=== PATIENT | male | born 1985 | race Two or more races ===

== ENCOUNTER 2020-07-13 08:59 | Inpatient (IN) | payer MEDICAID, OTHER ==
[~2020-07-13] VITALS: Ht 167.6 cm; Wt 113.8 kg
[2020-07-13] VITALS (11 sets, daily range): BP systolic 75–201; BP diastolic 51–121
[2020-07-13 09:17] LABS: BASE EXCESS COOX 0 mmol/L (-3-3); HCO3 COOX 24 mmol/L (21-28); METHEMOGLOBIN 0.3 % (0.0-1.9); PCO2 COOX 39 mmHg (35-46); PO2 COOX 64 mmHg (85-108); SAT O2 COOX 93 % (92-99)
--- NOTE | 2020-07-13 09:24 | PHYS DOC ---
Past Medical History Past Medical History: No Pertinent History Smoking Status: Current Every Day Smoker Alcohol Use: None Drug Use: None General Adult EDM: Chief Complaint: DYSPNEA/RESPIRATOY DISTRESS HPI: HPI: Patient is a 35 year old presents with chief complaint of respiratory distress. Patient tested positive for Covid about 6 days ago. Patient had a fever, chills, cough, myalgias and headache. Patient had abdominal discomfort with diarrhea. Over the last day the patient became more short of breath. Patient had trouble sleeping and was satting 65% on room air in triage. Symptoms worse with activity and at night and somewhat better with taking Tylenol. Pain is described as a cramping discomfort and diffuse. Review of Systems: Review of Systems: Constitutional: Denies fever or chills. [] Eyes: Denies change in visual acuity. [] HENT: Complains of congestion and sore throat Respiratory: Complains of cough and shortness of breath Cardiovascular: Complains of chest tightness GI: Complains of abdominal pain with diarrhea : Denies dysuria. [] Musculoskeletal: Complains of diffuse myalgias Integument: Denies rash. [] Neurologic: Complains of headache but no, focal weakness or sensory changes. [] Endocrine: Denies polyuria or polydipsia. [] Lymphatic: Denies swollen glands. [] Psychiatric: Denies depression or anxiety. [] Heart Score: Risk Factors: Risk Factors: DM, Current or recent (<one month) smoker, HTN, HLP, family history of CAD, obesity. Risk Scores: Score 0 - 3: 2.5% MACE over next 6 weeks - Discharge Home Score 4 - 6: 20.3% MACE over next 6 weeks - Admit for Clinical Observation Score 7 - 10: 72.7% MACE over next 6 weeks - Early Invasive Strategies Current Medications: Current Medications Medications (Trade) Dose Ordered Sig/Sola Start Time Stop Time Status Last Admin Dose Admin Acetaminophen (Tylenol) 1,000 mg 1X ONCE 07/13/20 09:30 07/13/20 09:31 UNV Azithromycin 250 ml @ 250 mls/hr 1X ONCE 07/13/20 09:30 07/13/20 10:29 UNV Ceftriaxone Sodium (Rocephin) 1 gm 1X ONCE 07/13/20 09:30 07/13/20 09:31 UNV Dexamethasone Sodium Phosphate (Decadron) 6 mg 1X ONCE 07/13/20 09:30 07/13/20 09:31 UNV Sodium Chloride 1,000 ml @ 1,000 mls/hr 1X ONCE 07/13/20 09:30 07/13/20 10:29 UNV Physical Exam: PE: Constitutional: Well developed, well nourished, moderate respiratory distress HENT: Normocephalic, atraumatic, bilateral external ears normal, no trismus nose normal. [] Eyes: PERRLA, EOMI, conjunctiva normal, no discharge. [] Neck: Normal range of motion, no tenderness, no meningeal signs Cardiovascular:Heart rate regular rhythm, peripheral pulse intact cap refills less than 2 seconds Lungs & Thorax: Moderate respiratory distress, decreased breath sounds bilaterally Abdomen: Soft with mild left sided abdominal tenderness without guarding or rebound, no masses, no pulsatile masses. [] Skin: Warm, dry, no erythema, no rash. [] Back: No tenderness, no CVA tenderness. [] Extremities: No tenderness, no cyanosis, no clubbing, ROM intact, mild bilateral extremity edema Neurologic: Alert and oriented X 3, normal motor function, normal sensory function, no focal deficits noted. [] Psychologic: Affect normal, judgement normal, mood normal. [] Current Patient Data: Labs: Laboratory Tests Test 07/13/20 09:16 O2 Saturation 93 % (92-99) Arterial Blood pH 7.42 (7.35-7.45) Arterial Blood pCO2 at Patient Temp 39 mmHg (35-46) Arterial Blood pO2 at Patient Temp 64 mmHg (85-108) L Arterial Blood HCO3 24 mmol/L (21-28) Arterial Blood Base Excess 0 mmol/L (-3-3) Oxyhemoglobin 92.0 % Methemoglobin 0.3 % (0.0-1.9) Carbon Monoxide, Quantitative 0.5 % (0.0-1.9) FiO2 100 Vital Signs: Vital Signs Date Time Temp Pulse Resp B/P (MAP) Pulse Ox O2 Delivery O2 Flow Rate FiO2 07/13/20 11:11 108/59 (75) VAPOTHERM 07/13/20 10:35 98 104/51 (68) 92 VAPOTHERM 07/13/20 10:09 98 24 112/59 (76) 96 VAPOTHERM 07/13/20 09:45 100 VAPOTHERM 40.0 07/13/20 09:35 104 45 119/56 (77) 92 07/13/20 08:59 99.4 111 40 136/73 (94) 57 Room Air 99.4 EKG: EKG: [] EKG interpreted by me sinus tachycardia with a rate of 104 normal axis normal intervals nonspecific ST changes Radiology/Procedures: Radiology/Procedures: [][place] [id number] IMAGING REPORT Signed PATIENT: CORKY NEELY ACCOUNT: [id number] : 1985 LOCATION: ER AGE: 35 SEX: M EXAM STATUS: REG ER ORD. PHYSICIAN: DAISY HANNA MD REASON: SOA, COVID PROCEDURE: PORTABLE CHEST 1V EXAM: XR CHEST 1V INDICATION: Reason: SOA, COVID / Spl. Instructions: / History: . TECHNIQUE: Single view COMPARISON: None FINDINGS: The heart size is normal. The great vessels appear unremarkable. There is no hilar or mediastinal mass. Lungs show extensive patchy peripheral predominant ill-defined opacities bilaterally. There is no pleural effusion or pneumothorax. There are no significant osseous abnormalities. IMPRESSION: Radiographic findings compatible with extensive atypical pneumonia bilaterally. Electronically signed by: Jackie Britt MD (07/13/2020 9:31 AM) [id number] DICTATED and SIGNED BY: JACKIE BRITT MD DATE: 07/13/20 [id number] [address] [address] IMAGING REPORT Signed PATIENT: CORKY NEELY ACCOUNT: [id number] : 1985 LOCATION: ED HOLD AGE: 35 SEX: M EXAM STATUS: ADM IN ORD. PHYSICIAN: DAISY HANNA MD REASON: soa, +covid, +d dimer PROCEDURE: CT ANGIOGRAPHY CHEST Study: CT CHEST WITH CONTRAST - PULMONARY ANGIOGRAM History: Covid positive, shortness of breath, elevated d-dimer Comparison: Chest radiograph same day Technique: Helical CT of the chest performed after the administration of 100 mL Omnipaque 350 intravenous contrast and timed for angiographic evaluation of the pulmonary arteries per PE protocol. Coronal and sagittal 3D MIP reformations were obtained. One or more of the following individualized dose reduction techniques were utilized for this examination: 1. Automated exposure control 2. Adjustment of the mA and/or kV according to patient size 3. Use of iterative reconstruction technique. Findings: Pulmonary Arteries: Contrast bolus is adequate to evaluate through the proximal to mid segmental pulmonary artery. Mild motion artifact. No evidence of acute pu lmonary embolism. Heart/Systemic Vasculature: The heart is normal in size. There is no pericardial effusion. Thoracic aorta is normal in caliber. Mediastinum: Enlarged mediastinal and hilar lymph nodes are likely reactive. Lungs: Extensive, fairly confluent groundglass opacities throughout both lungs, greatest peripherally and in the lung bases. The airways are clear. No pleural effusion. Neck/Axilla/Body Wall: Unremarkable. No axillary lymphadenopathy. Upper Abdomen: Unremarkable. Bones: No acute abnormality. IMPRESSION: 1. No evidence of acute pulmonary embolism. Evaluation of distal pulmonary arteries is limited by motion artifact. 2. Extensive, fairly confluent groundglass opacities throughout both lungs, slightly peripheral and basilar predominance. This could be seen with severe multifocal pneumonia and/or ARDS. Electronically signed by: Lucinda Cespedes MD (07/13/2020 11:33 AM) [id number] DICTATED and SIGNED BY: LUCINDA CESPEDES MD DATE: 07/13/20 [id number] 0 Course & Med Decision Making: Course & Med Decision Making Pertinent Labs and Imaging studies reviewed. (See chart for details) [] Patient immediately brought back to room 22 and put in isolation. Patient placed on nonrebreather and sats came up to the 90s. Respiratory evaluated patient order put the patient on Vapotherm. Steroids and antibiotics have been ordered. Dr. Lenz was in the ER upon patient's initial arrival I discussed the case with him he will admit him to the ICU. 35-year-old male presents with hypoxic respiratory failure from COVID-19. Patient significantly improved after being placed on Vapotherm. Chest x-ray shows multifocal pneumonia. Blood gas shows significant hypoxia. Patient will need ICU care. Patient given steroids in the ER as well as fluids and antibiotics. Consult is been placed with pulmonary as well as infectious disease. Patient has elevated D-dimer and will undergo a CT angiogram to rule out pulmonary embolism. Critical care Critical care time was [40] minutes exclusive of procedures. Critical care time was [40] minutes which includes time at bedside, spent in discussion of patient's care with specialist and/or family members, with interpretation of laboratory and/or radiological studies and is exclusive of procedures. Critical condition: Hypoxic respiratory failure due to COVID-19 Critical interventions, Vapotherm, oxygen therapy, steroids, admission to ICU with multiple consults. Dragon Disclaimer: Dragon Disclaimer: This electronic medical record was generated, in whole or in part, using a voice recognition dictation system. Departure Departure Impression: Primary Impression: Acute hypoxemic respiratory failure due to severe acute respiratory syndrome coronavirus 2 (SARS-CoV-2) disease Additional Impression: Dyspnea Disposition: 09 ADMITTED INPT THIS HOSP Admitting Physician: EDISON MO) Condition: CRITICAL Referrals: NO PCP (PCP) DAISY HANNA MD Jul 13, 2020 09:24
[2020-07-13] MEDS ORDERED: cefTRIAXone IV Push 1 GM VIAL. IVP ONE ×2 (09:28→09:30)
[2020-07-13] MEDS ORDERED: AZITHRMYCN 500MG IVPB FOR OMNI 250 ML IV ONE ×2 (09:28→09:30)
[2020-07-13] MEDS ORDERED: DEXAMETHASONE SOD PHOS 4 MG/ML VIAL ONE (09:28)
[2020-07-13] MEDS ORDERED: IV NORMAL SALINE 1000ML BAG 1,000 ML IV ONE ×2 (09:30→11:00)
[2020-07-13] MEDS ORDERED: ACETAMINOPHEN 500 MG TABLET PO ONE (09:30)
[2020-07-13] MEDS ORDERED: DEXAMETHASONE SOD PHOS 20 MG/5 ML VIAL. IV ONE (09:30)
--- NOTE | 2020-07-13 09:33 | RAD ---
EXAM: XR CHEST 1V INDICATION: Reason: SOA, COVID / Spl. Instructions: / History: . TECHNIQUE: Single view COMPARISON: None FINDINGS: The heart size is normal. The great vessels appear unremarkable. There is no hilar or mediastinal mass. Lungs show extensive patchy peripheral predominant ill-defined opacities bilaterally. There is no pleural effusion or pneumothorax. There are no significant osseous abnormalities. IMPRESSION: Radiographic findings compatible with extensive atypical pneumonia bilaterally. Electronically signed by: Naldo Britt MD (07/13/2020 9:31 AM) [id number]
--- NOTE | 2020-07-13 09:41 | EKG ---
[facility] [address] [place] [address] Test Date: 2020-07-13 Test Time: 09:12:29 Pat Name: CORKY NEELY Department: Room: Gender: M [employer]: : 1985 Requested By: DAISY HANNA Order Number: [id number] Reading MD: Measurements Intervals [place] Rate: 104 P: 26 MI: 136 QRS: 38 QRSD: 94 T: 17 QT: 330 QTc: 440 Interpretive Statements SINUS TACHYCARDIA LEFT ATRIAL ABNORMALITY QRS(T) CONTOUR ABNORMALITY CONSIDER ANTEROSEPTAL MYOCARDIAL DAMAGE ABNORMAL ECG RI6.01 No previous ECG available for comparison
[2020-07-13] MEDS ORDERED: DEXAMETHASONE SOD PHOS 4 MG/ML VIAL IVP ONE (09:45)
[2020-07-13] MEDS ORDERED: ONDANSETRON PF 4 MG/2 ML VIAL. IV PRN (09:45)
[2020-07-13] MEDS ORDERED: IOHEXOL 350 MG/ML 100 ML VIAL. IV ONE (10:15)
[2020-07-13] MEDS ORDERED: CONTRAST GIVEN. MC PRN (10:30)
[2020-07-13 10:37] LABS: ALBUMIN 1.5 g/dL (3.4-5.0); ALBUMIN/GLOBULIN RATIO 0.5 (1.0-1.7); CREATININE 0.5 mg/dL (0.7-1.3); GFR 188.1; TOTAL BILIRUBIN 0.2 mg/dL (0.2-1.0); TOTAL PROTEIN 4.6 g/dL (6.4-8.2)
[2020-07-13 10:40] LABS: CALCIUM 5.7 mg/dL (8.5-10.1); POTASSIUM 2.6 mmol/L (3.5-5.1)
[2020-07-13] MEDS ORDERED: POTASSIUM CHLORIDE 20MEQ 100 ML IV SCH (10:45)
[2020-07-13 10:54] LABS: MAGNESIUM 1.2 mg/dL (1.8-2.4); PHOSPHORUS 1.7 mg/dL (2.6-4.7)
[2020-07-13 11:08] LABS: BASO % 0 % (0-3); EOS % 0 % (0-3); HEMATOCRIT 35.3 % (39.0-53.0); HEMOGLOBIN 11.7 g/dL (13.0-17.5); LYMPH # 0.7 x10^3/uL (1.0-4.8); LYMPH % 8 % (24-48); MEAN CORPUSCULAR HEMOGLOBIN 27 pg (25-35); MEAN CORPUSCULAR HGB CONC 33 g/dL (31-37); MEAN CORPUSCULAR VOLUME 82 fL (79-100); MONO # 0.2 x10^3/uL (0.0-1.1); MONO % 2 % (0-9); NEUT # 7.9 x10^3/uL (1.8-7.7); NEUT % 90 % (31-73); PLATELET COUNT 164 x10^3/uL (140-400); RED BLOOD COUNT 4.33 x10^6/uL (4.30-5.70); RED CELL DISTRIBUTION WIDTH 15.1 % (11.5-14.5); WHITE BLOOD COUNT 8.8 x10^3/uL (4.0-11.0)
[2020-07-13 11:09] LABS: D-DIMER 0.73 ug/mlFEU (0.00-0.50); PROTHROMBIN TIME PATIENT 16.3 SEC (11.7-14.0)
[2020-07-13] MEDS ORDERED: POTASSIUM CHLORIDE 20 MEQ TABLET.ER. PO ONE (11:15)
[2020-07-13] MEDS: POTASSIUM CHLORIDE 10MEQ 100 ML IV SCH ×4 (11:21→17:17)
[2020-07-13 11:28] LABS: BILIRUBIN,URINE SMALL (NEG); CLARITY,URINE CLOUDY; COLOR,URINE ORANGE; NITRITE,URINE NEGATIVE (NEG); PH,URINE 5.5 (<5.0-8.0); PROTEIN,URINE >=300 mg/dL (NEG-TRACE)
[2020-07-13] MEDS ORDERED: MAGNESIUM SULFATE 2GM 50 ML IV ONE ×2 (11:30→12:30)
--- NOTE | 2020-07-13 11:35 | RAD ---
Study: CT CHEST WITH CONTRAST - PULMONARY ANGIOGRAM History: Covid positive, shortness of breath, elevated d-dimer Comparison: Chest radiograph same day Technique: Helical CT of the chest performed after the administration of 100 mL Omnipaque 350 intrav enous contrast and timed for angiographic evaluation of the pulmonary arteries per PE protocol. Coron al and sagittal 3D MIP reformations were obtained. One or more of the following individualized dose reduction techniques were utilized for this examinat ion: 1. Automated exposure control 2. Adjustment of the mA and/or kV according to patient size 3. Use of iterative reconstruction technique. Findings: Pulmonary Arteries: Contrast bolus is adequate to evaluate through the proximal to mid segmental pulm onary artery. Mild motion artifact. No evidence of acute pulmonary embolism. Heart/Systemic Vasculature: The heart is normal in size. There is no pericardial effusion. Thoracic a lidia is normal in caliber. Mediastinum: Enlarged mediastinal and hilar lymph nodes are likely reactive. Lungs: Extensive, fairly confluent groundglass opacities throughout both lungs, greatest peripherally and in the lung bases. The airways are clear. No pleural effusion. Neck/Axilla/Body Wall: Unremarkable. No axillary lymphadenopathy. Upper Abdomen: Unremarkable. Bones: No acute abnormality. IMPRESSION: 1. No evidence of acute pulmonary embolism. Evaluation of distal pulmonary arteries is limited by mo tion artifact. 2. Extensive, fairly confluent groundglass opacities throughout both lungs, slightly peripheral and basilar predominance. This could be seen with severe multifocal pneumonia and/or ARDS. Electronically signed by: Lucinda Cespedes MD (07/13/2020 11:33 AM) [id number]
[2020-07-13 11:45] LABS: BACTERIA,URINE FEW /HPF (0-FEW); RBC,URINE OCC /HPF (0-2)
[2020-07-13] MEDS ORDERED: CALCIUM GLUCONATE 1,000 MG in IV NORMAL SALINE 100ML 100 ML IV ONE (11:45)
[2020-07-13 11:46] LABS: HYALINE CASTS, URINE MODERATE /HPF
[2020-07-13 11:55] LABS: % ATYL 1 % (0-0); % BANDS 29 % (0-9); % LYMPHS 11 % (24-48); % MONOS 1 % (0-10); % SEGS 58 % (35-66)
[2020-07-13 11:57] LABS: PLT ESTIMATE ADEQUATE (ADEQUATE)
--- NOTE | 2020-07-13 12:24 | PDOC1 ---
History and Physical Date of Service: DOS: DATE: 07/13/20 TIME: 12:20 Chief Complaint: Chief Complain: Shortness of breath History of Present Illness: HPI: 35 year old presents with chief complaint of respiratory distress. Patient tested positive for Covid about 6 days ago. Patient had a fever, chills, cough, myalgias and headache. Patient had abdominal discomfort with diarrhea. Over the last day the patient became more short of breath. Patient had trouble sleeping and was satting 65% on room air in triage. Symptoms worse with activity and at night and somewhat better with taking Tylenol. Pain is described as a cramping discomfort and diffuse Past Medical/Surgical History: PMH/PSH: No past medical or surgical history Allergies: Allergies: Coded Allergies: No Known Drug Allergies (Unverified , 07/13/20) Family History: Family History: Reviewed and with no relevant findings Social History: Social History: Current every day smoker Current Medications: Current Medications Current Medications Dexamethasone Sodium Phosphate (Decadron) 6 mg 1X ONCE IV ; Start 07/13/20 at 09:30; Stop 07/13/20 at 09:39; Status DC Ceftriaxone Sodium (Rocephin) 1 gm 1X ONCE IVP Last administered on 07/13/20at 09:36; Start 07/13/20 at 09:30; Stop 07/13/20 at 09:31; Status DC Azithromycin 250 ml @ 250 mls/hr 1X ONCE IV Last administered on 07/13/20at 09:37; Start 07/13/20 at 09:30; Stop 07/13/20 at 10:29; Status DC Sodium Chloride 1,000 ml @ 1,000 mls/hr 1X ONCE IV Last administered on 07/13/20at 09:36; Start 07/13/20 at 09:30; Stop 07/13/20 at 10:29; Status DC Acetaminophen (Tylenol) 1,000 mg 1X ONCE PO Last administered on 07/13/20at 09:36; Start 07/13/20 at 09:30; Stop 07/13/20 at 09:31; Status DC Dexamethasone Sodium Phosphate (Decadron) 4 mg STK-MED ONCE .ROUTE ; Start 07/13/20 at 09:28; Stop 07/13/20 at 09:28; Status DC Azithromycin 250 ml @ As Directed STK-MED ONCE IV ; Start 07/13/20 at 09:28; Stop 07/13/20 at 09:28; Status DC Ceftriaxone Sodium (Rocephin) 1 gm STK-MED ONCE IVP ; Start 07/13/20 at 09:28; Stop 07/13/20 at 09:28; Status DC Dexamethasone Sodium Phosphate (Decadron) 6 mg 1X ONCE IVP Last administered on 07/13/20at 09:42; Start 07/13/20 at 09:45; Stop 07/13/20 at 09:46; Status DC Ondansetron HCl (Zofran) 4 mg PRN Q8HRS PRN IV NAUSEA/VOMITING; Start 07/13/20 at 09:45; Stop 07/14/20 at 09:44 Enoxaparin Sodium (Lovenox 120mg Syringe) 110 mg 1X ONCE SQ Last administered on 07/13/20at 10:14; Start 07/13/20 at 10:15; Stop 07/13/20 at 10:16; Status DC Iohexol (Omnipaque 350 Mg/ml) 100 ml 1X ONCE IV Last administered on 07/13/20at 10:15; Start 07/13/20 at 10:15; Stop 07/13/20 at 10:16; Status DC Info (CONTRAST GIVEN -- Rx MONITORING) 1 each PRN DAILY PRN MC SEE COMMENTS; Start 07/13/20 at 10:30; Stop 07/15/20 at 10:29 Potassium Chloride (Klor-Con) 40 meq 1X ONCE PO Last administered on 06/25 at 11:20; Start 07/13/20 at 11:15; Stop 07/13/20 at 11:16; Status DC Potassium Chloride/Water 100 ml @ 100 mls/hr Q1H IV ; Start 07/13/20 at 10:45; Stop 07/13/20 at 10:46; Status DC Potassium Chloride/Water 100 ml @ 100 mls/hr Q1H IV Last administered on 07/13/20at 11:21; Start 07/13/20 at 11:30; Stop 07/13/20 at 15:29 Sodium Chloride 1,000 ml @ 125 mls/hr 1X ONCE IV Last administered on 07/13/20at 11:26; Start 07/13/20 at 11:00; Stop 07/13/20 at 18:59 Calcium Gluconate 1000 mg/Sodium Chloride 110 ml @ 220 mls/hr 1X ONCE IV Last administered on 07/13/20at 11:51; Start 07/13/20 at 11:45; Stop 07/13/20 at 12:14; Status DC Magnesium Sulfate 50 ml @ 25 mls/hr 1X ONCE IV ; Start 07/13/20 at 11:30; Stop 07/13/20 at 13:29 ROS: Review of Systems Review of System REVIEW OF SYSTEMS: GENERAL: Denies weakness SKIN: No bruising, hair changes or rashes. EYES: No blurred, double or loss of vision. NOSE AND THROAT: No history of nosebleeds, hoarseness or sore throat. HEART: No history of palpitations, chest pain or shortness of breath on exertion. LUNGS: Denies cough, hemoptysis, wheezing or shortness of breath. GASTROINTESTINAL: Denies changes in appetite, nausea, vomiting, diarrhea or constipation. GENITOURINARY: No history of frequency, urgency, hesitancy or nocturia. NEUROLOGIC: Denies history of numbness, tingling, or tremor. PSYCHIATRIC: No history of panic, anxiety or depression. ENDOCRINE: No history of heat or cold intolerance, polyuria or polydipsia. EXTREMITIES: Denies joint pain, pain on walking or stiffness. Physical Exam: Vital Signs: Vital Signs Date Time Temp Pulse Resp B/P (MAP) Pulse Ox O2 Delivery O2 Flow Rate FiO2 07/13/20 11:41 98 104/60 (75) VAPOTHERM 07/13/20 10:35 92 07/13/20 10:09 24 07/13/20 09:45 40.0 07/13/20 08:59 99.4 99.4 Physcial Exam: GEN: No apparent distress. Alert and oriented HEENT: Normal cephalic, atraumatic, external auditory canals are patent EYES: Extraocular muscles are intact, pupil are equally round and reactive to light and accommodation MUSCULOSKELETAL: Well developed , well nourished, good range of motion ENDOCRINE: No thyromegaly was palpated LYMPHATICS: No cervical chain or axillary nodes were noted HEMATOPOIETIC: No bruising NECK: Supple, no JVD, no thyromegaly was noted LUNGS: Clear to auscultation in all lung chang without rhonchi or wheezing HEART: RRR, S!, S2 present. Peripheral pulses intact, no obvious murmurs noted ABDOMEN: Soft, nontender. Positive bowel sounds, no organomegaly, normal bowel sounds EXTREMITIES: Without clubbing, cyanosis, or edema. Pedal pulses intact. Negative Homans sign NEUROLOGIC: Normal speech and tone. A&O x 3, moves all extremities, no obvious focal deficits PSYCHIATRIC: Normal affect, normal mood. Stable SKIN: No ulcerations or rashes, good skin turgor, no jaundice VASCULAR: Good capillary refill, neurovascular bundle appears to be intact Labs: Labs: Laboratory Tests Test 07/13/20 09:16 07/13/20 09:50 07/13/20 11:00 O2 Saturation 93 % (92-99) Arterial Blood pH 7.42 (7.35-7.45) Arterial Blood pCO2 at Patient Temp 39 mmHg (35-46) Arterial Blood pO2 at Patient Temp 64 mmHg (85-108) Arterial Blood HCO3 24 mmol/L (21-28) Arterial Blood Base Excess 0 mmol/L (-3-3) Oxyhemoglobin 92.0 % Methemoglobin 0.3 % (0.0-1.9) Carbon Monoxide, Quantitative 0.5 % (0.0-1.9) FiO2 100 White Blood Count 8.8 x10^3/uL (4.0-11.0) Red Blood Count 4.33 x10^6/uL (4.30-5.70) Hemoglobin 11.7 g/dL (13.0-17.5) Hematocrit 35.3 % (39.0-53.0) Mean Corpuscular Volume 82 fL (79-100) Mean Corpuscular Hemoglobin 27 pg (25-35) Mean Corpuscular Hemoglobin Concent 33 g/dL (31-37) Red Cell Distribution Width 15.1 % (11.5-14.5) Platelet Count 164 x10^3/uL (140-400) Neutrophils (%) (Auto) 90 % (31-73) Lymphocytes (%) (Auto) 8 % (24-48) Monocytes (%) (Auto) 2 % (0-9) Eosinophils (%) (Auto) 0 % (0-3) Basophils (%) (Auto) 0 % (0-3) Neutrophils # (Auto) 7.9 x10^3/uL (1.8-7.7) Lymphocytes # (Auto) 0.7 x10^3/uL (1.0-4.8) Monocytes # (Auto) 0.2 x10^3/uL (0.0-1.1) Eosinophils # (Auto) 0.0 x10^3/uL (0.0-0.7) Basophils # (Auto) 0.0 x10^3/uL (0.0-0.2) Segmented Neutrophils % 58 % (35-66) Band Neutrophils % 29 % (0-9) Lymphocytes % 11 % (24-48) Atypical Lymphocytes % (Manual) 1 % (0-0) Monocytes % 1 % (0-10) Platelet Estimate Adequate (ADEQUATE) Prothrombin Time 16.3 SEC (11.7-14.0) Prothromb Time International Ratio 1.4 (0.8-1.1) Activated Partial Thromboplast Time 41 SEC (24-38) D-Dimer (Hannah) 0.73 ug/mlFEU (0.00-0.50) Sodium Level 140 mmol/L (136-145) Potassium Level 2.6 mmol/L (3.5-5.1) Chloride Level 105 mmol/L (98-107) Carbon Dioxide Level 20 mmol/L (21-32) Anion Gap 15 (6-14) Blood Urea Nitrogen 7 mg/dL (8-26) Creatinine 0.5 mg/dL (0.7-1.3) Estimated GFR (Cockcroft-Gault) 188.1 BUN/Creatinine Ratio 14 (6-20) Glucose Level 174 mg/dL (70-99) Lactic Acid Level 1.4 mmol/L (0.4-2.0) Calcium Level 5.7 mg/dL (8.5-10.1) Phosphorus Level 1.7 mg/dL (2.6-4.7) Magnesium Level 1.2 mg/dL (1.8-2.4) Ferritin 153 ng/mL (26-388) Total Bilirubin 0.2 mg/dL (0.2-1.0) Aspartate Amino Transf (AST/SGOT) 50 U/L (15-37) Alanine Aminotransferase (ALT/SGPT) 27 U/L (16-63) Alkaline Phosphatase 58 U/L (46-116) Lactate Dehydrogenase 435 U/L (85-227) Troponin I Quantitative < 0.017 ng/mL (0.000-0.055) C-Reactive Protein, Quantitative 178.0 mg/L (0-3.3) HH-Kju-J-Type Natriuretic Peptide 50 pg/mL (0-124) Total Protein 4.6 g/dL (6.4-8.2) Albumin 1.5 g/dL (3.4-5.0) Albumin/Globulin Ratio 0.5 (1.0-1.7) Procalcitonin 0.68 ng/mL (0.00-0.10) Urine Collection Type Void Urine Color Gary Urine Clarity Cloudy Urine pH 5.5 (<5.0-8.0) Urine Specific [place] >=1.030 (1.000-1.030) Urine Protein >=300 mg/dL (NEG-TRACE) Urine Glucose (UA) 100 mg/dL (NEG) Urine Ketones (Stick) Trace mg/dL (NEG) Urine Blood Negative (NEG) Urine Nitrite Negative (NEG) Urine Bilirubin Small (NEG) Urine Urobilinogen Dipstick 1.0 mg/dL (0.2 mg/dL) Urine Leukocyte Esterase Trace (NEG) Urine RBC Occ /HPF (0-2) Urine WBC 5-10 /HPF (0-4) Urine Squamous Epithelial Cells Few /LPF Urine Bacteria Few /HPF (0-FEW) Urine Hyaline Casts Moderate /HPF Urine Mucus Mod /LPF Laboratory Tests Test 07/13/20 09:16 07/13/20 09:50 07/13/20 11:00 O2 Saturation 93 % (92-99) Arterial Blood pH 7.42 (7.35-7.45) Arterial Blood pCO2 at Patient Temp 39 mmHg (35-46) Arterial Blood pO2 at Patient Temp 64 mmHg (85-108) Arterial Blood HCO3 24 mmol/L (21-28) Arterial Blood Base Excess 0 mmol/L (-3-3) Oxyhemoglobin 92.0 % Methemoglobin 0.3 % (0.0-1.9) Carbon Monoxide, Quantitative 0.5 % (0.0-1.9) FiO2 100 White Blood Count 8.8 x10^3/uL (4.0-11.0) Red Blood Count 4.33 x10^6/uL (4.30-5.70) Hemoglobin 11.7 g/dL (13.0-17.5) Hematocrit 35.3 % (39.0-53.0) Mean Corpuscular Volume 82 fL (79-100) Mean Corpuscular Hemoglobin 27 pg (25-35) Mean Corpuscular Hemoglobin Concent 33 g/dL (31-37) Red Cell Distribution Width 15.1 % (11.5-14.5) Platelet Count 164 x10^3/uL (140-400) Neutrophils (%) (Auto) 90 % (31-73) Lymphocytes (%) (Auto) 8 % (24-48) Monocytes (%) (Auto) 2 % (0-9) Eosinophils (%) (Auto) 0 % (0-3) Basophils (%) (Auto) 0 % (0-3) Neutrophils # (Auto) 7.9 x10^3/uL (1.8-7.7) Lymphocytes # (Auto) 0.7 x10^3/uL (1.0-4.8) Monocytes # (Auto) 0.2 x10^3/uL (0.0-1.1) Eosinophils # (Auto) 0.0 x10^3/uL (0.0-0.7) Basophils # (Auto) 0.0 x10^3/uL (0.0-0.2) Segmented Neutrophils % 58 % (35-66) Band Neutrophils % 29 % (0-9) Lymphocytes % 11 % (24-48) Atypical Lymphocytes % (Manual) 1 % (0-0) Monocytes % 1 % (0-10) Platelet Estimate Adequate (ADEQUATE) Prothrombin Time 16.3 SEC (11.7-14.0) Prothromb Time International Ratio 1.4 (0.8-1.1) Activated Partial Thromboplast Time 41 SEC (24-38) D-Dimer (Hannah) 0.73 ug/mlFEU (0.00-0.50) Sodium Level 140 mmol/L (136-145) Potassium Level 2.6 mmol/L (3.5-5.1) Chloride Level 105 mmol/L (98-107) Carbon Dioxide Level 20 mmol/L (21-32) Anion Gap 15 (6-14) Blood Urea Nitrogen 7 mg/dL (8-26) Creatinine 0.5 mg/dL (0.7-1.3) Estimated GFR (Cockcroft-Gault) 188.1 BUN/Creatinine Ratio 14 (6-20) Glucose Level 174 mg/dL (70-99) Lactic Acid Level 1.4 mmol/L (0.4-2.0) Calcium Level 5.7 mg/dL (8.5-10.1) Phosphorus Level 1.7 mg/dL (2.6-4.7) Magnesium Level 1.2 mg/dL (1.8-2.4) Ferritin 153 ng/mL (26-388) Total Bilirubin 0.2 mg/dL (0.2-1.0) Aspartate Amino Transf (AST/SGOT) 50 U/L (15-37) Alanine Aminotransferase (ALT/SGPT) 27 U/L (16-63) Alkaline Phosphatase 58 U/L (46-116) Lactate Dehydrogenase 435 U/L (85-227) Troponin I Quantitative < 0.017 ng/mL (0.000-0.055) C-Reactive Protein, Quantitative 178.0 mg/L (0-3.3) NT-Opm-I-Type Natriuretic Peptide 50 pg/mL (0-124) Total Protein 4.6 g/dL (6.4-8.2) Albumin 1.5 g/dL (3.4-5.0) Albumin/Globulin Ratio 0.5 (1.0-1.7) Procalcitonin 0.68 ng/mL (0.00-0.10) Urine Collection Type Void Urine Color Gary Urine Clarity Cloudy Urine pH 5.5 (<5.0-8.0) Urine Specific Wil[place] >=1.030 (1.000-1.030) Urine Protein >=300 mg/dL (NEG-TRACE) Urine Glucose (UA) 100 mg/dL (NEG) Urine Ketones (Stick) Trace mg/dL (NEG) Urine Blood Negative (NEG) Urine Nitrite Negative (NEG) Urine Bilirubin Small (NEG) Urine Urobilinogen Dipstick 1.0 mg/dL (0.2 mg/dL) Urine Leukocyte Esterase Trace (NEG) Urine RBC Occ /HPF (0-2) Urine WBC 5-10 /HPF (0-4) Urine Squamous Epithelial Cells Few /LPF Urine Bacteria Few /HPF (0-FEW) Urine Hyaline Casts Moderate /HPF Urine Mucus Mod /LPF Images: Images CXR IMPRESSION: Radiographic findings compatible with extensive atypical pneumonia bilaterally. CHEST CTA IMPRESSION: 1. No evidence of acute pulmonary embolism. Evaluation of distal pulmonary arteries is limited by motion artifact. 2. Extensive, fairly confluent groundglass opacities throughout both lungs, sl ightly peripheral and basilar predominance. This could be seen with severe multifocal pneumonia and/or ARDS. Assessment/Plan Assessment/Plan Acute hypoxic respiratory failure due to Covid infection Morbid obesity Acute electrolyte derangement hypokalemia, Hypocalcemia, Hypomagnesemia, Hypophosphatemia Severe protein malnutrition Admit to ICU for further management Pulmonology consult for Vapotherm management Continue IV thiamine and vitamin C IV 4 mg dexamethasone every 12 hours Pending ferritin, LDH, CRP, D-dimer labs Titrate O2 supplementation to maintain O2 saturation greater than 92% Pending chest CTA Lovenox for DVT prophylaxis Protonix while on steroids GI prophylaxis ADA diet Full code Discussed with RN and SW Disposition ICU management Surrogate decision maker is the A total of 55 minutes of critical care time was spent in reviewing chart, labs, and images. Discussed with RN and SW. Justifications for Admission Other Justification ADDISON FOWLER MD Jul 13, 2020 12:24
[2020-07-13] MEDS ORDERED: ENOXAPARIN 40 MG/0.4 ML SYRINGE. SQ SCH (13:00)
[2020-07-13] MEDS: DOXYCYCLINE HYCLATE 100 MG in IV DEXTROSE 5% 100ML 100 ML IV SCH ×2 (13:21→20:50)
--- NOTE | 2020-07-13 13:22 | CONS ---
DATE OF CONSULTATION: 07/13/2020 ATTENDING PHYSICIAN: Dr. Lui Lenz. REASON FOR CONSULTATION: The patient is seen in pulmonary consultation at the request of Dr. Lenz for acute respiratory failure secondary to COVID-19. HISTORY OF PRESENT ILLNESS: The patient is a 35-year-old that had respiratory distress. He had symptoms of COVID when tested positive approximately 6 days ago. He felt fine the first 4 days. In the last 24-48 hours, he has had increasing fever, chills, myalgia, increasing abdominal discomfort, some diarrhea and increasing shortness of breath. He was seen in the Emergency Department and had a saturation of 65%. He was admitted, placed on oxygen supplementation. I was asked to see him in consultation. PAST MEDICAL HISTORY: Unremarkable. SOCIAL HISTORY: He does smoke. REVIEW OF SYSTEMS: As indicated above, otherwise, a 10-point system was reviewed and negative. CURRENT MEDICATION: List was reviewed. PHYSICAL EXAMINATION: GENERAL: The patient was seen during the COVID-19 pandemic. He was seen in the Emergency Department. On visual inspection, he was able to complete full sentences. No significant respiratory distress. No paroxysmal breathing pattern. EXTREMITIES: Revealed no edema. SKIN: No skin rashes. LABORATORY DATA: Reviewed. White count was normal with lymphopenia. Arterial blood gas initially on 100% pO2 was 64, pH 7.42. D-dimer was elevated. Potassium was low. Calcium was low. Phosphorus was low. Albumin was low. Procalcitonin elevated. UA was noted. Chest x-ray revealed bilateral pulmonary infiltrates compatible with COVID-19. CT chest revealed no evidence of pulmonary emboli. There is a confluent ground glass opacities in both lungs. IMPRESSION: 1. Acute hypoxemic respiratory failure secondary to COVID-19 viral pneumonia. 2. COVID-19 viral pneumonia. 3. Abnormal x-ray. 4. Tobacco dependence. PLAN: 1. The patient will be admitted. Continue high-flow oxygen, Vapotherm. 2. Empiric antibiotics. 3. Case discussed with pharmacy, will initiate remdesivir. 4. Dexamethasone. 5. Vitamin C, zinc and vitamin D supplement. I do appreciate the privilege in sharing in the patient's care. NEEL GANT MD DR: JULES/nolvia JOB#: [id number] / [id number]
[2020-07-13] MEDS: ASCORBIC ACID 1,000 MG TABLET PO SCH (13:29)
[2020-07-13] MEDS: CHOLECALCIFEROL (VITAMIN D3) 1,000 UNIT TABLET PO SCH (13:31)
[2020-07-13] MEDS ORDERED: REMDESIVIR LOAD in IV NORMAL SALINE 250ML TV IV ONE (14:00)
--- NOTE | 2020-07-13 14:55 | NUR ---
Pt arrived on unit from ED via bed at approx 1250. Pt assisted bed, tele monitor applied. Pt denies pain, requesting food. Cardiac tray ordered, fresh water given. POC reviewed, orders acknowledged. Will assume care of this pt.
[2020-07-13] MEDS ORDERED: PROCHLORPERAZINE 10 MG/2 ML VIAL. IV PRN (16:15)
[2020-07-13] MEDS ORDERED: PHENOL ORAL SPRAY 177ML BOTTLE. PO PRN (16:15)
[2020-07-13] MEDS: ACETAMINOPHEN 325 MG TABLET. PO PRN ×2 (16:42→20:51)
[2020-07-13] MEDS ORDERED: DEXMEDETOMIDINE 400 MCG in IV NORMAL SALINE 100ML 96 ML IV PRN (17:00)
[2020-07-13] MEDS ORDERED: ATROPINE 0.5 MG/5 ML DISP.SYRINGE. IV PRN (17:00)
[2020-07-13] MEDS ORDERED: IV NORMAL SALINE 500ML BAG 500 ML IV PRN (17:00)
[2020-07-13 17:15] LABS: BASE EXCESS ABG -3 mmol/L (-3-3); HCO3 ABG 22 mmol/L (21-28); PCO2 ABG 38 mmHg (35-46); SAT O2 ABG 86 % (92-99)
[2020-07-13] MEDS ORDERED: STERILE WATER for RESP 1,000 ML BAG. INH PRN (17:15)
[2020-07-13 17:16] LABS: PO2 ABG 50 mmHg (85-108)
[2020-07-13 17:17] LABS: FIO2 ABG 100
[2020-07-13] MEDS ORDERED: PROPOFOL 100 ML IV ONE (17:20)
[2020-07-13] MEDS: BENZONATATE 100 MG CAPSULE. PO SCH (17:35)
--- NOTE | 2020-07-13 17:38 | NUR ---
Pt's O2 requirements increasing, O2 sat 86% on Vapotherm 40L, FiO2 100%, RR 56 upon assessment. luana Boles RN notified Dr. Lenz and Dr. Sandhu of these findings. Orders received to trial pt on BiPAP. Pt currently on BiPAP 11/03, rate 26, FiO2 100%. Pt's O2 sats 86-89%, RR still in the 50's. luana Boles RN received orders from Dr. Sandhu at approx 1740 to intubate pt.
[2020-07-13] MEDS ORDERED: SUCCINYLCHOLINE 200 MG/10 ML VIAL. ONE ×2 (17:40→18:00)
[2020-07-13] MEDS ORDERED: ETOMIDATE 20 MG/10 ML VIAL. IV ONE ×2 (18:00→18:24)
[2020-07-13] MEDS ORDERED: VECURONIUM BOLUS 10 MG VIAL. IV ONE (18:12)
[2020-07-13] MEDS: MIDAZOLAM 100mg/100ml NS BAG 100 ML IV PRN ×2 (18:41→20:33)
[2020-07-13] MEDS: PROPOFOL 100 ML IV PRN ×3 (18:48→22:21)
--- NOTE | 2020-07-13 19:02 | PDOC ---
Date of Service: DATE: 07/13/20 TIME: 18:20 Progress Note: Rapid Sequence Intubation: Patient was admitted in the ICU due to COVID-19 INFECTION, RESPIRATORY FAILURE. Patient was in respiratory distress. SALES [employer] MARKETING ASSOCIATE failed to intubate patient. Requested this physician to intubate patient urgently. Indication: Respiratory failure Consent: Unable to give consent due to emergent nature. Medications Used: see nursing note Procedure: The patient was placed in the appropriate position. Intubation was performed by this physician, used Glidescope, CORD VISUALIZATION METHOD, 7.5 endotracheal tube was used, once. ET SECURED 22 AT TEETH. Initial confirmation of placement included bilateral breath sounds, tube fogging, adequate chest rise, adequate pulse oximetry reading. A chest x-ray to verify correct placement of the tube showed appropriate tube position. The patient tolerated the procedure well. Complications: none. Justifications for Admission Other Justification MARITZA SHELTON DO Jul 13, 2020 19:02
[2020-07-13] MEDS ORDERED: VECURONIUM BOLUS 10 MG VIAL. IV PRN (19:30)
--- NOTE | 2020-07-13 19:51 | NUR ---
Upon shift change, the patients SPO2 was reading 78-80% on the monitor. Pt had just been intubated prior to shift change. Current ventilator settings AC 24/TV 500/PEEP 10/100% FiO2. Pts sedation medications increased per protocol up to maximum doses. Pt was suctioned down the ETT with little secretions. Pt also pulled up in the bed and pts HOB elevated. Call placed to Dr. Sandhu to notify of pt status. Received order for PRN Vecuronium Q4hrs and increase PEEP to 12. Orders entered into system and implemented. Pts current SPO2 reading 90% on the monitor.
--- NOTE | 2020-07-13 20:25 | RAD ---
ADDENDUM #1 ADDENDUM: Second image was obtained which demonstrates an enteric tube coiled in left upper quadrant likely in the stomach. No need to further advanced. Electronically signed by: Sussy Silver MD (07/13/2020 8:37 PM) [facility] ORIGINAL REPORT Exam: Chest one view INDICATION: Endotracheal tube and OG tube placement TECHNIQUE: Frontal view of the chest Comparisons: 07/13/2020 FINDINGS: Enteric tube with tip in the upper midabdomen, likely at the level of the GE junction. Endotracheal t ube with tip approximately 3 cm above the marleny. Heart size is normal. Pulmonary vessels are obscured. Diffuse hazy opacity in lungs bilaterally increased when compared to prior exam. IMPRESSION: Enteric tube with tip likely at the level of the gastroesophageal junction. Recommend advancing 12 to 15 cm. Electronically signed by: Sussy Silver MD (07/13/2020 8:23 PM) [facility]
[2020-07-13] MEDS: CHLORHEXIDINE 0.12% 15 ML MOUTHWASH. MM SCH (20:51)
[2020-07-13] MEDS: fentaNYL HIGH DOSE PCA 55 ML IV PRN (21:07)
[2020-07-13 21:09] LABS: BASE EXCESS ABG -6 mmol/L (-3-3); CORRECTED PCO2 ABG 63 mmHg; CORRECTED PH ABG 7.18; CORRECTED PO2 ABG 51 mmHg; HCO3 ABG 23 mmol/L (21-28); PCO2 ABG 57 mmHg (35-46); SAT O2 ABG 71 % (92-99)
[2020-07-13 21:10] LABS: FIO2 ABG 100; PO2 ABG 43 mmHg (85-108)
[2020-07-13] MEDS: VECURONIUM BROMIDE 50 MG in TOTAL VOLUME 50 ML IV PRN (22:55)
[2020-07-13] MEDS ORDERED: VANCOMYCIN PER PHARMACY MC PRN (23:16)
[2020-07-13] MEDS ORDERED: PIP/TAZO PER PHARMACY MC PRN (23:16)
[2020-07-13 23:33] LABS: CALCIUM 8.2 mg/dL (8.5-10.1); GFR 84.5; MAGNESIUM 2.2 mg/dL (1.8-2.4); POTASSIUM 5.8 mmol/L (3.5-5.1)
[2020-07-13] MEDS ORDERED: VANCOMYCIN 2 GM in IV NORMAL SALINE 500ML BAG 500 ML IV ONE (23:45)
[2020-07-14] VITALS (27 sets, daily range): BP systolic 80–159; BP diastolic 43–79
[2020-07-14] MEDS: IV RINGERS,LACTATED 1000ML 1,000 ML IV SCH ×3 (00:23→20:12)
[2020-07-14] MEDS: NOREPINEPHRINE VIAL 8 MG in IV DEXTROSE 5% 250 ML IV PRN (00:23)
[2020-07-14] MEDS: PIPERACILLIN/TAZOBACTAM 3.375 GM in IV NORMAL SALINE 50ML 50 ML IV SCH ×4 (00:24→18:21)
--- NOTE | 2020-07-14 01:21 | NUR ---
After ventilator changes and PRN vecuronium dose given, pts SPO2 in the 80s-90s on the monitor for approx 15 minutes. Pts SPO2 then again began to drop into the 70s. ABG also drawn, with critical PO2 of 51 adjusted due to pt having a temp of 103F. Results called to Dr. Sandhu. Received order to increase respiratory rate to 30 and tidal volume to 550. Ventilator settings adjusted per order. Pts SPO2 continued to read in the 70s on the monitor. Another call placed to Dr. Sandhu; received orders for vecuronium gtt. Pts temperature continued to be 103.3F when reassessed after administering tylenol, and placing ice and a fan on the patient. Cooling blanket obtained and rectal temperature probe inserted. This read the patients temperature at 104.9F. After applying the cooling blanket, the pts BP noted to be in the 70s/30s. Call placed to Dr. Lenz to notify of pt status and low blood pressure. Received orders for LR at 100/hr, Q6 accuchecks, follow ICU electrolyte protocol, start thiamine 300 mg IV daily, STAT Vanco and Zosyn per pharmacy, DC Rocephin and doxycycline, start levophed to keep MAP > 65, and perform urine drug screen. Orders all entered into system. Pts temperature currently reads 104.4F, BP 102/58, SPO2 87%. Pt within sight of care team. Will pass on and continue to monitor.
--- NOTE | 2020-07-14 02:11 | NUR ---
Pharmacy Vancomycin Dosing Note S:Consulted to monitor and dose vancomycin started 07/14/20. O:CORKY NEELY is a 35 year old M with Sepsis . Height: 5 feet, 6 inches Weight: 118.4 kg [place] Body Weight: 63.80 Adjusted Body Weight: 85.64 Dosing Weight: Actual Other Antibiotics: ZOSYN 3.375 Q6H LABS: Last BUN: 10 Last Creatinine: 1 Creatinine Clearance: >100 mL/min Last WBC: 8.8 Last Procalcitonin: Tmax (past 24 hours): Microbiology: I/O: Drug Levels: Last level: on at Last dose given 07/14/20 at 0000 Vancomycin Dosing: Loading Dose: 2000 mg x1 Dosing Weight: Actual Target Trough: 15-20 A: Based on: WT AND CRCL P: 1. Begin Vancomycin 1500 mg IV q8h 2. Follow up Trough level on 07/14/20 at 2330 3. Pharmacy will continue to monitor, follow and adjust therapy as needed. JIMI LOGAN RPH, 07/14/20210 Signed: 07/14/20 at 210 by JIMI LOGAN RPH PHA
[2020-07-14] MEDS: PROPOFOL 100 ML IV PRN ×4 (02:40→20:13)
[2020-07-14] MEDS: VECURONIUM BROMIDE 50 MG in TOTAL VOLUME 50 ML IV PRN ×2 (02:40→08:06)
[2020-07-14 04:12] LABS: AMPHETAMINE/METHAMPHETAMINE NEG (NEG); BARBITURATES NEG (NEG); BENZODIAZEPINES POS (NEG); CANNABINOIDS NEG (NEG); COCAINE NEG (NEG); METHADONE NEG (NEG); OPIATES NEG (NEG); PHENCYCLIDINE NEG (NEG)
[2020-07-14 04:26] LABS: INFLUENZA A PATIENT NEGATIVE (NEGATIVE); INFLUENZA B PATIENT NEGATIVE (NEGATIVE)
[2020-07-14] MEDS: BENZONATATE 100 MG CAPSULE. PO SCH ×5 (05:32→22:37)
[2020-07-14] MEDS: MIDAZOLAM 100mg/100ml NS BAG 100 ML IV PRN ×2 (07:17→18:21)
[2020-07-14] MEDS: fentaNYL HIGH DOSE PCA 55 ML IV PRN ×2 (07:50→20:57)
[2020-07-14] MEDS ORDERED: DEXAMETHASONE 4 MG TABLET PO SCH (08:00)
[2020-07-14] MEDS ORDERED: VANCOMYCIN 1.5 GM in IV NORMAL SALINE 500ML BAG 500 ML IV SCH (08:00)
--- NOTE | 2020-07-14 08:26 | PDOC ---
PULMONARY PROGRESS NOTES DATE: 07/14/20 TIME: 08:26 Subjective PT. was intubated overnight 2/2 respiratory distress on levo and VEC gtt no other concerns from nursing Vitals Vital Signs Date Time Temp Pulse Resp B/P (MAP) Pulse Ox O2 Delivery O2 Flow Rate FiO2 07/14/20 06:15 122 121/71 (88) 07/14/20 06:00 98.2 30 88 Ventilator 98.2 07/13/20 17:00 40.0 Comments Patient seen during , visual exam preformed intubated Tachy no accessory muscle use no distress no obvious edema Labs Laboratory Tests Test 07/13/20 09:16 07/13/20 09:50 07/13/20 11:00 07/13/20 17:15 O2 Saturation 93 % (92-99) 86 % (92-99) Arterial Blood pH 7.42 (7.35-7.45) 7.38 (7.35-7.45) Arterial Blood pCO2 at Patient Temp 39 mmHg (35-46) 38 mmHg (35-46) Arterial Blood pO2 at Patient Temp 64 mmHg (85-108) 50 mmHg (85-108) Arterial Blood HCO3 24 mmol/L (21-28) 22 mmol/L (21-28) Arterial Blood Base Excess 0 mmol/L (-3-3) -3 mmol/L (-3-3) Oxyhemoglobin 92.0 % Methemoglobin 0.3 % (0.0-1.9) Carbon Monoxide, Quantitative 0.5 % (0.0-1.9) FiO2 100 100 White Blood Count 8.8 x10^3/uL (4.0-11.0) Red Blood Count 4.33 x10^6/uL (4.30-5.70) Hemoglobin 11.7 g/dL (13.0-17.5) Hematocrit 35.3 % (39.0-53.0) Mean Corpuscular Volume 82 fL (79-100) Mean Corpuscular Hemoglobin 27 pg (25-35) Mean Corpuscular Hemoglobin Concent 33 g/dL (31-37) Red Cell Distribution Width 15.1 % (11.5-14.5) Platelet Count 164 x10^3/uL (140-400) Neutrophils (%) (Auto) 90 % (31-73) Lymphocytes (%) (Auto) 8 % (24-48) Monocytes (%) (Auto) 2 % (0-9) Eosinophils (%) (Auto) 0 % (0-3) Basophils (%) (Auto) 0 % (0-3) Neutrophils # (Auto) 7.9 x10^3/uL (1.8-7.7) Lymphocytes # (Auto) 0.7 x10^3/uL (1.0-4.8) Monocytes # (Auto) 0.2 x10^3/uL (0.0-1.1) Eosinophils # (Auto) 0.0 x10^3/uL (0.0-0.7) Basophils # (Auto) 0.0 x10^3/uL (0.0-0.2) Segmented Neutrophils % 58 % (35-66) Band Neutrophils % 29 % (0-9) Lymphocytes % 11 % (24-48) Atypical Lymphocytes % (Manual) 1 % (0-0) Monocytes % 1 % (0-10) Platelet Estimate Adequate (ADEQUATE) Prothrombin Time 16.3 SEC (11.7-14.0) Prothromb Time International Ratio 1.4 (0.8-1.1) Activated Partial Thromboplast Time 41 SEC (24-38) D-Dimer (Hannah) 0.73 ug/mlFEU (0.00-0.50) Sodium Level 140 mmol/L (136-145) Potassium Level 2.6 mmol/L (3.5-5.1) Chloride Level 105 mmol/L (98-107) Carbon Dioxide Level 20 mmol/L (21-32) Anion Gap 15 (6-14) Blood Urea Nitrogen 7 mg/dL (8-26) Creatinine 0.5 mg/dL (0.7-1.3) Estimated GFR (Cockcroft-Gault) 188.1 BUN/Creatinine Ratio 14 (6-20) Glucose Level 174 mg/dL (70-99) Lactic Acid Level 1.4 mmol/L (0.4-2.0) Calcium Level 5.7 mg/dL (8.5-10.1) Phosphorus Level 1.7 mg/dL (2.6-4.7) Magnesium Level 1.2 mg/dL (1.8-2.4) Ferritin 153 ng/mL (26-388) Total Bilirubin 0.2 mg/dL (0.2-1.0) Aspartate Amino Transf (AST/SGOT) 50 U/L (15-37) Alanine Aminotransferase (ALT/SGPT) 27 U/L (16-63) Alkaline Phosphatase 58 U/L (46-116) Lactate Dehydrogenase 435 U/L (85-227) Troponin I Quantitative < 0.017 ng/mL (0.000-0.055) C-Reactive Protein, Quantitative 178.0 mg/L (0-3.3) HR-Ipu-R-Type Natriuretic Peptide 50 pg/mL (0-124) Total Protein 4.6 g/dL (6.4-8.2) Albumin 1.5 g/dL (3.4-5.0) Albumin/Globulin Ratio 0.5 (1.0-1.7) Procalcitonin 0.68 ng/mL (0.00-0.10) Urine Collection Type Void Urine Color [place] Urine Clarity Cloudy Urine pH 5.5 (<5.0-8.0) Urine Specific [place] >=1.030 (1.000-1.030) Urine Protein >=300 mg/dL (NEG-TRACE) Urine Glucose (UA) 100 mg/dL (NEG) Urine Ketones (Stick) Trace mg/dL (NEG) Urine Blood Negative (NEG) Urine Nitrite Negative (NEG) Urine Bilirubin Small (NEG) Urine Urobilinogen Dipstick 1.0 mg/dL (0.2 mg/dL) Urine Leukocyte Esterase Trace (NEG) Urine RBC Occ /HPF (0-2) Urine WBC 5-10 /HPF (0-4) Urine Squamous Epithelial Cells Few /LPF Urine Bacteria Few /HPF (0-FEW) Urine Hyaline Casts Moderate /HPF Urine Mucus Mod /LPF Test 07/13/20 18:57 07/13/20 23:08 07/14/20 02:30 07/14/20 06:14 O2 Saturation 71 % (92-99) Arterial Blood pH 7.21 (7.35-7.45) Arterial Blood pH (Temp corrected) 7.18 Arterial Blood pCO2 at Patient Temp 57 mmHg (35-46) Arterial Blood pCO2 (Temp correct) 63 mmHg Arterial Blood pO2 at Patient Temp 43 mmHg (85-108) Arterial Blood pO2 (Temp corrected) 51 mmHg Arterial Blood HCO3 23 mmol/L (21-28) Arterial Blood Base Excess -6 mmol/L (-3-3) FiO2 100 Sodium Level 129 mmol/L (136-145) Potassium Level 5.8 mmol/L (3.5-5.1) Chloride Level 97 mmol/L (98-107) Carbon Dioxide Level 25 mmol/L (21-32) Anion Gap 7 (6-14) Blood Urea Nitrogen 10 mg/dL (8-26) Creatinine 1.0 mg/dL (0.7-1.3) Estimated GFR (Cockcroft-Gault) 84.5 Glucose Level 267 mg/dL (70-99) Calcium Level 8.2 mg/dL (8.5-10.1) Magnesium Level 2.2 mg/dL (1.8-2.4) Urine Opiates Screen Neg (NEG) Urine Methadone Screen Neg (NEG) Urine Barbiturates Neg (NEG) Urine Phencyclidine Screen Neg (NEG) Urine Amphetamine/Methamphetamine Neg (NEG) Urine Benzodiazepines Screen Pos (NEG) Urine Cocaine Screen Neg (NEG) Urine Cannabinoids Screen Neg (NEG) Urine Ethyl Alcohol Neg (NEG) Influenza Type A Antigen Negative (NEGATIVE) Influenza Type B Antigen Negative (NEGATIVE) Glucose (Fingerstick) 222 mg/dL (70-99) Laboratory Tests Test 07/13/20 09:16 07/13/20 09:50 07/13/20 11:00 07/13/20 17:15 O2 Saturation 93 % (92-99) 86 % (92-99) Arterial Blood pH 7.42 (7.35-7.45) 7.38 (7.35-7.45) Arterial Blood pCO2 at Patient Temp 39 mmHg (35-46) 38 mmHg (35-46) Arterial Blood pO2 at Patient Temp 64 mmHg (85-108) 50 mmHg (85-108) Arterial Blood HCO3 24 mmol/L (21-28) 22 mmol/L (21-28) Arterial Blood Base Excess 0 mmol/L (-3-3) -3 mmol/L (-3-3) Oxyhemoglobin 92.0 % Methemoglobin 0.3 % (0.0-1.9) Carbon Monoxide, Quantitative 0.5 % (0.0-1.9) FiO2 100 100 White Blood Count 8.8 x10^3/uL (4.0-11.0) Red Blood Count 4.33 x10^6/uL (4.30-5.70) Hemoglobin 11.7 g/dL (13.0-17.5) Hematocrit 35.3 % (39.0-53.0) Mean Corpuscular Volume 82 fL (79-100) Mean Corpuscular Hemoglobin 27 pg (25-35) Mean Corpuscular Hemoglobin Concent 33 g/dL (31-37) Red Cell Distribution Width 15.1 % (11.5-14.5) Platelet Count 164 x10^3/uL (140-400) Neutrophils (%) (Auto) 90 % (31-73) Lymphocytes (%) (Auto) 8 % (24-48) Monocytes (%) (Auto) 2 % (0-9) Eosinophils (%) (Auto) 0 % (0-3) Basophils (%) (Auto) 0 % (0-3) Neutrophils # (Auto) 7.9 x10^3/uL (1.8-7.7) Lymphocytes # (Auto) 0.7 x10^3/uL (1.0-4.8) Monocytes # (Auto) 0.2 x10^3/uL (0.0-1.1) Eosinophils # (Auto) 0.0 x10^3/uL (0.0-0.7) Basophils # (Auto) 0.0 x10^3/uL (0.0-0.2) Segmented Neutrophils % 58 % (35-66) Band Neutrophils % 29 % (0-9) Lymphocytes % 11 % (24-48) Atypical Lymphocytes % (Manual) 1 % (0-0) Monocytes % 1 % (0-10) Platelet Estimate Adequate (ADEQUATE) Prothrombin Time 16.3 SEC (11.7-14.0) Prothromb Time International Ratio 1.4 (0.8-1.1) Activated Partial Thromboplast Time 41 SEC (24-38) D-Dimer (Hannah) 0.73 ug/mlFEU (0.00-0.50) Sodium Level 140 mmol/L (136-145) Potassium Level 2.6 mmol/L (3.5-5.1) Chloride Level 105 mmol/L (98-107) Carbon Dioxide Level 20 mmol/L (21-32) Anion Gap 15 (6-14) Blood Urea Nitrogen 7 mg/dL (8-26) Creatinine 0.5 mg/dL (0.7-1.3) Estimated GFR (Cockcroft-Gault) 188.1 BUN/Creatinine Ratio 14 (6-20) Glucose Level 174 mg/dL (70-99) Lactic Acid Level 1.4 mmol/L (0.4-2.0) Calcium Level 5.7 mg/dL (8.5-10.1) Phosphorus Level 1.7 mg/dL (2.6-4.7) Magnesium Level 1.2 mg/dL (1.8-2.4) Ferritin 153 ng/mL (26-388) Total Bilirubin 0.2 mg/dL (0.2-1.0) Aspartate Amino Transf (AST/SGOT) 50 U/L (15-37) Alanine Aminotransferase (ALT/SGPT) 27 U/L (16-63) Alkaline Phosphatase 58 U/L (46-116) Lactate Dehydrogenase 435 U/L (85-227) Troponin I Quantitative < 0.017 ng/mL (0.000-0.055) C-Reactive Protein, Quantitative 178.0 mg/L (0-3.3) CJ-Epu-S-Type Natriuretic Peptide 50 pg/mL (0-124) Total Protein 4.6 g/dL (6.4-8.2) Albumin 1.5 g/dL (3.4-5.0) Albumin/Globulin Ratio 0.5 (1.0-1.7) Procalcitonin 0.68 ng/mL (0.00-0.10) Urine Collection Type Void Urine Color [place] Urine Clarity Cloudy Urine pH 5.5 (<5.0-8.0) Urine Specific [place] >=1.030 (1.000-1.030) Urine Protein >=300 mg/dL (NEG-TRACE) Urine Glucose (UA) 100 mg/dL (NEG) Urine Ketones (Stick) Trace mg/dL (NEG) Urine Blood Negative (NEG) Urine Nitrite Negative (NEG) Urine Bilirubin Small (NEG) Urine Urobilinogen Dipstick 1.0 mg/dL (0.2 mg/dL) Urine Leukocyte Esterase Trace (NEG) Urine RBC Occ /HPF (0-2) Urine WBC 5-10 /HPF (0-4) Urine Squamous Epithelial Cells Few /LPF Urine Bacteria Few /HPF (0-FEW) Urine Hyaline Casts Moderate /HPF Urine Mucus Mod /LPF Test 07/13/20 18:57 07/13/20 23:08 07/14/20 02:30 07/14/20 06:14 O2 Saturation 71 % (92-99) Arterial Blood pH 7.21 (7.35-7.45) Arterial Blood pH (Temp corrected) 7.18 Arterial Blood pCO2 at Patient Temp 57 mmHg (35-46) Arterial Blood pCO2 (Temp correct) 63 mmHg Arterial Blood pO2 at Patient Temp 43 mmHg (85-108) Arterial Blood pO2 (Temp corrected) 51 mmHg Arterial Blood HCO3 23 mmol/L (21-28) Arterial Blood Base Excess -6 mmol/L (-3-3) FiO2 100 Sodium Level 129 mmol/L (136-145) Potassium Level 5.8 mmol/L (3.5-5.1) Chloride Level 97 mmol/L (98-107) Carbon Dioxide Level 25 mmol/L (21-32) Anion Gap 7 (6-14) Blood Urea Nitrogen 10 mg/dL (8-26) Creatinine 1.0 mg/dL (0.7-1.3) Estimated GFR (Cockcroft-Gault) 84.5 Glucose Level 267 mg/dL (70-99) Calcium Level 8.2 mg/dL (8.5-10.1) Magnesium Level 2.2 mg/dL (1.8-2.4) Urine Opiates Screen Neg (NEG) Urine Methadone Screen Neg (NEG) Urine Barbiturates Neg (NEG) Urine Phencyclidine Screen Neg (NEG) Urine Amphetamine/Methamphetamine Neg (NEG) Urine Benzodiazepines Screen Pos (NEG) Urine Cocaine Screen Neg (NEG) Urine Cannabinoids Screen Neg (NEG) Urine Ethyl Alcohol Neg (NEG) Influenza Type A Antigen Negative (NEGATIVE) Influenza Type B Antigen Negative (NEGATIVE) Glucose (Fingerstick) 222 mg/dL (70-99) Medications Active Scripts Medications Dose Route/Sig Max Daily Dose Days Date Category No Known Medications Prior To Admisstion (Info) Each 1 Each 1X 07/13/20 Reported Comments CTA chest IMPRESSION: 1. No evidence of acute pulmonary embolism. Evaluation of distal pulmonary arteries is limited by motion artifact. 2. Extensive, fairly confluent groundglass opacities throughout both lungs, slightly peripheral and basilar predominance. This could be seen with severe mul tifocal pneumonia and/or ARDS. Electronically signed by: Lucinda Cespedes MD (07/13/2020 11:33 AM) [id number] Impression . IMPRESSION: 1. Acute hypoxemic respiratory failure secondary to COVID-19 viral pneumonia. 2. COVID-19 viral pneumonia. 3. Abnormal x-ray. 4. Tobacco dependence. Plan . PLAN: Continue Vent support, currently 100% and PEEP 12, Follow CXR and ABG-- increase PEEP to 14 Continue adequate sedation Monitor electrolytes-- replace per PCP Continue vasopressor support to keep MAP above 65 Continue full course of remdesivir. Continue Dexamethasone Continue ABX currently on zyvox and zosyn, follow cultures Battery Stacker consult for nutritional recs DVT/GI PPX D/W RN and RT Critical Care Time [id number] AM NEEL GANT MD Jul 14, 2020 08:26
[2020-07-14] MEDS ORDERED: cefTRIAXone IV Push 1 GM VIAL. IVP SCH (09:00)
[2020-07-14] MEDS: CHLORHEXIDINE 0.12% 15 ML MOUTHWASH. MM SCH ×2 (09:00→19:37)
[2020-07-14 09:02] LABS: BASE EXCESS ABG -9 mmol/L (-3-3); HCO3 ABG 19 mmol/L (21-28); PCO2 ABG 47 mmHg (35-46); SAT O2 ABG 77 % (92-99)
[2020-07-14] MEDS: CHOLECALCIFEROL (VITAMIN D3) 1,000 UNIT TABLET PO SCH (09:14)
[2020-07-14] MEDS: ASCORBIC ACID 1,000 MG TABLET PO SCH (09:14)
[2020-07-14 09:16] LABS: PO2 ABG 47 mmHg (85-108)
[2020-07-14 09:17] LABS: FIO2 ABG 100%+12
--- NOTE | 2020-07-14 09:23 | PDOC ---
[facility] PROGRESS NOTE Date of Service DOS: DATE: 07/14/20 TIME: 09:14 Chief Complaint Chief Complaint A/P: Acute hypoxemic respiratory failure secondary to COVID-19 viral pneumonia. COVID-19 viral pneumonia. Abnormal x-ray. Tobacco dependence. Hyponatremia Hyperkalemia Hypomagnesemia FEN - NPO PPX - lovenox FULL CODE Dispo - ICU cc time 37 minutes History of Present Illness History of Present Illness Mr Luque is a 35 yo M morbidly obese who presented with chief complaint of respiratory distress. Patient tested positive for Covid about 6 days prior to admit Patient had a fever, chills, cough, myalgias and headache. Patient had abdominal discomfort with diarrhea. Over the last day the patient became more short of breath. Patient had trouble sleeping and was satting 65% on room air in triage. Symptoms worse with activity and at night and somewhat better with taking Tylenol. 07/13: Eventful day with worsening respiratory distress, required intubation emergently with ED physician Febrile to 101.8F this morning. PEEP 14, FiO2 100%. UOP stable. Required paralysis overnight for vent dysynchrony. Vitals/I&O Vitals/I&O: Vital Signs Date Time Temp Pulse Resp B/P (MAP) Pulse Ox O2 Delivery O2 Flow Rate FiO2 07/14/20 06:15 122 121/71 (88) 07/14/20 06:00 98.2 30 88 Ventilator 98.2 07/13/20 17:00 40.0 I & O 07/13/20 07/13/20 07/14/20 15:00 23:00 07:00 Intake Total 1360 ml 553 ml 1454.7 ml Output Total 350 ml 770 ml 755 ml Balance 1010 ml -217 ml 699.7 ml Physical Exam General: mild distress Heart: Regular rate, Normal S1, Normal S2 Lungs: Crackles Abdomen: Normal bowel sounds, Soft Extremities: No clubbing, No cyanosis Skin: No rashes, No breakdown Labs Labs: Laboratory Tests Test 07/13/20 09:16 07/13/20 09:50 07/13/20 11:00 07/13/20 17:15 O2 Saturation 93 % (92-99) 86 % (92-99) Arterial Blood pH 7.42 (7.35-7.45) 7.38 (7.35-7.45) Arterial Blood pCO2 at Patient Temp 39 mmHg (35-46) 38 mmHg (35-46) Arterial Blood pO2 at Patient Temp 64 mmHg (85-108) 50 mmHg (85-108) Arterial Blood HCO3 24 mmol/L (21-28) 22 mmol/L (21-28) Arterial Blood Base Excess 0 mmol/L (-3-3) -3 mmol/L (-3-3) Oxyhemoglobin 92.0 % Methemoglobin 0.3 % (0.0-1.9) Carbon Monoxide, Quantitative 0.5 % (0.0-1.9) FiO2 100 100 White Blood Count 8.8 x10^3/uL (4.0-11.0) Red Blood Count 4.33 x10^6/uL (4.30-5.70) Hemoglobin 11.7 g/dL (13.0-17.5) Hematocrit 35.3 % (39.0-53.0) Mean Corpuscular Volume 82 fL (79-100) Mean Corpuscular Hemoglobin 27 pg (25-35) Mean Corpuscular Hemoglobin Concent 33 g/dL (31-37) Red Cell Distribution Width 15.1 % (11.5-14.5) Platelet Count 164 x10^3/uL (140-400) Neutrophils (%) (Auto) 90 % (31-73) Lymphocytes (%) (Auto) 8 % (24-48) Monocytes (%) (Auto) 2 % (0-9) Eosinophils (%) (Auto) 0 % (0-3) Basophils (%) (Auto) 0 % (0-3) Neutrophils # (Auto) 7.9 x10^3/uL (1.8-7.7) Lymphocytes # (Auto) 0.7 x10^3/uL (1.0-4.8) Monocytes # (Auto) 0.2 x10^3/uL (0.0-1.1) Eosinophils # (Auto) 0.0 x10^3/uL (0.0-0.7) Basophils # (Auto) 0.0 x10^3/uL (0.0-0.2) Segmented Neutrophils % 58 % (35-66) Band Neutrophils % 29 % (0-9) Lymphocytes % 11 % (24-48) Atypical Lymphocytes % (Manual) 1 % (0-0) Monocytes % 1 % (0-10) Platelet Estimate Adequate (ADEQUATE) Prothrombin Time 16.3 SEC (11.7-14.0) Prothromb Time International Ratio 1.4 (0.8-1.1) Activated Partial Thromboplast Time 41 SEC (24-38) D-Dimer (Hannah) 0.73 ug/mlFEU (0.00-0.50) Sodium Level 140 mmol/L (136-145) Potassium Level 2.6 mmol/L (3.5-5.1) Chloride Level 105 mmol/L (98-107) Carbon Dioxide Level 20 mmol/L (21-32) Anion Gap 15 (6-14) Blood Urea Nitrogen 7 mg/dL (8-26) Creatinine 0.5 mg/dL (0.7-1.3) Estimated GFR (Cockcroft-Gault) 188.1 BUN/Creatinine Ratio 14 (6-20) Glucose Level 174 mg/dL (70-99) Lactic Acid Level 1.4 mmol/L (0.4-2.0) Calcium Level 5.7 mg/dL (8.5-10.1) Phosphorus Level 1.7 mg/dL (2.6-4.7) Magnesium Level 1.2 mg/dL (1.8-2.4) Ferritin 153 ng/mL (26-388) Total Bilirubin 0.2 mg/dL (0.2-1.0) Aspartate Amino Transf (AST/SGOT) 50 U/L (15-37) Alanine Aminotransferase (ALT/SGPT) 27 U/L (16-63) Alkaline Phosphatase 58 U/L (46-116) Lactate Dehydrogenase 435 U/L (85-227) Troponin I Quantitative < 0.017 ng/mL (0.000-0.055) C-Reactive Protein, Quantitative 178.0 mg/L (0-3.3) SQ-Bpr-V-Type Natriuretic Peptide 50 pg/mL (0-124) Total Protein 4.6 g/dL (6.4-8.2) Albumin 1.5 g/dL (3.4-5.0) Albumin/Globulin Ratio 0.5 (1.0-1.7) Procalcitonin 0.68 ng/mL (0.00-0.10) Urine Collection Type Void Urine Color [place] Urine Clarity Cloudy Urine pH 5.5 (<5.0-8.0) Urine Specific [place] >=1.030 (1.000-1.030) Urine Protein >=300 mg/dL (NEG-TRACE) Urine Glucose (UA) 100 mg/dL (NEG) Urine Ketones (Stick) Trace mg/dL (NEG) Urine Blood Negative (NEG) Urine Nitrite Negative (NEG) Urine Bilirubin Small (NEG) Urine Urobilinogen Dipstick 1.0 mg/dL (0.2 mg/dL) Urine Leukocyte Esterase Trace (NEG) Urine RBC Occ /HPF (0-2) Urine WBC 5-10 /HPF (0-4) Urine Squamous Epithelial Cells Few /LPF Urine Bacteria Few /HPF (0-FEW) Urine Hyaline Casts Moderate /HPF Urine Mucus Mod /LPF Test 07/13/20 18:57 07/13/20 23:08 07/14/20 02:30 07/14/20 06:14 O2 Saturation 71 % (92-99) Arterial Blood pH 7.21 (7.35-7.45) Arterial Blood pH (Temp corrected) 7.18 Arterial Blood pCO2 at Patient Temp 57 mmHg (35-46) Arterial Blood pCO2 (Temp correct) 63 mmHg Arterial Blood pO2 at Patient Temp 43 mmHg (85-108) Arterial Blood pO2 (Temp corrected) 51 mmHg Arterial Blood HCO3 23 mmol/L (21-28) Arterial Blood Base Excess -6 mmol/L (-3-3) FiO2 100 Sodium Level 129 mmol/L (136-145) Potassium Level 5.8 mmol/L (3.5-5.1) Chloride Level 97 mmol/L (98-107) Carbon Dioxide Level 25 mmol/L (21-32) Anion Gap 7 (6-14) Blood Urea Nitrogen 10 mg/dL (8-26) Creatinine 1.0 mg/dL (0.7-1.3) Estimated GFR (Cockcroft-Gault) 84.5 Glucose Level 267 mg/dL (70-99) Calcium Level 8.2 mg/dL (8.5-10.1) Magnesium Level 2.2 mg/dL (1.8-2.4) Urine Opiates Screen Neg (NEG) Urine Methadone Screen Neg (NEG) Urine Barbiturates Neg (NEG) Urine Phencyclidine Screen Neg (NEG) Urine Amphetamine/Methamphetamine Neg (NEG) Urine Benzodiazepines Screen Pos (NEG) Urine Cocaine Screen Neg (NEG) Urine Cannabinoids Screen Neg (NEG) Urine Ethyl Alcohol Neg (NEG) Influenza Type A Antigen Negative (NEGATIVE) Influenza Type B Antigen Negative (NEGATIVE) Glucose (Fingerstick) 222 mg/dL (70-99) Assessment and Plan Assessmemt and Plan Problems Medical Problems: (1) Acute hypoxemic respiratory failure due to severe acute respiratory syndrome coronavirus 2 (SARS-CoV-2) disease Status: Acute (2) Dyspnea Status: Acute Comment Review of Relevant I have reviewed the following items mile (where applicable) has been applied. Medications: Current Medications Medications (Trade) Dose Ordered Sig/Sola Route PRN Reason Start Time Stop Time Status Last Admin Dose Admin Ceftriaxone Sodium (Rocephin) 1 gm 1X ONCE IVP 07/13/20 09:30 07/13/20 09:31 DC 07/13/20 09:36 Azithromycin 250 ml @ 250 mls/hr 1X ONCE IV 07/13/20 09:30 07/13/20 10:29 DC 07/13/20 09:37 Sodium Chloride 1,000 ml @ 1,000 mls/hr 1X ONCE IV 07/13/20 09:30 07/13/20 10:29 DC 07/13/20 09:36 Acetaminophen (Tylenol) 1,000 mg 1X ONCE PO 07/13/20 09:30 07/13/20 09:31 DC 07/13/20 09:36 Dexamethasone Sodium Phosphate (Decadron) 6 mg 1X ONCE IVP 07/13/20 09:45 07/13/20 09:46 DC 07/13/20 09:42 Enoxaparin Sodium (Lovenox 120mg Syringe) 110 mg 1X ONCE SQ 07/13/20 10:15 07/13/20 10:16 DC 07/13/20 10:14 Iohexol (Omnipaque 350 Mg/ml) 100 ml 1X ONCE IV 07/13/20 10:15 07/13/20 10:16 DC 07/13/20 10:15 Potassium Chloride (Klor-Con) 40 meq 1X ONCE PO 07/13/20 11:15 07/13/20 11:16 DC 07/13/20 11:20 Potassium Chloride/Water 100 ml @ 100 mls/hr Q1H IV 07/13/20 11:30 07/13/20 15:29 DC 07/13/20 17:17 Sodium Chloride 1,000 ml @ 125 mls/hr 1X ONCE IV 07/13/20 11:00 07/13/20 18:59 DC 07/13/20 11:26 Calcium Gluconate 1000 mg/Sodium Chloride 110 ml @ 220 mls/hr 1X ONCE IV 07/13/20 11:45 07/13/20 12:14 DC 07/13/20 11:51 Magnesium Sulfate 50 ml @ 25 mls/hr 1X ONCE IV 07/13/20 11:30 07/13/20 13:29 DC 07/13/20 13:26 Remdesivir 200 mg/ Sodium Chloride 210 ml @ 210 mls/hr 1X ONCE IV 07/13/20 14:00 07/13/20 14:59 DC 07/13/20 15:21 Vitamin D (Vitamin D3) 1,000 unit DAILY PO 07/13/20 13:00 07/13/20 13:31 Ascorbic Acid (Vitamin C) 1,000 mg DAILY PO 07/13/20 13:00 07/13/20 13:29 Doxycycline Hyclate 100 mg/ Dextrose 100 ml @ 50 mls/hr Q12HR IV 07/13/20 13:00 07/13/20 23:25 DC 07/13/20 13:21 Enoxaparin Sodium (Lovenox 40mg Syringe) 40 mg Q24H SQ 07/13/20 13:00 07/13/20 13:31 Phenol (Chloraseptic) 1 spray PRN Q2HR PRN PO SORE THROAT 07/13/20 16:15 07/13/20 16:27 Acetaminophen (Tylenol) 650 mg PRN Q6HRS PRN PO MILD PAIN / TEMP > 100.3'F 07/13/20 16:15 07/13/20 20:51 Lorazepam (Ativan Inj) 0.25 mg PRN Q6HRS PRN IVP ANXIETY / AGITATION 07/13/20 16:45 07/13/20 16:42 Fentanyl Citrate 30 ml @ 0 mls/hr CONT PRN IV SEE PROTOCOL 07/13/20 17:45 07/13/20 20:11 DC 07/13/20 18:40 Propofol 100 ml @ 0 mls/hr CONT PRN IV PER PROTOCOL 07/13/20 17:45 07/14/20 08:10 Chlorhexidine Gluconate (Peridex) 15 ml BID MM 07/13/20 21:00 07/13/20 20:51 Midazolam HCl 100 ml @ 0 mls/hr CONT PRN IV SEE PROTOCOL 07/13/20 17:45 07/14/20 07:17 Vecuronium [place] (Norcuron Bolus) 6 mg PRN Q4HRS PRN IV Out of sync with ventilator 07/13/20 19:30 07/13/20 19:39 Fentanyl Citrate 55 ml @ 0 mls/hr CONT PRN PRN IV PAIN 07/13/20 19:45 07/14/20 07:50 Vecuronium [place] 50 mg/ Miscellaneous 50 ml @ 5.683 mls/ hr CONT PRN IV SEE I/O RECORD 07/13/20 22:00 07/14/20 08:06 Norepinephrine Bitartrate 8 mg/ Dextrose 258 ml @ 22.91 mls/ hr CONT PRN IV PER PROTOCOL 07/13/20 23:30 07/14/20 00:23 Ringer's Solution 1,000 ml @ 100 mls/hr Q10H IV 07/13/20 23:30 07/14/20 00:23 Vancomycin HCl (Vanco Per Pharmacy) 1 each PRN DAILY PRN MC SEE COMMENTS 07/13/20 23:16 07/14/20 02:10 Vancomycin HCl 2 gm/Sodium Chloride 500 ml @ 250 mls/hr 1X ONCE IV 07/13/20 23:45 07/14/20 01:44 DC 07/14/20 00:24 Piperacillin Sod/ Tazobactam Sod 3.375 gm/Sodium Chloride 50 ml @ 100 mls/hr Q6HRS IV 07/14/20 00:00 07/14/20 05:41 Vancomycin HCl 1.5 gm/Sodium Chloride 500 ml @ 250 mls/hr Q8H IV 07/14/20 08:00 07/14/20 08:46 Justifications for Admission Other Justification DIANA RAMIREZ MD Jul 14, 2020 09:23
[2020-07-14] MEDS ORDERED: DEXTROSE 50% 25 GM / 50ML DISP.SYRIN. IV PRN (09:30)
--- NOTE | 2020-07-14 10:32 | CONS ---
DATE OF CONSULTATION: 07/14/2020 INFECTIOUS DISEASE CONSULTATION REFERRING PHYSICIAN: Dr. Lenz. REASON FOR CONSULTATION: COVID-19 infection. HISTORY OF PRESENT ILLNESS: A 35-year-old male admitted to ICU with acute respiratory failure from COVID-19. History obtained from chart and medical staff. A 35-year-old male, who presented to the ER on 07/13/2020 with complaints of respiratory distress. He was diagnosed with COVID positive 6 days ago. He had fevers, chills, generalized weakness, cough, headache. He also had abdominal discomfort with diarrhea. He was hypoxic in the triage. His chest x-ray showed extensive atypical infiltrates. CT chest showed no evidence of PE, extensive fairly confluent ground-glass opacities throughout both lungs with multifocal pneumonia and/or ARDS. D-dimer was elevated. He received doxycycline, currently on IV vancomycin and Zosyn. Also received a dose of azithromycin. ID consultation has been requested for antibiotic management. PAST SURGICAL HISTORY: None. ALLERGIES: None. REVIEW OF SYSTEMS: Unable to obtain. SOCIAL HISTORY: Positive for smoking. CURRENT MEDICATION: IV vancomycin, Zosyn, had been on ceftriaxone, azithromycin and doxycycline. Also on dexamethasone. Other medications reviewed in medication list. PHYSICAL EXAMINATION: VITAL SIGNS: Temperature 98.2, T-max was 104.9, pulse 107, respiratory rate 30, blood pressure 121/71, oxygen saturation 88% on FiO2 100%. GENERAL: Intubated, sedated. HEENT: Normocephalic, atraumatic. ETT and OG tube in place. NECK: Supple. LUNGS: Coarse breath sounds bilaterally. HEART: S1, S2. ABDOMEN: Obese. Bowel sounds present, mildly distended. EXTREMITIES: No edema, no cyanosis. DERMATOLOGIC: Warm, dry. No generalized rash. NEUROLOGIC: Intubated. PSYCHIATRIC: Unable to assess. LABORATORY DATA: WBC 8.8, hemoglobin 11.7, hematocrit 35.3, platelets 164. Sodium 129, potassium 5.8, chloride 97, bicarbonate 25, BUN 10, creatinine 1.0, glucose 267, lactate 1.4. Troponin normal. CRP 178.0. LDH 435, AST 50, calcium 5.7, glucose 1.68. DIAGNOSTICS: Chest x-ray as above. CT as above. IMPRESSION: 1. COVID-19 infection. 2. Fever, likely from above. 3. Acute hypoxic respiratory failure. 4. Morbid obesity. 5. Severe protein-calorie malnutrition. 6. Hyponatremia, hypokalemia. RECOMMENDATIONS: 1. Continue Zosyn. 2. Discontinue vancomycin, requiring 1.5 grams IV q.8. 3. Start Zyvox. 4. Follow up labs and cultures. 5. Continue steroids per Pulmonary. 6. Continue supportive care. 7. Follow up labs and cultures. 8. Critically ill. 9. Discussed with nursing staff. Thank you for allowing me to participate in this patient's care. If you have any questions, do not hesitate to contact me. ALICIA HAAS MD DR: EVA/nolvia JOB#: [id number] / [id number]
[2020-07-14] MEDS: THIAMINE INJ 300 MG in IV DEXTROSE 5% 50 ML IV SCH (10:41)
[2020-07-14] MEDS: INSULIN LISPRO 300 UNITS/3 ML VIAL. SQ SCH ×2 (12:20→17:36)
--- NOTE | 2020-07-14 12:57 | RAD ---
XR CHEST 1V Clinical indications: PICC line placement Comparison: July 13, 2020. FINDINGS/ IMPRESSION: A right upper extremity PICC line has been placed and the tip is seen within the mid supe rior vena cava above the level of the right atrium. Diffuse bilateral consolidative lung infiltrates or pulmonary edema are again evident. There has been mild improvement on the left side. The right kanika e is unchanged. No pneumothorax is seen. Heart size and mediastinum are stable. Electronically signed by: Ramesh Samuel MD (07/14/2020 12:54 PM) [id number]
[2020-07-14] MEDS: REMDESIVIR 100mg in NORMAL SALINE 250ML X 4 DAYS IV SCH (13:54)
--- NOTE | 2020-07-14 14:50 | NUR ---
SS following for discharge planning. SS reviewed pt chart and discussed with pt RN. Pt is from home and is currently on the vent at 100%. COVID19 positive. Pt on IV Remdesivir, IV Zosyn, and IV Zyvox. Not stable. SS will continue to follow for discharge planning.
--- NOTE | 2020-07-14 14:51 | NUR ---
Family given cell phone to take home
[2020-07-14] MEDS: FAMOTIDINE 20 MG/2 ML VIAL IVP SCH (20:38)
[2020-07-14] MEDS: ENOXAPARIN 40 MG/0.4 ML SYRINGE. SQ SCH (20:38)
[2020-07-14] MEDS ORDERED: INSULIN GLARGINE SYRINGE. SQ SCH (21:00)
[2020-07-15] VITALS (32 sets, daily range): BP systolic 102–156; BP diastolic 49–80
[2020-07-15] MEDS: PIPERACILLIN/TAZOBACTAM 3.375 GM in IV NORMAL SALINE 50ML 50 ML IV SCH ×5 (00:08→23:48)
[2020-07-15] MEDS: NOREPINEPHRINE VIAL 8 MG in IV DEXTROSE 5% 250 ML IV PRN (00:09)
[2020-07-15] MEDS: INSULIN LISPRO 300 UNITS/3 ML VIAL. SQ SCH ×7 (00:40→23:46)
[2020-07-15] MEDS: MIDAZOLAM 100mg/100ml NS BAG 100 ML IV PRN ×2 (05:00→23:46)
--- NOTE | 2020-07-15 05:04 | RAD ---
Single view chest dated 07/15/2020. Comparison made to 07/14/2020. CLINICAL INDICATION: Respiratory failure. FINDINGS: Single upright portable exam performed. Heart and mediastinal contours are stable. Endotracheal tube, nasogastric tube and right-sided PICC in place, unchanged. Widespread airspace disease throughout both lungs, similar given differences in technique. No pneumot horax. IMPRESSION: 1. Widespread airspace disease, not significantly changed. 2. Stable position of tubes and lines Electronically signed by: Carloz Finch MD (07/15/2020 5:01 AM) MERA
[2020-07-15] MEDS: IV RINGERS,LACTATED 1000ML 1,000 ML IV SCH (05:08)
[2020-07-15] MEDS: BENZONATATE 100 MG CAPSULE. PO SCH ×5 (05:09→23:26)
--- NOTE | 2020-07-15 07:57 | PDOC ---
[employer] PROGRESS NOTE Date of Service DOS: DATE: 07/15/20 TIME: 07:57 Chief Complaint Chief Complaint A/P: Acute hypoxemic respiratory failure secondary to COVID-19 viral pneumonia. COVID-19 viral pneumonia. Abnormal x-ray. Tobacco dependence. Hyponatremia Hyperkalemia Hypomagnesemia FEN - NPO - start TPN PPX - lovenox FULL CODE Dispo - ICU cc time 37 minutes History of Present Illness History of Present Illness Mr Luque is a 35 yo M morbidly obese who presented with chief complaint of respiratory distress. Patient tested positive for Covid about 6 days prior to admit Patient had a fever, chills, cough, myalgias and headache. Patient had abdominal discomfort with diarrhea. Over the last day the patient became more short of breath. Patient had trouble sleeping and was satting 65% on room air in triage. Symptoms worse with activity and at night and somewhat better with taking Tylenol. 07/13: Eventful day with worsening respiratory distress, required intubation emergently with ED physician 07/14: Febrile to 101.8F this morning. PEEP 14, FiO2 100%. UOP stable. Required paralysis overnight for vent dysynchrony. Temp 100 F this morning. Still requiring paralysis for vent dyssynchrony on PEEP of 14 with FiO2 100%. Right upper extremity PICC placed for pressors. Vitals/I&O Vitals/I&O: Vital Signs Date Time Temp Pulse Resp B/P (MAP) Pulse Ox O2 Delivery O2 Flow Rate FiO2 07/15/20 06:00 93 30 123/59 (80) 95 Ventilator 07/15/20 04:00 100.0 100.0 I & O 07/14/20 07/14/20 07/15/20 15:00 23:00 07:00 Intake Total 1957.24 ml 1561.4 ml Output Total 100 ml 1950 ml 760 ml Balance -100 ml 7.24 ml 801.4 ml Physical Exam General: mild distress Heart: Regular rate, Normal S1, Normal S2 Lungs: Crackles Abdomen: Normal bowel sounds, Soft Extremities: No clubbing, No cyanosis Skin: No rashes, No breakdown Labs Labs: Laboratory Tests Test 07/14/20 09:00 07/14/20 11:53 07/14/20 16:41 07/15/20 00:14 O2 Saturation 77 % (92-99) Arterial Blood pH 7.22 (7.35-7.45) Arterial Blood pCO2 at Patient Temp 47 mmHg (35-46) Arterial Blood pO2 at Patient Temp 47 mmHg (85-108) Arterial Blood HCO3 19 mmol/L (21-28) Arterial Blood Base Excess -9 mmol/L (-3-3) FiO2 100%+12 Glucose (Fingerstick) 306 mg/dL (70-99) 256 mg/dL (70-99) 300 mg/dL (70-99) Test 07/15/20 05:58 Glucose (Fingerstick) 308 mg/dL (70-99) Assessment and Plan Assessmemt and Plan Problems Medical Problems: (1) Acute hypoxemic respiratory failure due to severe acute respiratory syndrome coronavirus 2 (SARS-CoV-2) disease Status: Acute (2) Dyspnea Status: Acute Comment Review of Relevant I have reviewed the following items mile (where applicable) has been applied. Medications: Current Medications Medications (Trade) Dose Ordered Sig/Sola Route PRN Reason Start Time Stop Time Status Last Admin Dose Admin Remdesivir 100 mg/ Sodium Chloride 230 ml @ 460 mls/hr Q24H IV 07/14/20 14:00 07/17/20 14:29 07/14/20 13:54 Dexamethasone (Decadron) 6 mg [id number] PO 07/14/20 08:00 07/14/20 09:14 Thiamine HCl 300 mg/Dextrose 53 ml @ 102 mls/hr DAILY IV 07/14/20 09:00 07/14/20 10:41 Vancomycin HCl 1.5 gm/Sodium Chloride 500 ml @ 250 mls/hr Q8H IV 07/14/20 08:00 07/14/20 09:14 DC 07/14/20 08:46 Linezolid/Dextrose 300 ml @ 300 mls/hr Q12HR IV 07/14/20 21:00 07/14/20 20:38 Insulin Glargine (Lantus Syringe) 8 unit QHS SQ 07/14/20 21:00 07/14/20 20:42 Insulin Human Lispro (HumaLOG) 0-9 UNITS Q6HRS SQ 07/14/20 12:00 07/15/20 06:10 Enoxaparin Sodium (Lovenox 40mg Syringe) 40 mg BID SQ 07/14/20 21:00 07/14/20 20:38 Famotidine (Pepcid Vial) 20 mg BID IVP 07/14/20 21:00 07/14/20 20:38 Justifications for Admission Other Justification DIANA RAMIREZ MD Jul 15, 2020 07:57
--- NOTE | 2020-07-15 08:19 | PDOC ---
Infectious Disease Note Subjective: Subjective pt intubated/sedated fever pattern improving Vital Signs: Vital Signs Vital Signs Date Time Temp Pulse Resp B/P (MAP) Pulse Ox O2 Delivery O2 Flow Rate FiO2 07/15/20 06:00 93 30 123/59 (80) 95 Ventilator 07/15/20 04:00 100.0 100.0 Physical Exam: PHYSICAL EXAM GENERAL: Intubated, sedated. HEENT: Normocephalic, atraumatic. ETT and OG tube in place. NECK: Supple. LUNGS: Coarse breath sounds bilaterally. HEART: S1, S2. ABDOMEN: Obese. Bowel sounds present, mildly distended. EXTREMITIES: No edema, no cyanosis. DERMATOLOGIC: Warm, dry. No generalized rash. NEUROLOGIC: Intubated. PSYCHIATRIC: Unable to assess. Medications: Inpatient Meds: Current Medications Medications (Trade) Dose Ordered Sig/Sola Start Time Stop Time Status Last Admin Dose Admin Acetaminophen (Tylenol) 650 mg PRN Q6HRS PRN 07/13/20 16:15 07/13/20 20:51 650 MG Ascorbic Acid (Vitamin C) 1,000 mg DAILY 07/13/20 13:00 07/14/20 09:14 1,000 MG Atropine Sulfate (ATROPINE 0.5mg SYRINGE) 0.5 mg PRN Q5MIN PRN 07/13/20 17:00 Azithromycin 250 ml @ As Directed STK-MED ONCE 07/13/20 09:28 07/13/20 09:28 DC Benzonatate (Tessalon Perle) 100 mg Q6HRS 07/13/20 18:00 Calcium Gluconate 1000 mg/Sodium Chloride 110 ml @ 220 mls/hr 1X ONCE 07/13/20 11:45 07/13/20 12:14 DC 07/13/20 11:51 220 MLS/HR Ceftriaxone Sodium (Rocephin) 1 gm Q24H 07/14/20 09:00 07/13/20 23:25 DC Chlorhexidine Gluconate (Peridex) 15 ml BID 07/13/20 21:00 07/13/20 20:51 15 ML Dexamethasone (Decadron) 6 mg [id number] 07/14/20 08:00 07/14/20 09:14 6 MG Dexamethasone Sodium Phosphate (Decadron) 6 mg 1X ONCE 07/13/20 09:45 07/13/20 09:46 DC 07/13/20 09:42 6 MG Dexmedetomidine HCl 400 mcg/ Sodium Chloride 100 ml @ 0 mls/hr CONT PRN 07/13/20 17:00 Dextrose (Dextrose 50%-Water Syringe) 12.5 gm PRN Q15MIN PRN 07/14/20 09:30 Doxycycline Hyclate 100 mg/ Dextrose 100 ml @ 50 mls/hr Q12HR 07/13/20 13:00 07/13/20 23:25 DC 07/13/20 13:21 50 MLS/HR Enoxaparin Sodium (Lovenox 120mg Syringe) 110 mg 1X ONCE 07/13/20 10:15 07/13/20 10:16 DC 07/13/20 10:14 110 MG Enoxaparin Sodium (Lovenox 40mg Syringe) 40 mg BID 07/14/20 21:00 07/14/20 20:38 40 MG Etomidate (Amidate) 20 mg STK-MED ONCE 07/13/20 18:00 07/14/20 08:36 DC Famotidine (Pepcid Vial) 20 mg BID 07/14/20 21:00 07/14/20 20:38 20 MG Fentanyl Citrate 55 ml @ 0 mls/hr CONT PRN PRN 07/13/20 19:45 07/14/20 20:57 3.99 MLS/HR Influenza Virus Vaccine Quadrival (Fluzone Quad Syringe) 0.5 ml ONCE ONCE 07/15/20 09:00 07/15/20 09:01 Info (CONTRAST GIVEN -- Rx MONITORING) 1 each PRN DAILY PRN 07/13/20 10:30 07/15/20 10:29 Insulin Glargine (Lantus Syringe) 15 unit QHS 07/15/20 21:00 Insulin Human Lispro (HumaLOG) 5 units Q6HRS 07/15/20 12:00 Iohexol (Omnipaque 350 Mg/ml) 100 ml 1X ONCE 07/13/20 10:15 07/13/20 10:16 DC 07/13/20 10:15 100 ML Linezolid/Dextrose 300 ml @ 300 mls/hr Q12HR 07/14/20 21:00 07/14/20 20:38 300 MLS/HR Lorazepam (Ativan Inj) 0.25 mg PRN Q6HRS PRN 07/13/20 16:45 07/13/20 16:42 0.25 MG Magnesium Sulfate 50 ml @ 25 mls/hr 1X ONCE 07/13/20 12:30 07/13/20 14:29 UNV Midazolam HCl 100 ml @ 0 mls/hr CONT PRN 07/13/20 17:45 07/15/20 05:00 10 MLS/HR Norepinephrine Bitartrate 8 mg/ Dextrose 258 ml @ 22.91 mls/ hr CONT PRN 07/13/20 23:30 07/15/20 00:09 9.164 MLS/HR Ondansetron HCl (Zofran) 4 mg PRN Q8HRS PRN 07/13/20 09:45 07/14/20 08:19 DC Phenol (Chloraseptic) 1 spray PRN Q2HR PRN 07/13/20 16:15 07/13/20 16:27 1 SPRAY Piperacillin Sod/ Tazobactam Sod (Zosyn Per Pharmacy) 1 each PRN DAILY PRN 07/13/20 23:16 Piperacillin Sod/ Tazobactam Sod 3.375 gm/Sodium Chloride 50 ml @ 100 mls/hr Q6HRS 07/14/20 00:00 07/15/20 05:52 100 MLS/HR Potassium Chloride/Water 100 ml @ 100 mls/hr Q1H 07/13/20 11:30 07/13/20 15:29 DC 07/13/20 17:17 100 MLS/HR Potassium Chloride (Klor-Con) 40 meq 1X ONCE 07/13/20 11:15 07/13/20 11:16 DC 07/13/20 11:20 40 MEQ Prochlorperazine Edisylate (Compazine) 10 mg PRN Q6HRS PRN 07/13/20 16:15 Propofol 100 ml @ 0 mls/hr CONT PRN 07/13/20 17:45 07/14/20 20:13 17.7 MLS/HR Remdesivir 100 mg/ Sodium Chloride 230 ml @ 460 mls/hr Q24H 07/14/20 14:00 07/17/20 14:29 07/14/20 13:54 460 MLS/HR Remdesivir 200 mg/ Sodium Chloride 210 ml @ 210 mls/hr 1X ONCE 07/13/20 14:00 07/13/20 14:59 DC 07/13/20 15:21 210 MLS/HR Ringer's Solution 1,000 ml @ 100 mls/hr Q10H 07/13/20 23:30 07/14/20 20:12 100 MLS/HR Sodium Chloride 500 ml @ 500 mls/hr 1X PRN PRN 07/13/20 17:00 Sterile Water (WATER for RESP) 1,000 ml CONT PRN 07/13/20 17:15 Succinylcholine Chloride (Anectine) 200 mg STK-MED ONCE 07/13/20 18:00 07/14/20 08:36 DC Thiamine HCl 300 mg/Dextrose 53 ml @ 102 mls/hr DAILY 07/14/20 09:00 07/14/20 10:41 102 MLS/HR Vancomycin HCl (Vanco Per Pharmacy) 1 each PRN DAILY PRN 07/13/20 23:16 07/14/20 09:14 DC 07/14/20 02:10 1 EACH Vancomycin HCl (Vancomycin Trough Level) 1 each 1X ONCE 07/14/20 23:30 07/14/20 23:31 Cancel Vancomycin HCl 1.5 gm/Sodium Chloride 500 ml @ 250 mls/hr Q8H 07/14/20 08:00 07/14/20 09:14 DC 07/14/20 08:46 250 MLS/HR Vancomycin HCl 2 gm/Sodium Chloride 500 ml @ 250 mls/hr 1X ONCE 07/13/20 23:45 07/14/20 01:44 DC 07/14/20 00:24 250 MLS/HR Vecuronium [place] 50 mg/ Miscellaneous 50 ml @ 5.683 mls/ hr CONT PRN 07/13/20 22:00 07/14/20 08:06 9.235 MLS/HR Vecuronium [place] (Norcuron Bolus) 6 mg PRN Q4HRS PRN 07/13/20 19:30 07/13/20 19:39 6 MG Vitamin D (Vitamin D3) 1,000 unit DAILY 07/13/20 13:00 07/14/20 09:14 1,000 UNIT Labs: Lab Laboratory Tests Test 07/14/20 09:00 07/14/20 11:53 07/14/20 16:41 07/15/20 00:14 O2 Saturation 77 % (92-99) Arterial Blood pH 7.22 (7.35-7.45) Arterial Blood pCO2 at Patient Temp 47 mmHg (35-46) Arterial Blood pO2 at Patient Temp 47 mmHg (85-108) Arterial Blood HCO3 19 mmol/L (21-28) Arterial Blood Base Excess -9 mmol/L (-3-3) FiO2 100%+12 Glucose (Fingerstick) 306 mg/dL (70-99) 256 mg/dL (70-99) 300 mg/dL (70-99) Test 07/15/20 05:58 Glucose (Fingerstick) 308 mg/dL (70-99) Objective: Assessment: 1. COVID-19 infection. 2. Fever 3. Acute hypoxic respiratory failure. 4. Morbid obesity. 5. Severe protein-calorie malnutrition. 6. Hyponatremia, hypokalemia. Plan: Plan of Care Continue supportive care Remdesivir Steroids Zosyn and Zyvox. Follow up labs and cultures. Critically ill. Discussed with nursing staff. ALICIA HAAS MD Jul 15, 2020 08:19
[2020-07-15] MEDS: ENOXAPARIN 40 MG/0.4 ML SYRINGE. SQ SCH ×2 (08:32→21:00)
[2020-07-15] MEDS: FAMOTIDINE 20 MG/2 ML VIAL IVP SCH ×2 (08:32→21:00)
[2020-07-15] MEDS: CHLORHEXIDINE 0.12% 15 ML MOUTHWASH. MM SCH ×2 (08:33→20:41)
[2020-07-15 08:46] LABS: BASE EXCESS ABG -1 mmol/L (-3-3); HCO3 ABG 25 mmol/L (21-28); PCO2 ABG 48 mmHg (35-46); PO2 ABG 53 mmHg (85-108); SAT O2 ABG 86 % (92-99)
[2020-07-15] MEDS: ASCORBIC ACID 1,000 MG TABLET PO SCH (09:00)
[2020-07-15] MEDS ORDERED: FLU VACC QS 2020-21(6MOS+)/PF 0.5 ML SYRINGE. VAX IM ONE (09:00)
[2020-07-15] MEDS: CHOLECALCIFEROL (VITAMIN D3) 1,000 UNIT TABLET PO SCH (09:00)
[2020-07-15 09:04] LABS: BASO % 0 % (0-3); EOS % 0 % (0-3); HEMOGLOBIN 13.7 g/dL (13.0-17.5); LYMPH # 0.8 x10^3/uL (1.0-4.8); LYMPH % 7 % (24-48); MEAN CORPUSCULAR HEMOGLOBIN 27 pg (25-35); MEAN CORPUSCULAR HGB CONC 33 g/dL (31-37); MEAN CORPUSCULAR VOLUME 83 fL (79-100); MONO # 0.6 x10^3/uL (0.0-1.1); MONO % 5 % (0-9); NEUT # 9.1 x10^3/uL (1.8-7.7); NEUT % 87 % (31-73); PLATELET COUNT 139 x10^3/uL (140-400); RED BLOOD COUNT 5.09 x10^6/uL (4.30-5.70); RED CELL DISTRIBUTION WIDTH 15.8 % (11.5-14.5); WHITE BLOOD COUNT 10.5 x10^3/uL (4.0-11.0)
[2020-07-15 09:26] LABS: FIO2 ABG 100
[2020-07-15 09:39] LABS: ALBUMIN 1.6 g/dL (3.4-5.0); ALBUMIN/GLOBULIN RATIO 0.4 (1.0-1.7); CALCIUM 7.8 mg/dL (8.5-10.1); GFR 84.5; TOTAL BILIRUBIN 1.1 mg/dL (0.2-1.0)
[2020-07-15] MEDS: THIAMINE INJ 300 MG in IV DEXTROSE 5% 50 ML IV SCH (09:59)
[2020-07-15] MEDS: DEXAMETHASONE SOD PHOS 4 MG/ML VIAL IVP SCH (10:15)
[2020-07-15] MEDS: fentaNYL HIGH DOSE PCA 55 ML IV PRN ×2 (10:44→23:46)
--- NOTE | 2020-07-15 11:22 | PDOC ---
PULMONARY PROGRESS NOTES DATE: 07/15/20 TIME: 11:18 Subjective PT. is intubated and sedated on VEC gtt levo on hold no other concerns from nursing Vitals Vital Signs Date Time Temp Pulse Resp B/P (MAP) Pulse Ox O2 Delivery O2 Flow Rate FiO2 07/15/20 10:44 40.0 07/15/20 08:00 Mechanical Ventilator 07/15/20 07:50 95 07/15/20 06:00 93 30 123/59 (80) 07/15/20 04:00 100.0 100.0 Comments Patient seen during , visual exam preformed intubated/sedated no accessory muscle use no distress no obvious edema Labs Laboratory Tests Test 07/13/20 17:15 07/13/20 18:57 07/13/20 23:08 07/14/20 02:30 O2 Saturation 86 % (92-99) 71 % (92-99) Arterial Blood pH 7.38 (7.35-7.45) 7.21 (7.35-7.45) Arterial Blood pCO2 at Patient Temp 38 mmHg (35-46) 57 mmHg (35-46) Arterial Blood pO2 at Patient Temp 50 mmHg (85-108) 43 mmHg (85-108) Arterial Blood HCO3 22 mmol/L (21-28) 23 mmol/L (21-28) Arterial Blood Base Excess -3 mmol/L (-3-3) -6 mmol/L (-3-3) FiO2 100 100 Arterial Blood pH (Temp corrected) 7.18 Arterial Blood pCO2 (Temp correct) 63 mmHg Arterial Blood pO2 (Temp corrected) 51 mmHg Sodium Level 129 mmol/L (136-145) Potassium Level 5.8 mmol/L (3.5-5.1) Chloride Level 97 mmol/L (98-107) Carbon Dioxide Level 25 mmol/L (21-32) Anion Gap 7 (6-14) Blood Urea Nitrogen 10 mg/dL (8-26) Creatinine 1.0 mg/dL (0.7-1.3) Estimated GFR (Cockcroft-Gault) 84.5 Glucose Level 267 mg/dL (70-99) Calcium Level 8.2 mg/dL (8.5-10.1) Magnesium Level 2.2 mg/dL (1.8-2.4) Urine Opiates Screen Neg (NEG) Urine Methadone Screen Neg (NEG) Urine Barbiturates Neg (NEG) Urine Phencyclidine Screen Neg (NEG) Urine Amphetamine/Methamphetamine Neg (NEG) Urine Benzodiazepines Screen Pos (NEG) Urine Cocaine Screen Neg (NEG) Urine Cannabinoids Screen Neg (NEG) Urine Ethyl Alcohol Neg (NEG) Influenza Type A Antigen Negative (NEGATIVE) Influenza Type B Antigen Negative (NEGATIVE) Test 07/14/20 06:14 07/14/20 09:00 07/14/20 11:53 07/14/20 16:41 Glucose (Fingerstick) 222 mg/dL (70-99) 306 mg/dL (70-99) 256 mg/dL (70-99) O2 Saturation 77 % (92-99) Arterial Blood pH 7.22 (7.35-7.45) Arterial Blood pCO2 at Patient Temp 47 mmHg (35-46) Arterial Blood pO2 at Patient Temp 47 mmHg (85-108) Arterial Blood HCO3 19 mmol/L (21-28) Arterial Blood Base Excess -9 mmol/L (-3-3) FiO2 100%+12 Test 07/15/20 00:14 07/15/20 05:58 07/15/20 07:10 07/15/20 07:50 Glucose (Fingerstick) 300 mg/dL (70-99) 308 mg/dL (70-99) White Blood Count 10.5 x10^3/uL (4.0-11.0) Red Blood Count 5.09 x10^6/uL (4.30-5.70) Hemoglobin 13.7 g/dL (13.0-17.5) Hematocrit 42.0 % (39.0-53.0) Mean Corpuscular Volume 83 fL (79-100) Mean Corpuscular Hemoglobin 27 pg (25-35) Mean Corpuscular Hemoglobin Concent 33 g/dL (31-37) Red Cell Distribution Width 15.8 % (11.5-14.5) Platelet Count 139 x10^3/uL (140-400) Neutrophils (%) (Auto) 87 % (31-73) Lymphocytes (%) (Auto) 7 % (24-48) Monocytes (%) (Auto) 5 % (0-9) Eosinophils (%) (Auto) 0 % (0-3) Basophils (%) (Auto) 0 % (0-3) Neutrophils # (Auto) 9.1 x10^3/uL (1.8-7.7) Lymphocytes # (Auto) 0.8 x10^3/uL (1.0-4.8) Monocytes # (Auto) 0.6 x10^3/uL (0.0-1.1) Eosinophils # (Auto) 0.0 x10^3/uL (0.0-0.7) Basophils # (Auto) 0.0 x10^3/uL (0.0-0.2) D-Dimer (Hannah) > 20.00 ug/mlFEU Sodium Level 135 mmol/L (136-145) Potassium Level 5.0 mmol/L (3.5-5.1) Chloride Level 98 mmol/L (98-107) Carbon Dioxide Level 26 mmol/L (21-32) Anion Gap 11 (6-14) Blood Urea Nitrogen 15 mg/dL (8-26) Creatinine 1.0 mg/dL (0.7-1.3) Estimated GFR (Cockcroft-Gault) 84.5 BUN/Creatinine Ratio 15 (6-20) Glucose Level 285 mg/dL (70-99) Calcium Level 7.8 mg/dL (8.5-10.1) Total Bilirubin 1.1 mg/dL (0.2-1.0) Aspartate Amino Transf (AST/SGOT) 93 U/L (15-37) Alanine Aminotransferase (ALT/SGPT) 38 U/L (16-63) Alkaline Phosphatase 74 U/L (46-116) Total Protein 6.0 g/dL (6.4-8.2) Albumin 1.6 g/dL (3.4-5.0) Albumin/Globulin Ratio 0.4 (1.0-1.7) O2 Saturation 86 % (92-99) Arterial Blood pH 7.34 (7.35-7.45) Arterial Blood pCO2 at Patient Temp 48 mmHg (35-46) Arterial Blood pO2 at Patient Temp 53 mmHg (85-108) Arterial Blood HCO3 25 mmol/L (21-28) Arterial Blood Base Excess -1 mmol/L (-3-3) FiO2 100 Laboratory Tests Test 07/14/20 11:53 07/14/20 16:41 07/15/20 00:14 07/15/20 05:58 Glucose (Fingerstick) 306 mg/dL (70-99) 256 mg/dL (70-99) 300 mg/dL (70-99) 308 mg/dL (70-99) Test 07/15/20 07:10 07/15/20 07:50 White Blood Count 10.5 x10^3/uL (4.0-11.0) Red Blood Count 5.09 x10^6/uL (4.30-5.70) Hemoglobin 13.7 g/dL (13.0-17.5) Hematocrit 42.0 % (39.0-53.0) Mean Corpuscular Volume 83 fL (79-100) Mean Corpuscular Hemoglobin 27 pg (25-35) Mean Corpuscular Hemoglobin Concent 33 g/dL (31-37) Red Cell Distribution Width 15.8 % (11.5-14.5) Platelet Count 139 x10^3/uL (140-400) Neutrophils (%) (Auto) 87 % (31-73) Lymphocytes (%) (Auto) 7 % (24-48) Monocytes (%) (Auto) 5 % (0-9) Eosinophils (%) (Auto) 0 % (0-3) Basophils (%) (Auto) 0 % (0-3) Neutrophils # (Auto) 9.1 x10^3/uL (1.8-7.7) Lymphocytes # (Auto) 0.8 x10^3/uL (1.0-4.8) Monocytes # (Auto) 0.6 x10^3/uL (0.0-1.1) Eosinophils # (Auto) 0.0 x10^3/uL (0.0-0.7) Basophils # (Auto) 0.0 x10^3/uL (0.0-0.2) D-Dimer (Hannah) > 20.00 ug/mlFEU Sodium Level 135 mmol/L (136-145) Potassium Level 5.0 mmol/L (3.5-5.1) Chloride Level 98 mmol/L (98-107) Carbon Dioxide Level 26 mmol/L (21-32) Anion Gap 11 (6-14) Blood Urea Nitrogen 15 mg/dL (8-26) Creatinine 1.0 mg/dL (0.7-1.3) Estimated GFR (Cockcroft-Gault) 84.5 BUN/Creatinine Ratio 15 (6-20) Glucose Level 285 mg/dL (70-99) Calcium Level 7.8 mg/dL (8.5-10.1) Total Bilirubin 1.1 mg/dL (0.2-1.0) Aspartate Amino Transf (AST/SGOT) 93 U/L (15-37) Alanine Aminotransferase (ALT/SGPT) 38 U/L (16-63) Alkaline Phosphatase 74 U/L (46-116) Total Protein 6.0 g/dL (6.4-8.2) Albumin 1.6 g/dL (3.4-5.0) Albumin/Globulin Ratio 0.4 (1.0-1.7) O2 Saturation 86 % (92-99) Arterial Blood pH 7.34 (7.35-7.45) Arterial Blood pCO2 at Patient Temp 48 mmHg (35-46) Arterial Blood pO2 at Patient Temp 53 mmHg (85-108) Arterial Blood HCO3 25 mmol/L (21-28) Arterial Blood Base Excess -1 mmol/L (-3-3) FiO2 100 Medications Active Scripts Medications Dose Route/Sig Max Daily Dose Days Date Category No Known Medications Prior To Admisstion (Info) Each 1 Each 1X 07/13/20 Reported Comments CXR1/ IMPRESSION: 1. Widespread airspace disease, not significantly changed. 2. Stable position of tubes and lines CTA chest IMPRESSION: 1. No evidence of acute pulmonary embolism. Evaluation of distal pulmonary arteries is limited by motion artifact. 2. Extensive, fairly confluent groundglass opacities throughout both lungs, slightly peripheral and basilar predominance. This could be seen with severe multifocal pneumonia and/or ARDS. Electronically signed by: Lucinda Cespedes MD (07/13/2020 11:33 AM) [id number] Impression . IMPRESSION: 1. Acute hypoxemic respiratory failure secondary to COVID-19 viral pneumonia, now intubated 2. COVID-19 viral pneumonia. 3. Abnormal x-ray. 4. Tobacco dependence. 5. obesity Plan . PLAN: Continue Vent support, currently 100% and PEEP 14, Follow CXR and ABG-- no changes Continue adequate sedation Monitor electrolytes-- replace per PCP Continue vasopressor support to keep MAP above 65, levo on hold Continue full course of remdesivir. Continue Dexamethasone will slow taper Continue ABX currently on zyvox and zosyn, follow cultures Continue TF for nutritional support DVT/GI PPX D/W RN and RT Critical Care Time 30 minutes HAYES GUNTER MD Jul 15, 2020 11:22
[2020-07-15] MEDS: TPN PER PHARMACY MC PRN ×2 (11:29→11:37)
--- NOTE | 2020-07-15 11:38 | NUR ---
Pharmacy TPN Dosing Note S: LYUDMILA HOBBS is a 35 year old M Currently receiving Central Continuous TPN started 07/15/20 B:Pertinent PMH: TF INTOLERANCE Height: 5 feet, 6 inches Weight: 117.3 kg Current diet: NPO LABS: Sodium: 135 Potassium: 5 Chloride: 98 Calcium: 7.8 Corrected Calcium: 9.72 Magnesium: 2.2 CO2: 26 SCr: 1 Glucose: 256-308 Albumin: 1.6 AST: 93 ALT: 38 TPN FORMULA: TPN TYPE: Central Continuous AMINO ACIDS: 60 gm DEXTROSE: 195 gm LIPIDS: gm SODIUM CHLORIDE: 90 mEq SODIUM ACETATE: mEq SODIUM PHOSPHATE: mmol POTASSIUM CHLORIDE: 25 mEq POTASSIUM ACETATE: mEq POTASSIUM PHOSPHATE: 13.6 mmol MAGNESIUM: 10 mEq CALCIUM: 10 mEq INSULIN: units MULTIPLE VITAMIN: 5 ml TRACE ELEMENTS: 1 ML ml(s) TPN PLAN: Pt with TF intolerance. Initiate standard formula TPN with some changes. No lipid due to pt receiving propofol for sedation; he is receiving 370 kcal/24h at current rate of propofol infusion. Decrease amount of KCl from 50 meq to 25 meq for serum K 5.0 this AM. This appears to be an overcorrection of a low potassium, pt is high risk for refeeding, elected to put potassium in formula for now. All BG out of range (256-308), pt has been started on Q6H insulin and long-acting in addition to SSI. Give bolus of NaPhos today for low phos level. Pt is on thiamine IV but this appears to be for metabolic rescuscitation for COVID, not alcohol use disorder. Left as is. BMP/phos/mag/trig in AM. R: Begin TPN ABOVE. Will monitor electrolytes, glucose, and tolerance to TPN. MAGALYS WYNNE [facility], 07/15/20 [id number]
[2020-07-15] MEDS ORDERED: SODIUM PHOSPHATE 15 MMOL in IV NS 100 ML IV ONE (13:00)
[2020-07-15] MEDS: VECURONIUM BROMIDE 50 MG in TOTAL VOLUME 50 ML IV PRN (13:49)
--- NOTE | 2020-07-15 14:20 | NUR ---
SS following up with discharge planning. SS reviewed pt chart and discussed with pt RN. Pt is currently on the vent at 100%. COVID19 positive. Self pay. Pt on drips, TPN, IV Remdesivir, IV Zosyn, and IV Zyvox. Not stable. SS will continue to follow for discharge planning.
[2020-07-15] MEDS: REMDESIVIR 100mg in NORMAL SALINE 250ML X 4 DAYS IV SCH (14:21)
[2020-07-15] MEDS ORDERED: INSULIN GLARGINE SYRINGE. SQ SCH ×2 (21:00)
[2020-07-15] MEDS ORDERED: AMINO ACID IV SCH (22:00)
[2020-07-15] MEDS ORDERED: DEXTROSE 70% IV SCH (22:00)
[2020-07-15] MEDS ORDERED: TOTAL PARENTERAL NUTRITION IV SCH (22:00)
[2020-07-15] MEDS ORDERED: [UNRECOGNIZED DRUG - OTHER] IV SCH (22:00)
[2020-07-16] VITALS (24 sets, daily range): BP systolic 121–153; BP diastolic 62–87
[2020-07-16] MEDS ORDERED: INSULIN LISPRO 300 UNITS/3 ML VIAL. SQ ONE ×3 (01:00→23:55)
[2020-07-16] MEDS: PIPERACILLIN/TAZOBACTAM 3.375 GM in IV NORMAL SALINE 50ML 50 ML IV SCH ×4 (05:40→23:56)
[2020-07-16] MEDS: INSULIN LISPRO 300 UNITS/3 ML VIAL. SQ SCH ×9 (06:00→23:43)
--- NOTE | 2020-07-16 07:58 | PDOC ---
Infectious Disease Note Subjective: Subjective pt intubated/sedated afebrile last 24 hrs Vital Signs: Vital Signs Vital Signs Date Time Temp Pulse Resp B/P (MAP) Pulse Ox O2 Delivery O2 Flow Rate FiO2 07/16/20 06:00 99.3 80 30 121/67 (85) 100 Ventilator 99.3 07/15/20 11:14 40.0 Physical Exam: PHYSICAL EXAM GENERAL: Intubated, sedated. HEENT: Normocephalic, atraumatic. ETT and OG tube in place. NECK: Supple. LUNGS: Coarse breath sounds bilaterally. HEART: S1, S2. ABDOMEN: Obese. Bowel sounds present, mildly distended. EXTREMITIES: No edema, no cyanosis. DERMATOLOGIC: Warm, dry. No generalized rash. NEUROLOGIC: Intubated. PSYCHIATRIC: Unable to assess. Medications: Inpatient Meds: Current Medications Medications (Trade) Dose Ordered Sig/Sola Start Time Stop Time Status Last Admin Dose Admin Acetaminophen (Tylenol) 650 mg PRN Q6HRS PRN 07/13/20 16:15 07/13/20 20:51 650 MG Ascorbic Acid (Vitamin C) 1,000 mg DAILY 07/13/20 13:00 07/14/20 09:14 1,000 MG Atropine Sulfate (ATROPINE 0.5mg SYRINGE) 0.5 mg PRN Q5MIN PRN 07/13/20 17:00 Azithromycin 250 ml @ As Directed STK-MED ONCE 07/13/20 09:28 07/13/20 09:28 DC Benzonatate (Tessalon Perle) 100 mg Q6HRS 07/13/20 18:00 Calcium Gluconate 1000 mg/Sodium Chloride 110 ml @ 220 mls/hr 1X ONCE 07/13/20 11:45 07/13/20 12:14 DC 07/13/20 11:51 220 MLS/HR Ceftriaxone Sodium (Rocephin) 1 gm Q24H 07/14/20 09:00 07/13/20 23:25 DC Chlorhexidine Gluconate (Peridex) 15 ml BID 07/13/20 21:00 07/15/20 08:33 15 ML Dexamethasone (Decadron) 6 mg [id number] 07/14/20 08:00 07/15/20 09:13 DC 07/14/20 09:14 6 MG Dexamethasone Sodium Phosphate (Decadron) 6 mg DAILY 07/15/20 10:00 07/15/20 10:15 6 MG Dexmedetomidine HCl 400 mcg/ Sodium Chloride 100 ml @ 0 mls/hr CONT PRN 07/13/20 17:00 Dextrose (Dextrose 50%-Water Syringe) 12.5 gm PRN Q15MIN PRN 07/14/20 09:30 Doxycycline Hyclate 100 mg/ Dextrose 100 ml @ 50 mls/hr Q12HR 07/13/20 13:00 07/13/20 23:25 DC 07/13/20 13:21 50 MLS/HR Enoxaparin Sodium (Lovenox 120mg Syringe) 110 mg 1X ONCE 07/13/20 10:15 07/13/20 10:16 DC 07/13/20 10:14 110 MG Enoxaparin Sodium (Lovenox 40mg Syringe) 40 mg BID 07/14/20 21:00 07/15/20 21:00 40 MG Etomidate (Amidate) 20 mg STK-MED ONCE 07/13/20 18:00 07/14/20 08:36 DC Famotidine (Pepcid Vial) 20 mg BID 07/14/20 21:00 07/15/20 21:00 20 MG Fentanyl Citrate 55 ml @ 0 mls/hr CONT PRN PRN 07/13/20 19:45 07/15/20 23:46 3.98 MLS/HR Influenza Virus Vaccine Quadrival (Fluzone Quad Syringe) 0.5 ml ONCE ONCE 07/15/20 09:00 07/15/20 09:01 DC Info (CONTRAST GIVEN -- Rx MONITORING) 1 each PRN DAILY PRN 07/13/20 10:30 07/15/20 10:29 DC Info (Tpn Per Pharmacy) 1 each PRN DAILY PRN 07/15/20 09:15 07/15/20 11:37 1 EACH Insulin Glargine (Lantus Syringe) 20 unit QHS 07/15/20 21:00 07/15/20 21:04 20 UNIT Insulin Human Lispro (HumaLOG) 26 units 1X ONCE 07/16/20 06:30 07/16/20 06:31 DC 07/16/20 06:06 26 UNITS Iohexol (Omnipaque 350 Mg/ml) 100 ml 1X ONCE 07/13/20 10:15 07/13/20 10:16 DC 07/13/20 10:15 100 ML Linezolid/Dextrose 300 ml @ 300 mls/hr Q12HR 07/14/20 21:00 07/15/20 21:00 300 MLS/HR Lorazepam (Ativan Inj) 0.25 mg PRN Q6HRS PRN 07/13/20 16:45 07/13/20 16:42 0.25 MG Magnesium Sulfate 50 ml @ 25 mls/hr 1X ONCE 07/13/20 12:30 07/13/20 14:29 UNV Midazolam HCl 100 ml @ 0 mls/hr CONT PRN 07/13/20 17:45 07/15/20 23:46 10 MLS/HR Norepinephrine Bitartrate 8 mg/ Dextrose 258 ml @ 22.91 mls/ hr CONT PRN 07/13/20 23:30 07/15/20 00:09 9.164 MLS/HR Ondansetron HCl (Zofran) 4 mg PRN Q8HRS PRN 07/13/20 09:45 07/14/20 08:19 DC Phenol (Chloraseptic) 1 spray PRN Q2HR PRN 07/13/20 16:15 07/13/20 16:27 1 SPRAY Piperacillin Sod/ Tazobactam Sod (Zosyn Per Pharmacy) 1 each PRN DAILY PRN 07/13/20 23:16 Piperacillin Sod/ Tazobactam Sod 3.375 gm/Sodium Chloride 50 ml @ 100 mls/hr Q6HRS 07/14/20 00:00 07/16/20 05:40 100 MLS/HR Potassium Chloride/Water 100 ml @ 100 mls/hr Q1H 07/13/20 11:30 07/13/20 15:29 DC 07/13/20 17:17 100 MLS/HR Potassium Chloride (Klor-Con) 40 meq 1X ONCE 07/13/20 11:15 07/13/20 11:16 DC 07/13/20 11:20 40 MEQ Prochlorperazine Edisylate (Compazine) 10 mg PRN Q6HRS PRN 07/13/20 16:15 Propofol 100 ml @ 0 mls/hr CONT PRN 07/13/20 17:45 07/14/20 20:13 17.7 MLS/HR Remdesivir 100 mg/ Sodium Chloride 230 ml @ 460 mls/hr Q24H 07/14/20 14:00 07/17/20 14:29 07/15/20 14:21 460 MLS/HR Remdesivir 200 mg/ Sodium Chloride 210 ml @ 210 mls/hr 1X ONCE 07/13/20 14:00 07/13/20 14:59 DC 07/13/20 15:21 210 MLS/HR Ringer's Solution 1,000 ml @ 100 mls/hr Q10H 07/13/20 23:30 07/15/20 09:08 DC 07/14/20 20:12 100 MLS/HR Sodium Chloride 90 meq/Potassium Chloride 25 meq/ Potassium Phosphate 13.6 mmol/Magnesium Sulfate 10 meq/ Calcium Gluconate 10 meq/ Multivitamins 5 ml/Zinc/Copper/ Manganese/ Selenium 1 ml/ Total Parenteral Nutrition/Amino Acids/Dextrose 1,512 ml @ 63 mls/hr TPN CONT 07/15/20 22:00 07/16/20 21:59 07/15/20 22:01 63 MLS/HR Sodium Phosphate 15 mmol/Sodium Chloride 105 ml @ 105 mls/hr 1X ONCE 07/15/20 13:00 07/15/20 13:59 DC 07/15/20 13:12 105 MLS/HR Sterile Water (WATER for RESP) 1,000 ml CONT PRN 07/13/20 17:15 Succinylcholine Chloride (Anectine) 200 mg STK-MED ONCE 07/13/20 18:00 07/14/20 08:36 DC Thiamine HCl 300 mg/Dextrose 53 ml @ 102 mls/hr DAILY 07/14/20 09:00 07/15/20 09:59 102 MLS/HR Vancomycin HCl (Vanco Per Pharmacy) 1 each PRN DAILY PRN 07/13/20 23:16 07/14/20 09:14 DC 07/14/20 02:10 1 EACH Vancomycin HCl (Vancomycin Trough Level) 1 each 1X ONCE 07/14/20 23:30 07/14/20 23:31 Cancel Vancomycin HCl 1.5 gm/Sodium Chloride 500 ml @ 250 mls/hr Q8H 07/14/20 08:00 07/14/20 09:14 DC 07/14/20 08:46 250 MLS/HR Vancomycin HCl 2 gm/Sodium Chloride 500 ml @ 250 mls/hr 1X ONCE 07/13/20 23:45 07/14/20 01:44 DC 07/14/20 00:24 250 MLS/HR Vecuronium [place] 50 mg/ Miscellaneous 50 ml @ 5.683 mls/ hr CONT PRN 07/13/20 22:00 07/15/20 13:49 4.973 MLS/HR Vecuronium [place] (Norcuron Bolus) 6 mg PRN Q4HRS PRN 07/13/20 19:30 07/13/20 19:39 6 MG Vitamin D (Vitamin D3) 1,000 unit DAILY 07/13/20 13:00 07/14/20 09:14 1,000 UNIT Labs: Lab Laboratory Tests Test 07/15/20 11:30 07/15/20 17:56 07/16/20 00:03 07/16/20 05:47 Glucose (Fingerstick) 351 mg/dL (70-99) 378 mg/dL (70-99) 416 mg/dL (70-99) 389 mg/dL (70-99) Objective: Assessment: 1. COVID-19 infection. 2. Fever 3. Acute hypoxic respiratory failure. 4. Morbid obesity. 5. Severe protein-calorie malnutrition. 6. Hyponatremia, hypokalemia. Plan: Plan of Care Continue supportive care Remdesivir 07/14 Steroids Zosyn and Zyvox.07/14 Follow up labs and cultures.Cults nonrevealing Critically ill. Discussed with nursing staff. ALICIA HAAS MD Jul 16, 2020 07:57
[2020-07-16 08:00] LABS: BASE EXCESS ABG 3 mmol/L (-3-3); HCO3 ABG 29 mmol/L (21-28); PCO2 ABG 50 mmHg (35-46); PO2 ABG 59 mmHg (85-108); SAT O2 ABG 90 % (92-99)
[2020-07-16 08:03] LABS: FIO2 ABG 100
[2020-07-16 08:15] LABS: MAGNESIUM 3.2 mg/dL (1.8-2.4); PHOSPHORUS 1.5 mg/dL (2.6-4.7)
[2020-07-16] MEDS: CHLORHEXIDINE 0.12% 15 ML MOUTHWASH. MM SCH (09:00)
[2020-07-16] MEDS: THIAMINE INJ 300 MG in IV DEXTROSE 5% 50 ML IV SCH (09:00)
--- NOTE | 2020-07-16 09:58 | PDOC ---
[employer] PROGRESS NOTE Date of Service DOS: DATE: 07/16/20 TIME: 09:56 Chief Complaint Chief Complaint A/P: Acute hypoxemic respiratory failure secondary to COVID-19 viral pneumonia. COVID-19 viral pneumonia. Abnormal x-ray. Tobacco dependence. Hyponatremia Hyperkalemia Hypomagnesemia FEN - NPO - start TPN PPX - lovenox FULL CODE Dispo - ICU cc time 37 minutes History of Present Illness History of Present Illness Mr Luque is a 35 yo M morbidly obese who presented with chief complaint of respiratory distress. Patient tested positive for Covid about 6 days prior to admit Patient had a fever, chills, cough, myalgias and headache. Patient had abdominal discomfort with diarrhea. Over the last day the patient became more short of breath. Patient had trouble sleeping and was satting 65% on room air in triage. Symptoms worse with activity and at night and somewhat better with taking Tylenol. 07/13: Eventful day with worsening respiratory distress, required intubation emergently with ED physician 07/14: Febrile to 101.8F this morning. PEEP 14, FiO2 100%. UOP stable. Required paralysis overnight for vent dysynchrony. Remdesivir day 1 07/15: Temp 100 F this morning. Still requiring paralysis for vent dyssynchrony on PEEP of 14 with FiO2 100%. Right upper extremity PICC placed for pressors. Afebrile overnight still requiring PEEP of 14 and FiO2 100% but PaO2 on ABG up to 59 today. Glucose in the 300s despite insulin regimen. Triglycerides low 200s on TPN. Phosphorus low at 1.5. Vitals/I&O Vitals/I&O: Vital Signs Date Time Temp Pulse Resp B/P (MAP) Pulse Ox O2 Delivery O2 Flow Rate FiO2 07/16/20 06:00 99.3 80 30 121/67 (85) 100 Ventilator 99.3 07/15/20 11:14 40.0 I & O 07/15/20 07/15/20 07/16/20 15:00 23:00 07:00 Intake Total 0 ml 350 ml 199.6 ml Output Total 520 ml 1650 ml 1175 ml Balance -520 ml -1300 ml -975.4 ml Physical Exam Physical Exam: GENERAL: Intubated, sedated. HEENT: Normocephalic, atraumatic. ETT and OG tube in place. NECK: Supple. LUNGS: Coarse breath sounds bilaterally. HEART: S1, S2. ABDOMEN: Obese. Bowel sounds present, mildly distended. EXTREMITIES: No edema, no cyanosis. DERMATOLOGIC: Warm, dry. No generalized rash. NEUROLOGIC: Intubated. PSYCHIATRIC: Unable to assess. General: mild distress Heart: Regular rate, Normal S1, Normal S2 Abdomen: Normal bowel sounds, Soft Extremities: No clubbing, No cyanosis Skin: No rashes, No breakdown Labs Labs: Laboratory Tests Test 07/15/20 11:30 07/15/20 17:56 07/16/20 00:03 07/16/20 05:47 Glucose (Fingerstick) 351 mg/dL (70-99) 378 mg/dL (70-99) 416 mg/dL (70-99) 389 mg/dL (70-99) Test 07/16/20 07:03 07/16/20 07:50 Sodium Level 138 mmol/L (136-145) Potassium Level 4.4 mmol/L (3.5-5.1) Chloride Level 102 mmol/L (98-107) Carbon Dioxide Level 27 mmol/L (21-32) Anion Gap 9 (6-14) Blood Urea Nitrogen 22 mg/dL (8-26) Creatinine 1.0 mg/dL (0.7-1.3) Estimated GFR (Cockcroft-Gault) 84.5 Glucose Level 404 mg/dL (70-99) Calcium Level 8.3 mg/dL (8.5-10.1) Phosphorus Level 1.5 mg/dL (2.6-4.7) Magnesium Level 3.2 mg/dL (1.8-2.4) Triglycerides Level 297 mg/dL (0-150) O2 Saturation 90 % (92-99) Arterial Blood pH 7.38 (7.35-7.45) Arterial Blood pCO2 at Patient Temp 50 mmHg (35-46) Arterial Blood pO2 at Patient Temp 59 mmHg (85-108) Arterial Blood HCO3 29 mmol/L (21-28) Arterial Blood Base Excess 3 mmol/L (-3-3) FiO2 100 Assessment and Plan Assessmemt and Plan Problems Medical Problems: (1) Acute hypoxemic respiratory failure due to severe acute respiratory syndrome coronavirus 2 (SARS-CoV-2) disease Status: Acute (2) Dyspnea Status: Acute Comment Review of Relevant I have reviewed the following items mile (where applicable) has been applied. Medications: Current Medications Medications (Trade) Dose Ordered Sig/Sola Route PRN Reason Start Time Stop Time Status Last Admin Dose Admin Insulin Human Lispro (HumaLOG) 5 units Q6HRS SQ 07/15/20 12:00 07/15/20 23:46 Dexamethasone Sodium Phosphate (Decadron) 6 mg DAILY IVP 07/15/20 10:00 07/15/20 10:15 Sodium Chloride 90 meq/Potassium Chloride 25 meq/ Potassium Phosphate 13.6 mmol/Magnesium Sulfate 10 meq/ Calcium Gluconate 10 meq/ Multivitamins 5 ml/Zinc/Copper/ Manganese/ Selenium 1 ml/ Total Parenteral Nutrition/Amino Acids/Dextrose 1,512 ml @ 63 mls/hr TPN CONT IV 07/15/20 22:00 07/16/20 21:59 07/15/20 22:01 Sodium Phosphate 15 mmol/Sodium Chloride 105 ml @ 105 mls/hr 1X ONCE IV 07/15/20 13:00 07/15/20 13:59 DC 07/15/20 13:12 Insulin Glargine (Lantus Syringe) 20 unit QHS SQ 07/15/20 21:00 07/15/20 21:04 Insulin Human Lispro (HumaLOG) 18 units 1X ONCE SQ 07/16/20 01:00 07/16/20 01:01 DC 07/16/20 00:41 Insulin Human Lispro (HumaLOG) 26 units 1X ONCE SQ 07/16/20 06:30 07/16/20 06:31 DC 07/16/20 06:06 Justifications for Admission Other Justification DIANA RAMIREZ MD Jul 16, 2020 09:58
[2020-07-16] MEDS: FAMOTIDINE 20 MG/2 ML VIAL IVP SCH ×2 (10:08→21:24)
[2020-07-16] MEDS: CHOLECALCIFEROL (VITAMIN D3) 1,000 UNIT TABLET PO SCH (10:09)
[2020-07-16] MEDS: ENOXAPARIN 40 MG/0.4 ML SYRINGE. SQ SCH ×2 (10:09→21:24)
[2020-07-16] MEDS: DEXAMETHASONE SOD PHOS 4 MG/ML VIAL IVP SCH (10:12)
[2020-07-16] MEDS: ASCORBIC ACID 1,000 MG TABLET PO SCH (10:12)
[2020-07-16 10:20] LABS: ALBUMIN 1.5 g/dL (3.4-5.0); ALBUMIN/GLOBULIN RATIO 0.3 (1.0-1.7); POTASSIUM 4.4 mmol/L (3.5-5.1); TOTAL BILIRUBIN 0.8 mg/dL (0.2-1.0); TOTAL PROTEIN 6.1 g/dL (6.4-8.2)
[2020-07-16 10:22] LABS: CALCIUM 8.3 mg/dL (8.5-10.1); GFR 84.5
--- NOTE | 2020-07-16 10:41 | PDOC ---
PULMONARY PROGRESS NOTES DATE: 07/16/20 TIME: 10:39 Subjective PT. is intubated and sedated on VEC gtt fever overnight no other concerns from nursing Vitals Vital Signs Date Time Temp Pulse Resp B/P (MAP) Pulse Ox O2 Delivery O2 Flow Rate FiO2 07/16/20 07:45 99 Ventilator 07/16/20 06:00 99.3 80 30 121/67 (85) 99.3 07/15/20 11:14 40.0 Comments Patient seen during , visual exam preformed intubated/sedated no accessory muscle use no distress no obvious edema Labs Laboratory Tests Test 07/14/20 11:53 07/14/20 16:41 07/15/20 00:14 07/15/20 05:58 Glucose (Fingerstick) 306 mg/dL (70-99) 256 mg/dL (70-99) 300 mg/dL (70-99) 308 mg/dL (70-99) Test 07/15/20 07:10 07/15/20 07:50 07/15/20 11:30 07/15/20 17:56 White Blood Count 10.5 x10^3/uL (4.0-11.0) Red Blood Count 5.09 x10^6/uL (4.30-5.70) Hemoglobin 13.7 g/dL (13.0-17.5) Hematocrit 42.0 % (39.0-53.0) Mean Corpuscular Volume 83 fL (79-100) Mean Corpuscular Hemoglobin 27 pg (25-35) Mean Corpuscular Hemoglobin Concent 33 g/dL (31-37) Red Cell Distribution Width 15.8 % (11.5-14.5) Platelet Count 139 x10^3/uL (140-400) Neutrophils (%) (Auto) 87 % (31-73) Lymphocytes (%) (Auto) 7 % (24-48) Monocytes (%) (Auto) 5 % (0-9) Eosinophils (%) (Auto) 0 % (0-3) Basophils (%) (Auto) 0 % (0-3) Neutrophils # (Auto) 9.1 x10^3/uL (1.8-7.7) Lymphocytes # (Auto) 0.8 x10^3/uL (1.0-4.8) Monocytes # (Auto) 0.6 x10^3/uL (0.0-1.1) Eosinophils # (Auto) 0.0 x10^3/uL (0.0-0.7) Basophils # (Auto) 0.0 x10^3/uL (0.0-0.2) D-Dimer (Hannah) > 20.00 ug/mlFEU Sodium Level 135 mmol/L (136-145) Potassium Level 5.0 mmol/L (3.5-5.1) Chloride Level 98 mmol/L (98-107) Carbon Dioxide Level 26 mmol/L (21-32) Anion Gap 11 (6-14) Blood Urea Nitrogen 15 mg/dL (8-26) Creatinine 1.0 mg/dL (0.7-1.3) Estimated GFR (Cockcroft-Gault) 84.5 BUN/Creatinine Ratio 15 (6-20) Glucose Level 285 mg/dL (70-99) Calcium Level 7.8 mg/dL (8.5-10.1) Total Bilirubin 1.1 mg/dL (0.2-1.0) Aspartate Amino Transf (AST/SGOT) 93 U/L (15-37) Alanine Aminotransferase (ALT/SGPT) 38 U/L (16-63) Alkaline Phosphatase 74 U/L (46-116) Total Protein 6.0 g/dL (6.4-8.2) Albumin 1.6 g/dL (3.4-5.0) Albumin/Globulin Ratio 0.4 (1.0-1.7) Triglycerides Level 218 mg/dL (0-150) O2 Saturation 86 % (92-99) Arterial Blood pH 7.34 (7.35-7.45) Arterial Blood pCO2 at Patient Temp 48 mmHg (35-46) Arterial Blood pO2 at Patient Temp 53 mmHg (85-108) Arterial Blood HCO3 25 mmol/L (21-28) Arterial Blood Base Excess -1 mmol/L (-3-3) FiO2 100 Glucose (Fingerstick) 351 mg/dL (70-99) 378 mg/dL (70-99) Test 07/16/20 00:03 07/16/20 05:47 07/16/20 07:03 07/16/20 07:50 Glucose (Fingerstick) 416 mg/dL (70-99) 389 mg/dL (70-99) Sodium Level 138 mmol/L (136-145) Potassium Level 4.4 mmol/L (3.5-5.1) Chloride Level 102 mmol/L (98-107) Carbon Dioxide Level 27 mmol/L (21-32) Anion Gap 9 (6-14) Blood Urea Nitrogen 22 mg/dL (8-26) Creatinine 1.0 mg/dL (0.7-1.3) Estimated GFR (Cockcroft-Gault) 84.5 BUN/Creatinine Ratio 22 (6-20) Glucose Level 404 mg/dL (70-99) Calcium Level 8.3 mg/dL (8.5-10.1) Phosphorus Level 1.5 mg/dL (2.6-4.7) Magnesium Level 3.2 mg/dL (1.8-2.4) Total Bilirubin 0.8 mg/dL (0.2-1.0) Aspartate Amino Transf (AST/SGOT) 60 U/L (15-37) Alanine Aminotransferase (ALT/SGPT) 28 U/L (16-63) Alkaline Phosphatase 79 U/L (46-116) Total Protein 6.1 g/dL (6.4-8.2) Albumin 1.5 g/dL (3.4-5.0) Albumin/Globulin Ratio 0.3 (1.0-1.7) Triglycerides Level 297 mg/dL (0-150) O2 Saturation 90 % (92-99) Arterial Blood pH 7.38 (7.35-7.45) Arterial Blood pCO2 at Patient Temp 50 mmHg (35-46) Arterial Blood pO2 at Patient Temp 59 mmHg (85-108) Arterial Blood HCO3 29 mmol/L (21-28) Arterial Blood Base Excess 3 mmol/L (-3-3) FiO2 100 Laboratory Tests Test 07/15/20 11:30 07/15/20 17:56 07/16/20 00:03 07/16/20 05:47 Glucose (Fingerstick) 351 mg/dL (70-99) 378 mg/dL (70-99) 416 mg/dL (70-99) 389 mg/dL (70-99) Test 07/16/20 07:03 07/16/20 07:50 Sodium Level 138 mmol/L (136-145) Potassium Level 4.4 mmol/L (3.5-5.1) Chloride Level 102 mmol/L (98-107) Carbon Dioxide Level 27 mmol/L (21-32) Anion Gap 9 (6-14) Blood Urea Nitrogen 22 mg/dL (8-26) Creatinine 1.0 mg/dL (0.7-1.3) Estimated GFR (Cockcroft-Gault) 84.5 BUN/Creatinine Ratio 22 (6-20) Glucose Level 404 mg/dL (70-99) Calcium Level 8.3 mg/dL (8.5-10.1) Phosphorus Level 1.5 mg/dL (2.6-4.7) Magnesium Level 3.2 mg/dL (1.8-2.4) Total Bilirubin 0.8 mg/dL (0.2-1.0) Aspartate Amino Transf (AST/SGOT) 60 U/L (15-37) Alanine Aminotransferase (ALT/SGPT) 28 U/L (16-63) Alkaline Phosphatase 79 U/L (46-116) Total Protein 6.1 g/dL (6.4-8.2) Albumin 1.5 g/dL (3.4-5.0) Albumin/Globulin Ratio 0.3 (1.0-1.7) Triglycerides Level 297 mg/dL (0-150) O2 Saturation 90 % (92-99) Arterial Blood pH 7.38 (7.35-7.45) Arterial Blood pCO2 at Patient Temp 50 mmHg (35-46) Arterial Blood pO2 at Patient Temp 59 mmHg (85-108) Arterial Blood HCO3 29 mmol/L (21-28) Arterial Blood Base Excess 3 mmol/L (-3-3) FiO2 100 Medications Active Scripts Medications Dose Route/Sig Max Daily Dose Days Date Category No Known Medications Prior To Admisstion (Info) Each 1 Each 1X 07/13/20 Reported Comments CXR12/ IMPRESSION: 1. Widespread airspace disease, not significantly changed. 2. Stable position of tubes and lines CTA chest IMPRESSION: 1. No evidence of acute pulmonary embolism. Evaluation of distal pulmonary arteries is limited by motion artifact. 2. Extensive, fairly confluent groundglass opacities throughout both lungs, slightly peripheral and basilar predominance. This could be seen with severe multifocal pneumonia and/or ARDS. Electronically signed by: Lucinda Cespedes MD (07/13/2020 11:33 AM) [id number] Impression . IMPRESSION: 1. Acute hypoxemic respiratory failure secondary to COVID-19 viral pneumonia, now intubated 2. COVID-19 viral pneumonia. 3. Abnormal x-ray. 4. Tobacco dependence. 5. obesity 6. Fever Plan . PLAN: Continue Vent support, currently 100% and PEEP 14, Follow CXR and ABG-- no changes Continue adequate sedation Monitor electrolytes-- replace per PCP symptomatic tx. of fever Continue full course of remdesivir. Continue Dexamethasone will slow taper Continue ABX currently on zyvox and zosyn, follow cultures Continue TPN for nutritional support DVT/GI PPX D/W RN and RT Pt. is FULL code Critical Care Time 30 minutes d/w daughter in detail. prognosis explained. HAYES GUNTER MD Jul 16, 2020 10:41
[2020-07-16] MEDS: BENZONATATE 100 MG CAPSULE. PO SCH ×4 (12:00→23:37)
[2020-07-16] MEDS: TPN PER PHARMACY MC PRN (12:57)
--- NOTE | 2020-07-16 12:57 | NUR ---
Pharmacy TPN Dosing Note S: LYUDMILA HOBBS is a 35 year old M Currently receiving Central Continuous TPN started 07/15/20 B:Pertinent PMH: TF INTOLERANCE Height: 5 feet, 6 inches Weight: 117.3 kg Current diet: NPO LABS: Sodium: 138 Potassium: 4.4 Chloride: 102 Calcium: 8.3 Corrected Calcium: 10.30 Magnesium: 3.2 CO2: 27 SCr: 1 Glucose: 389, 404, 413 Albumin: 1.5 AST: 60 ALT: 28 TPN FORMULA: TPN TYPE: Central Continuous AMINO ACIDS: 60 gm DEXTROSE: 195 gm LIPIDS: 20 gm SODIUM CHLORIDE: 90 mEq POTASSIUM PHOSPHATE: 20 mmol MULTIPLE VITAMIN: 5 ml TRACE ELEMENTS: 1 ml TPN PLAN: -Adjust macros per medical doctor nuclear medicine; propofol infusion remains off, will add lipids. -Serum phos low; give NaPhos bolus. Increase KPhos to 20 mmol/day. -Remove KCL to account for added KPhos. -Serum magnesium high, remove magnesium from TPN. -BMP, mag, phos tomorrow. R: Continue TPN @ current rate and above formula. Will monitor electrolytes, glucose, and tolerance to TPN. MOHSEN BUTCHER, [facility], 07/16/20 [id number]
[2020-07-16] MEDS ORDERED: SODIUM PHOSPHATE 30 MMOL in IV NORMAL SALINE 250ML 250 ML IV ONE (13:00)
[2020-07-16] MEDS: REMDESIVIR 100mg in NORMAL SALINE 250ML X 4 DAYS IV SCH (13:29)
[2020-07-16] MEDS: MINERAL OIL/PETROLATUM,WHITE OPHTH OINT 3.5GM TUBE. OU SCH ×2 (13:30→17:24)
[2020-07-16] MEDS: VECURONIUM BROMIDE 50 MG in TOTAL VOLUME 50 ML IV PRN (17:15)
[2020-07-16] MEDS: ACETAMINOPHEN 325 MG TABLET. PO PRN (17:42)
--- NOTE | 2020-07-16 18:46 | NUR ---
Tolerated turning w/o sat decrease ( 94%)
[2020-07-16] MEDS ORDERED: INSULIN GLARGINE SYRINGE. SQ SCH (21:00)
[2020-07-16] MEDS ORDERED: DEXTROSE 70% IV SCH (22:00)
[2020-07-16] MEDS ORDERED: AMINO ACID IV SCH (22:00)
[2020-07-16] MEDS ORDERED: TOTAL PARENTERAL NUTRITION IV SCH (22:00)
[2020-07-16] MEDS ORDERED: [UNRECOGNIZED DRUG - OTHER] IV SCH (22:00)
[2020-07-16] MEDS: MIDAZOLAM 100mg/100ml NS BAG 100 ML IV PRN (23:15)
[2020-07-17] VITALS (24 sets, daily range): BP systolic 136–174; BP diastolic 73–105
[2020-07-17] MEDS: fentaNYL HIGH DOSE PCA 55 ML IV PRN ×2 (01:23→14:45)
[2020-07-17] MEDS: PIPERACILLIN/TAZOBACTAM 3.375 GM in IV NORMAL SALINE 50ML 50 ML IV SCH ×3 (05:43→18:07)
[2020-07-17] MEDS: INSULIN LISPRO 300 UNITS/3 ML VIAL. SQ SCH ×6 (06:00→18:16)
[2020-07-17] MEDS: MINERAL OIL/PETROLATUM,WHITE OPHTH OINT 3.5GM TUBE. OU SCH ×4 (06:49→18:07)
[2020-07-17] MEDS ORDERED: INSULIN LISPRO 300 UNITS/3 ML VIAL. SQ ONE (07:00)
--- NOTE | 2020-07-17 07:35 | PDOC ---
Infectious Disease Note Subjective: Subjective pt intubated/sedated Continues to have low-grade fevers Vital Signs: Vital Signs Vital Signs Date Time Temp Pulse Resp B/P (MAP) Pulse Ox O2 Delivery O2 Flow Rate FiO2 07/17/20 07:00 100.2 92 30 168/89 (115) 100 Ventilator 100.2 Physical Exam: PHYSICAL EXAM GENERAL: Intubated, sedated. HEENT: Normocephalic, atraumatic. ETT and OG tube in place. NECK: Supple. LUNGS: Coarse breath sounds bilaterally. HEART: S1, S2. ABDOMEN: Obese. Bowel sounds present, mildly distended. EXTREMITIES: No edema, no cyanosis. DERMATOLOGIC: Warm, dry. No generalized rash. NEUROLOGIC: Intubated. PSYCHIATRIC: Unable to assess. Right upper extremity PICC line clean Medications: Inpatient Meds: Current Medications Medications (Trade) Dose Ordered Sig/Sola Start Time Stop Time Status Last Admin Dose Admin Acetaminophen (Tylenol) 650 mg PRN Q6HRS PRN 07/13/20 16:15 07/16/20 17:42 650 MG Ascorbic Acid (Vitamin C) 1,000 mg DAILY 07/13/20 13:00 07/16/20 10:12 1,000 MG Atropine Sulfate (ATROPINE 0.5mg SYRINGE) 0.5 mg PRN Q5MIN PRN 07/13/20 17:00 Azithromycin 250 ml @ As Directed STK-MED ONCE 07/13/20 09:28 07/13/20 09:28 DC Benzonatate (Tessalon Perle) 100 mg Q6HRS 07/13/20 18:00 Calcium Gluconate 1000 mg/Sodium Chloride 110 ml @ 220 mls/hr 1X ONCE 07/13/20 11:45 07/13/20 12:14 DC 07/13/20 11:51 220 MLS/HR Ceftriaxone Sodium (Rocephin) 1 gm Q24H 07/14/20 09:00 07/13/20 23:25 DC Chlorhexidine Gluconate (Peridex) 15 ml BID 07/13/20 21:00 07/16/20 18:59 DC 07/15/20 08:33 15 ML Dexamethasone (Decadron) 6 mg [id number] 07/14/20 08:00 07/15/20 09:13 DC 07/14/20 09:14 6 MG Dexamethasone Sodium Phosphate (Decadron) 6 mg DAILY 07/15/20 10:00 07/16/20 10:12 4 MG Dexmedetomidine HCl 400 mcg/ Sodium Chloride 100 ml @ 0 mls/hr CONT PRN 07/13/20 17:00 Dextrose (Dextrose 50%-Water Syringe) 12.5 gm PRN Q15MIN PRN 07/14/20 09:30 Doxycycline Hyclate 100 mg/ Dextrose 100 ml @ 50 mls/hr Q12HR 07/13/20 13:00 07/13/20 23:25 DC 07/13/20 13:21 50 MLS/HR Enoxaparin Sodium (Lovenox 120mg Syringe) 110 mg 1X ONCE 07/13/20 10:15 07/13/20 10:16 DC 07/13/20 10:14 110 MG Enoxaparin Sodium (Lovenox 40mg Syringe) 40 mg BID 07/14/20 21:00 07/16/20 21:24 40 MG Etomidate (Amidate) 20 mg STK-MED ONCE 07/13/20 18:00 07/14/20 08:36 DC Famotidine (Pepcid Vial) 20 mg BID 07/14/20 21:00 07/16/20 21:24 20 MG Fentanyl Citrate 55 ml @ 0 mls/hr CONT PRN PRN 07/13/20 19:45 07/17/20 01:23 3.98 MLS/HR Influenza Virus Vaccine Quadrival (Fluzone Quad [id number] Syringe) 0.5 ml ONCE ONCE 07/15/20 09:00 07/15/20 09:01 DC Info (CONTRAST GIVEN -- Rx MONITORING) 1 each PRN DAILY PRN 07/13/20 10:30 07/15/20 10:29 DC Info (Tpn Per Pharmacy) 1 each PRN DAILY PRN 07/15/20 09:15 07/16/20 12:57 1 EACH Insulin Glargine (Lantus Syringe) 45 unit BID 07/17/20 09:00 Insulin Human Lispro (HumaLOG) 25 units 1X ONCE 07/17/20 07:00 07/17/20 07:01 DC 07/17/20 06:50 25 UNITS Iohexol (Omnipaque 350 Mg/ml) 100 ml 1X ONCE 07/13/20 10:15 07/13/20 10:16 DC 07/13/20 10:15 100 ML Linezolid/Dextrose 300 ml @ 300 mls/hr Q12HR 07/14/20 21:00 07/16/20 21:23 300 MLS/HR Lorazepam (Ativan Inj) 0.25 mg PRN Q6HRS PRN 07/13/20 16:45 07/13/20 16:42 0.25 MG Magnesium Sulfate 50 ml @ 25 mls/hr 1X ONCE 07/13/20 12:30 07/13/20 14:29 UNV Midazolam HCl 100 ml @ 0 mls/hr CONT PRN 07/13/20 17:45 07/16/20 23:15 10 MLS/HR Multi-Ingred Cream/Lotion/Oil/ Oint (Artificial Tears Eye Ointment) 1 klaudia Q6HRS 07/16/20 13:00 07/17/20 06:49 1 KLAUDIA Norepinephrine Bitartrate 8 mg/ Dextrose 258 ml @ 22.91 mls/ hr CONT PRN 07/13/20 23:30 07/15/20 00:09 9.164 MLS/HR Ondansetron HCl (Zofran) 4 mg PRN Q8HRS PRN 07/13/20 09:45 07/14/20 08:19 DC Phenol (Chloraseptic) 1 spray PRN Q2HR PRN 07/13/20 16:15 07/13/20 16:27 1 SPRAY Piperacillin Sod/ Tazobactam Sod (Zosyn Per Pharmacy) 1 each PRN DAILY PRN 07/13/20 23:16 Piperacillin Sod/ Tazobactam Sod 3.375 gm/Sodium Chloride 50 ml @ 100 mls/hr Q6HRS 07/14/20 00:00 07/17/20 05:43 100 MLS/HR Potassium Chloride/Water 100 ml @ 100 mls/hr Q1H 07/13/20 11:30 07/13/20 15:29 DC 07/13/20 17:17 100 MLS/HR Potassium Chloride (Klor-Con) 40 meq 1X ONCE 07/13/20 11:15 07/13/20 11:16 DC 07/13/20 11:20 40 MEQ Prochlorperazine Edisylate (Compazine) 10 mg PRN Q6HRS PRN 07/13/20 16:15 Propofol 100 ml @ 0 mls/hr CONT PRN 07/13/20 17:45 07/14/20 20:13 17.7 MLS/HR Remdesivir 100 mg/ Sodium Chloride 230 ml @ 460 mls/hr Q24H 07/14/20 14:00 07/17/20 14:29 07/16/20 13:29 460 MLS/HR Remdesivir 200 mg/ Sodium Chloride 210 ml @ 210 mls/hr 1X ONCE 07/13/20 14:00 07/13/20 14:59 DC 07/13/20 15:21 210 MLS/HR Ringer's Solution 1,000 ml @ 100 mls/hr Q10H 07/13/20 23:30 07/15/20 09:08 DC 07/14/20 20:12 100 MLS/HR Sodium Chloride 90 meq/Potassium Chloride 25 meq/ Potassium Phosphate 13.6 mmol/Magnesium Sulfate 10 meq/ Calcium Gluconate 10 meq/ Multivitamins 5 ml/Zinc/Copper/ Manganese/ Selenium 1 ml/ Total Parenteral Nutrition/Amino Acids/Dextrose 1,512 ml @ 63 mls/hr TPN CONT 07/15/20 22:00 07/16/20 21:59 DC 07/15/20 22:01 63 MLS/HR Sodium Chloride 90 meq/Potassium Phosphate 20 mmol/ Calcium Gluconate 10 meq/ Multivitamins 5 ml/Zinc/Copper/ Manganese/ Selenium 1 ml/ Total Parenteral Nutrition/Amino Acids/Dextrose/ Fat Emulsion Intravenous 1,512 ml @ 63 mls/hr TPN CONT 07/16/20 22:00 07/17/20 21:59 07/16/20 22:54 63 MLS/HR Sodium Phosphate 15 mmol/Sodium Chloride 105 ml @ 105 mls/hr 1X ONCE 07/15/20 13:00 07/15/20 13:59 DC 07/15/20 13:12 105 MLS/HR Sodium Phosphate 30 mmol/Sodium Chloride 260 ml @ 65 mls/hr 1X ONCE 07/16/20 13:00 07/16/20 16:59 DC 07/16/20 13:29 65 MLS/HR Sterile Water (WATER for RESP) 1,000 ml CONT PRN 07/13/20 17:15 Succinylcholine Chloride (Anectine) 200 mg STK-MED ONCE 07/13/20 18:00 07/14/20 08:36 DC Thiamine HCl 300 mg/Dextrose 53 ml @ 102 mls/hr DAILY 07/14/20 09:00 07/16/20 09:00 102 MLS/HR Vancomycin HCl (Vanco Per Pharmacy) 1 each PRN DAILY PRN 07/13/20 23:16 07/14/20 09:14 DC 07/14/20 02:10 1 EACH Vancomycin HCl (Vancomycin Trough Level) 1 each 1X ONCE 07/14/20 23:30 07/14/20 23:31 Cancel Vancomycin HCl 1.5 gm/Sodium Chloride 500 ml @ 250 mls/hr Q8H 07/14/20 08:00 07/14/20 09:14 DC 07/14/20 08:46 250 MLS/HR Vancomycin HCl 2 gm/Sodium Chloride 500 ml @ 250 mls/hr 1X ONCE 07/13/20 23:45 07/14/20 01:44 DC 07/14/20 00:24 250 MLS/HR Vecuronium [place] 50 mg/ Miscellaneous 50 ml @ 5.683 mls/ hr CONT PRN 07/13/20 22:00 07/16/20 17:15 1.4 MLS/HR Vecuronium [place] (Norcuron Bolus) 6 mg PRN Q4HRS PRN 07/13/20 19:30 07/13/20 19:39 6 MG Vitamin D (Vitamin D3) 1,000 unit DAILY 07/13/20 13:00 07/16/20 10:09 1,000 UNIT Labs: Lab Laboratory Tests Test 07/16/20 07:50 07/16/20 12:25 07/16/20 17:29 07/16/20 23:28 O2 Saturation 90 % (92-99) Arterial Blood pH 7.38 (7.35-7.45) Arterial Blood pCO2 at Patient Temp 50 mmHg (35-46) Arterial Blood pO2 at Patient Temp 59 mmHg (85-108) Arterial Blood HCO3 29 mmol/L (21-28) Arterial Blood Base Excess 3 mmol/L (-3-3) FiO2 100 Glucose (Fingerstick) 413 mg/dL (70-99) 392 mg/dL (70-99) 382 mg/dL (70-99) Test 07/17/20 06:10 Glucose (Fingerstick) 372 mg/dL (70-99) Objective: Assessment: 1. COVID-19 infection. 2. Fever 3. Acute hypoxic respiratory failure. 4. Morbid obesity. 5. Severe protein-calorie malnutrition. 6. Hyponatremia, hypokalemia. Plan: Plan of Care Continue supportive care Remdesivir 07/14 Steroids Continue Zosyn and Zyvox Follow up labs and cultures.Cults nonrevealing Critically ill. Discussed with nursing staff. ALICIA HAAS MD Jul 17, 2020 07:35
--- NOTE | 2020-07-17 07:58 | PDOC ---
[facility] PROGRESS NOTE Date of Service DOS: DATE: 07/17/20 TIME: 07:57 Chief Complaint Chief Complaint A/P: Acute hypoxemic respiratory failure secondary to COVID-19 viral pneumonia. COVID-19 viral pneumonia. Abnormal x-ray. Tobacco dependence. Hyponatremia Hyperkalemia Hypomagnesemia FEN - NPO - start TPN PPX - lovenox FULL CODE Dispo - ICU cc time 37 minutes History of Present Illness History of Present Illness Mr Luque is a 35 yo M morbidly obese who presented with chief complaint of respiratory distress. Patient tested positive for Covid about 6 days prior to admit Patient had a fever, chills, cough, myalgias and headache. Patient had abdominal discomfort with diarrhea. Over the last day the patient became more short of breath. Patient had trouble sleeping and was satting 65% on room air in triage. Symptoms worse with activity and at night and somewhat better with taking Tylenol. 07/13: Eventful day with worsening respiratory distress, required intubation emergently with ED physician 07/14: Febrile to 101.8F this morning. PEEP 14, FiO2 100%. UOP stable. Required paralysis overnight for vent dysynchrony. Remdesivir day 1 07/15: Temp 100 F this morning. Still requiring paralysis for vent dyssynchrony on PEEP of 14 with FiO2 100%. Right upper extremity PICC placed for pressors. 07/16: Afebrile overnight still requiring PEEP of 14 and FiO2 100% but PaO2 on ABG up to 59 today. Glucose in the 300s despite insulin regimen. Triglycerides low 200s on TPN. Phosphorus low at 1.5. T-max 100.4 F overnight. Glucose still in the 300s despite very large increase in insulin. O2 saturations 96% on PEEP of 14 and FiO2 100%. Labs pending. Vitals/I&O Vitals/I&O: Vital Signs Date Time Temp Pulse Resp B/P (MAP) Pulse Ox O2 Delivery O2 Flow Rate FiO2 07/17/20 07:00 100.2 92 30 168/89 (115) 100 Ventilator 100.2 I & O 07/16/20 07/16/20 07/17/20 15:00 23:00 07:00 Intake Total 2281 ml 639.9 ml Output Total 1050 ml 1400 ml 1175 ml Balance -1050 ml 881 ml -535.1 ml Physical Exam Physical Exam: GENERAL: Intubated, sedated. HEENT: Normocephalic, atraumatic. ETT and OG tube in place. NECK: Supple. LUNGS: Coarse breath sounds bilaterally. HEART: S1, S2. ABDOMEN: Obese. Bowel sounds present, mildly distended. EXTREMITIES: No edema, no cyanosis. DERMATOLOGIC: Warm, dry. No generalized rash. NEUROLOGIC: Intubated. PSYCHIATRIC: Unable to assess. Right upper extremity PICC line clean General: mild distress Heart: Regular rate, Normal S1, Normal S2 Abdomen: Normal bowel sounds, Soft Extremities: No clubbing, No cyanosis Skin: No rashes, No breakdown Labs Labs: Laboratory Tests Test 07/16/20 12:25 07/16/20 17:29 07/16/20 23:28 07/17/20 06:10 Glucose (Fingerstick) 413 mg/dL (70-99) 392 mg/dL (70-99) 382 mg/dL (70-99) 372 mg/dL (70-99) Assessment and Plan Assessmemt and Plan Problems Medical Problems: (1) Acute hypoxemic respiratory failure due to severe acute respiratory syndrome coronavirus 2 (SARS-CoV-2) disease Status: Acute (2) Dyspnea Status: Acute Comment Review of Relevant I have reviewed the following items mile (where applicable) has been applied. Medications: Current Medications Medications (Trade) Dose Ordered Sig/Sola Route PRN Reason Start Time Stop Time Status Last Admin Dose Admin Insulin Glargine (Lantus Syringe) 45 unit QHS SQ 07/16/20 21:00 07/17/20 06:44 DC 07/16/20 21:24 Insulin Human Lispro (HumaLOG) 10 units Q6HRS SQ 07/16/20 12:00 07/16/20 17:31 Sodium Phosphate 30 mmol/Sodium Chloride 260 ml @ 65 mls/hr 1X ONCE IV 07/16/20 13:00 07/16/20 16:59 DC 07/16/20 13:29 Multi-Ingred Cream/Lotion/Oil/ Oint (Artificial Tears Eye Ointment) 1 klaudia Q6HRS OU 07/16/20 13:00 07/17/20 06:49 Sodium Chloride 90 meq/Potassium Phosphate 20 mmol/ Calcium Gluconate 10 meq/ Multivitamins 5 ml/Zinc/Copper/ Manganese/ Selenium 1 ml/ Total Parenteral Nutrition/Amino Acids/Dextrose/ Fat Emulsion Intravenous 1,512 ml @ 63 mls/hr TPN CONT IV 07/16/20 22:00 07/17/20 21:59 07/16/20 22:54 Insulin Human Lispro (HumaLOG) 20 units 1X ONCE SQ 07/16/20 23:55 07/16/20 23:56 DC 07/16/20 23:55 Insulin Human Lispro (HumaLOG) 25 units 1X ONCE SQ 07/17/20 07:00 07/17/20 07:01 DC 07/17/20 06:50 Justifications for Admission Other Justification DIANA RAMIREZ MD Jul 17, 2020 07:58
[2020-07-17 08:57] LABS: BASE EXCESS ABG 2 mmol/L (-3-3); HCO3 ABG 28 mmol/L (21-28); PCO2 ABG 51 mmHg (35-46); PO2 ABG 59 mmHg (85-108); SAT O2 ABG 89 % (92-99)
[2020-07-17 09:06] LABS: FIO2 ABG 100% +14Peep
[2020-07-17] MEDS: MIDAZOLAM 100mg/100ml NS BAG 100 ML IV PRN ×2 (09:18→18:55)
[2020-07-17 09:32] LABS: CALCIUM 8.5 mg/dL (8.5-10.1); GFR 84.5; MAGNESIUM 2.9 mg/dL (1.8-2.4); PHOSPHORUS 2.3 mg/dL (2.6-4.7); POTASSIUM 4.5 mmol/L (3.5-5.1)
[2020-07-17] MEDS: DEXAMETHASONE SOD PHOS 4 MG/ML VIAL IVP SCH (09:53)
[2020-07-17] MEDS: FAMOTIDINE 20 MG/2 ML VIAL IVP SCH ×2 (09:53→20:48)
[2020-07-17] MEDS: ENOXAPARIN 40 MG/0.4 ML SYRINGE. SQ SCH ×2 (09:53→20:47)
[2020-07-17] MEDS: THIAMINE INJ 300 MG in IV DEXTROSE 5% 50 ML IV SCH (09:53)
[2020-07-17] MEDS: CHOLECALCIFEROL (VITAMIN D3) 1,000 UNIT TABLET PO SCH (09:54)
[2020-07-17] MEDS: ASCORBIC ACID 1,000 MG TABLET PO SCH (09:54)
[2020-07-17] MEDS: ACETAMINOPHEN 325 MG TABLET. PO PRN (09:54)
[2020-07-17] MEDS: INSULIN GLARGINE SYRINGE. SQ SCH ×2 (09:56→20:47)
[2020-07-17] MEDS: TPN PER PHARMACY MC PRN (10:47)
--- NOTE | 2020-07-17 10:48 | NUR ---
Pharmacy TPN Dosing Note S: LYUDMILA HOBBS is a 35 year old M Currently receiving Central Continuous TPN started 07/15/20 B:Pertinent PMH: TF INTOLERANCE Height: 5 feet, 6 inches Weight: 113.5 kg Current diet: NPO LABS: Sodium: 143 Potassium: 4.5 Chloride: 107 Calcium: 8.5 Corrected Calcium: 10.50 Magnesium: 2.9 CO2: 29 SCr: 1 Glucose: 372, 363 Albumin: 1.5 AST: 60 ALT: 28 TPN FORMULA: TPN TYPE: Central Continuous AMINO ACIDS: 60 gm DEXTROSE: 195 gm LIPIDS: 20 gm SODIUM CHLORIDE: 90 mEq POTASSIUM PHOSPHATE: 20 mmol CALCIUM: 10 mEq MULTIPLE VITAMIN: 5 ml TRACE ELEMENTS: 1 ml TPN PLAN: -Serum phos low, give KPhos 13.6 mmol bolus. Increase KPhos to 23 mmol/day. -BMP, mag, phos tomorrow. R: Continue TPN @ current rate and with above formula. Will monitor electrolytes, glucose, and tolerance to TPN. MOHSEN BUTCHER [facility], 07/17/20 0815
[2020-07-17] MEDS ORDERED: POTASSIUM PHOSPHATE DIBASIC 13.6 MMOL in IV NS 250 ML IV SCH (11:30)
[2020-07-17 11:31] LABS: ALBUMIN 1.7 g/dL (3.4-5.0); ALBUMIN/GLOBULIN RATIO 0.4 (1.0-1.7); CREATININE 1.1 mg/dL (0.7-1.3); GFR 75.7; POTASSIUM 4.6 mmol/L (3.5-5.1); TOTAL BILIRUBIN 0.9 mg/dL (0.2-1.0); TOTAL PROTEIN 6.5 g/dL (6.4-8.2)
--- NOTE | 2020-07-17 11:33 | PDOC ---
PULMONARY PROGRESS NOTES DATE: 07/17/20 TIME: 11:31 Subjective PT. is intubated and sedated on VEC gtt fever overnight no other concerns from nursing Vitals Vital Signs Date Time Temp Pulse Resp B/P (MAP) Pulse Ox O2 Delivery O2 Flow Rate FiO2 07/17/20 11:22 100 Ventilator 07/17/20 11:00 100.2 88 30 144/78 (100) 100.2 Comments Patient seen during , visual exam preformed intubated/sedated no accessory muscle use no distress no obvious edema Labs Laboratory Tests Test 07/15/20 17:56 07/16/20 00:03 07/16/20 05:47 07/16/20 07:03 Glucose (Fingerstick) 378 mg/dL (70-99) 416 mg/dL (70-99) 389 mg/dL (70-99) Sodium Level 138 mmol/L (136-145) Potassium Level 4.4 mmol/L (3.5-5.1) Chloride Level 102 mmol/L (98-107) Carbon Dioxide Level 27 mmol/L (21-32) Anion Gap 9 (6-14) Blood Urea Nitrogen 22 mg/dL (8-26) Creatinine 1.0 mg/dL (0.7-1.3) Estimated GFR (Cockcroft-Gault) 84.5 BUN/Creatinine Ratio 22 (6-20) Glucose Level 404 mg/dL (70-99) Calcium Level 8.3 mg/dL (8.5-10.1) Phosphorus Level 1.5 mg/dL (2.6-4.7) Magnesium Level 3.2 mg/dL (1.8-2.4) Total Bilirubin 0.8 mg/dL (0.2-1.0) Aspartate Amino Transf (AST/SGOT) 60 U/L (15-37) Alanine Aminotransferase (ALT/SGPT) 28 U/L (16-63) Alkaline Phosphatase 79 U/L (46-116) Total Protein 6.1 g/dL (6.4-8.2) Albumin 1.5 g/dL (3.4-5.0) Albumin/Globulin Ratio 0.3 (1.0-1.7) Triglycerides Level 297 mg/dL (0-150) Test 07/16/20 07:50 07/16/20 12:25 07/16/20 17:29 07/16/20 23:28 O2 Saturation 90 % (92-99) Arterial Blood pH 7.38 (7.35-7.45) Arterial Blood pCO2 at Patient Temp 50 mmHg (35-46) Arterial Blood pO2 at Patient Temp 59 mmHg (85-108) Arterial Blood HCO3 29 mmol/L (21-28) Arterial Blood Base Excess 3 mmol/L (-3-3) FiO2 100 Glucose (Fingerstick) 413 mg/dL (70-99) 392 mg/dL (70-99) 382 mg/dL (70-99) Test 07/17/20 06:10 07/17/20 08:20 07/17/20 08:30 Glucose (Fingerstick) 372 mg/dL (70-99) Sodium Level 143 mmol/L (136-145) Potassium Level 4.5 mmol/L (3.5-5.1) Chloride Level 107 mmol/L (98-107) Carbon Dioxide Level 29 mmol/L (21-32) Anion Gap 7 (6-14) Blood Urea Nitrogen 28 mg/dL (8-26) Creatinine 1.0 mg/dL (0.7-1.3) Estimated GFR (Cockcroft-Gault) 84.5 Glucose Level 363 mg/dL (70-99) Calcium Level 8.5 mg/dL (8.5-10.1) Phosphorus Level 2.3 mg/dL (2.6-4.7) Magnesium Level 2.9 mg/dL (1.8-2.4) O2 Saturation 89 % (92-99) Arterial Blood pH 7.36 (7.35-7.45) Arterial Blood pCO2 at Patient Temp 51 mmHg (35-46) Arterial Blood pO2 at Patient Temp 59 mmHg (85-108) Arterial Blood HCO3 28 mmol/L (21-28) Arterial Blood Base Excess 2 mmol/L (-3-3) FiO2 100% +14peep Laboratory Tests Test 07/16/20 12:25 07/16/20 17:29 07/16/20 23:28 07/17/20 06:10 Glucose (Fingerstick) 413 mg/dL (70-99) 392 mg/dL (70-99) 382 mg/dL (70-99) 372 mg/dL (70-99) Test 07/17/20 08:20 07/17/20 08:30 Sodium Level 143 mmol/L (136-145) Potassium Level 4.5 mmol/L (3.5-5.1) Chloride Level 107 mmol/L (98-107) Carbon Dioxide Level 29 mmol/L (21-32) Anion Gap 7 (6-14) Blood Urea Nitrogen 28 mg/dL (8-26) Creatinine 1.0 mg/dL (0.7-1.3) Estimated GFR (Cockcroft-Gault) 84.5 Glucose Level 363 mg/dL (70-99) Calcium Level 8.5 mg/dL (8.5-10.1) Phosphorus Level 2.3 mg/dL (2.6-4.7) Magnesium Level 2.9 mg/dL (1.8-2.4) O2 Saturation 89 % (92-99) Arterial Blood pH 7.36 (7.35-7.45) Arterial Blood pCO2 at Patient Temp 51 mmHg (35-46) Arterial Blood pO2 at Patient Temp 59 mmHg (85-108) Arterial Blood HCO3 28 mmol/L (21-28) Arterial Blood Base Excess 2 mmol/L (-3-3) FiO2 100% +14peep Medications Active Scripts Medications Dose Route/Sig Max Daily Dose Days Date Category No Known Medications Prior To Admisstion (Info) Each 1 Each 1X 07/13/20 Reported Comments [id number]/[id number] IMPRESSION: 1. Widespread airspace disease, not significantly changed. 2. Stable position of tubes and lines CTA chest IMPRESSION: 1. No evidence of acute pulmonary embolism. Evaluation of distal pulmonary arteries is limited by motion artifact. 2. Extensive, fairly confluent groundglass opacities throughout both lungs, slightly peripheral and basilar predominance. This could be seen with severe m ultifocal pneumonia and/or ARDS. Electronically signed by: Lucinda Cespedes MD (07/13/2020 11:33 AM) [id number] Impression . IMPRESSION: 1. Acute hypoxemic respiratory failure secondary to COVID-19 viral pneumonia, now intubated 2. COVID-19 viral pneumonia. 3. Abnormal x-ray. 4. Tobacco dependence. 5. obesity 6. Fever /persistent, on BS abx Plan . PLAN: Continue Vent support, currently 100% and PEEP 14, Follow CXR and ABG-- no changes Continue adequate sedation Monitor electrolytes-- replace per PCP symptomatic tx. of fever Continue full course of remdesivir. Continue Dexamethasone will slow taper Continue ABX currently on zyvox and zosyn, follow cultures Continue TPN for nutritional support DVT/GI PPX D/W RN and RT Pt. is FULL code Critical Care Time 30 minutes d/w daughter in detail.07/16, prognosis explained. HAYES GUNTER MD Jul 17, 2020 11:33
[2020-07-17] MEDS: BENZONATATE 100 MG CAPSULE. PO SCH ×2 (12:00→18:00)
--- NOTE | 2020-07-17 12:47 | NUR ---
SS following up with discharge planning. SS reviewed pt chart and discussed with pt RN. Pt is currently on the vent at 100%. COVID19 positive. Pt on IV Zosyn, IV Zyvox, Remdesivir, and TPN. Not stable. Full Code. Self pay. Dr. Brice discussing with pt's family. SS will continue to follow for discharge planning.
[2020-07-17] MEDS: REMDESIVIR 100mg in NORMAL SALINE 250ML X 4 DAYS IV SCH (15:36)
[2020-07-17] MEDS: VECURONIUM BROMIDE 50 MG in TOTAL VOLUME 50 ML IV PRN (18:55)
[2020-07-17] MEDS ORDERED: AMINO ACID IV SCH (22:00)
[2020-07-17] MEDS ORDERED: [UNRECOGNIZED DRUG - OTHER] IV SCH (22:00)
[2020-07-17] MEDS ORDERED: DEXTROSE 70% IV SCH (22:00)
[2020-07-17] MEDS ORDERED: TOTAL PARENTERAL NUTRITION IV SCH (22:00)
[2020-07-18] VITALS (24 sets, daily range): BP systolic 128–162; BP diastolic 70–102
[2020-07-18] MEDS: PIPERACILLIN/TAZOBACTAM 3.375 GM in IV NORMAL SALINE 50ML 50 ML IV SCH ×4 (00:14→17:27)
[2020-07-18] MEDS: BENZONATATE 100 MG CAPSULE. PO SCH ×4 (00:14→16:03)
[2020-07-18] MEDS: INSULIN LISPRO 300 UNITS/3 ML VIAL. SQ SCH ×8 (00:24→17:23)
[2020-07-18] MEDS: fentaNYL HIGH DOSE PCA 55 ML IV PRN ×2 (02:26→16:00)
[2020-07-18] MEDS: MIDAZOLAM 100mg/100ml NS BAG 100 ML IV PRN ×2 (04:17→16:01)
--- NOTE | 2020-07-18 04:40 | RAD ---
Single view chest dated 07/18/2020. Comparison made to 07/15/2020. CLINICAL INDICATION: Follow-up airspace disease. FINDINGS: Single upright portable exam performed. Endotracheal tube, nasogastric tube and right-sided port in p lace, unchanged. Heart and mediastinal contours are stable. There is widespread airspace disease thro ughout both lungs, mildly improved. No pneumothorax. There is a small markedly pleural effusion on th e left. IMPRESSION: 1. Mild interval improvement in widespread airspace disease. 2. Stable position of tubes and lines. 3. Possible small loculated pleural effusion on the left. Electronically signed by: Carloz Finch MD (07/18/2020 4:38 AM) [facility]
[2020-07-18] MEDS: MINERAL OIL/PETROLATUM,WHITE OPHTH OINT 3.5GM TUBE. OU SCH ×4 (05:36→17:19)
[2020-07-18 06:30] LABS: CALCIUM 8.7 mg/dL (8.5-10.1); GFR 84.5; MAGNESIUM 2.5 mg/dL (1.8-2.4); PHOSPHORUS 3.1 mg/dL (2.6-4.7); POTASSIUM 4.8 mmol/L (3.5-5.1)
[2020-07-18 07:49] LABS: BASE EXCESS ABG 5 mmol/L (-3-3); HCO3 ABG 32 mmol/L (21-28); PCO2 ABG 59 mmHg (35-46); PO2 ABG 91 mmHg (85-108); SAT O2 ABG 96 % (92-99)
[2020-07-18 07:52] LABS: FIO2 ABG 100
--- NOTE | 2020-07-18 08:25 | PDOC ---
Infectious Disease Note Subjective: Subjective pt intubated/sedated Vital Signs: Vital Signs Vital Signs Date Time Temp Pulse Resp B/P (MAP) Pulse Ox O2 Delivery O2 Flow Rate FiO2 07/18/20 06:00 99.0 66 30 161/102 (121) 99 Ventilator 99.0 07/17/20 15:15 40.0 Physical Exam: PHYSICAL EXAM GENERAL: Intubated, sedated. HEENT: Normocephalic, atraumatic. ETT and OG tube in place. NECK: Supple. LUNGS: Coarse breath sounds bilaterally. HEART: S1, S2. ABDOMEN: Obese. Bowel sounds present, mildly distended. EXTREMITIES: No edema, no cyanosis. DERMATOLOGIC: Warm, dry. No generalized rash. NEUROLOGIC: Intubated. PSYCHIATRIC: Unable to assess. Right upper extremity PICC line clean Medications: Inpatient Meds: Current Medications Medications (Trade) Dose Ordered Sig/Sola Start Time Stop Time Status Last Admin Dose Admin Acetaminophen (Tylenol) 650 mg PRN Q6HRS PRN 07/13/20 16:15 07/17/20 09:54 650 MG Ascorbic Acid (Vitamin C) 1,000 mg DAILY 07/13/20 13:00 07/17/20 09:54 1,000 MG Atropine Sulfate (ATROPINE 0.5mg SYRINGE) 0.5 mg PRN Q5MIN PRN 07/13/20 17:00 Azithromycin 250 ml @ As Directed STK-MED ONCE 07/13/20 09:28 07/13/20 09:28 DC Benzonatate (Tessalon Perle) 100 mg Q6HRS 07/13/20 18:00 07/18/20 05:36 100 MG Calcium Gluconate 1000 mg/Sodium Chloride 110 ml @ 220 mls/hr 1X ONCE 07/13/20 11:45 07/13/20 12:14 DC 07/13/20 11:51 220 MLS/HR Ceftriaxone Sodium (Rocephin) 1 gm Q24H 07/14/20 09:00 07/13/20 23:25 DC Chlorhexidine Gluconate (Peridex) 15 ml BID 07/13/20 21:00 07/16/20 18:59 DC 07/15/20 08:33 15 ML Dexamethasone (Decadron) 6 mg [id number] 07/14/20 08:00 07/15/20 09:13 DC 07/14/20 09:14 6 MG Dexamethasone Sodium Phosphate (Decadron) 6 mg DAILY 07/15/20 10:00 07/17/20 09:53 6 MG Dexmedetomidine HCl 400 mcg/ Sodium Chloride 100 ml @ 0 mls/hr CONT PRN 07/13/20 17:00 Dextrose (Dextrose 50%-Water Syringe) 12.5 gm PRN Q15MIN PRN 07/14/20 09:30 Doxycycline Hyclate 100 mg/ Dextrose 100 ml @ 50 mls/hr Q12HR 07/13/20 13:00 07/13/20 23:25 DC 07/13/20 13:21 50 MLS/HR Enoxaparin Sodium (Lovenox 120mg Syringe) 110 mg 1X ONCE 07/13/20 10:15 07/13/20 10:16 DC 07/13/20 10:14 110 MG Enoxaparin Sodium (Lovenox 40mg Syringe) 40 mg BID 07/14/20 21:00 07/17/20 20:47 40 MG Etomidate (Amidate) 20 mg STK-MED ONCE 07/13/20 18:00 07/14/20 08:36 DC Famotidine (Pepcid Vial) 20 mg BID 07/14/20 21:00 07/17/20 20:48 20 MG Fentanyl Citrate 55 ml @ 0 mls/hr CONT PRN PRN 07/13/20 19:45 07/18/20 02:26 3.98 MLS/HR Influenza Virus Vaccine Quadrival (Fluzone Quad Syringe) 0.5 ml ONCE ONCE 07/15/20 09:00 07/15/20 09:01 DC Info (CONTRAST GIVEN -- Rx MONITORING) 1 each PRN DAILY PRN 07/13/20 10:30 07/15/20 10:29 DC Info (Tpn Per Pharmacy) 1 each PRN DAILY PRN 07/15/20 09:15 07/17/20 10:47 1 EACH Insulin Glargine (Lantus Syringe) 45 unit BID 07/17/20 09:00 07/17/20 20:47 45 UNIT Insulin Human Lispro (HumaLOG) 25 units 1X ONCE 07/17/20 07:00 07/17/20 07:01 DC 07/17/20 06:50 25 UNITS Iohexol (Omnipaque 350 Mg/ml) 100 ml 1X ONCE 07/13/20 10:15 07/13/20 10:16 DC 07/13/20 10:15 100 ML Linezolid/Dextrose 300 ml @ 300 mls/hr Q12HR 07/14/20 21:00 07/17/20 20:47 300 MLS/HR Lorazepam (Ativan Inj) 0.25 mg PRN Q6HRS PRN 07/13/20 16:45 07/13/20 16:42 0.25 MG Magnesium Sulfate 50 ml @ 25 mls/hr 1X ONCE 07/13/20 12:30 07/13/20 14:29 UNV Midazolam HCl 100 ml @ 0 mls/hr CONT PRN 07/13/20 17:45 07/18/20 04:17 10 MLS/HR Multi-Ingred Cream/Lotion/Oil/ Oint (Artificial Tears Eye Ointment) 1 klaudia Q6HRS 07/16/20 13:00 07/18/20 05:36 1 KLAUDIA Norepinephrine Bitartrate 8 mg/ Dextrose 258 ml @ 22.91 mls/ hr CONT PRN 07/13/20 23:30 07/15/20 00:09 9.164 MLS/HR Ondansetron HCl (Zofran) 4 mg PRN Q8HRS PRN 07/13/20 09:45 07/14/20 08:19 DC Phenol (Chloraseptic) 1 spray PRN Q2HR PRN 07/13/20 16:15 07/13/20 16:27 1 SPRAY Piperacillin Sod/ Tazobactam Sod (Zosyn Per Pharmacy) 1 each PRN DAILY PRN 07/13/20 23:16 Piperacillin Sod/ Tazobactam Sod 3.375 gm/Sodium Chloride 50 ml @ 100 mls/hr Q6HRS 07/14/20 00:00 07/18/20 05:36 100 MLS/HR Potassium Chloride/Water 100 ml @ 100 mls/hr Q1H 07/13/20 11:30 07/13/20 15:29 DC 07/13/20 17:17 100 MLS/HR Potassium Phosphate 13.6 mmol/Sodium Chloride 254.5333 ml @ 127.... Q2H 07/17/20 11:30 12/24/20 13:29 DC 07/17/20 13:22 127.267 MLS/HR Potassium Chloride (Klor-Con) 40 meq 1X ONCE 07/13/20 11:15 07/13/20 11:16 DC 07/13/20 11:20 40 MEQ Prochlorperazine Edisylate (Compazine) 10 mg PRN Q6HRS PRN 07/13/20 16:15 Propofol 100 ml @ 0 mls/hr CONT PRN 07/13/20 17:45 07/14/20 20:13 17.7 MLS/HR Remdesivir 100 mg/ Sodium Chloride 230 ml @ 460 mls/hr Q24H 07/14/20 14:00 07/17/20 14:29 DC 07/17/20 15:36 460 MLS/HR Remdesivir 200 mg/ Sodium Chloride 210 ml @ 210 mls/hr 1X ONCE 07/13/20 14:00 07/13/20 14:59 DC 07/13/20 15:21 210 MLS/HR Ringer's Solution 1,000 ml @ 100 mls/hr Q10H 07/13/20 23:30 07/15/20 09:08 DC 07/14/20 20:12 100 MLS/HR Sodium Chloride 90 meq/Potassium Chloride 25 meq/ Potassium Phosphate 13.6 mmol/Magnesium Sulfate 10 meq/ Calcium Gluconate 10 meq/ Multivitamins 5 ml/Zinc/Copper/ Manganese/ Selenium 1 ml/ Total Parenteral Nutrition/Amino Acids/Dextrose 1,512 ml @ 63 mls/hr TPN CONT 07/15/20 22:00 07/16/20 21:59 DC 07/15/20 22:01 63 MLS/HR Sodium Chloride 90 meq/Potassium Phosphate 20 mmol/ Calcium Gluconate 10 meq/ Multivitamins 5 ml/Zinc/Copper/ Manganese/ Selenium 1 ml/ Total Parenteral Nutrition/Amino Acids/Dextrose/ Fat Emulsion Intravenous 1,512 ml @ 63 mls/hr TPN CONT 07/16/20 22:00 07/17/20 21:59 DC 07/16/20 22:54 63 MLS/HR Sodium Chloride 90 meq/Potassium Phosphate 23 mmol/ Calcium Gluconate 10 meq/ Multivitamins 5 ml/Zinc/Copper/ Manganese/ Selenium 1 ml/ Total Parenteral Nutrition/Amino Acids/Dextrose/ Fat Emulsion Intravenous 1,512 ml @ 63 mls/hr TPN CONT 07/17/20 22:00 07/18/20 21:59 07/17/20 21:32 63 MLS/HR Sodium Phosphate 15 mmol/Sodium Chloride 105 ml @ 105 mls/hr 1X ONCE 07/15/20 13:00 07/15/20 13:59 DC 07/15/20 13:12 105 MLS/HR Sodium Phosphate 30 mmol/Sodium Chloride 260 ml @ 65 mls/hr 1X ONCE 07/16/20 13:00 07/16/20 16:59 DC 07/16/20 13:29 65 MLS/HR Sterile Water (WATER for RESP) 1,000 ml CONT PRN 07/13/20 17:15 Succinylcholine Chloride (Anectine) 200 mg STK-MED ONCE 07/13/20 18:00 07/14/20 08:36 DC Thiamine HCl 300 mg/Dextrose 53 ml @ 102 mls/hr DAILY 07/14/20 09:00 07/17/20 09:53 102 MLS/HR Vancomycin HCl (Vanco Per Pharmacy) 1 each PRN DAILY PRN 07/13/20 23:16 07/14/20 09:14 DC 07/14/20 02:10 1 EACH Vancomycin HCl (Vancomycin Trough Level) 1 each 1X ONCE 07/14/20 23:30 07/14/20 23:31 Cancel Vancomycin HCl 1.5 gm/Sodium Chloride 500 ml @ 250 mls/hr Q8H 07/14/20 08:00 07/14/20 09:14 DC 07/14/20 08:46 250 MLS/HR Vancomycin HCl 2 gm/Sodium Chloride 500 ml @ 250 mls/hr 1X ONCE 07/13/20 23:45 07/14/20 01:44 DC 07/14/20 00:24 250 MLS/HR Vecuronium [place] 50 mg/ Miscellaneous 50 ml @ 5.683 mls/ hr CONT PRN 07/13/20 22:00 07/17/20 18:55 1.421 MLS/HR Vecuronium [place] (Norcuron Bolus) 6 mg PRN Q4HRS PRN 07/13/20 19:30 07/13/20 19:39 6 MG Vitamin D (Vitamin D3) 1,000 unit DAILY 07/13/20 13:00 07/17/20 09:54 1,000 UNIT Labs: Lab Laboratory Tests Test 07/17/20 08:30 07/17/20 12:32 07/17/20 18:10 07/18/20 00:21 O2 Saturation 89 % (92-99) Arterial Blood pH 7.36 (7.35-7.45) Arterial Blood pCO2 at Patient Temp 51 mmHg (35-46) Arterial Blood pO2 at Patient Temp 59 mmHg (85-108) Arterial Blood HCO3 28 mmol/L (21-28) Arterial Blood Base Excess 2 mmol/L (-3-3) FiO2 100% +14peep Glucose (Fingerstick) 366 mg/dL (70-99) 352 mg/dL (70-99) 346 mg/dL (70-99) Test 07/18/20 05:28 07/18/20 06:00 07/18/20 07:40 Glucose (Fingerstick) 368 mg/dL (70-99) Sodium Level 145 mmol/L (136-145) Potassium Level 4.8 mmol/L (3.5-5.1) Chloride Level 109 mmol/L (98-107) Carbon Dioxide Level 30 mmol/L (21-32) Anion Gap 6 (6-14) Blood Urea Nitrogen 29 mg/dL (8-26) Creatinine 1.0 mg/dL (0.7-1.3) Estimated GFR (Cockcroft-Gault) 84.5 Glucose Level 372 mg/dL (70-99) Calcium Level 8.7 mg/dL (8.5-10.1) Phosphorus Level 3.1 mg/dL (2.6-4.7) Magnesium Level 2.5 mg/dL (1.8-2.4) O2 Saturation 96 % (92-99) Arterial Blood pH 7.35 (7.35-7.45) Arterial Blood pCO2 at Patient Temp 59 mmHg (35-46) Arterial Blood pO2 at Patient Temp 91 mmHg (85-108) Arterial Blood HCO3 32 mmol/L (21-28) Arterial Blood Base Excess 5 mmol/L (-3-3) FiO2 100 Objective: Assessment: 1. COVID-19 infection. 2. Fever 3. Acute hypoxic respiratory failure. 4. Morbid obesity. 5. Severe protein-calorie malnutrition. 6. Hyponatremia, hypokalemia. Plan: Plan of Care Continue supportive care Remdesivir 07/14 Steroids Continue Zosyn and Zyvox Monitor labs ALICIA HAAS MD Jul 18, 2020 08:25
[2020-07-18] MEDS: THIAMINE INJ 300 MG in IV DEXTROSE 5% 50 ML IV SCH (08:41)
[2020-07-18] MEDS: CHOLECALCIFEROL (VITAMIN D3) 1,000 UNIT TABLET PO SCH (08:42)
[2020-07-18] MEDS: DEXAMETHASONE SOD PHOS 4 MG/ML VIAL IVP SCH (08:42)
[2020-07-18] MEDS: FAMOTIDINE 20 MG/2 ML VIAL IVP SCH ×2 (08:42→20:51)
[2020-07-18] MEDS: ASCORBIC ACID 1,000 MG TABLET PO SCH (08:43)
[2020-07-18] MEDS: ENOXAPARIN 40 MG/0.4 ML SYRINGE. SQ SCH ×2 (08:43→20:52)
[2020-07-18] MEDS: INSULIN GLARGINE SYRINGE. SQ SCH ×2 (08:46→21:15)
[2020-07-18 08:59] LABS: ALBUMIN 1.7 g/dL (3.4-5.0); DIRECT BILIRUBIN 0.5 mg/dL (0.0-0.2); TOTAL BILIRUBIN 0.6 mg/dL (0.2-1.0); TOTAL PROTEIN 5.7 g/dL (6.4-8.2)
--- NOTE | 2020-07-18 09:59 | PDOC ---
PULMONARY PROGRESS NOTES DATE: 07/18/20 TIME: 09:58 Subjective PT. is intubated and sedated on VEC gtt and TPN improving oxygenation no other concerns from nursing Vitals Vital Signs Date Time Temp Pulse Resp B/P (MAP) Pulse Ox O2 Delivery O2 Flow Rate FiO2 07/18/20 06:00 99.0 66 30 161/102 (121) 99 Ventilator 99.0 07/17/20 15:15 40.0 Comments Patient seen during , visual exam preformed intubated/sedated no accessory muscle use no distress no obvious edema Labs Laboratory Tests Test 07/16/20 12:25 07/16/20 17:29 07/16/20 23:28 07/17/20 06:10 Glucose (Fingerstick) 413 mg/dL (70-99) 392 mg/dL (70-99) 382 mg/dL (70-99) 372 mg/dL (70-99) Test 07/17/20 08:20 07/17/20 08:30 07/17/20 12:32 07/17/20 18:10 Sodium Level 143 mmol/L (136-145) Potassium Level 4.5 mmol/L (3.5-5.1) Chloride Level 107 mmol/L (98-107) Carbon Dioxide Level 29 mmol/L (21-32) Anion Gap 7 (6-14) Blood Urea Nitrogen 28 mg/dL (8-26) Creatinine 1.0 mg/dL (0.7-1.3) Estimated GFR (Cockcroft-Gault) 84.5 BUN/Creatinine Ratio 25 (6-20) Glucose Level 363 mg/dL (70-99) Calcium Level 8.5 mg/dL (8.5-10.1) Phosphorus Level 2.3 mg/dL (2.6-4.7) Magnesium Level 2.9 mg/dL (1.8-2.4) Total Bilirubin 0.9 mg/dL (0.2-1.0) Aspartate Amino Transf (AST/SGOT) 37 U/L (15-37) Alanine Aminotransferase (ALT/SGPT) 24 U/L (16-63) Alkaline Phosphatase 101 U/L (46-116) Total Protein 6.5 g/dL (6.4-8.2) Albumin 1.7 g/dL (3.4-5.0) Albumin/Globulin Ratio 0.4 (1.0-1.7) O2 Saturation 89 % (92-99) Arterial Blood pH 7.36 (7.35-7.45) Arterial Blood pCO2 at Patient Temp 51 mmHg (35-46) Arterial Blood pO2 at Patient Temp 59 mmHg (85-108) Arterial Blood HCO3 28 mmol/L (21-28) Arterial Blood Base Excess 2 mmol/L (-3-3) FiO2 100% +14peep Glucose (Fingerstick) 366 mg/dL (70-99) 352 mg/dL (70-99) Test 07/18/20 00:21 07/18/20 05:28 07/18/20 06:00 07/18/20 07:40 Glucose (Fingerstick) 346 mg/dL (70-99) 368 mg/dL (70-99) Sodium Level 145 mmol/L (136-145) Potassium Level 4.8 mmol/L (3.5-5.1) Chloride Level 109 mmol/L (98-107) Carbon Dioxide Level 30 mmol/L (21-32) Anion Gap 6 (6-14) Blood Urea Nitrogen 29 mg/dL (8-26) Creatinine 1.0 mg/dL (0.7-1.3) Estimated GFR (Cockcroft-Gault) 84.5 Glucose Level 372 mg/dL (70-99) Calcium Level 8.7 mg/dL (8.5-10.1) Phosphorus Level 3.1 mg/dL (2.6-4.7) Magnesium Level 2.5 mg/dL (1.8-2.4) Total Bilirubin 0.6 mg/dL (0.2-1.0) Direct Bilirubin 0.5 mg/dL (0.0-0.2) Aspartate Amino Transf (AST/SGOT) 42 U/L (15-37) Alanine Aminotransferase (ALT/SGPT) 26 U/L (16-63) Alkaline Phosphatase 103 U/L (46-116) Total Protein 5.7 g/dL (6.4-8.2) Albumin 1.7 g/dL (3.4-5.0) O2 Saturation 96 % (92-99) Arterial Blood pH 7.35 (7.35-7.45) Arterial Blood pCO2 at Patient Temp 59 mmHg (35-46) Arterial Blood pO2 at Patient Temp 91 mmHg (85-108) Arterial Blood HCO3 32 mmol/L (21-28) Arterial Blood Base Excess 5 mmol/L (-3-3) FiO2 100 Laboratory Tests Test 07/17/20 12:32 07/17/20 18:10 07/18/20 00:21 07/18/20 05:28 Glucose (Fingerstick) 366 mg/dL (70-99) 352 mg/dL (70-99) 346 mg/dL (70-99) 368 mg/dL (70-99) Test 07/18/20 06:00 07/18/20 07:40 Sodium Level 145 mmol/L (136-145) Potassium Level 4.8 mmol/L (3.5-5.1) Chloride Level 109 mmol/L (98-107) Carbon Dioxide Level 30 mmol/L (21-32) Anion Gap 6 (6-14) Blood Urea Nitrogen 29 mg/dL (8-26) Creatinine 1.0 mg/dL (0.7-1.3) Estimated GFR (Cockcroft-Gault) 84.5 Glucose Level 372 mg/dL (70-99) Calcium Level 8.7 mg/dL (8.5-10.1) Phosphorus Level 3.1 mg/dL (2.6-4.7) Magnesium Level 2.5 mg/dL (1.8-2.4) Total Bilirubin 0.6 mg/dL (0.2-1.0) Direct Bilirubin 0.5 mg/dL (0.0-0.2) Aspartate Amino Transf (AST/SGOT) 42 U/L (15-37) Alanine Aminotransferase (ALT/SGPT) 26 U/L (16-63) Alkaline Phosphatase 103 U/L (46-116) Total Protein 5.7 g/dL (6.4-8.2) Albumin 1.7 g/dL (3.4-5.0) O2 Saturation 96 % (92-99) Arterial Blood pH 7.35 (7.35-7.45) Arterial Blood pCO2 at Patient Temp 59 mmHg (35-46) Arterial Blood pO2 at Patient Temp 91 mmHg (85-108) Arterial Blood HCO3 32 mmol/L (21-28) Arterial Blood Base Excess 5 mmol/L (-3-3) FiO2 100 Medications Active Scripts Medications Dose Route/Sig Max Daily Dose Days Date Category No Known Medications Prior To Admisstion (Info) Each 1 Each 1X 07/13/20 Reported Comments CXR109/18 IMPRESSION: 1. Mild interval improvement in widespread airspace disease. 2. Stable position of tubes and lines. 3. Possible small loculated pleural effusion on the left. CTA chest IMPRESSION: 1. No evidence of acute pulmonary embolism. Evaluation of distal pulmonary arteries is limited by motion artifact. 2. Extensive, fairly confluent groundglass opacities throughout both lungs, slightly peripheral and basilar predominance. This could be seen with severe multifocal pneumonia and/or ARDS. Electronically signed by: Lucinda Cespedes MD (07/13/2020 11:33 AM) [id number] Impression . IMPRESSION: 1. Acute hypoxemic respiratory failure secondary to COVID-19 viral pneumonia, now intubated 2. COVID-19 viral pneumonia. 3. Abnormal x-ray. 4. Tobacco dependence. 5. obesity 6. Fever /persistent, on BS abx Plan . PLAN: Continue Vent support, currently 100% and PEEP 14, Follow CXR and ABG-- will reduce oxygen to 95% Continue adequate sedation symptomatic tx. of fever Continue full course of remdesivir. Continue Dexamethasone will slow taper Continue ABX currently on zyvox and zosyn, follow cultures Continue TPN for nutritional support, didn't tolerate tube feeding DVT/GI PPX D/W RN and RT Pt. is FULL code Critical Care Time 30 minutes HAYES GUNTER MD Jul 18, 2020 09:59
--- NOTE | 2020-07-18 10:08 | PDOC ---
[facility] PROGRESS NOTE Date of Service DOS: DATE: 07/18/20 TIME: 10:07 Chief Complaint Chief Complaint A/P: Acute hypoxemic respiratory failure secondary to COVID-19 viral pneumonia. COVID-19 viral pneumonia. Abnormal x-ray. Tobacco dependence. Hyponatremia Hyperkalemia Hypomagnesemia FEN - NPO - start TPN PPX - lovenox FULL CODE Dispo - ICU cc time 37 minutes History of Present Illness History of Present Illness Mr Luque is a 35 yo M morbidly obese who presented with chief complaint of respiratory distress. Patient tested positive for Covid about 6 days prior to admit Patient had a fever, chills, cough, myalgias and headache. Patient had abdominal discomfort with diarrhea. Over the last day the patient became more short of breath. Patient had trouble sleeping and was satting 65% on room air in triage. Symptoms worse with activity and at night and somewhat better with taking Tylenol. 07/13: Eventful day with worsening respiratory distress, required intubation emergently with ED physician 07/14: Febrile to 101.8F this morning. PEEP 14, FiO2 100%. UOP stable. Required paralysis overnight for vent dysynchrony. Remdesivir day 1 07/15: Temp 100 F this morning. Still requiring paralysis for vent dyssynchrony on PEEP of 14 with FiO2 100%. Right upper extremity PICC placed for pressors. 07/16: Afebrile overnight still requiring PEEP of 14 and FiO2 100% but PaO2 on ABG up to 59 today. Glucose in the 300s despite insulin regimen. Triglycerides low 200s on TPN. Phosphorus low at 1.5. 07/17: T-max 100.4 F overnight. Glucose still in the 300s despite very large increase in insulin. O2 saturations 96% on PEEP of 14 and FiO2 100%. Labs pending. Afebrile overnight. Still in 300s. O2 saturation 97% on PEEP of 14 FiO2 40%. ABG 7.35/59/91. No desaturations with repositioning today. Chest radiograph overall slightly improved Vitals/I&O Vitals/I&O: Vital Signs Date Time Temp Pulse Resp B/P (MAP) Pulse Ox O2 Delivery O2 Flow Rate FiO2 07/18/20 06:00 99.0 66 30 161/102 (121) 99 Ventilator 99.0 07/17/20 15:15 40.0 I & O 07/17/20 07/17/20 07/18/20 15:00 23:00 07:00 Intake Total 3113 ml 1618 ml Output Total 900 ml 1050 ml 750 ml Balance -900 ml 2063 ml 868 ml Physical Exam Physical Exam: GENERAL: Intubated, sedated. HEENT: Normocephalic, atraumatic. ETT and OG tube in place. NECK: Supple. LUNGS: Coarse breath sounds bilaterally. HEART: S1, S2. ABDOMEN: Obese. Bowel sounds present, mildly distended. EXTREMITIES: No edema, no cyanosis. DERMATOLOGIC: Warm, dry. No generalized rash. NEUROLOGIC: Intubated. PSYCHIATRIC: Unable to assess. Right upper extremity PICC line clean General: mild distress Heart: Regular rate, Normal S1, Normal S2 Abdomen: Normal bowel sounds, Soft Extremities: No clubbing, No cyanosis Skin: No rashes, No breakdown Labs Labs: Laboratory Tests Test 07/17/20 12:32 07/17/20 18:10 07/18/20 00:21 07/18/20 05:28 Glucose (Fingerstick) 366 mg/dL (70-99) 352 mg/dL (70-99) 346 mg/dL (70-99) 368 mg/dL (70-99) Test 07/18/20 06:00 07/18/20 07:40 Sodium Level 145 mmol/L (136-145) Potassium Level 4.8 mmol/L (3.5-5.1) Chloride Level 109 mmol/L (98-107) Carbon Dioxide Level 30 mmol/L (21-32) Anion Gap 6 (6-14) Blood Urea Nitrogen 29 mg/dL (8-26) Creatinine 1.0 mg/dL (0.7-1.3) Estimated GFR (Cockcroft-Gault) 84.5 Glucose Level 372 mg/dL (70-99) Calcium Level 8.7 mg/dL (8.5-10.1) Phosphorus Level 3.1 mg/dL (2.6-4.7) Magnesium Level 2.5 mg/dL (1.8-2.4) Total Bilirubin 0.6 mg/dL (0.2-1.0) Direct Bilirubin 0.5 mg/dL (0.0-0.2) Aspartate Amino Transf (AST/SGOT) 42 U/L (15-37) Alanine Aminotransferase (ALT/SGPT) 26 U/L (16-63) Alkaline Phosphatase 103 U/L (46-116) Total Protein 5.7 g/dL (6.4-8.2) Albumin 1.7 g/dL (3.4-5.0) O2 Saturation 96 % (92-99) Arterial Blood pH 7.35 (7.35-7.45) Arterial Blood pCO2 at Patient Temp 59 mmHg (35-46) Arterial Blood pO2 at Patient Temp 91 mmHg (85-108) Arterial Blood HCO3 32 mmol/L (21-28) Arterial Blood Base Excess 5 mmol/L (-3-3) FiO2 100 Assessment and Plan Assessmemt and Plan Problems Medical Problems: (1) Acute hypoxemic respiratory failure due to severe acute respiratory syndrome coronavirus 2 (SARS-CoV-2) disease Status: Acute (2) Dyspnea Status: Acute Comment Review of Relevant I have reviewed the following items mile (where applicable) has been applied. Medications: Current Medications Medications (Trade) Dose Ordered Sig/Sola Route PRN Reason Start Time Stop Time Status Last Admin Dose Admin Potassium Phosphate 13.6 mmol/Sodium Chloride 254.5333 ml @ 127.... Q2H IV 07/17/20 11:30 07/17/20 13:29 DC 07/17/20 13:22 Sodium Chloride 90 meq/Potassium Phosphate 23 mmol/ Calcium Gluconate 10 meq/ Multivitamins 5 ml/Zinc/Copper/ Manganese/ Selenium 1 ml/ Total Parenteral Nutrition/Amino Acids/Dextrose/ Fat Emulsion Intravenous 1,512 ml @ 63 mls/hr TPN CONT IV 07/17/20 22:00 07/18/20 21:59 07/17/20 21:32 Justifications for Admission Other Justification DIANA RAMIREZ MD Jul 18, 2020 10:08
[2020-07-18] MEDS: TPN PER PHARMACY MC PRN (10:36)
--- NOTE | 2020-07-18 10:37 | NUR ---
Pharmacy TPN Dosing Note S: LYUDMILA HOBBS is a 35 year old M Currently receiving Central Continuous TPN started 07/15/20 B:Pertinent PMH: TF INTOLERANCE Height: 5 feet, 6 inches Weight: 113.9 kg Current diet: NPO LABS: Sodium: 145 Potassium: 4.8 Chloride: 109 Calcium: 8.7 Corrected Calcium: 10.54 Magnesium: 2.5 CO2: 30 SCr: 1 Glucose: 346-372 Albumin: 1.7 AST: 42 ALT: 26 TPN FORMULA: TPN TYPE: Central Continuous AMINO ACIDS: 120 gm DEXTROSE: 225 gm LIPIDS: 20 gm SODIUM CHLORIDE: 90 mEq POTASSIUM PHOSPHATE: 23 mmol CALCIUM: 5 mEq MULTIPLE VITAMIN: 5 ml TRACE ELEMENTS: 1 ml(s) TPN PLAN: Corrected calcium elevated- decreased to CaGlu 5 meq in TPN. Scheduled insulin lispro dose increased per provider. -BMP in AM R: Change TPN as noted above. Will monitor electrolytes, glucose, and tolerance to TPN. PADILLA GREER RPH, 07/18/20 1037
[2020-07-18] MEDS: VECURONIUM BROMIDE 50 MG in TOTAL VOLUME 50 ML IV PRN (20:53)
[2020-07-18] MEDS ORDERED: AMINO ACID IV SCH (22:00)
[2020-07-18] MEDS ORDERED: [UNRECOGNIZED DRUG - OTHER] IV SCH (22:00)
[2020-07-18] MEDS ORDERED: TOTAL PARENTERAL NUTRITION IV SCH (22:00)
[2020-07-18] MEDS ORDERED: DEXTROSE 70% IV SCH (22:00)
[2020-07-19] VITALS (24 sets, daily range): BP systolic 117–159; BP diastolic 64–100
[2020-07-19] MEDS: INSULIN LISPRO 300 UNITS/3 ML VIAL. SQ SCH ×8 (00:18→17:50)
[2020-07-19] MEDS: PIPERACILLIN/TAZOBACTAM 3.375 GM in IV NORMAL SALINE 50ML 50 ML IV SCH ×4 (00:19→17:49)
[2020-07-19] MEDS: MIDAZOLAM 100mg/100ml NS BAG 100 ML IV PRN ×3 (02:21→23:01)
[2020-07-19] MEDS: fentaNYL HIGH DOSE PCA 55 ML IV PRN ×3 (02:22→23:01)
[2020-07-19] MEDS: MINERAL OIL/PETROLATUM,WHITE OPHTH OINT 3.5GM TUBE. OU SCH ×3 (05:50→17:49)
[2020-07-19] MEDS: BENZONATATE 100 MG CAPSULE. PO SCH ×2 (05:50)
[2020-07-19 06:40] LABS: CALCIUM 8.4 mg/dL (8.5-10.1); CREATININE 0.9 mg/dL (0.7-1.3); GFR 95.5; POTASSIUM 4.7 mmol/L (3.5-5.1)
[2020-07-19 08:25] LABS: BASE EXCESS ABG 5 mmol/L (-3-3); HCO3 ABG 31 mmol/L (21-28); PCO2 ABG 50 mmHg (35-46); PO2 ABG 92 mmHg (85-108); SAT O2 ABG 97 % (92-99)
[2020-07-19 08:27] LABS: FIO2 ABG 85%+14
[2020-07-19] MEDS: FAMOTIDINE 20 MG/2 ML VIAL IVP SCH ×2 (09:04→20:49)
[2020-07-19] MEDS: DEXAMETHASONE SOD PHOS 4 MG/ML VIAL IVP SCH (09:05)
[2020-07-19] MEDS: ASCORBIC ACID 1,000 MG TABLET PO SCH (09:06)
[2020-07-19] MEDS: CHOLECALCIFEROL (VITAMIN D3) 1,000 UNIT TABLET PO SCH (09:06)
[2020-07-19] MEDS: THIAMINE INJ 300 MG in IV DEXTROSE 5% 50 ML IV SCH (09:07)
[2020-07-19] MEDS: ENOXAPARIN 40 MG/0.4 ML SYRINGE. SQ SCH ×2 (09:07→20:49)
[2020-07-19] MEDS: VECURONIUM BROMIDE 50 MG in TOTAL VOLUME 50 ML IV PRN ×2 (09:08→23:00)
[2020-07-19] MEDS: INSULIN GLARGINE SYRINGE. SQ SCH ×2 (09:09→21:05)
--- NOTE | 2020-07-19 09:27 | PDOC ---
[employer] PROGRESS NOTE Date of Service DOS: DATE: 07/19/20 TIME: 09:25 Chief Complaint Chief Complaint A/P: Acute hypoxemic respiratory failure secondary to COVID-19 viral pneumonia. COVID-19 viral pneumonia. Abnormal x-ray. Tobacco dependence. Hyponatremia Hyperkalemia Hypomagnesemia FEN - NPO - start TPN PPX - lovenox FULL CODE Dispo - ICU cc time 37 minutes History of Present Illness History of Present Illness Mr Luque is a 35 yo M morbidly obese who presented with chief complaint of respiratory distress. Patient tested positive for Covid about 6 days prior to admit Patient had a fever, chills, cough, myalgias and headache. Patient had abdominal discomfort with diarrhea. Over the last day the patient became more short of breath. Patient had trouble sleeping and was satting 65% on room air in triage. Symptoms worse with activity and at night and somewhat better with taking Tylenol. 07/13: Eventful day with worsening respiratory distress, required intubation emergently with ED physician 07/14: Febrile to 101.8F this morning. PEEP 14, FiO2 100%. UOP stable. Required paralysis overnight for vent dysynchrony. Remdesivir day 1 07/15: Temp 100 F this morning. Still requiring paralysis for vent dyssynchrony on PEEP of 14 with FiO2 100%. Right upper extremity PICC placed for pressors. 07/16: Afebrile overnight still requiring PEEP of 14 and FiO2 100% but PaO2 on ABG up to 59 today. Glucose in the 300s despite insulin regimen. Triglycerides low 200s on TPN. Phosphorus low at 1.5. 07/17: T-max 100.4 F overnight. Glucose still in the 300s despite very large increase in insulin. O2 saturations 96% on PEEP of 14 and FiO2 100%. Labs pending. 07/18: Afebrile overnight. Still in 300s. O2 saturation 97% on PEEP of 14 FiO2 40%. ABG 7.35/59/91. No desaturations with repositioning today. Chest radiograph overall slightly improved Afebrile overnight seen on vent paralyzed on TPN with FiO2 85% PEEP of 14. ABG 7.41/50/92. Plan: Decrease FiO2 to 80% and PEEP to 13 per d/w pulm. Cont ICU care Vitals/I&O Vitals/I&O: Vital Signs Date Time Temp Pulse Resp B/P (MAP) Pulse Ox O2 Delivery O2 Flow Rate FiO2 07/19/20 09:21 Ventilator 07/19/20 08:00 98.8 67 30 146/89 (108) 100 98.8 07/18/20 16:30 40.0 I & O 07/18/20 07/18/20 07/19/20 15:00 23:00 07:00 Intake Total 403 ml 905 ml 2251.8 ml Output Total 900 ml 1150 ml 700 ml Balance -497 ml -245 ml 1551.8 ml Physical Exam Physical Exam: GENERAL: Intubated, sedated. HEENT: Normocephalic, atraumatic. ETT and OG tube in place. NECK: Supple. LUNGS: Coarse breath sounds bilaterally. HEART: S1, S2. ABDOMEN: Obese. Bowel sounds present, mildly distended. EXTREMITIES: No edema, no cyanosis. DERMATOLOGIC: Warm, dry. No generalized rash. NEUROLOGIC: Intubated. PSYCHIATRIC: Unable to assess. Right upper extremity PICC line clean General: mild distress Heart: Regular rate, Normal S1, Normal S2 Abdomen: Normal bowel sounds, Soft Extremities: No clubbing, No cyanosis Skin: No rashes, No breakdown Labs Labs: Laboratory Tests Test 07/18/20 12:37 07/18/20 16:54 07/18/20 21:01 07/19/20 00:15 Glucose (Fingerstick) 367 mg/dL (70-99) 291 mg/dL (70-99) 286 mg/dL (70-99) 289 mg/dL (70-99) Test 07/19/20 06:20 07/19/20 08:00 Sodium Level 148 mmol/L (136-145) Potassium Level 4.7 mmol/L (3.5-5.1) Chloride Level 110 mmol/L (98-107) Carbon Dioxide Level 32 mmol/L (21-32) Anion Gap 6 (6-14) Blood Urea Nitrogen 30 mg/dL (8-26) Creatinine 0.9 mg/dL (0.7-1.3) Estimated GFR (Cockcroft-Gault) 95.5 Glucose Level 286 mg/dL (70-99) Calcium Level 8.4 mg/dL (8.5-10.1) O2 Saturation 97 % (92-99) Arterial Blood pH 7.41 (7.35-7.45) Arterial Blood pCO2 at Patient Temp 50 mmHg (35-46) Arterial Blood pO2 at Patient Temp 92 mmHg (85-108) Arterial Blood HCO3 31 mmol/L (21-28) Arterial Blood Base Excess 5 mmol/L (-3-3) FiO2 85%+14 Assessment and Plan Assessmemt and Plan Problems Medical Problems: (1) Acute hypoxemic respiratory failure due to severe acute respiratory syndrome coronavirus 2 (SARS-CoV-2) disease Status: Acute (2) Dyspnea Status: Acute Comment Review of Relevant I have reviewed the following items mile (where applicable) has been applied. Medications: Current Medications Medications (Trade) Dose Ordered Sig/Sola Route PRN Reason Start Time Stop Time Status Last Admin Dose Admin Insulin Human Lispro (HumaLOG) 18 units Q6HRS SQ 07/18/20 12:00 07/19/20 06:14 Sodium Chloride 90 meq/Potassium Phosphate 23 mmol/ Calcium Gluconate 5 meq/ Multivitamins 5 ml/Zinc/Copper/ Manganese/ Selenium 1 ml/ Total Parenteral Nutrition/Amino Acids/Dextrose/ Fat Emulsion Intravenous 1,512 ml @ 63 mls/hr TPN CONT IV 07/18/20 22:00 07/19/20 21:59 07/18/20 20:52 Justifications for Admission Other Justification DIANA RAMIREZ MD Jul 19, 2020 09:27
--- NOTE | 2020-07-19 09:47 | PDOC ---
PULMONARY PROGRESS NOTES DATE: 07/19/20 TIME: 09:45 Subjective PT. is intubated and sedated improving oxygenation slowly no other concerns from nursing Vitals Vital Signs Date Time Temp Pulse Resp B/P (MAP) Pulse Ox O2 Delivery O2 Flow Rate FiO2 07/19/20 09:21 Ventilator 07/19/20 08:00 98.8 67 30 146/89 (108) 100 98.8 07/18/20 16:30 40.0 Comments Patient seen during , visual exam preformed intubated/sedated no accessory muscle use no distress no obvious edema Labs Laboratory Tests Test 07/17/20 12:32 07/17/20 18:10 07/18/20 00:21 07/18/20 05:28 Glucose (Fingerstick) 366 mg/dL (70-99) 352 mg/dL (70-99) 346 mg/dL (70-99) 368 mg/dL (70-99) Test 07/18/20 06:00 07/18/20 07:40 07/18/20 12:37 07/18/20 16:54 Sodium Level 145 mmol/L (136-145) Potassium Level 4.8 mmol/L (3.5-5.1) Chloride Level 109 mmol/L (98-107) Carbon Dioxide Level 30 mmol/L (21-32) Anion Gap 6 (6-14) Blood Urea Nitrogen 29 mg/dL (8-26) Creatinine 1.0 mg/dL (0.7-1.3) Estimated GFR (Cockcroft-Gault) 84.5 Glucose Level 372 mg/dL (70-99) Calcium Level 8.7 mg/dL (8.5-10.1) Phosphorus Level 3.1 mg/dL (2.6-4.7) Magnesium Level 2.5 mg/dL (1.8-2.4) Total Bilirubin 0.6 mg/dL (0.2-1.0) Direct Bilirubin 0.5 mg/dL (0.0-0.2) Aspartate Amino Transf (AST/SGOT) 42 U/L (15-37) Alanine Aminotransferase (ALT/SGPT) 26 U/L (16-63) Alkaline Phosphatase 103 U/L (46-116) Total Protein 5.7 g/dL (6.4-8.2) Albumin 1.7 g/dL (3.4-5.0) O2 Saturation 96 % (92-99) Arterial Blood pH 7.35 (7.35-7.45) Arterial Blood pCO2 at Patient Temp 59 mmHg (35-46) Arterial Blood pO2 at Patient Temp 91 mmHg (85-108) Arterial Blood HCO3 32 mmol/L (21-28) Arterial Blood Base Excess 5 mmol/L (-3-3) FiO2 100 Glucose (Fingerstick) 367 mg/dL (70-99) 291 mg/dL (70-99) Test 07/18/20 21:01 07/19/20 00:15 07/19/20 06:20 07/19/20 08:00 Glucose (Fingerstick) 286 mg/dL (70-99) 289 mg/dL (70-99) Sodium Level 148 mmol/L (136-145) Potassium Level 4.7 mmol/L (3.5-5.1) Chloride Level 110 mmol/L (98-107) Carbon Dioxide Level 32 mmol/L (21-32) Anion Gap 6 (6-14) Blood Urea Nitrogen 30 mg/dL (8-26) Creatinine 0.9 mg/dL (0.7-1.3) Estimated GFR (Cockcroft-Gault) 95.5 Glucose Level 286 mg/dL (70-99) Calcium Level 8.4 mg/dL (8.5-10.1) O2 Saturation 97 % (92-99) Arterial Blood pH 7.41 (7.35-7.45) Arterial Blood pCO2 at Patient Temp 50 mmHg (35-46) Arterial Blood pO2 at Patient Temp 92 mmHg (85-108) Arterial Blood HCO3 31 mmol/L (21-28) Arterial Blood Base Excess 5 mmol/L (-3-3) FiO2 85%+14 Laboratory Tests Test 07/18/20 12:37 07/18/20 16:54 07/18/20 21:01 07/19/20 00:15 Glucose (Fingerstick) 367 mg/dL (70-99) 291 mg/dL (70-99) 286 mg/dL (70-99) 289 mg/dL (70-99) Test 07/19/20 06:20 07/19/20 08:00 Sodium Level 148 mmol/L (136-145) Potassium Level 4.7 mmol/L (3.5-5.1) Chloride Level 110 mmol/L (98-107) Carbon Dioxide Level 32 mmol/L (21-32) Anion Gap 6 (6-14) Blood Urea Nitrogen 30 mg/dL (8-26) Creatinine 0.9 mg/dL (0.7-1.3) Estimated GFR (Cockcroft-Gault) 95.5 Glucose Level 286 mg/dL (70-99) Calcium Level 8.4 mg/dL (8.5-10.1) O2 Saturation 97 % (92-99) Arterial Blood pH 7.41 (7.35-7.45) Arterial Blood pCO2 at Patient Temp 50 mmHg (35-46) Arterial Blood pO2 at Patient Temp 92 mmHg (85-108) Arterial Blood HCO3 31 mmol/L (21-28) Arterial Blood Base Excess 5 mmol/L (-3-3) FiO2 85%+14 Medications Active Scripts Medications Dose Route/Sig Max Daily Dose Days Date Category No Known Medications Prior To Admisstion (Info) Each 1 Each 1X 07/13/20 Reported Comments CXR109/18 IMPRESSION: 1. Mild interval improvement in widespread airspace disease. 2. Stable position of tubes and lines. 3. Possible small loculated pleural effusion on the left. CTA chest IMPRESSION: 1. No evidence of acute pulmonary embolism. Evaluation of distal pulmonary arteries is limited by motion artifact. 2. Extensive, fairly confluent groundglass opacities throughout both lungs, slightly peripheral and basilar predominance. This could be seen with severe multifocal pneumonia and/or ARDS. Electronically signed by: Lucinda Cespedes MD (07/13/2020 11:33 AM) [id number] Impression . IMPRESSION: 1. Acute hypoxemic respiratory failure secondary to COVID-19 viral pneumonia, now intubated, slowly improvement in oxygenation 2. COVID-19 viral pneumonia. 3. Abnormal x-ray. 4. Tobacco dependence. 5. obesity 6. Fever /persistent, on BS abx Plan . PLAN: Continue Vent support, currently 100% and PEEP 14, Follow CXR and ABG-- reduce Fi02 to 80% and PEEP of 13 Continue adequate sedation Continue full course of remdesivir. Continue Dexamethasone will slow taper Continue ABX currently on zyvox and zosyn, follow cultures Continue TPN for nutritional support, didn't tolerate tube feeding DVT/GI PPX D/W RN and RT Pt. is FULL code Critical Care Time 30 minutes HAYES GUNTER MD Jul 19, 2020 09:47
--- NOTE | 2020-07-19 10:09 | PDOC ---
Infectious Disease Note Subjective: Subjective pt intubated/sedated FiO2 down to 70% PEEP of 13 Fever pattern improved No acute issues per RN Vital Signs: Vital Signs Vital Signs Date Time Temp Pulse Resp B/P (MAP) Pulse Ox O2 Delivery O2 Flow Rate FiO2 07/19/20 09:21 Ventilator 07/19/20 09:00 76 30 131/79 (96) 100 07/19/20 08:00 98.8 98.8 07/18/20 16:30 40.0 Physical Exam: PHYSICAL EXAM GENERAL: Intubated, sedated. HEENT: Normocephalic, atraumatic. ETT and OG tube in place. NECK: Supple. LUNGS: Coarse breath sounds bilaterally. HEART: S1, S2. ABDOMEN: Obese. Bowel sounds present, mildly distended. EXTREMITIES: No edema, no cyanosis. DERMATOLOGIC: Warm, dry. No generalized rash. NEUROLOGIC: Intubated. PSYCHIATRIC: Unable to assess. Right upper extremity PICC line clean Medications: Inpatient Meds: Current Medications Medications (Trade) Dose Ordered Sig/Sola Start Time Stop Time Status Last Admin Dose Admin Acetaminophen (Tylenol) 650 mg PRN Q6HRS PRN 07/13/20 16:15 07/17/20 09:54 650 MG Ascorbic Acid (Vitamin C) 1,000 mg DAILY 07/13/20 13:00 07/19/20 09:06 1,000 MG Atropine Sulfate (ATROPINE 0.5mg SYRINGE) 0.5 mg PRN Q5MIN PRN 07/13/20 17:00 Azithromycin 250 ml @ As Directed STK-MED ONCE 07/13/20 09:28 07/13/20 09:28 DC Benzonatate (Tessalon Perle) 100 mg Q6HRS 07/13/20 18:00 07/18/20 05:36 100 MG Calcium Gluconate 1000 mg/Sodium Chloride 110 ml @ 220 mls/hr 1X ONCE 07/13/20 11:45 07/13/20 12:14 DC 07/13/20 11:51 220 MLS/HR Ceftriaxone Sodium (Rocephin) 1 gm Q24H 07/14/20 09:00 07/13/20 23:25 DC Chlorhexidine Gluconate (Peridex) 15 ml BID 07/13/20 21:00 07/16/20 18:59 DC 07/15/20 08:33 15 ML Dexamethasone (Decadron) 6 mg [id number] 07/14/20 08:00 07/15/20 09:13 DC 07/14/20 09:14 6 MG Dexamethasone Sodium Phosphate (Decadron) 6 mg DAILY 07/15/20 10:00 07/19/20 09:05 6 MG Dexmedetomidine HCl 400 mcg/ Sodium Chloride 100 ml @ 0 mls/hr CONT PRN 07/13/20 17:00 Dextrose (Dextrose 50%-Water Syringe) 12.5 gm PRN Q15MIN PRN 07/14/20 09:30 Doxycycline Hyclate 100 mg/ Dextrose 100 ml @ 50 mls/hr Q12HR 07/13/20 13:00 07/13/20 23:25 DC 07/13/20 13:21 50 MLS/HR Enoxaparin Sodium (Lovenox 120mg Syringe) 110 mg 1X ONCE 07/13/20 10:15 07/13/20 10:16 DC 07/13/20 10:14 110 MG Enoxaparin Sodium (Lovenox 40mg Syringe) 40 mg BID 07/14/20 21:00 07/19/20 09:07 40 MG Etomidate (Amidate) 20 mg STK-MED ONCE 07/13/20 18:00 07/14/20 08:36 DC Famotidine (Pepcid Vial) 20 mg BID 07/14/20 21:00 07/19/20 09:04 20 MG Fentanyl Citrate 55 ml @ 0 mls/hr CONT PRN PRN 07/13/20 19:45 07/19/20 02:22 3.98 MLS/HR Influenza Virus Vaccine Quadrival (Fluzone Quad [id number] Syringe) 0.5 ml ONCE ONCE 07/15/20 09:00 07/15/20 09:01 DC Info (CONTRAST GIVEN -- Rx MONITORING) 1 each PRN DAILY PRN 07/13/20 10:30 07/15/20 10:29 DC Info (Tpn Per Pharmacy) 1 each PRN DAILY PRN 07/15/20 09:15 07/18/20 10:36 1 EACH Insulin Glargine (Lantus Syringe) 45 unit BID 07/17/20 09:00 07/19/20 09:09 45 UNIT Insulin Human Lispro (HumaLOG) 18 units Q6HRS 07/18/20 12:00 07/19/20 06:14 18 UNITS Iohexol (Omnipaque 350 Mg/ml) 100 ml 1X ONCE 07/13/20 10:15 07/13/20 10:16 DC 07/13/20 10:15 100 ML Linezolid/Dextrose 300 ml @ 300 mls/hr Q12HR 07/14/20 21:00 07/19/20 09:56 300 MLS/HR Lorazepam (Ativan Inj) 0.25 mg PRN Q6HRS PRN 07/13/20 16:45 07/13/20 16:42 0.25 MG Magnesium Sulfate 50 ml @ 25 mls/hr 1X ONCE 07/13/20 12:30 07/13/20 14:29 UNV Midazolam HCl 100 ml @ 0 mls/hr CONT PRN 07/13/20 17:45 07/19/20 02:21 10 MLS/HR Multi-Ingred Cream/Lotion/Oil/ Oint (Artificial Tears Eye Ointment) 1 klaudia Q6HRS 07/16/20 13:00 07/19/20 05:50 1 KLAUDIA Norepinephrine Bitartrate 8 mg/ Dextrose 258 ml @ 22.91 mls/ hr CONT PRN 07/13/20 23:30 07/15/20 00:09 9.164 MLS/HR Ondansetron HCl (Zofran) 4 mg PRN Q8HRS PRN 07/13/20 09:45 07/14/20 08:19 DC Phenol (Chloraseptic) 1 spray PRN Q2HR PRN 07/13/20 16:15 07/13/20 16:27 1 SPRAY Piperacillin Sod/ Tazobactam Sod (Zosyn Per Pharmacy) 1 each PRN DAILY PRN 07/13/20 23:16 Piperacillin Sod/ Tazobactam Sod 3.375 gm/Sodium Chloride 50 ml @ 100 mls/hr Q6HRS 07/14/20 00:00 07/19/20 05:50 100 MLS/HR Potassium Chloride/Water 100 ml @ 100 mls/hr Q1H 07/13/20 11:30 07/13/20 15:29 DC 07/13/20 17:17 100 MLS/HR Potassium Phosphate 13.6 mmol/Sodium Chloride 254.5333 ml @ 127.... Q2H 07/17/20 11:30 07/17/20 13:29 DC 07/17/20 13:22 127.267 MLS/HR Potassium Chloride (Klor-Con) 40 meq 1X ONCE 07/13/20 11:15 07/13/20 11:16 DC 07/13/20 11:20 40 MEQ Prochlorperazine Edisylate (Compazine) 10 mg PRN Q6HRS PRN 07/13/20 16:15 Propofol 100 ml @ 0 mls/hr CONT PRN 07/13/20 17:45 07/14/20 20:13 17.7 MLS/HR Remdesivir 100 mg/ Sodium Chloride 230 ml @ 460 mls/hr Q24H 07/14/20 14:00 07/17/20 14:29 DC 07/17/20 15:36 460 MLS/HR Remdesivir 200 mg/ Sodium Chloride 210 ml @ 210 mls/hr 1X ONCE 07/13/20 14:00 07/13/20 14:59 DC 07/13/20 15:21 210 MLS/HR Ringer's Solution 1,000 ml @ 100 mls/hr Q10H 07/13/20 23:30 07/15/20 09:08 DC 07/14/20 20:12 100 MLS/HR Sodium Chloride 90 meq/Potassium Chloride 25 meq/ Potassium Phosphate 13.6 mmol/Magnesium Sulfate 10 meq/ Calcium Gluconate 10 meq/ Multivitamins 5 ml/Zinc/Copper/ Manganese/ Selenium 1 ml/ Total Parenteral Nutrition/Amino Acids/Dextrose 1,512 ml @ 63 mls/hr TPN CONT 07/15/20 22:00 07/16/20 21:59 DC 07/15/20 22:01 63 MLS/HR Sodium Chloride 90 meq/Potassium Phosphate 20 mmol/ Calcium Gluconate 10 meq/ Multivitamins 5 ml/Zinc/Copper/ Manganese/ Selenium 1 ml/ Total Parenteral Nutrition/Amino Acids/Dextrose/ Fat Emulsion Intravenous 1,512 ml @ 63 mls/hr TPN CONT 07/16/20 22:00 07/17/20 21:59 DC 07/16/20 22:54 63 MLS/HR Sodium Chloride 90 meq/Potassium Phosphate 23 mmol/ Calcium Gluconate 5 meq/ Multivitamins 5 ml/Zinc/Copper/ Manganese/ Selenium 1 ml/ Total Parenteral Nutrition/Amino Acids/Dextrose/ Fat Emulsion Intravenous 1,512 ml @ 63 mls/hr TPN CONT 07/18/20 22:00 07/19/20 21:59 07/18/20 20:52 63 MLS/HR Sodium Chloride 90 meq/Potassium Phosphate 23 mmol/ Calcium Gluconate 10 meq/ Multivitamins 5 ml/Zinc/Copper/ Manganese/ Selenium 1 ml/ Total Parenteral Nutrition/Amino Acids/Dextrose/ Fat Emulsion Intravenous 1,512 ml @ 63 mls/hr TPN CONT 07/17/20 22:00 07/18/20 21:59 DC 07/17/20 21:32 63 MLS/HR Sodium Phosphate 15 mmol/Sodium Chloride 105 ml @ 105 mls/hr 1X ONCE 07/15/20 13:00 07/15/20 13:59 DC 07/15/20 13:12 105 MLS/HR Sodium Phosphate 30 mmol/Sodium Chloride 260 ml @ 65 mls/hr 1X ONCE 07/16/20 13:00 07/16/20 16:59 DC 07/16/20 13:29 65 MLS/HR Sterile Water (WATER for RESP) 1,000 ml CONT PRN 07/13/20 17:15 Succinylcholine Chloride (Anectine) 200 mg STK-MED ONCE 07/13/20 18:00 07/14/20 08:36 DC Thiamine HCl 300 mg/Dextrose 53 ml @ 102 mls/hr DAILY 07/14/20 09:00 07/19/20 09:07 102 MLS/HR Vancomycin HCl (Vanco Per Pharmacy) 1 each PRN DAILY PRN 07/13/20 23:16 07/14/20 09:14 DC 07/14/20 02:10 1 EACH Vancomycin HCl (Vancomycin Trough Level) 1 each 1X ONCE 07/14/20 23:30 07/14/20 23:31 Cancel Vancomycin HCl 1.5 gm/Sodium Chloride 500 ml @ 250 mls/hr Q8H 07/14/20 08:00 07/14/20 09:14 DC 07/14/20 08:46 250 MLS/HR Vancomycin HCl 2 gm/Sodium Chloride 500 ml @ 250 mls/hr 1X ONCE 07/13/20 23:45 07/14/20 01:44 DC 07/14/20 00:24 250 MLS/HR Vecuronium [place] 50 mg/ Miscellaneous 50 ml @ 5.683 mls/ hr CONT PRN 07/13/20 22:00 07/19/20 09:08 3.552 MLS/HR Vecuronium [place] (Norcuron Bolus) 6 mg PRN Q4HRS PRN 07/13/20 19:30 07/13/20 19:39 6 MG Vitamin D (Vitamin D3) 1,000 unit DAILY 07/13/20 13:00 07/19/20 09:06 1,000 UNIT Labs: Lab Laboratory Tests Test 07/18/20 12:37 07/18/20 16:54 07/18/20 21:01 07/19/20 00:15 Glucose (Fingerstick) 367 mg/dL (70-99) 291 mg/dL (70-99) 286 mg/dL (70-99) 289 mg/dL (70-99) Test 07/19/20 06:20 07/19/20 08:00 Sodium Level 148 mmol/L (136-145) Potassium Level 4.7 mmol/L (3.5-5.1) Chloride Level 110 mmol/L (98-107) Carbon Dioxide Level 32 mmol/L (21-32) Anion Gap 6 (6-14) Blood Urea Nitrogen 30 mg/dL (8-26) Creatinine 0.9 mg/dL (0.7-1.3) Estimated GFR (Cockcroft-Gault) 95.5 Glucose Level 286 mg/dL (70-99) Calcium Level 8.4 mg/dL (8.5-10.1) O2 Saturation 97 % (92-99) Arterial Blood pH 7.41 (7.35-7.45) Arterial Blood pCO2 at Patient Temp 50 mmHg (35-46) Arterial Blood pO2 at Patient Temp 92 mmHg (85-108) Arterial Blood HCO3 31 mmol/L (21-28) Arterial Blood Base Excess 5 mmol/L (-3-3) FiO2 85%+14 Objective: Assessment: 1. COVID-19 infection. 2. Fever 3. Acute hypoxic respiratory failure. 4. Morbid obesity. 5. Severe protein-calorie malnutrition. 6. Hyponatremia, hypokalemia. Plan: Plan of Care Continue supportive care Remdesivir 07/14 Steroids Continue Zosyn ARAVIND Zyvox Monitor labs ALICIA HAAS MD Jul 19, 2020 10:09
[2020-07-19] MEDS: TPN PER PHARMACY MC PRN (10:23)
--- NOTE | 2020-07-19 10:23 | NUR ---
Pharmacy TPN Dosing Note S: LYUDMILA HOBBS is a 35 year old M Currently receiving Central Continuous TPN started 07/15/20 B:Pertinent PMH: TF INTOLERANCE Height: 5 feet, 6 inches Weight: 114.0 kg Current diet: NPO LABS: Sodium: 148 Potassium: 4.7 Chloride: 110 Calcium: 8.4 Corrected Calcium: 10.24 Magnesium: 2.5 CO2: 32 SCr: 0.9 Glucose: 286-289 Albumin: 1.7 AST: 42 ALT: 26 TPN FORMULA: TPN TYPE: Central Continuous AMINO ACIDS: 120 gm DEXTROSE: 225 gm LIPIDS: 20 gm SODIUM CHLORIDE: 70 mEq POTASSIUM PHOSPHATE: 23 mmol CALCIUM: 5 mEq MULTIPLE VITAMIN: 5 ml TRACE ELEMENTS: 1 ml(s) TPN PLAN: Corrected calcium improving, Na elevated-decreased in TPN. BG improved to yesterday- still above goal. R: Change TPN as noted above. Will monitor electrolytes, glucose, and tolerance to TPN. PADILLA GREER [facility], 07/19/20 [id number]
[2020-07-19] MEDS: ACETAMINOPHEN 325 MG TABLET. PO PRN (12:55)
[2020-07-19] MEDS ORDERED: [UNRECOGNIZED DRUG - OTHER] IV SCH (22:00)
[2020-07-19] MEDS ORDERED: TOTAL PARENTERAL NUTRITION IV SCH (22:00)
[2020-07-19] MEDS ORDERED: DEXTROSE 70% IV SCH (22:00)
[2020-07-19] MEDS ORDERED: AMINO ACID IV SCH (22:00)
[2020-07-20] VITALS (24 sets, daily range): BP systolic 93–197; BP diastolic 48–111
[2020-07-20] MEDS: PIPERACILLIN/TAZOBACTAM 3.375 GM in IV NORMAL SALINE 50ML 50 ML IV SCH ×4 (00:24→17:54)
[2020-07-20] MEDS: INSULIN LISPRO 300 UNITS/3 ML VIAL. SQ SCH ×8 (00:33→17:57)
[2020-07-20] MEDS: MINERAL OIL/PETROLATUM,WHITE OPHTH OINT 3.5GM TUBE. OU SCH ×4 (06:00→17:51)
[2020-07-20] MEDS: MIDAZOLAM 100mg/100ml NS BAG 100 ML IV PRN ×2 (06:33→18:59)
--- NOTE | 2020-07-20 07:37 | PDOC ---
[employer] PROGRESS NOTE Date of Service DOS: DATE: 07/20/20 TIME: 07:37 Chief Complaint Chief Complaint A/P: Acute hypoxemic respiratory failure secondary to COVID-19 viral pneumonia. COVID-19 viral pneumonia. Abnormal x-ray. Tobacco dependence. Hyponatremia Hyperkalemia Hypomagnesemia FEN - NPO - start TPN PPX - lovenox FULL CODE Dispo - ICU cc time 37 minutes History of Present Illness History of Present Illness Mr Luque is a 35 yo M morbidly obese who presented with chief complaint of respiratory distress. Patient tested positive for Covid about 6 days prior to admit Patient had a fever, chills, cough, myalgias and headache. Patient had abdominal discomfort with diarrhea. Over the last day the patient became more short of breath. Patient had trouble sleeping and was satting 65% on room air in triage. Symptoms worse with activity and at night and somewhat better with taking Tylenol. 07/13: Eventful day with worsening respiratory distress, required intubation emergently with ED physician 07/14: Febrile to 101.8F this morning. PEEP 14, FiO2 100%. UOP stable. Required paralysis overnight for vent dysynchrony. Remdesivir day 1 07/15: Temp 100 F this morning. Still requiring paralysis for vent dyssynchrony on PEEP of 14 with FiO2 100%. Right upper extremity PICC placed for pressors. 07/16: Afebrile overnight still requiring PEEP of 14 and FiO2 100% but PaO2 on ABG up to 59 today. Glucose in the 300s despite insulin regimen. Triglycerides low 200s on TPN. Phosphorus low at 1.5. 07/17: T-max 100.4 F overnight. Glucose still in the 300s despite very large increase in insulin. O2 saturations 96% on PEEP of 14 and FiO2 100%. Labs pending. 07/18: Afebrile overnight. Still in 300s. O2 saturation 97% on PEEP of 14 FiO2 40%. ABG 7.35/59/91. No desaturations with repositioning today. Chest radiograph overall slightly improved 07/19: Afebrile overnight seen on vent paralyzed on TPN with FiO2 85% PEEP of 14. ABG 7.41/50/92. Afebrile. FiO2 80%, PEEP 13. ABG 7.39/53/69. Plan: Cont ICU care Vitals/I&O Vitals/I&O: Vital Signs Date Time Temp Pulse Resp B/P (MAP) Pulse Ox O2 Delivery O2 Flow Rate FiO2 07/20/20 06:00 94 30 106/56 (73) 100 Ventilator 07/20/20 04:00 98.6 98.6 I & O 07/19/20 07/19/20 07/20/20 15:00 23:00 07:00 Intake Total 115 ml 954 ml 1122.5 ml Output Total 775 ml 750 ml 700 ml Balance -660 ml 204 ml 422.5 ml Physical Exam Physical Exam: GENERAL: Intubated, sedated. HEENT: Normocephalic, atraumatic. ETT and OG tube in place. NECK: Supple. LUNGS: Coarse breath sounds bilaterally. HEART: S1, S2. ABDOMEN: Obese. Bowel sounds present, mildly distended. EXTREMITIES: No edema, no cyanosis. DERMATOLOGIC: Warm, dry. No generalized rash. NEUROLOGIC: Intubated. PSYCHIATRIC: Unable to assess. Right upper extremity PICC line clean General: mild distress Heart: Regular rate, Normal S1, Normal S2 Abdomen: Normal bowel sounds, Soft Extremities: No clubbing, No cyanosis Skin: No rashes, No breakdown Labs Labs: Laboratory Tests Test 07/19/20 08:00 07/19/20 12:59 07/19/20 17:40 07/19/20 20:52 O2 Saturation 97 % (92-99) Arterial Blood pH 7.41 (7.35-7.45) Arterial Blood pCO2 at Patient Temp 50 mmHg (35-46) Arterial Blood pO2 at Patient Temp 92 mmHg (85-108) Arterial Blood HCO3 31 mmol/L (21-28) Arterial Blood Base Excess 5 mmol/L (-3-3) FiO2 85%+14 Glucose (Fingerstick) 323 mg/dL (70-99) 253 mg/dL (70-99) 243 mg/dL (70-99) Test 07/20/20 00:32 Glucose (Fingerstick) 247 mg/dL (70-99) Assessment and Plan Assessmemt and Plan Problems Medical Problems: (1) Acute hypoxemic respiratory failure due to severe acute respiratory syndrome coronavirus 2 (SARS-CoV-2) disease Status: Acute (2) Dyspnea Status: Acute Comment Review of Relevant I have reviewed the following items mile (where applicable) has been applied. Medications: Current Medications Medications (Trade) Dose Ordered Sig/Sola Route PRN Reason Start Time Stop Time Status Last Admin Dose Admin Sodium Chloride 70 meq/Potassium Phosphate 23 mmol/ Calcium Gluconate 5 meq/ Multivitamins 5 ml/Zinc/Copper/ Manganese/ Selenium 1 ml/ Total Parenteral Nutrition/Amino Acids/Dextrose/ Fat Emulsion Intravenous 1,512 ml @ 63 mls/hr TPN CONT IV 07/19/20 22:00 07/20/20 21:59 07/19/20 20:49 Justifications for Admission Other Justification DIANA RAMIREZ MD Jul 20, 2020 07:37
[2020-07-20 08:27] LABS: BASE EXCESS ABG 5 mmol/L (-3-3); HCO3 ABG 31 mmol/L (21-28); PCO2 ABG 53 mmHg (35-46); PO2 ABG 69 mmHg (85-108); SAT O2 ABG 93 % (92-99)
[2020-07-20 08:42] LABS: FIO2 ABG 80% VENT
[2020-07-20] MEDS: DEXAMETHASONE SOD PHOS 4 MG/ML VIAL IVP SCH (08:48)
[2020-07-20] MEDS: ASCORBIC ACID 1,000 MG TABLET PO SCH (08:48)
[2020-07-20] MEDS: FAMOTIDINE 20 MG/2 ML VIAL IVP SCH ×2 (08:48→20:47)
[2020-07-20] MEDS: CHOLECALCIFEROL (VITAMIN D3) 1,000 UNIT TABLET PO SCH (08:48)
[2020-07-20] MEDS: ENOXAPARIN 40 MG/0.4 ML SYRINGE. SQ SCH ×2 (08:48→20:48)
[2020-07-20] MEDS: INSULIN GLARGINE SYRINGE. SQ SCH ×2 (08:50→20:54)
[2020-07-20] MEDS: THIAMINE INJ 300 MG in IV DEXTROSE 5% 50 ML IV SCH (09:57)
--- NOTE | 2020-07-20 11:00 | PDOC ---
PULMONARY PROGRESS NOTES DATE: 07/20/20 TIME: 10:58 Subjective PT. is intubated and sedated improving oxygenation slowly still very restless despite sedation, prn paralytics Vitals Vital Signs Date Time Temp Pulse Resp B/P (MAP) Pulse Ox O2 Delivery O2 Flow Rate FiO2 07/20/20 10:00 122 30 159/87 (111) 99 Ventilator 07/20/20 08:00 99.3 99.3 Comments Patient seen during , visual exam preformed intubated/sedated no accessory muscle use no distress no obvious edema Labs Laboratory Tests Test 07/18/20 12:37 07/18/20 16:54 07/18/20 21:01 07/19/20 00:15 Glucose (Fingerstick) 367 mg/dL (70-99) 291 mg/dL (70-99) 286 mg/dL (70-99) 289 mg/dL (70-99) Test 07/19/20 06:07 07/19/20 06:20 07/19/20 08:00 07/19/20 12:59 Glucose (Fingerstick) 275 mg/dL (70-99) 323 mg/dL (70-99) Sodium Level 148 mmol/L (136-145) Potassium Level 4.7 mmol/L (3.5-5.1) Chloride Level 110 mmol/L (98-107) Carbon Dioxide Level 32 mmol/L (21-32) Anion Gap 6 (6-14) Blood Urea Nitrogen 30 mg/dL (8-26) Creatinine 0.9 mg/dL (0.7-1.3) Estimated GFR (Cockcroft-Gault) 95.5 Glucose Level 286 mg/dL (70-99) Calcium Level 8.4 mg/dL (8.5-10.1) O2 Saturation 97 % (92-99) Arterial Blood pH 7.41 (7.35-7.45) Arterial Blood pCO2 at Patient Temp 50 mmHg (35-46) Arterial Blood pO2 at Patient Temp 92 mmHg (85-108) Arterial Blood HCO3 31 mmol/L (21-28) Arterial Blood Base Excess 5 mmol/L (-3-3) FiO2 85%+14 Test 07/19/20 17:40 07/19/20 20:52 07/20/20 00:32 07/20/20 08:15 Glucose (Fingerstick) 253 mg/dL (70-99) 243 mg/dL (70-99) 247 mg/dL (70-99) O2 Saturation 93 % (92-99) Arterial Blood pH 7.39 (7.35-7.45) Arterial Blood pCO2 at Patient Temp 53 mmHg (35-46) Arterial Blood pO2 at Patient Temp 69 mmHg (85-108) Arterial Blood HCO3 31 mmol/L (21-28) Arterial Blood Base Excess 5 mmol/L (-3-3) FiO2 80% vent Laboratory Tests Test 07/19/20 12:59 07/19/20 17:40 07/19/20 20:52 07/20/20 00:32 Glucose (Fingerstick) 323 mg/dL (70-99) 253 mg/dL (70-99) 243 mg/dL (70-99) 247 mg/dL (70-99) Test 07/20/20 08:15 O2 Saturation 93 % (92-99) Arterial Blood pH 7.39 (7.35-7.45) Arterial Blood pCO2 at Patient Temp 53 mmHg (35-46) Arterial Blood pO2 at Patient Temp 69 mmHg (85-108) Arterial Blood HCO3 31 mmol/L (21-28) Arterial Blood Base Excess 5 mmol/L (-3-3) FiO2 80% vent Medications Active Scripts Medications Dose Route/Sig Max Daily Dose Days Date Category No Known Medications Prior To Admisstion (Info) Each 1 Each 1X 07/13/20 Reported Comments CXR12/25 IMPRESSION: 1. Mild interval improvement in widespread airspace disease. 2. Stable position of tubes and lines. 3. Possible small loculated pleural effusion on the left. CTA chest IMPRESSION: 1. No evidence of acute pulmonary embolism. Evaluation of distal pulmonary arteries is limited by motion artifact. 2. Extensive, fairly confluent groundglass opacities throughout both lungs, slightly peripheral and basilar predominance. This could be seen with severe multifocal pneumonia and/or ARDS. Electronically signed by: Lucinda Cespedes MD (07/13/2020 11:33 AM) [id number] Impression . IMPRESSION: 1. Acute hypoxemic respiratory failure secondary to COVID-19 viral pneumonia, intubated, slowly improvement in oxygenation 2. COVID-19 viral pneumonia. 3. Abnormal x-ray. 4. Tobacco dependence. 5. obesity 6. Fever /, on BS abx 7. Severe agitation Plan . PLAN: Continue Vent support, currently 80% and PEEP 13, Follow CXR and ABG-- reviewed Continue adequate sedation , add propofol Continue full course of remdesivir. Continue Dexamethasone will slow taper Continue ABX currently on zyvox and zosyn, follow cultures Continue TPN for nutritional support, didn't tolerate tube feeding DVT/GI PPX D/W RN and RT Pt. is FULL code Critical Care Time 30 minutes HAYES GUNTER MD Jul 20, 2020 11:00
[2020-07-20] MEDS: PROPOFOL 100 ML IV PRN ×2 (11:39→19:01)
[2020-07-20] MEDS: TPN PER PHARMACY MC PRN (11:46)
--- NOTE | 2020-07-20 11:46 | NUR ---
Pharmacy TPN Dosing Note S: LYUDMILA HOBBS is a 35 year old M Currently receiving Central Continuous TPN started 07/15/20 B:Pertinent PMH: TF INTOLERANCE Height: 5 feet, 6 inches Weight: 114.0 kg Current diet: NPO LABS: Sodium: 148 Potassium: 4.7 Chloride: 110 Calcium: 8.4 Corrected Calcium: 10.24 Magnesium: 2.5 CO2: 32 SCr: 0.9 Glucose: 247 Albumin: 1.7 AST: 42 ALT: 26 TPN FORMULA: TPN TYPE: Central Continuous AMINO ACIDS: 120 gm DEXTROSE: 225 gm LIPIDS: 20 gm SODIUM CHLORIDE: 70 mEq POTASSIUM PHOSPHATE: 23 mmol CALCIUM: 5 mEq MULTIPLE VITAMIN: 5 ml TRACE ELEMENTS: 1 ml(s) TPN PLAN: Propofol restarted, removed lipids from TPN. No labs today. -BMP, Mag, Phos and Triglycerides in the AM R: Change TPN as noted above. Will monitor electrolytes, glucose, and tolerance to TPN. PADILLA GREER [facility], 07/20/20 1140
--- NOTE | 2020-07-20 12:00 | PDOC ---
Infectious Disease Note Subjective: Subjective pt intubated/sedated FiO2 80% PEEP of 13 Temperature 99.3 No acute issues per RN Vital Signs: Vital Signs Vital Signs Date Time Temp Pulse Resp B/P (MAP) Pulse Ox O2 Delivery O2 Flow Rate FiO2 07/20/20 11:36 100 Ventilator 07/20/20 11:00 122 30 137/77 (97) 07/20/20 08:00 99.3 99.3 Physical Exam: PHYSICAL EXAM GENERAL: Intubated, sedated. HEENT: Normocephalic, atraumatic. ETT and OG tube in place. NECK: Supple. LUNGS: Coarse breath sounds bilaterally. HEART: S1, S2. ABDOMEN: Obese. Bowel sounds present, mildly distended. EXTREMITIES: No edema, no cyanosis. DERMATOLOGIC: Warm, dry. No generalized rash. NEUROLOGIC: Intubated. PSYCHIATRIC: Unable to assess. Right upper extremity PICC line clean Medications: Inpatient Meds: Current Medications Medications (Trade) Dose Ordered Sig/Sola Start Time Stop Time Status Last Admin Dose Admin Acetaminophen (Tylenol) 650 mg PRN Q6HRS PRN 07/13/20 16:15 07/19/20 12:55 650 MG Ascorbic Acid (Vitamin C) 1,000 mg DAILY 07/13/20 13:00 07/20/20 08:48 1,000 MG Atropine Sulfate (ATROPINE 0.5mg SYRINGE) 0.5 mg PRN Q5MIN PRN 07/13/20 17:00 Azithromycin 250 ml @ As Directed STK-MED ONCE 07/13/20 09:28 07/13/20 09:28 DC Benzonatate (Tessalon Perle) 100 mg Q6HRS 07/13/20 18:00 07/19/20 10:24 DC 07/18/20 05:36 100 MG Calcium Gluconate 1000 mg/Sodium Chloride 110 ml @ 220 mls/hr 1X ONCE 07/13/20 11:45 07/13/20 12:14 DC 07/13/20 11:51 220 MLS/HR Ceftriaxone Sodium (Rocephin) 1 gm Q24H 07/14/20 09:00 07/13/20 23:25 DC Chlorhexidine Gluconate (Peridex) 15 ml BID 07/13/20 21:00 07/16/20 18:59 DC 07/15/20 08:33 15 ML Dexamethasone (Decadron) 6 mg [id number] 07/14/20 08:00 07/15/20 09:13 DC 07/14/20 09:14 6 MG Dexamethasone Sodium Phosphate (Decadron) 6 mg DAILY 07/15/20 10:00 07/20/20 08:48 6 MG Dexmedetomidine HCl 400 mcg/ Sodium Chloride 100 ml @ 0 mls/hr CONT PRN 07/13/20 17:00 Dextrose (Dextrose 50%-Water Syringe) 12.5 gm PRN Q15MIN PRN 07/14/20 09:30 Doxycycline Hyclate 100 mg/ Dextrose 100 ml @ 50 mls/hr Q12HR 07/13/20 13:00 07/13/20 23:25 DC 07/13/20 13:21 50 MLS/HR Enoxaparin Sodium (Lovenox 120mg Syringe) 110 mg 1X ONCE 07/13/20 10:15 07/13/20 10:16 DC 07/13/20 10:14 110 MG Enoxaparin Sodium (Lovenox 40mg Syringe) 40 mg BID 07/14/20 21:00 07/20/20 08:48 40 MG Etomidate (Amidate) 20 mg STK-MED ONCE 07/13/20 18:00 07/14/20 08:36 DC Famotidine (Pepcid Vial) 20 mg BID 07/14/20 21:00 07/20/20 08:48 20 MG Fentanyl Citrate 55 ml @ 0 mls/hr CONT PRN PRN 07/13/20 19:45 07/19/20 23:01 3.98 MLS/HR Influenza Virus Vaccine Quadrival (Fluzone Quad Syringe) 0.5 ml ONCE ONCE 07/15/20 09:00 07/15/20 09:01 DC Info (CONTRAST GIVEN -- Rx MONITORING) 1 each PRN DAILY PRN 07/13/20 10:30 07/15/20 10:29 DC Info (Tpn Per Pharmacy) 1 each PRN DAILY PRN 07/15/20 09:15 07/20/20 11:46 1 EACH Insulin Glargine (Lantus Syringe) 45 unit BID 07/17/20 09:00 07/20/20 08:50 45 UNIT Insulin Human Lispro (HumaLOG) 18 units Q6HRS 07/18/20 12:00 07/20/20 00:34 18 UNITS Iohexol (Omnipaque 350 Mg/ml) 100 ml 1X ONCE 07/13/20 10:15 07/13/20 10:16 DC 07/13/20 10:15 100 ML Linezolid/Dextrose 300 ml @ 300 mls/hr Q12HR 07/14/20 21:00 07/19/20 10:10 DC 07/19/20 09:56 300 MLS/HR Lorazepam (Ativan Inj) 0.25 mg PRN Q6HRS PRN 07/13/20 16:45 07/13/20 16:42 0.25 MG Magnesium Sulfate 50 ml @ 25 mls/hr 1X ONCE 07/13/20 12:30 07/13/20 14:29 UNV Midazolam HCl 100 ml @ 0 mls/hr CONT PRN 07/13/20 17:45 07/20/20 06:33 10 MLS/HR Multi-Ingred Cream/Lotion/Oil/ Oint (Artificial Tears Eye Ointment) 1 klaudia Q6HRS 07/16/20 13:00 07/20/20 06:00 1 KLAUDIA Norepinephrine Bitartrate 8 mg/ Dextrose 258 ml @ 22.91 mls/ hr CONT PRN 07/13/20 23:30 07/15/20 00:09 9.164 MLS/HR Ondansetron HCl (Zofran) 4 mg PRN Q8HRS PRN 07/13/20 09:45 07/14/20 08:19 DC Phenol (Chloraseptic) 1 spray PRN Q2HR PRN 07/13/20 16:15 07/13/20 16:27 1 SPRAY Piperacillin Sod/ Tazobactam Sod (Zosyn Per Pharmacy) 1 each PRN DAILY PRN 07/13/20 23:16 Piperacillin Sod/ Tazobactam Sod 3.375 gm/Sodium Chloride 50 ml @ 100 mls/hr Q6HRS 07/14/20 00:00 07/20/20 06:32 100 MLS/HR Potassium Chloride/Water 100 ml @ 100 mls/hr Q1H 07/13/20 11:30 07/13/20 15:29 DC 07/13/20 17:17 100 MLS/HR Potassium Phosphate 13.6 mmol/Sodium Chloride 254.5333 ml @ 127.... Q2H 07/17/20 11:30 07/17/20 13:29 DC 07/17/20 13:22 127.267 MLS/HR Potassium Chloride (Klor-Con) 40 meq 1X ONCE 07/13/20 11:15 07/13/20 11:16 DC 07/13/20 11:20 40 MEQ Prochlorperazine Edisylate (Compazine) 10 mg PRN Q6HRS PRN 07/13/20 16:15 Propofol 100 ml @ 3.42 mls/hr CONT PRN 07/20/20 11:30 07/20/20 11:39 10 MLS/HR Remdesivir 100 mg/ Sodium Chloride 230 ml @ 460 mls/hr Q24H 07/14/20 14:00 07/17/20 14:29 DC 07/17/20 15:36 460 MLS/HR Remdesivir 200 mg/ Sodium Chloride 210 ml @ 210 mls/hr 1X ONCE 07/13/20 14:00 07/13/20 14:59 DC 07/13/20 15:21 210 MLS/HR Ringer's Solution 1,000 ml @ 100 mls/hr Q10H 07/13/20 23:30 07/15/20 09:08 DC 07/14/20 20:12 100 MLS/HR Sodium Chloride 70 meq/Potassium Phosphate 23 mmol/ Calcium Gluconate 5 meq/ Multivitamins 5 ml/Zinc/Copper/ Manganese/ Selenium 1 ml/ Total Parenteral Nutrition/Amino Acids/Dextrose 1,512 ml @ 63 mls/hr TPN CONT 07/20/20 22:00 07/21/20 21:59 Sodium Chloride 70 meq/Potassium Phosphate 23 mmol/ Calcium Gluconate 5 meq/ Multivitamins 5 ml/Zinc/Copper/ Manganese/ Selenium 1 ml/ Total Parenteral Nutrition/Amino Acids/Dextrose/ Fat Emulsion Intravenous 1,512 ml @ 63 mls/hr TPN CONT 07/19/20 22:00 07/20/20 21:59 07/19/20 20:49 63 MLS/HR Sodium Chloride 90 meq/Potassium Chloride 25 meq/ Potassium Phosphate 13.6 mmol/Magnesium Sulfate 10 meq/ Calcium Gluconate 10 meq/ Multivitamins 5 ml/Zinc/Copper/ Manganese/ Selenium 1 ml/ Total Parenteral Nutrition/Amino Acids/Dextrose 1,512 ml @ 63 mls/hr TPN CONT 07/15/20 22:00 07/16/20 21:59 DC 07/15/20 22:01 63 MLS/HR Sodium Chloride 90 meq/Potassium Phosphate 20 mmol/ Calcium Gluconate 10 meq/ Multivitamins 5 ml/Zinc/Copper/ Manganese/ Selenium 1 ml/ Total Parenteral Nutrition/Amino Acids/Dextrose/ Fat Emulsion Intravenous 1,512 ml @ 63 mls/hr TPN CONT 07/16/20 22:00 07/17/20 21:59 DC 07/16/20 22:54 63 MLS/HR Sodium Chloride 90 meq/Potassium Phosphate 23 mmol/ Calcium Gluconate 5 meq/ Multivitamins 5 ml/Zinc/Copper/ Manganese/ Selenium 1 ml/ Total Parenteral Nutrition/Amino Acids/Dextrose/ Fat Emulsion Intravenous 1,512 ml @ 63 mls/hr TPN CONT 07/18/20 22:00 07/19/20 21:59 DC 07/18/20 20:52 63 MLS/HR Sodium Chloride 90 meq/Potassium Phosphate 23 mmol/ Calcium Gluconate 10 meq/ Multivitamins 5 ml/Zinc/Copper/ Manganese/ Selenium 1 ml/ Total Parenteral Nutrition/Amino Acids/Dextrose/ Fat Emulsion Intravenous 1,512 ml @ 63 mls/hr TPN CONT 07/17/20 22:00 07/18/20 21:59 DC 07/17/20 21:32 63 MLS/HR Sodium Phosphate 15 mmol/Sodium Chloride 105 ml @ 105 mls/hr 1X ONCE 07/15/20 13:00 07/15/20 13:59 DC 07/15/20 13:12 105 MLS/HR Sodium Phosphate 30 mmol/Sodium Chloride 260 ml @ 65 mls/hr 1X ONCE 07/16/20 13:00 07/16/20 16:59 DC 07/16/20 13:29 65 MLS/HR Sterile Water (WATER for RESP) 1,000 ml CONT PRN 07/13/20 17:15 Succinylcholine Chloride (Anectine) 200 mg STK-MED ONCE 07/13/20 18:00 07/14/20 08:36 DC Thiamine HCl 300 mg/Dextrose 53 ml @ 102 mls/hr DAILY 07/14/20 09:00 07/20/20 09:57 102 MLS/HR Vancomycin HCl (Vanco Per Pharmacy) 1 each PRN DAILY PRN 07/13/20 23:16 07/14/20 09:14 DC 07/14/20 02:10 1 EACH Vancomycin HCl (Vancomycin Trough Level) 1 each 1X ONCE 07/14/20 23:30 07/14/20 23:31 Cancel Vancomycin HCl 1.5 gm/Sodium Chloride 500 ml @ 250 mls/hr Q8H 07/14/20 08:00 07/14/20 09:14 DC 07/14/20 08:46 250 MLS/HR Vancomycin HCl 2 gm/Sodium Chloride 500 ml @ 250 mls/hr 1X ONCE 07/13/20 23:45 07/14/20 01:44 DC 07/14/20 00:24 250 MLS/HR Vecuronium [place] 50 mg/ Miscellaneous 50 ml @ 5.683 mls/ hr CONT PRN 07/13/20 22:00 07/19/20 23:00 3.552 MLS/HR Vecuronium [place] (Norcuron Bolus) 6 mg PRN Q4HRS PRN 07/13/20 19:30 07/13/20 19:39 6 MG Vitamin D (Vitamin D3) 1,000 unit DAILY 07/13/20 13:00 07/20/20 08:48 1,000 UNIT Labs: Lab Laboratory Tests Test 07/19/20 12:59 07/19/20 17:40 07/19/20 20:52 07/20/20 00:32 Glucose (Fingerstick) 323 mg/dL (70-99) 253 mg/dL (70-99) 243 mg/dL (70-99) 247 mg/dL (70-99) Test 07/20/20 08:15 O2 Saturation 93 % (92-99) Arterial Blood pH 7.39 (7.35-7.45) Arterial Blood pCO2 at Patient Temp 53 mmHg (35-46) Arterial Blood pO2 at Patient Temp 69 mmHg (85-108) Arterial Blood HCO3 31 mmol/L (21-28) Arterial Blood Base Excess 5 mmol/L (-3-3) FiO2 80% vent Objective: Assessment: 1. COVID-19 infection. 2. Fever 3. Acute hypoxic respiratory failure. 4. Morbid obesity. 5. Severe protein-calorie malnutrition. 6. Hyponatremia, hypokalemia. Plan: Plan of Care Continue supportive care Remdesivir 12/21 Steroids Continue Zosyn Off Zyvox Monitor labs ALICIA HAAS MD Jul 20, 2020 11:59
[2020-07-20] MEDS: fentaNYL HIGH DOSE PCA 55 ML IV PRN (19:00)
[2020-07-20] MEDS: VECURONIUM BROMIDE 50 MG in TOTAL VOLUME 50 ML IV PRN (21:30)
[2020-07-20] MEDS ORDERED: DEXTROSE 70% IV SCH (22:00)
[2020-07-20] MEDS ORDERED: TOTAL PARENTERAL NUTRITION IV SCH (22:00)
[2020-07-20] MEDS ORDERED: [UNRECOGNIZED DRUG - OTHER] IV SCH (22:00)
[2020-07-20] MEDS ORDERED: AMINO ACID IV SCH (22:00)
[2020-07-21] VITALS (23 sets, daily range): BP systolic 95–149; BP diastolic 50–81
[2020-07-21] MEDS: PROPOFOL 100 ML IV PRN ×6 (00:16→23:06)
[2020-07-21] MEDS: PIPERACILLIN/TAZOBACTAM 3.375 GM in IV NORMAL SALINE 50ML 50 ML IV SCH ×5 (00:16→23:44)
[2020-07-21] MEDS: INSULIN LISPRO 300 UNITS/3 ML VIAL. SQ SCH ×8 (00:22→17:45)
[2020-07-21] MEDS: MINERAL OIL/PETROLATUM,WHITE OPHTH OINT 3.5GM TUBE. OU SCH ×4 (05:49→17:43)
[2020-07-21] MEDS: MIDAZOLAM 100mg/100ml NS BAG 100 ML IV PRN ×3 (05:49→23:46)
[2020-07-21 06:16] LABS: BASO % 0 % (0-3); EOS # 0.2 x10^3/uL (0.0-0.7); EOS % 2 % (0-3); HEMATOCRIT 42.4 % (39.0-53.0); HEMOGLOBIN 13.5 g/dL (13.0-17.5); LYMPH # 0.8 x10^3/uL (1.0-4.8); LYMPH % 6 % (24-48); MEAN CORPUSCULAR HEMOGLOBIN 26 pg (25-35); MEAN CORPUSCULAR HGB CONC 32 g/dL (31-37); MEAN CORPUSCULAR VOLUME 83 fL (79-100); MONO # 0.7 x10^3/uL (0.0-1.1); MONO % 6 % (0-9); NEUT # 11.5 x10^3/uL (1.8-7.7); NEUT % 87 % (31-73); PLATELET COUNT 106 x10^3/uL (140-400); RED BLOOD COUNT 5.11 x10^6/uL (4.30-5.70); RED CELL DISTRIBUTION WIDTH 16.4 % (11.5-14.5); WHITE BLOOD COUNT 13.3 x10^3/uL (4.0-11.0)
[2020-07-21 06:33] LABS: MAGNESIUM 2.3 mg/dL (1.8-2.4); PHOSPHORUS 2.7 mg/dL (2.6-4.7)
[2020-07-21 06:34] LABS: CALCIUM 8.2 mg/dL (8.5-10.1); CREATININE 0.7 mg/dL (0.7-1.3); GFR 127.6; POTASSIUM 4.4 mmol/L (3.5-5.1)
[2020-07-21 07:29] LABS: BASE EXCESS ABG 5 mmol/L (-3-3); HCO3 ABG 31 mmol/L (21-28); PCO2 ABG 50 mmHg (35-46); PO2 ABG 67 mmHg (85-108); SAT O2 ABG 93 % (92-99)
[2020-07-21 07:39] LABS: FIO2 ABG 80%
[2020-07-21] MEDS: fentaNYL HIGH DOSE PCA 55 ML IV PRN ×2 (08:05→21:08)
[2020-07-21] MEDS: FAMOTIDINE 20 MG/2 ML VIAL IVP SCH ×2 (08:06→19:59)
[2020-07-21] MEDS: DEXAMETHASONE SOD PHOS 4 MG/ML VIAL IVP SCH (08:06)
[2020-07-21] MEDS: ENOXAPARIN 40 MG/0.4 ML SYRINGE. SQ SCH ×2 (08:06→20:00)
[2020-07-21] MEDS: ASCORBIC ACID 1,000 MG TABLET PO SCH (08:07)
[2020-07-21] MEDS: CHOLECALCIFEROL (VITAMIN D3) 1,000 UNIT TABLET PO SCH (08:07)
[2020-07-21] MEDS: THIAMINE INJ 300 MG in IV DEXTROSE 5% 50 ML IV SCH (08:44)
--- NOTE | 2020-07-21 08:51 | PDOC ---
PROGRESS NOTES Date of Service: DATE: 07/21/20 TIME: 08:51 Chief Complaint Chief Complaint impression Acute hypoxemic respiratory failure secondary to COVID-19 viral pneumonia. COVID-19 viral pneumonia. Abnormal x-ray. Tobacco dependence. Hyponatremia Hyperkalemia Hypomagnesemia FiO2 80% PEEP of 13 Temperature 99.3 FEN - TPN PPX - lovenox FULL CODE Dispo - ICU Continue full course of remdesivir Continue Dexamethasone ,, taper iv ABX zyvox and zosyn, cc time 39 minutes History of Present Illness History of Present Illness Mr Luque is a 35 yo M morbidly obese who presented with chief complaint of respiratory distress. Patient tested positive for Covid about 6 days prior to admit Patient had a fever, chills, cough, myalgias and headache. Patient had abdominal discomfort with diarrhea. Over the last day the patient became more short of breath. Patient had trouble sleeping and was satting 65% on room air in triage. Symptoms worse with activity and at night and somewhat better with taking Tylenol. 07/13: Eventful day with worsening respiratory distress, required intubation emergently with ED physician 07/14: Febrile to 101.8F this morning. PEEP 14, FiO2 100%. UOP stable. Required paralysis overnight for vent dysynchrony. Remdesivir day 1 07/15: Temp 100 F this morning. Still requiring paralysis for vent dyssynchrony on PEEP of 14 with FiO2 100%. Right upper extremity PICC placed fo r pressors. 07/16: Afebrile overnight still requiring PEEP of 14 and FiO2 100% but PaO2 on ABG up to 59 today. Glucose in the 300s despite insulin regimen. Triglycerides low 200s on TPN. Phosphorus low at 1.5. 07/17: T-max 100.4 F overnight. Glucose still in the 300s despite very large increase in insulin. O2 saturations 96% on PEEP of 14 and FiO2 100%. Labs pending. 07/18: Afebrile overnight. Still in 300s. O2 saturation 97% on PEEP of 14 FiO2 40%. ABG 7.35/59/91. No desaturations with repositioning today. Chest radiograph overall slightly improved 07/19: Afebrile overnight seen on vent paralyzed on TPN with FiO2 85% PEEP of 14. ABG 7.41/50/92. Afebrile. FiO2 80%, PEEP 13. ABG 7.39/53/69. Plan: Cont ICU care Vitals Vitals Vital Signs Date Time Temp Pulse Resp B/P (MAP) Pulse Ox O2 Delivery O2 Flow Rate FiO2 07/21/20 08:47 99 Ventilator 07/21/20 08:05 40.0 07/21/20 08:00 98.2 72 30 139/79 (99) 98.2 Physical Exam Physical Exam GENERAL: Intubated, sedated. HEENT: Normocephalic, atraumatic. ETT and OG tube in place. NECK: Supple. LUNGS: Coarse breath sounds bilaterally. HEART: S1, S2. ABDOMEN: Obese. Bowel sounds present, mildly distended. EXTREMITIES: No edema, no cyanosis. DERMATOLOGIC: Warm, dry. No generalized rash. NEUROLOGIC: Intubated. PSYCHIATRIC: Unable to assess. Right upper extremity PICC line clean General: mild distress Heart: Regular rate, Normal S1, Normal S2 Abdomen: Normal bowel sounds, Soft Extremities: No clubbing, No cyanosis Skin: No rashes, No breakdown Labs LABS ng[facility] view chest dated 07/18/2020. Comparison made to 07/15/2020. CLINICAL INDICATION: Follow-up airspace disease. FINDINGS: Single upright portable exam performed. Endotracheal tube, nasogastric tube and right-sided port in place, unchanged. Heart and mediastinal contours are stable. There is widespread airspace disease throughout both lungs, mildly improved. No pneumothorax. There is a small markedly pleural effusion on the left. IMPRESSION: 1. Mild interval improvement in widespread airspace disease. 2. Stable position of tubes and lines. 3. Possible small loculated pleural effusion on the left. Electronically signed by: Carloz Finch MD (07/18/2020 4:38 AM) [facility] [place] DICTATED and SIGNED BY: CARLOZ FINCH MD DATE: 07/18/20 [id number] Laboratory Tests Test 07/20/20 12:20 07/20/20 17:37 07/20/20 20:50 07/21/20 00:21 Glucose (Fingerstick) 250 mg/dL (70-99) 243 mg/dL (70-99) 256 mg/dL (70-99) 240 mg/dL (70-99) Test 07/21/20 06:00 07/21/20 07:25 White Blood Count 13.3 x10^3/uL (4.0-11.0) Red Blood Count 5.11 x10^6/uL (4.30-5.70) Hemoglobin 13.5 g/dL (13.0-17.5) Hematocrit 42.4 % (39.0-53.0) Mean Corpuscular Volume 83 fL (79-100) Mean Corpuscular Hemoglobin 26 pg (25-35) Mean Corpuscular Hemoglobin Concent 32 g/dL (31-37) Red Cell Distribution Width 16.4 % (11.5-14.5) Platelet Count 106 x10^3/uL (140-400) Neutrophils (%) (Auto) 87 % (31-73) Lymphocytes (%) (Auto) 6 % (24-48) Monocytes (%) (Auto) 6 % (0-9) Eosinophils (%) (Auto) 2 % (0-3) Basophils (%) (Auto) 0 % (0-3) Neutrophils # (Auto) 11.5 x10^3/uL (1.8-7.7) Lymphocytes # (Auto) 0.8 x10^3/uL (1.0-4.8) Monocytes # (Auto) 0.7 x10^3/uL (0.0-1.1) Eosinophils # (Auto) 0.2 x10^3/uL (0.0-0.7) Basophils # (Auto) 0.0 x10^3/uL (0.0-0.2) D-Dimer (Hannah) 19.21 ug/mlFEU (0.00-0.50) Sodium Level 142 mmol/L (136-145) Potassium Level 4.4 mmol/L (3.5-5.1) Chloride Level 109 mmol/L (98-107) Carbon Dioxide Level 30 mmol/L (21-32) Anion Gap 3 (6-14) Blood Urea Nitrogen 30 mg/dL (8-26) Creatinine 0.7 mg/dL (0.7-1.3) Estimated GFR (Cockcroft-Gault) 127.6 Glucose Level 258 mg/dL (70-99) Calcium Level 8.2 mg/dL (8.5-10.1) Phosphorus Level 2.7 mg/dL (2.6-4.7) Magnesium Level 2.3 mg/dL (1.8-2.4) Triglycerides Level 299 mg/dL (0-150) O2 Saturation 93 % (92-99) Arterial Blood pH 7.41 (7.35-7.45) Arterial Blood pCO2 at Patient Temp 50 mmHg (35-46) Arterial Blood pO2 at Patient Temp 67 mmHg (85-108) Arterial Blood HCO3 31 mmol/L (21-28) Arterial Blood Base Excess 5 mmol/L (-3-3) FiO2 80% Assessment and Plan Assessmemt and Plan Problems Medical Problems: (1) Acute hypoxemic respiratory failure due to severe acute respiratory syndrome coronavirus 2 (SARS-CoV-2) disease Status: Acute (2) Dyspnea Status: Acute Comment Review of Relevant I have reviewed the following items mile (where applicable) has been applied. Labs Laboratory Tests Test 07/19/20 12:59 07/19/20 17:40 07/19/20 20:52 07/20/20 00:32 Glucose (Fingerstick) 323 mg/dL (70-99) 253 mg/dL (70-99) 243 mg/dL (70-99) 247 mg/dL (70-99) Test 07/20/20 06:37 07/20/20 08:15 07/20/20 12:20 07/20/20 17:37 Glucose (Fingerstick) 200 mg/dL (70-99) 250 mg/dL (70-99) 243 mg/dL (70-99) O2 Saturation 93 % (92-99) Arterial Blood pH 7.39 (7.35-7.45) Arterial Blood pCO2 at Patient Temp 53 mmHg (35-46) Arterial Blood pO2 at Patient Temp 69 mmHg (85-108) Arterial Blood HCO3 31 mmol/L (21-28) Arterial Blood Base Excess 5 mmol/L (-3-3) FiO2 80% vent Test 07/20/20 20:50 07/21/20 00:21 07/21/20 06:00 07/21/20 07:25 Glucose (Fingerstick) 256 mg/dL (70-99) 240 mg/dL (70-99) White Blood Count 13.3 x10^3/uL (4.0-11.0) Red Blood Count 5.11 x10^6/uL (4.30-5.70) Hemoglobin 13.5 g/dL (13.0-17.5) Hematocrit 42.4 % (39.0-53.0) Mean Corpuscular Volume 83 fL (79-100) Mean Corpuscular Hemoglobin 26 pg (25-35) Mean Corpuscular Hemoglobin Concent 32 g/dL (31-37) Red Cell Distribution Width 16.4 % (11.5-14.5) Platelet Count 106 x10^3/uL (140-400) Neutrophils (%) (Auto) 87 % (31-73) Lymphocytes (%) (Auto) 6 % (24-48) Monocytes (%) (Auto) 6 % (0-9) Eosinophils (%) (Auto) 2 % (0-3) Basophils (%) (Auto) 0 % (0-3) Neutrophils # (Auto) 11.5 x10^3/uL (1.8-7.7) Lymphocytes # (Auto) 0.8 x10^3/uL (1.0-4.8) Monocytes # (Auto) 0.7 x10^3/uL (0.0-1.1) Eosinophils # (Auto) 0.2 x10^3/uL (0.0-0.7) Basophils # (Auto) 0.0 x10^3/uL (0.0-0.2) D-Dimer (Hannah) 19.21 ug/mlFEU (0.00-0.50) Sodium Level 142 mmol/L (136-145) Potassium Level 4.4 mmol/L (3.5-5.1) Chloride Level 109 mmol/L (98-107) Carbon Dioxide Level 30 mmol/L (21-32) Anion Gap 3 (6-14) Blood Urea Nitrogen 30 mg/dL (8-26) Creatinine 0.7 mg/dL (0.7-1.3) Estimated GFR (Cockcroft-Gault) 127.6 Glucose Level 258 mg/dL (70-99) Calcium Level 8.2 mg/dL (8.5-10.1) Phosphorus Level 2.7 mg/dL (2.6-4.7) Magnesium Level 2.3 mg/dL (1.8-2.4) Triglycerides Level 299 mg/dL (0-150) O2 Saturation 93 % (92-99) Arterial Blood pH 7.41 (7.35-7.45) Arterial Blood pCO2 at Patient Temp 50 mmHg (35-46) Arterial Blood pO2 at Patient Temp 67 mmHg (85-108) Arterial Blood HCO3 31 mmol/L (21-28) Arterial Blood Base Excess 5 mmol/L (-3-3) FiO2 80% Laboratory Tests Test 07/20/20 12:20 07/20/20 17:37 07/20/20 20:50 07/21/20 00:21 Glucose (Fingerstick) 250 mg/dL (70-99) 243 mg/dL (70-99) 256 mg/dL (70-99) 240 mg/dL (70-99) Test 07/21/20 06:00 07/21/20 07:25 White Blood Count 13.3 x10^3/uL (4.0-11.0) Red Blood Count 5.11 x10^6/uL (4.30-5.70) Hemoglobin 13.5 g/dL (13.0-17.5) Hematocrit 42.4 % (39.0-53.0) Mean Corpuscular Volume 83 fL (79-100) Mean Corpuscular Hemoglobin 26 pg (25-35) Mean Corpuscular Hemoglobin Concent 32 g/dL (31-37) Red Cell Distribution Width 16.4 % (11.5-14.5) Platelet Count 106 x10^3/uL (140-400) Neutrophils (%) (Auto) 87 % (31-73) Lymphocytes (%) (Auto) 6 % (24-48) Monocytes (%) (Auto) 6 % (0-9) Eosinophils (%) (Auto) 2 % (0-3) Basophils (%) (Auto) 0 % (0-3) Neutrophils # (Auto) 11.5 x10^3/uL (1.8-7.7) Lymphocytes # (Auto) 0.8 x10^3/uL (1.0-4.8) Monocytes # (Auto) 0.7 x10^3/uL (0.0-1.1) Eosinophils # (Auto) 0.2 x10^3/uL (0.0-0.7) Basophils # (Auto) 0.0 x10^3/uL (0.0-0.2) D-Dimer (Hannah) 19.21 ug/mlFEU (0.00-0.50) Sodium Level 142 mmol/L (136-145) Potassium Level 4.4 mmol/L (3.5-5.1) Chloride Level 109 mmol/L (98-107) Carbon Dioxide Level 30 mmol/L (21-32) Anion Gap 3 (6-14) Blood Urea Nitrogen 30 mg/dL (8-26) Creatinine 0.7 mg/dL (0.7-1.3) Estimated GFR (Cockcroft-Gault) 127.6 Glucose Level 258 mg/dL (70-99) Calcium Level 8.2 mg/dL (8.5-10.1) Phosphorus Level 2.7 mg/dL (2.6-4.7) Magnesium Level 2.3 mg/dL (1.8-2.4) Triglycerides Level 299 mg/dL (0-150) O2 Saturation 93 % (92-99) Arterial Blood pH 7.41 (7.35-7.45) Arterial Blood pCO2 at Patient Temp 50 mmHg (35-46) Arterial Blood pO2 at Patient Temp 67 mmHg (85-108) Arterial Blood HCO3 31 mmol/L (21-28) Arterial Blood Base Excess 5 mmol/L (-3-3) FiO2 80% Microbiology 07/13/20 Urine Culture - Final, Complete 07/13/20 Blood Culture - Final, Complete NO GROWTH AFTER 5 DAYS Medications Current Medications Dexamethasone Sodium Phosphate (Decadron) 6 mg 1X ONCE IV ; Start 07/13/20 at 09:30; Stop 07/13/20 at 09:39; Status DC Ceftriaxone Sodium (Rocephin) 1 gm 1X ONCE IVP Last administered on 07/13/20at 09:36; Start 07/13/20 at 09:30; Stop 07/13/20 at 09:31; Status DC Azithromycin 250 ml @ 250 mls/hr 1X ONCE IV Last administered on 07/13/20at 09:37; Start 07/13/20 at 09:30; Stop 07/13/20 at 10:29; Status DC Sodium Chloride 1,000 ml @ 1,000 mls/hr 1X ONCE IV Last administered on 07/13/20at 09:36; Start 07/13/20 at 09:30; Stop 07/13/20 at 10:29; Status DC Acetaminophen (Tylenol) 1,000 mg 1X ONCE PO Last administered on 07/13/20at 09:36; Start 07/13/20 at 09:30; Stop 07/13/20 at 09:31; Status DC Dexamethasone Sodium Phosphate (Decadron) 4 mg STK-MED ONCE .ROUTE ; Start 07/13/20 at 09:28; Stop 07/13/20 at 09:28; Status DC Azithromycin 250 ml @ As Directed STK-MED ONCE IV ; Start 07/13/20 at 09:28; Stop 07/13/20 at 09:28; Status DC Ceftriaxone Sodium (Rocephin) 1 gm STK-MED ONCE IVP ; Start 07/13/20 at 09:28; Stop 07/13/20 at 09:28; Status DC Dexamethasone Sodium Phosphate (Decadron) 6 mg 1X ONCE IVP Last administered on 07/13/20at 09:42; Start 07/13/20 at 09:45; Stop 07/13/20 at 09:46; Status DC Ondansetron HCl (Zofran) 4 mg PRN Q8HRS PRN IV NAUSEA/VOMITING; Start 07/13/20 at 09:45; Stop 07/14/20 at 08:19; Status DC Enoxaparin Sodium (Lovenox 120mg Syringe) 110 mg 1X ONCE SQ Last administered on 07/13/20at 10:14; Start 07/13/20 at 10:15; Stop 07/13/20 at 10:16; Status DC Iohexol (Omnipaque 350 Mg/ml) 100 ml 1X ONCE IV Last administered on 07/13/20at 10:15; Start 07/13/20 at 10:15; Stop 07/13/20 at 10:16; Status DC Info (CONTRAST GIVEN -- Rx MONITORING) 1 each PRN DAILY PRN MC SEE COMMENTS; Start 07/13/20 at 10:30; Stop 07/15/20 at 10:29; Status DC Potassium Chloride (Klor-Con) 40 meq 1X ONCE PO Last administered on 07/13/20at 11:20; Start 07/13/20 at 11:15; Stop 07/13/20 at 11:16; Status DC Potassium Chloride/Water 100 ml @ 100 mls/hr Q1H IV ; Start 07/13/20 at 10:45; Stop 07/13/20 at 10:46; Status DC Potassium Chloride/Water 100 ml @ 100 mls/hr Q1H IV Last administered on 07/13/20at 17:17; Start 07/13/20 at 11:30; Stop 07/13/20 at 15:29; Status DC Sodium Chloride 1,000 ml @ 125 mls/hr 1X ONCE IV Last administered on 07/13/20at 11:26; Start 07/13/20 at 11:00; Stop 07/13/20 at 18:59; Status DC Calcium Gluconate 1000 mg/Sodium Chloride 110 ml @ 220 mls/hr 1X ONCE IV Last administered on 07/13/20at 11:51; Start 07/13/20 at 11:45; Stop 07/13/20 at 12:14; Status DC Magnesium Sulfate 50 ml @ 25 mls/hr 1X ONCE IV Last administered on 07/13/20at 13:26; Start 07/13/20 at 11:30; Stop 07/13/20 at 13:29; Status DC Remdesivir 200 mg/ Sodium Chloride 210 ml @ 210 mls/hr 1X ONCE IV Last administered on 07/13/20at 15:21; Start 07/13/20 at 14:00; Stop 07/13/20 at 14:59; Status DC Remdesivir 100 mg/ Sodium Chloride 230 ml @ 460 mls/hr Q24H IV Last administered on 07/17/20at 15:36; Start 07/14/20 at 14:00; Stop 07/17/20 at 14:29; Status DC Magnesium Sulfate 50 ml @ 25 mls/hr 1X ONCE IV ; Start 07/13/20 at 12:30; Stop 07/13/20 at 14:29; Status UNV Vitamin D (Vitamin D3) 1,000 unit DAILY PO Last administered on 07/21/20at 08:07; Start 07/13/20 at 13:00 Ascorbic Acid (Vitamin C) 1,000 mg DAILY PO Last administered on 07/21/20at 08:07; Start 07/13/20 at 13:00 Dexamethasone (Decadron) 6 mg DAILYWBKFT PO Last administered on 07/14/20at 09:14; Start 07/14/20 at 08:00; Stop 07/15/20 at 09:13; Status DC Doxycycline Hyclate 100 mg/ Dextrose 100 ml @ 50 mls/hr Q12HR IV Last administered on 07/13/20at 13:21; Start 07/13/20 at 13:00; Stop 07/13/20 at 23:25; Status DC Ceftriaxone Sodium (Rocephin) 1 gm Q24H IVP ; Start 07/14/20 at 09:00; Stop 07/13/20 at 23:25; Status DC Enoxaparin Sodium (Lovenox 40mg Syringe) 40 mg Q24H SQ Last administered on 07/13/20at 13:31; Start 07/13/20 at 13:00; Stop 07/14/20 at 10:47; Status DC Influenza Virus Vaccine Quadrival (Fluzone Quad Syringe) 0.5 ml ONCE ONCE VAX IM ; Start 07/15/20 at 09:00; Stop 07/15/20 at 09:01; Status DC Benzonatate (Tessalon Perle) 100 mg Q6HRS PO Last administered on 07/18/20at 05:36; Start 07/13/20 at 18:00; Stop 07/19/20 at 10:24; Status DC Phenol (Chloraseptic) 1 spray PRN Q2HR PRN PO SORE THROAT Last administered on 07/13/20at 16:27; Start 07/13/20 at 16:15 Acetaminophen (Tylenol) 650 mg PRN Q6HRS PRN PO MILD PAIN / TEMP > 100.3'F Last administered on 07/19/20at 12:55; Start 07/13/20 at 16:15 Prochlorperazine Edisylate (Compazine) 10 mg PRN Q6HRS PRN IV NAUSEA/VOMITING; Start 07/13/20 at 16:15 Lorazepam (Ativan Inj) 0.25 mg PRN Q6HRS PRN IVP ANXIETY / AGITATION Last administered on 07/13/20at 16:42; Start 07/13/20 at 16:45 Sterile Water (WATER for RESP) 1,000 ml CONT PRN INH VIA VAPOTHERM DEVICE; Start 07/13/20 at 17:15 Dexmedetomidine HCl 400 mcg/ Sodium Chloride 100 ml @ 0 mls/hr CONT PRN IV PER PROTOCOL; Start 07/13/20 at 17:00 Sodium Chloride 500 ml @ 500 mls/hr 1X PRN PRN IV SEE COMMENTS; Start 07/13/20 at 17:00 Atropine Sulfate (ATROPINE 0.5mg SYRINGE) 0.5 mg PRN Q5MIN PRN IV SEE COMMENTS; Start 07/13/20 at 17:00 Propofol 100 ml @ As Directed STK-MED ONCE IV ; Start 07/13/20 at 17:20; Stop 07/13/20 at 17:20; Status DC Succinylcholine Chloride (Anectine) 200 mg STK-MED ONCE .ROUTE ; Start 07/13/20 at 17:40; Stop 07/13/20 at 17:41; Status DC Fentanyl Citrate 30 ml @ 0 mls/hr CONT PRN IV SEE PROTOCOL Last administered on 07/13/20at 18:40; Start 07/13/20 at 17:45; Stop 07/13/20 at 20:11; Status DC Propofol 100 ml @ 0 mls/hr CONT PRN IV PER PROTOCOL Last administered on 07/14/20at 20:13; Start 07/13/20 at 17:45; Stop 07/20/20 at 11:33; Status DC Chlorhexidine Gluconate (Peridex) 15 ml BID MM Last administered on 07/15/20at 08:33; Start 07/13/20 at 21:00; Stop 07/16/20 at 18:59; Status DC Midazolam HCl 100 ml @ 0 mls/hr CONT PRN IV SEE PROTOCOL Last administered on 07/21/20at 05:49; Start 07/13/20 at 17:45 Vecuronium Dorothy (Norcuron Bolus) 10 mg STK-MED ONCE IV ; Start 07/13/20 at 18:12; Stop 07/13/20 at 18:12; Status DC Etomidate (Amidate) 20 mg STK-MED ONCE IV ; Start 07/13/20 at 18:24; Stop 07/13/20 at 18:24; Status DC Vecuronium Dorothy (Norcuron Bolus) 6 mg PRN Q4HRS PRN IV Out of sync with ventilator Last administered on 07/13/20at 19:39; Start 07/13/20 at 19:30 Fentanyl Citrate 55 ml @ 0 mls/hr CONT PRN PRN IV PAIN Last administered on 07/21/20at 08:05; Start 07/13/20 at 19:45 Vecuronium Dorothy 50 mg/ Miscellaneous 50 ml @ 5.683 mls/ hr CONT PRN IV SEE I/O RECORD Last administered on 07/20/20at 21:30; Start 07/13/20 at 22:00 Norepinephrine Bitartrate 8 mg/ Dextrose 258 ml @ 22.91 mls/ hr CONT PRN IV PER PROTOCOL Last administered on 07/15/20at 00:09; Start 07/13/20 at 23:30 Ringer's Solution 1,000 ml @ 100 mls/hr Q10H IV Last administered on 07/14/20at 20:12; Start 07/13/20 at 23:30; Stop 07/15/20 at 09:08; Status DC Thiamine HCl 300 mg/Dextrose 53 ml @ 102 mls/hr DAILY IV Last administered on 07/21/20at 08:44; Start 07/14/20 at 09:00 Vancomycin HCl (Vanco Per Pharmacy) 1 each PRN DAILY PRN MC SEE COMMENTS Last administered on 07/14/20at 02:10; Start 07/13/20 at 23:16; Stop 07/14/20 at 09:14; Status DC Piperacillin Sod/ Tazobactam Sod (Zosyn Per Pharmacy) 1 each PRN DAILY PRN MC SEE COMMENTS; Start 07/13/20 at 23:16 Vancomycin HCl 2 gm/Sodium Chloride 500 ml @ 250 mls/hr 1X ONCE IV Last administered on 07/14/20at 00:24; Start 07/13/20 at 23:45; Stop 07/14/20 at 01:44; Status DC Piperacillin Sod/ Tazobactam Sod 3.375 gm/Sodium Chloride 50 ml @ 100 mls/hr Q6HRS IV Last administered on 07/21/20at 05:47; Start 07/14/20 at 00:00 Vancomycin HCl 1.5 gm/Sodium Chloride 500 ml @ 250 mls/hr Q8H IV Last administered on 07/14/20at 08:46; Start 07/14/20 at 08:00; Stop 07/14/20 at 09:14; Status DC Vancomycin HCl (Vancomycin Trough Level) 1 each 1X ONCE MC ; Start 07/14/20 at 23:30; Stop 07/14/20 at 23:31; Status Cancel Etomidate (Amidate) 20 mg STK-MED ONCE IV ; Start 07/13/20 at 18:00; Stop 07/14/20 at 08:36; Status DC Succinylcholine Chloride (Anectine) 200 mg STK-MED ONCE .ROUTE ; Start 07/13/20 at 18:00; Stop 07/14/20 at 08:36; Status DC Linezolid/Dextrose 300 ml @ 300 mls/hr Q12HR IV Last administered on 07/19/20at 09:56; Start 07/14/20 at 21:00; Stop 07/19/20 at 10:10; Status DC Insulin Glargine (Lantus Syringe) 8 unit QHS SQ Last administered on 07/14/20at 20:42; Start 07/14/20 at 21:00; Stop 07/15/20 at 07:57; Status DC Insulin Human Lispro (HumaLOG) 0-9 UNITS Q6HRS SQ Last administered on 07/21/20at 05:59; Start 07/14/20 at 12:00 Dextrose (Dextrose 50%-Water Syringe) 12.5 gm PRN Q15MIN PRN IV SEE COMMENTS; Start 07/14/20 at 09:30 Enoxaparin Sodium (Lovenox 40mg Syringe) 40 mg BID SQ Last administered on 07/21/20at 08:06; Start 07/14/20 at 21:00 Famotidine (Pepcid Vial) 20 mg BID IVP Last administered on 07/21/20at 08:06; Start 07/14/20 at 21:00 Insulin Glargine (Lantus Syringe) 15 unit QHS SQ ; Start 07/15/20 at 21:00; Stop 07/15/20 at 18:18; Status DC Insulin Human Lispro (HumaLOG) 5 units Q6HRS SQ Last administered on 07/15/20at 23:46; Start 07/15/20 at 12:00; Stop 07/16/20 at 09:56; Status DC Info (Tpn Per Pharmacy) 1 each PRN DAILY PRN MC SEE COMMENTS Last administered on 07/20/20at 11:46; Start 07/15/20 at 09:15 Dexamethasone Sodium Phosphate (Decadron) 6 mg DAILY IVP Last administered on 07/21/20at 08:06; Start 07/15/20 at 10:00 Sodium Chloride 90 meq/Potassium Chloride 25 meq/ Potassium Phosphate 13.6 mmol/Magnesium Sulfate 10 meq/ Calcium Gluconate 10 meq/ Multivitamins 5 ml/Zinc/Copper/ Manganese/ Selenium 1 ml/ Total Parenteral Nutrition/Amino Acids/Dextrose 1,512 ml @ 63 mls/hr TPN CONT IV Last administered on 07/15/20at 22:01; Start 07/15/20 at 22:00; Stop 07/16/20 at 21:59; Status DC Sodium Phosphate 15 mmol/Sodium Chloride 105 ml @ 105 mls/hr 1X ONCE IV Last administered on 07/15/20at 13:12; Start 07/15/20 at 13:00; Stop 07/15/20 at 13:59; Status DC Insulin Glargine (Lantus Syringe) 20 unit QHS SQ Last administered on 0at 21:04; Start 07/15/20 at 21:00; Stop 07/16/20 at 09:56; Status DC Insulin Human Lispro (HumaLOG) 18 units 1X ONCE SQ Last administered on 07/16/20at 00:41; Start 07/16/20 at 01:00; Stop 07/16/20 at 01:01; Status DC Insulin Human Lispro (HumaLOG) 26 units 1X ONCE SQ Last administered on 07/16/20at 06:06; Start 07/16/20 at 06:30; Stop 07/16/20 at 06:31; Status DC Insulin Glargine (Lantus Syringe) 45 unit QHS SQ Last administered on 07/16/20at 21:24; Start 07/16/20 at 21:00; Stop 07/17/20 at 06:44; Status DC Insulin Human Lispro (HumaLOG) 10 units Q6HRS SQ Last administered on 07/18/20at 05:38; Start 07/16/20 at 12:00; Stop 07/18/20 at 10:07; Status DC Sodium Phosphate 30 mmol/Sodium Chloride 260 ml @ 65 mls/hr 1X ONCE IV Last administered on 07/16/20at 13:29; Start 07/16/20 at 13:00; Stop 07/16/20 at 16:59; Status DC Multi-Ingred Cream/Lotion/Oil/ Oint (Artificial Tears Eye Ointment) 1 klaudia Q6HRS OU Last administered on 07/21/20at 05:49; Start 07/16/20 at 13:00 Sodium Chloride 90 meq/Potassium Phosphate 20 mmol/ Calcium Gluconate 10 meq/ Multivitamins 5 ml/Zinc/Copper/ Manganese/ Selenium 1 ml/ Total Parenteral Nutrition/Amino Acids/Dextrose/ Fat Emulsion Intravenous 1,512 ml @ 63 mls/hr TPN CONT IV Last administered on 07/16/20at 22:54; Start 07/16/20 at 22:00; Stop 07/17/20 at 21:59; Status DC Insulin Human Lispro (HumaLOG) 20 units 1X ONCE SQ Last administered on 07/16/20at 23:55; Start 07/16/20 at 23:55; Stop 07/16/20 at 23:56; Status DC Insulin Glargine (Lantus Syringe) 45 unit BID SQ Last administered on 07/20/20at 20:54; Start 07/17/20 at 09:00 Insulin Human Lispro (HumaLOG) 25 units 1X ONCE SQ Last administered on 07/17/20at 06:50; Start 07/17/20 at 07:00; Stop 07/17/20 at 07:01; Status DC Potassium Phosphate 13.6 mmol/Sodium Chloride 254.5333 ml @ 127.... Q2H IV Last administered on 07/17/20at 13:22; Start 07/17/20 at 11:30; Stop 07/17/20 at 13:29; Status DC Sodium Chloride 90 meq/Potassium Phosphate 23 mmol/ Calcium Gluconate 10 meq/ Multivitamins 5 ml/Zinc/Copper/ Manganese/ Selenium 1 ml/ Total Parenteral Nutrition/Amino Acids/Dextrose/ Fat Emulsion Intravenous 1,512 ml @ 63 mls/hr TPN CONT IV Last administered on 07/17/20at 21:32; Start 07/17/20 at 22:00; Stop 07/18/20 at 21:59; Status DC Insulin Human Lispro (HumaLOG) 18 units Q6HRS SQ Last administered on 07/21/20at 06:00; Start 07/18/20 at 12:00 Sodium Chloride 90 meq/Potassium Phosphate 23 mmol/ Calcium Gluconate 5 meq/ Multivitamins 5 ml/Zinc/Copper/ Manganese/ Selenium 1 ml/ Total Parenteral Nutrition/Amino Acids/Dextrose/ Fat Emulsion Intravenous 1,512 ml @ 63 mls/hr TPN CONT IV Last administered on 07/18/20at 20:52; Start 07/18/20 at 22:00; Stop 07/19/20 at 21:59; Status DC Sodium Chloride 70 meq/Potassium Phosphate 23 mmol/ Calcium Gluconate 5 meq/ Multivitamins 5 ml/Zinc/Copper/ Manganese/ Selenium 1 ml/ Total Parenteral Nutrition/Amino Acids/Dextrose/ Fat Emulsion Intravenous 1,512 ml @ 63 mls/hr TPN CONT IV Last administered on 07/19/20at 20:49; Start 07/19/20 at 22:00; Stop 07/20/20 at 21:59; Status DC Propofol 100 ml @ 3.42 mls/hr CONT PRN IV PER PROTOCOL Last administered on 07/21/20at 07:28; Start 07/20/20 at 11:30 Sodium Chloride 70 meq/Potassium Phosphate 23 mmol/ Calcium Gluconate 5 meq/ Multivitamins 5 ml/Zinc/Copper/ Manganese/ Selenium 1 ml/ Total Parenteral Nutrition/Amino Acids/Dextrose 1,512 ml @ 63 mls/hr TPN CONT IV Last admin istered on 07/20/20at 20:48; Start 07/20/20 at 22:00; Stop 07/21/20 at 21:59 Active Scripts Active Reported No Known Medications Prior To Admisstion (Info) Each 1 Each 1X Vitals/I & O Vital Sign - Last 24 Hours 07/20/20 07/20/20 07/20/20 07/20/20 09:00 10:00 11:00 11:36 Pulse 120 122 122 Resp 30 30 30 B/P (MAP) 165/89 (114) 159/87 (111) 137/77 (97) Pulse Ox 100 99 99 100 O2 Delivery Ventilator Ventilator Ventilator Ventilator 07/20/20 07/20/20 07/20/20 07/20/20 12:00 12:00 13:00 14:00 Temp 99.7 99.3 99.0 99.7 99.3 99.0 Pulse 98 90 76 Resp 30 30 30 B/P (MAP) 122/72 (89) 116/61 (79) 119/72 (88) Pulse Ox 99 99 100 O2 Delivery Ventilator Mechanical Ventilator Ventilator Ventilator 07/20/20 07/20/20 07/20/20 07/20/20 15:00 16:00 16:00 16:03 Temp 98.6 98.6 Pulse 72 72 Resp 30 30 B/P (MAP) 119/67 (84) 123/71 (88) Pulse Ox 99 99 100 O2 Delivery Ventilator Ventilator Mechanical Ventilator Ventilator 07/20/20 07/20/20 07/20/20 07/20/20 17:00 18:00 19:00 19:00 Pulse 118 94 118 Resp 30 30 30 30 B/P (MAP) 154/94 (114) 152/84 (106) 107/48 (67) Pulse Ox 98 97 98 O2 Delivery Ventilator Ventilator Ventilator Ventilator 07/20/20 07/20/20 07/20/20 07/20/20 19:37 20:00 20:00 20:27 Temp 99.3 99.3 Pulse 115 Resp 30 30 B/P (MAP) 175/100 (125) Pulse Ox 97 98 100 O2 Delivery Ventilator Ventilator Mechanical Ventilator Ventilator 07/20/20 07/20/20 07/20/20 07/21/20 21:00 22:00 23:00 00:00 Temp 98.9 98.9 Pulse 82 71 68 72 Resp 30 30 30 30 B/P (MAP) 93/50 (64) 109/63 (78) 107/65 (79) 115/55 (75) Pulse Ox 98 99 99 99 O2 Delivery Ventilator Ventilator Ventilator Ventilator 07/21/20 07/21/20 07/21/20 07/21/20 00:00 00:34 01:00 02:00 Pulse 62 63 Resp 30 30 B/P (MAP) 95/50 (65) 115/70 (85) Pulse Ox 100 100 100 O2 Delivery Mechanical Ventilator Ventilator Ventilator Ventilator 07/21/20 07/21/20 07/21/20 07/21/20 03:00 04:00 04:00 04:30 Temp 99.4 99.4 Pulse 63 59 Resp 30 30 B/P (MAP) 123/74 (90) 124/70 (88) Pulse Ox 100 100 100 O2 Delivery Ventilator Mechanical Ventilator Ventilator Ventilator 07/21/20 07/21/20 07/21/20 07/21/20 05:00 06:00 07:00 07:17 Temp 97.7 97.7 Pulse 60 59 66 Resp 30 30 30 B/P (MAP) 119/68 (85) 128/77 (94) 120/66 (84) Pulse Ox 100 100 99 99 O2 Delivery Ventilator Ventilator Ventilator Ventilator 07/21/20 07/21/20 07/21/20 07/21/20 08:00 08:00 08:05 08:47 Temp 98.2 98.2 Pulse 72 Resp 30 B/P (MAP) 139/79 (99) Pulse Ox 97 99 99 O2 Delivery Ventilator Mechanical Ventilator Ventilator O2 Flow Rate 40.0 Intake and Output 07/20/20 07/20/20 07/21/20 15:00 23:00 07:00 Intake Total 103 ml 1075 ml 1214.3 ml Output Total 600 ml 950 ml 700 ml Balance -497 ml 125 ml 514.3 ml Justicifation of Admission Dx: Justifications for Admission: Justification of Admission Dx: Yes Comminuty Aquired Pneumonia: Dehydration COLIN VELAZQUEZ MD Jul 21, 2020 08:51
--- NOTE | 2020-07-21 09:27 | PDOC ---
Infectious Disease Note Subjective: Subjective pt intubated/sedated FiO2 80% PEEP of 13 Temperature 99.3 No acute issues per RN Vital Signs: Vital Signs Vital Signs Date Time Temp Pulse Resp B/P (MAP) Pulse Ox O2 Delivery O2 Flow Rate FiO2 07/21/20 08:47 99 Ventilator 07/21/20 08:05 40.0 07/21/20 08:00 98.2 72 30 139/79 (99) 98.2 Physical Exam: PHYSICAL EXAM GENERAL: Intubated, sedated. HEENT: Normocephalic, atraumatic. ETT and OG tube in place. NECK: Supple. LUNGS: Coarse breath sounds bilaterally. HEART: S1, S2. ABDOMEN: Obese. Bowel sounds present, mildly distended. EXTREMITIES: No edema, no cyanosis. DERMATOLOGIC: Warm, dry. No generalized rash. NEUROLOGIC: Intubated. PSYCHIATRIC: Unable to assess. Right upper extremity PICC line clean Medications: Inpatient Meds: Current Medications Medications (Trade) Dose Ordered Sig/Sola Start Time Stop Time Status Last Admin Dose Admin Acetaminophen (Tylenol) 650 mg PRN Q6HRS PRN 07/13/20 16:15 07/19/20 12:55 650 MG Ascorbic Acid (Vitamin C) 1,000 mg DAILY 07/13/20 13:00 07/21/20 08:07 1,000 MG Atropine Sulfate (ATROPINE 0.5mg SYRINGE) 0.5 mg PRN Q5MIN PRN 07/13/20 17:00 Azithromycin 250 ml @ As Directed STK-MED ONCE 07/13/20 09:28 07/13/20 09:28 DC Benzonatate (Tessalon Perle) 100 mg Q6HRS 07/13/20 18:00 07/19/20 10:24 DC 07/18/20 05:36 100 MG Calcium Gluconate 1000 mg/Sodium Chloride 110 ml @ 220 mls/hr 1X ONCE 07/13/20 11:45 07/13/20 12:14 DC 07/13/20 11:51 220 MLS/HR Ceftriaxone Sodium (Rocephin) 1 gm Q24H 07/14/20 09:00 07/13/20 23:25 DC Chlorhexidine Gluconate (Peridex) 15 ml BID 07/13/20 21:00 07/16/20 18:59 DC 07/15/20 08:33 15 ML Dexamethasone (Decadron) 6 mg [id number] 07/14/20 08:00 07/15/20 09:13 DC 07/14/20 09:14 6 MG Dexamethasone Sodium Phosphate (Decadron) 6 mg DAILY 07/15/20 10:00 07/21/20 08:06 6 MG Dexmedetomidine HCl 400 mcg/ Sodium Chloride 100 ml @ 0 mls/hr CONT PRN 07/13/20 17:00 Dextrose (Dextrose 50%-Water Syringe) 12.5 gm PRN Q15MIN PRN 07/14/20 09:30 Doxycycline Hyclate 100 mg/ Dextrose 100 ml @ 50 mls/hr Q12HR 07/13/20 13:00 07/13/20 23:25 DC 07/13/20 13:21 50 MLS/HR Enoxaparin Sodium (Lovenox 120mg Syringe) 110 mg 1X ONCE 07/13/20 10:15 07/13/20 10:16 DC 07/13/20 10:14 110 MG Enoxaparin Sodium (Lovenox 40mg Syringe) 40 mg BID 07/14/20 21:00 07/21/20 08:06 40 MG Etomidate (Amidate) 20 mg STK-MED ONCE 07/13/20 18:00 07/14/20 08:36 DC Famotidine (Pepcid Vial) 20 mg BID 07/14/20 21:00 07/21/20 08:06 20 MG Fentanyl Citrate 55 ml @ 0 mls/hr CONT PRN PRN 07/13/20 19:45 07/21/20 08:05 3.98 MLS/HR Influenza Virus Vaccine Quadrival (Fluzone Quad [id number] Syringe) 0.5 ml ONCE ONCE 07/15/20 09:00 07/15/20 09:01 DC Info (CONTRAST GIVEN -- Rx MONITORING) 1 each PRN DAILY PRN 07/13/20 10:30 07/15/20 10:29 DC Info (Tpn Per Pharmacy) 1 each PRN DAILY PRN 07/15/20 09:15 07/20/20 11:46 1 EACH Insulin Glargine (Lantus Syringe) 45 unit BID 07/17/20 09:00 07/20/20 20:54 45 UNIT Insulin Human Lispro (HumaLOG) 18 units Q6HRS 07/18/20 12:00 07/21/20 06:00 18 UNITS Iohexol (Omnipaque 350 Mg/ml) 100 ml 1X ONCE 07/13/20 10:15 07/13/20 10:16 DC 07/13/20 10:15 100 ML Linezolid/Dextrose 300 ml @ 300 mls/hr Q12HR 07/14/20 21:00 07/19/20 10:10 DC 07/19/20 09:56 300 MLS/HR Lorazepam (Ativan Inj) 0.25 mg PRN Q6HRS PRN 07/13/20 16:45 07/13/20 16:42 0.25 MG Magnesium Sulfate 50 ml @ 25 mls/hr 1X ONCE 07/13/20 12:30 07/13/20 14:29 UNV Midazolam HCl 100 ml @ 0 mls/hr CONT PRN 07/13/20 17:45 07/21/20 05:49 10 MLS/HR Multi-Ingred Cream/Lotion/Oil/ Oint (Artificial Tears Eye Ointment) 1 klaudia Q6HRS 07/16/20 13:00 07/21/20 05:49 1 KLAUDIA Norepinephrine Bitartrate 8 mg/ Dextrose 258 ml @ 22.91 mls/ hr CONT PRN 07/13/20 23:30 07/15/20 00:09 9.164 MLS/HR Ondansetron HCl (Zofran) 4 mg PRN Q8HRS PRN 07/13/20 09:45 07/14/20 08:19 DC Phenol (Chloraseptic) 1 spray PRN Q2HR PRN 07/13/20 16:15 07/13/20 16:27 1 SPRAY Piperacillin Sod/ Tazobactam Sod (Zosyn Per Pharmacy) 1 each PRN DAILY PRN 07/13/20 23:16 Piperacillin Sod/ Tazobactam Sod 3.375 gm/Sodium Chloride 50 ml @ 100 mls/hr Q6HRS 07/14/20 00:00 07/21/20 05:47 100 MLS/HR Potassium Chloride/Water 100 ml @ 100 mls/hr Q1H 07/13/20 11:30 07/13/20 15:29 DC 07/13/20 17:17 100 MLS/HR Potassium Phosphate 13.6 mmol/Sodium Chloride 254.5333 ml @ 127.... Q2H 07/17/20 11:30 07/17/20 13:29 DC 07/17/20 13:22 127.267 MLS/HR Potassium Chloride (Klor-Con) 40 meq 1X ONCE 07/13/20 11:15 07/13/20 11:16 DC 07/13/20 11:20 40 MEQ Prochlorperazine Edisylate (Compazine) 10 mg PRN Q6HRS PRN 07/13/20 16:15 Propofol 100 ml @ 3.42 mls/hr CONT PRN 07/20/20 11:30 07/21/20 07:28 24.8 MLS/HR Remdesivir 100 mg/ Sodium Chloride 230 ml @ 460 mls/hr Q24H 07/14/20 14:00 07/17/20 14:29 DC 07/17/20 15:36 460 MLS/HR Remdesivir 200 mg/ Sodium Chloride 210 ml @ 210 mls/hr 1X ONCE 07/13/20 14:00 07/13/20 14:59 DC 07/13/20 15:21 210 MLS/HR Ringer's Solution 1,000 ml @ 100 mls/hr Q10H 07/13/20 23:30 07/15/20 09:08 DC 07/14/20 20:12 100 MLS/HR Sodium Chloride 70 meq/Potassium Phosphate 23 mmol/ Calcium Gluconate 5 meq/ Multivitamins 5 ml/Zinc/Copper/ Manganese/ Selenium 1 ml/ Total Parenteral Nutrition/Amino Acids/Dextrose 1,512 ml @ 63 mls/hr TPN CONT 07/20/20 22:00 07/21/20 21:59 07/20/20 20:48 63 MLS/HR Sodium Chloride 70 meq/Potassium Phosphate 23 mmol/ Calcium Gluconate 5 meq/ Multivitamins 5 ml/Zinc/Copper/ Manganese/ Selenium 1 ml/ Total Parenteral Nutrition/Amino Acids/Dextrose/ Fat Emulsion Intravenous 1,512 ml @ 63 mls/hr TPN CONT 07/19/20 22:00 07/20/20 21:59 DC 07/19/20 20:49 63 MLS/HR Sodium Chloride 90 meq/Potassium Chloride 25 meq/ Potassium Phosphate 13.6 mmol/Magnesium Sulfate 10 meq/ Calcium Gluconate 10 meq/ Multivitamins 5 ml/Zinc/Copper/ Manganese/ Selenium 1 ml/ Total Parenteral Nutrition/Amino Acids/Dextrose 1,512 ml @ 63 mls/hr TPN CONT 07/15/20 22:00 07/16/20 21:59 DC 07/15/20 22:01 63 MLS/HR Sodium Chloride 90 meq/Potassium Phosphate 20 mmol/ Calcium Gluconate 10 meq/ Multivitamins 5 ml/Zinc/Copper/ Manganese/ Selenium 1 ml/ Total Parenteral Nutrition/Amino Acids/Dextrose/ Fat Emulsion Intravenous 1,512 ml @ 63 mls/hr TPN CONT 07/16/20 22:00 07/17/20 21:59 DC 07/16/20 22:54 63 MLS/HR Sodium Chloride 90 meq/Potassium Phosphate 23 mmol/ Calcium Gluconate 5 meq/ Multivitamins 5 ml/Zinc/Copper/ Manganese/ Selenium 1 ml/ Total Parenteral Nutrition/Amino Acids/Dextrose/ Fat Emulsion Intravenous 1,512 ml @ 63 mls/hr TPN CONT 07/18/20 22:00 07/19/20 21:59 DC 07/18/20 20:52 63 MLS/HR Sodium Chloride 90 meq/Potassium Phosphate 23 mmol/ Calcium Gluconate 10 meq/ Multivitamins 5 ml/Zinc/Copper/ Manganese/ Selenium 1 ml/ Total Parenteral Nutrition/Amino Acids/Dextrose/ Fat Emulsion Intravenous 1,512 ml @ 63 mls/hr TPN CONT 07/17/20 22:00 07/18/20 21:59 DC 07/17/20 21:32 63 MLS/HR Sodium Phosphate 15 mmol/Sodium Chloride 105 ml @ 105 mls/hr 1X ONCE 07/15/20 13:00 07/15/20 13:59 DC 07/15/20 13:12 105 MLS/HR Sodium Phosphate 30 mmol/Sodium Chloride 260 ml @ 65 mls/hr 1X ONCE 07/16/20 13:00 07/16/20 16:59 DC 07/16/20 13:29 65 MLS/HR Sterile Water (WATER for RESP) 1,000 ml CONT PRN 07/13/20 17:15 Succinylcholine Chloride (Anectine) 200 mg STK-MED ONCE 07/13/20 18:00 07/14/20 08:36 DC Thiamine HCl 300 mg/Dextrose 53 ml @ 102 mls/hr DAILY 07/14/20 09:00 07/21/20 08:44 102 MLS/HR Vancomycin HCl (Vanco Per Pharmacy) 1 each PRN DAILY PRN 07/13/20 23:16 07/14/20 09:14 DC 07/14/20 02:10 1 EACH Vancomycin HCl (Vancomycin Trough Level) 1 each 1X ONCE 07/14/20 23:30 07/14/20 23:31 Cancel Vancomycin HCl 1.5 gm/Sodium Chloride 500 ml @ 250 mls/hr Q8H 07/14/20 08:00 07/14/20 09:14 DC 07/14/20 08:46 250 MLS/HR Vancomycin HCl 2 gm/Sodium Chloride 500 ml @ 250 mls/hr 1X ONCE 07/13/20 23:45 07/14/20 01:44 DC 07/14/20 00:24 250 MLS/HR Vecuronium [place] 50 mg/ Miscellaneous 50 ml @ 5.683 mls/ hr CONT PRN 07/13/20 22:00 07/20/20 21:30 2.131 MLS/HR Vecuronium [place] (Norcuron Bolus) 6 mg PRN Q4HRS PRN 07/13/20 19:30 07/13/20 19:39 6 MG Vitamin D (Vitamin D3) 1,000 unit DAILY 07/13/20 13:00 07/21/20 08:07 1,000 UNIT Labs: Lab Laboratory Tests Test 07/20/20 12:20 07/20/20 17:37 07/20/20 20:50 07/21/20 00:21 Glucose (Fingerstick) 250 mg/dL (70-99) 243 mg/dL (70-99) 256 mg/dL (70-99) 240 mg/dL (70-99) Test 07/21/20 06:00 07/21/20 07:25 White Blood Count 13.3 x10^3/uL (4.0-11.0) Red Blood Count 5.11 x10^6/uL (4.30-5.70) Hemoglobin 13.5 g/dL (13.0-17.5) Hematocrit 42.4 % (39.0-53.0) Mean Corpuscular Volume 83 fL (79-100) Mean Corpuscular Hemoglobin 26 pg (25-35) Mean Corpuscular Hemoglobin Concent 32 g/dL (31-37) Red Cell Distribution Width 16.4 % (11.5-14.5) Platelet Count 106 x10^3/uL (140-400) Neutrophils (%) (Auto) 87 % (31-73) Lymphocytes (%) (Auto) 6 % (24-48) Monocytes (%) (Auto) 6 % (0-9) Eosinophils (%) (Auto) 2 % (0-3) Basophils (%) (Auto) 0 % (0-3) Neutrophils # (Auto) 11.5 x10^3/uL (1.8-7.7) Lymphocytes # (Auto) 0.8 x10^3/uL (1.0-4.8) Monocytes # (Auto) 0.7 x10^3/uL (0.0-1.1) Eosinophils # (Auto) 0.2 x10^3/uL (0.0-0.7) Basophils # (Auto) 0.0 x10^3/uL (0.0-0.2) D-Dimer (Hannah) 19.21 ug/mlFEU (0.00-0.50) Sodium Level 142 mmol/L (136-145) Potassium Level 4.4 mmol/L (3.5-5.1) Chloride Level 109 mmol/L (98-107) Carbon Dioxide Level 30 mmol/L (21-32) Anion Gap 3 (6-14) Blood Urea Nitrogen 30 mg/dL (8-26) Creatinine 0.7 mg/dL (0.7-1.3) Estimated GFR (Cockcroft-Gault) 127.6 Glucose Level 258 mg/dL (70-99) Calcium Level 8.2 mg/dL (8.5-10.1) Phosphorus Level 2.7 mg/dL (2.6-4.7) Magnesium Level 2.3 mg/dL (1.8-2.4) Triglycerides Level 299 mg/dL (0-150) O2 Saturation 93 % (92-99) Arterial Blood pH 7.41 (7.35-7.45) Arterial Blood pCO2 at Patient Temp 50 mmHg (35-46) Arterial Blood pO2 at Patient Temp 67 mmHg (85-108) Arterial Blood HCO3 31 mmol/L (21-28) Arterial Blood Base Excess 5 mmol/L (-3-3) FiO2 80% Objective: Assessment: 1. COVID-19 pneumonia 2. Fever resolved 3. Acute hypoxic respiratory failure. From COVID-19 pneumonia 4. Morbid obesity. 5. Severe protein-calorie malnutrition. 6. Hyponatremia, hypokalemia. 7. Leukocytosis from steroid Plan: Plan of Care Continue supportive care Status post remdesivir 07/14 Steroids Continue Zosyn Monitor labs ALICIA HAAS MD Jul 21, 2020 09:27
[2020-07-21] MEDS: INSULIN GLARGINE SYRINGE. SQ SCH ×2 (11:09→20:50)
--- NOTE | 2020-07-21 11:44 | PDOC ---
PULMONARY PROGRESS NOTES DATE: 07/21/20 TIME: 11:41 Subjective PT. is intubated and sedated improving oxygenation slowly low grade fever no other concerns Vitals Vital Signs Date Time Temp Pulse Resp B/P (MAP) Pulse Ox O2 Delivery O2 Flow Rate FiO2 07/21/20 11:34 97 Ventilator 07/21/20 11:00 99.3 107 30 133/81 (98) 99.3 07/21/20 08:05 40.0 Comments Patient seen during , visual exam preformed intubated/sedated no accessory muscle use no distress no obvious edema Labs Laboratory Tests Test 07/19/20 12:59 07/19/20 17:40 07/19/20 20:52 07/20/20 00:32 Glucose (Fingerstick) 323 mg/dL (70-99) 253 mg/dL (70-99) 243 mg/dL (70-99) 247 mg/dL (70-99) Test 07/20/20 06:37 07/20/20 08:15 07/20/20 12:20 07/20/20 17:37 Glucose (Fingerstick) 200 mg/dL (70-99) 250 mg/dL (70-99) 243 mg/dL (70-99) O2 Saturation 93 % (92-99) Arterial Blood pH 7.39 (7.35-7.45) Arterial Blood pCO2 at Patient Temp 53 mmHg (35-46) Arterial Blood pO2 at Patient Temp 69 mmHg (85-108) Arterial Blood HCO3 31 mmol/L (21-28) Arterial Blood Base Excess 5 mmol/L (-3-3) FiO2 80% vent Test 07/20/20 20:50 07/21/20 00:21 07/21/20 05:56 07/21/20 06:00 Glucose (Fingerstick) 256 mg/dL (70-99) 240 mg/dL (70-99) 261 mg/dL (70-99) White Blood Count 13.3 x10^3/uL (4.0-11.0) Red Blood Count 5.11 x10^6/uL (4.30-5.70) Hemoglobin 13.5 g/dL (13.0-17.5) Hematocrit 42.4 % (39.0-53.0) Mean Corpuscular Volume 83 fL (79-100) Mean Corpuscular Hemoglobin 26 pg (25-35) Mean Corpuscular Hemoglobin Concent 32 g/dL (31-37) Red Cell Distribution Width 16.4 % (11.5-14.5) Platelet Count 106 x10^3/uL (140-400) Neutrophils (%) (Auto) 87 % (31-73) Lymphocytes (%) (Auto) 6 % (24-48) Monocytes (%) (Auto) 6 % (0-9) Eosinophils (%) (Auto) 2 % (0-3) Basophils (%) (Auto) 0 % (0-3) Neutrophils # (Auto) 11.5 x10^3/uL (1.8-7.7) Lymphocytes # (Auto) 0.8 x10^3/uL (1.0-4.8) Monocytes # (Auto) 0.7 x10^3/uL (0.0-1.1) Eosinophils # (Auto) 0.2 x10^3/uL (0.0-0.7) Basophils # (Auto) 0.0 x10^3/uL (0.0-0.2) D-Dimer (Hannah) 19.21 ug/mlFEU (0.00-0.50) Sodium Level 142 mmol/L (136-145) Potassium Level 4.4 mmol/L (3.5-5.1) Chloride Level 109 mmol/L (98-107) Carbon Dioxide Level 30 mmol/L (21-32) Anion Gap 3 (6-14) Blood Urea Nitrogen 30 mg/dL (8-26) Creatinine 0.7 mg/dL (0.7-1.3) Estimated GFR (Cockcroft-Gault) 127.6 Glucose Level 258 mg/dL (70-99) Calcium Level 8.2 mg/dL (8.5-10.1) Phosphorus Level 2.7 mg/dL (2.6-4.7) Magnesium Level 2.3 mg/dL (1.8-2.4) Triglycerides Level 299 mg/dL (0-150) Test 07/21/20 07:25 07/21/20 11:36 O2 Saturation 93 % (92-99) Arterial Blood pH 7.41 (7.35-7.45) Arterial Blood pCO2 at Patient Temp 50 mmHg (35-46) Arterial Blood pO2 at Patient Temp 67 mmHg (85-108) Arterial Blood HCO3 31 mmol/L (21-28) Arterial Blood Base Excess 5 mmol/L (-3-3) FiO2 80% Glucose (Fingerstick) 203 mg/dL (70-99) Laboratory Tests Test 07/20/20 12:20 07/20/20 17:37 07/20/20 20:50 07/21/20 00:21 Glucose (Fingerstick) 250 mg/dL (70-99) 243 mg/dL (70-99) 256 mg/dL (70-99) 240 mg/dL (70-99) Test 07/21/20 05:56 07/21/20 06:00 07/21/20 07:25 07/21/20 11:36 Glucose (Fingerstick) 261 mg/dL (70-99) 203 mg/dL (70-99) White Blood Count 13.3 x10^3/uL (4.0-11.0) Red Blood Count 5.11 x10^6/uL (4.30-5.70) Hemoglobin 13.5 g/dL (13.0-17.5) Hematocrit 42.4 % (39.0-53.0) Mean Corpuscular Volume 83 fL (79-100) Mean Corpuscular Hemoglobin 26 pg (25-35) Mean Corpuscular Hemoglobin Concent 32 g/dL (31-37) Red Cell Distribution Width 16.4 % (11.5-14.5) Platelet Count 106 x10^3/uL (140-400) Neutrophils (%) (Auto) 87 % (31-73) Lymphocytes (%) (Auto) 6 % (24-48) Monocytes (%) (Auto) 6 % (0-9) Eosinophils (%) (Auto) 2 % (0-3) Basophils (%) (Auto) 0 % (0-3) Neutrophils # (Auto) 11.5 x10^3/uL (1.8-7.7) Lymphocytes # (Auto) 0.8 x10^3/uL (1.0-4.8) Monocytes # (Auto) 0.7 x10^3/uL (0.0-1.1) Eosinophils # (Auto) 0.2 x10^3/uL (0.0-0.7) Basophils # (Auto) 0.0 x10^3/uL (0.0-0.2) D-Dimer (Hannah) 19.21 ug/mlFEU (0.00-0.50) Sodium Level 142 mmol/L (136-145) Potassium Level 4.4 mmol/L (3.5-5.1) Chloride Level 109 mmol/L (98-107) Carbon Dioxide Level 30 mmol/L (21-32) Anion Gap 3 (6-14) Blood Urea Nitrogen 30 mg/dL (8-26) Creatinine 0.7 mg/dL (0.7-1.3) Estimated GFR (Cockcroft-Gault) 127.6 Glucose Level 258 mg/dL (70-99) Calcium Level 8.2 mg/dL (8.5-10.1) Phosphorus Level 2.7 mg/dL (2.6-4.7) Magnesium Level 2.3 mg/dL (1.8-2.4) Triglycerides Level 299 mg/dL (0-150) O2 Saturation 93 % (92-99) Arterial Blood pH 7.41 (7.35-7.45) Arterial Blood pCO2 at Patient Temp 50 mmHg (35-46) Arterial Blood pO2 at Patient Temp 67 mmHg (85-108) Arterial Blood HCO3 31 mmol/L (21-28) Arterial Blood Base Excess 5 mmol/L (-3-3) FiO2 80% Medications Active Scripts Medications Dose Route/Sig Max Daily Dose Days Date Category No Known Medications Prior To Admisstion (Info) Each 1 Each 1X 07/13/20 Reported Comments CXR109/18 IMPRESSION: 1. Mild interval improvement in widespread airspace disease. 2. Stable position of tubes and lines. 3. Possible small loculated pleural effusion on the left. CTA chest IMPRESSION: 1. No evidence of acute pulmonary embolism. Evaluation of distal pulmonary arteries is limited by motion artifact. 2. Extensive, fairly confluent groundglass opacities throughout both lungs, slightly peripheral and basilar predominance. This could be seen with severe multifocal pneumonia and/or ARDS. Electronically signed by: Lucinda Cespedes MD (07/13/2020 11:33 AM) [id number] Impression . IMPRESSION: 1. Acute hypoxemic respiratory failure secondary to COVID-19 viral pneumonia, intubated, slowly improvement in oxygenation 2. COVID-19 viral pneumonia. 3. Abnormal x-ray. 4. Tobacco dependence. 5. obesity 6. Fever /, on BS abx 7. Severe agitation Plan . PLAN: Continue Vent support, currently 80% and PEEP 13, Follow CXR and ABG-- reviewed Continue adequate sedation Continue full course of remdesivir Continue Dexamethasone will slow taper Continue ABX currently on zyvox and zosyn, follow cultures Continue TPN for nutritional support, didn't tolerate tube feeding DVT/GI PPX D/W RN and RT Pt. is FULL code Critical Care Time 30 minutes HAYES GUNTER MD Jul 21, 2020 11:43
[2020-07-21 12:32] LABS: ALBUMIN 1.7 g/dL (3.4-5.0); DIRECT BILIRUBIN 0.2 mg/dL (0.0-0.2); TOTAL BILIRUBIN 0.5 mg/dL (0.2-1.0); TOTAL PROTEIN 5.7 g/dL (6.4-8.2)
[2020-07-21] MEDS: VECURONIUM BROMIDE 50 MG in TOTAL VOLUME 50 ML IV PRN ×2 (14:37→23:06)
[2020-07-21] MEDS: TPN PER PHARMACY MC PRN (15:00)
--- NOTE | 2020-07-21 15:01 | NUR ---
Pharmacy TPN Dosing Note S: LYUDMILA HOBBS is a 35 year old M Currently receiving Central Continuous TPN started 07/15/20 B:Pertinent PMH: TF INTOLERANCE Height: 5 feet, 6 inches Weight: 116.2 kg Current diet: NPO LABS: Sodium: 142 Potassium: 4.4 Chloride: 109 Calcium: 8.2 Corrected Calcium: 10.04 Magnesium: 2.3 CO2: 30 SCr: 0.7 Glucose: 258, 203 Albumin: 1.7 AST: 50 ALT: 37 TPN FORMULA: TPN TYPE: Central Continuous AMINO ACIDS: 120 gm DEXTROSE: 225 gm LIPIDS: 20 gm SODIUM CHLORIDE: 70 mEq POTASSIUM PHOSPHATE: 23 mmol CALCIUM: 5 mEq MULTIPLE VITAMIN: 5 ml TRACE ELEMENTS: 1 ml TPN PLAN: -Electrolytes appear WNL and stable, no changes in TPN. -BMP tomorrow per primary. R: Continue TPN @ 63 ml/hr and above formula. Will monitor electrolytes, glucose, and tolerance to TPN. MOHSEN BUTCHER [facility], 07/21/20 [id number]
--- NOTE | 2020-07-21 17:12 | NUR ---
[facility] following for today. Pt on a ventilator, IV abx and TPN. Pt self-pay. Pt not stable or ready for discharge. vijay Andujar to continue following.
[2020-07-21] MEDS ORDERED: [UNRECOGNIZED DRUG - OTHER] IV SCH (22:00)
[2020-07-21] MEDS ORDERED: TOTAL PARENTERAL NUTRITION IV SCH (22:00)
[2020-07-21] MEDS ORDERED: AMINO ACID IV SCH (22:00)
[2020-07-21] MEDS ORDERED: DEXTROSE 70% IV SCH (22:00)
[2020-07-22] VITALS (24 sets, daily range): BP systolic 106–176; BP diastolic 58–98
[2020-07-22] MEDS: INSULIN LISPRO 300 UNITS/3 ML VIAL. SQ SCH ×8 (01:03→19:01)
[2020-07-22] MEDS: PROPOFOL 100 ML IV PRN ×6 (02:20→23:39)
[2020-07-22] MEDS: MINERAL OIL/PETROLATUM,WHITE OPHTH OINT 3.5GM TUBE. OU SCH ×4 (06:00→18:58)
[2020-07-22] MEDS: PIPERACILLIN/TAZOBACTAM 3.375 GM in IV NORMAL SALINE 50ML 50 ML IV SCH (06:50)
--- NOTE | 2020-07-22 07:42 | PDOC ---
PROGRESS NOTES Date of Service: DATE: 07/22/20 TIME: 07:42 Chief Complaint Chief Complaint impression Acute hypoxemic respiratory failure secondary to COVID-19 viral pneumonia. COVID-19 viral pneumonia. severe multifocal pneumonia and/or ARDS. Tobacco dependence. Hyponatremia Hyperkalemia Hypomagnesemia FiO2 80% PEEP of 13 Temperature 99.3 plan icu bed FEN - TPN PPX - lovenox FULL CODE Dispo - ICU Continue full course of remdesivir Continue Dexamethasone ,, taper iv ABX zyvox and zosyn, FiO2 80% PEEP of 13 cxr in am 12-30 cc time 38 minutes History of Present Illness History of Present Illness Mr Luque is a 35 yo M morbidly obese who presented with chief complaint of respiratory distress. Patient tested positive for Covid about 6 days prior to admit Patient had a fever, chills, cough, myalgias and headache. Patient had abdominal discomfort with diarrhea. Over the last day the patient became more short of breath. Patient had trouble sleeping and was satting 65% on room air in triage. Symptoms worse with activity and at night and somewhat better with taking Tylenol. 07/13: Eventful day with worsening respiratory distress, required intubation emergently with ED physician 07/14: Febrile to 101.8F this morning. PEEP 14, FiO2 100%. UOP stable. Required paralysis overnight for vent dysynchrony. Remdesivir day 1 07/15: Temp 100 F this morning. Still requiring paralysis for vent dyssynchrony on PEEP of 14 with FiO2 100%. Right upper extremity PICC placed for pressors. 07/16: Afebrile overnight still requiring PEEP of 14 and FiO2 100% but PaO2 on ABG up to 59 today. Glucose in the 300s despite insulin regimen. Triglycerides low 200s on TPN. Phosphorus low at 1.5. 07/17: T-max 100.4 F overnight. Glucose still in the 300s despite very large increase in insulin. O2 saturations 96% on PEEP of 14 and FiO2 100%. Labs pending. 07/18: Afebrile overnight. Still in 300s. O2 saturation 97% on PEEP of 14 FiO2 40%. ABG 7.35/59/91. No desaturations with repositioning today. Chest radiograph overall slightly improved 07/19: Afebrile overnight seen on vent paralyzed on TPN with FiO2 85% PEEP of 14. ABG 7.41/50/92. Afebrile. FiO2 80%, PEEP 13. ABG 7.39/53/69. Plan: Cont ICU care Vitals Vitals Vital Signs Date Time Temp Pulse Resp B/P (MAP) Pulse Ox O2 Delivery O2 Flow Rate FiO2 07/22/20 04:00 Mechanical Ventilator 40.0 07/22/20 03:22 100 07/22/20 03:00 59 30 122/72 (89) 07/22/20 00:00 97.9 97.9 Physical Exam Physical Exam GENERAL: Intubated, sedated. HEENT: Normocephalic, atraumatic. ETT and OG tube in place. NECK: Supple. LUNGS: Coarse breath sounds bilaterally. HEART: S1, S2. ABDOMEN: Obese. Bowel sounds present, mildly distended. EXTREMITIES: No edema, no cyanosis. DERMATOLOGIC: Warm, dry. No generalized rash. NEUROLOGIC: Intubated. PSYCHIATRIC: Unable to assess. Right upper extremity PICC line clean no accessory muscle use no distress no obvious edema General: mild distress Heart: Regular rate, Normal S1, Normal S2 Abdomen: Normal bowel sounds, Soft Extremities: No clubbing, No cyanosis Skin: No rashes, No breakdown Labs LABS Study: CT CHEST WITH CONTRAST - PULMONARY ANGIOGRAM History: Covid positive, shortness of breath, elevated d-dimer Comparison: Chest radiograph same day Technique: Helical CT of the chest performed after the administration of 100 mL Omnipaque 350 intravenous contrast and timed for angiographic evaluation of the pulmonary arteries per PE protocol. Coronal and sagittal 3D MIP reformations were obtained. One or more of the following individualized dose reduction techniques were utilized for this examination: 1. Automated exposure control 2. Adjustment of the mA and/or kV according to patient size 3. Use of iterative reconstruction technique. Findings: Pulmonary Arteries: Contrast bolus is adequate to evaluate through the proximal to mid segmental pulmonary artery. Mild motion artifact. No evidence of acute pulmonary embolism. Heart/Systemic Vasculature: The heart is normal in size. There is no pericardial effusion. Thoracic aorta is normal in caliber. Mediastinum: Enlarged mediastinal and hilar lymph nodes are likely reactive. Lungs: Extensive, fairly confluent groundglass opacities throughout both lungs, greatest peripherally and in the lung bases. The airways are clear. No pleural effusion. Neck/Axilla/Body Wall: Unremarkable. No axillary lymphadenopathy. Upper Abdomen: Unremarkable. Bones: No acute abnormality. IMPRESSION: 1. No evidence of acute pulmonary embolism. Evaluation of distal pulmonary arteries is limited by motion artifact. 2. Extensive, fairly confluent groundglass opacities throughout both lungs, slightly peripheral and basilar predominance. This could be seen with severe multifocal pneumonia and/or ARDS. Electronically signed by: Lucidna Cespedes MD (07/13/2020 11:33 AM) [id number] DICTATED and SIGNED BY: LUCINDA CESPEDES MD DATE: 07/13/20 [id number] Laboratory Tests Test 07/21/20 11:36 07/21/20 17:42 07/21/20 20:39 07/22/20 00:59 Glucose (Fingerstick) 203 mg/dL (70-99) 250 mg/dL (70-99) 213 mg/dL (70-99) 207 mg/dL (70-99) Assessment and Plan Assessmemt and Plan Problems Medical Problems: (1) Acute hypoxemic respiratory failure due to severe acute respiratory syndrome coronavirus 2 (SARS-CoV-2) disease Status: Acute (2) Dyspnea Status: Acute Comment Review of Relevant I have reviewed the following items mile (where applicable) has been applied. Labs Laboratory Tests Test 07/20/20 08:15 07/20/20 12:20 07/20/20 17:37 07/20/20 20:50 O2 Saturation 93 % (92-99) Arterial Blood pH 7.39 (7.35-7.45) Arterial Blood pCO2 at Patient Temp 53 mmHg (35-46) Arterial Blood pO2 at Patient Temp 69 mmHg (85-108) Arterial Blood HCO3 31 mmol/L (21-28) Arterial Blood Base Excess 5 mmol/L (-3-3) FiO2 80% vent Glucose (Fingerstick) 250 mg/dL (70-99) 243 mg/dL (70-99) 256 mg/dL (70-99) Test 07/21/20 00:21 07/21/20 05:56 07/21/20 06:00 07/21/20 07:25 Glucose (Fingerstick) 240 mg/dL (70-99) 261 mg/dL (70-99) White Blood Count 13.3 x10^3/uL (4.0-11.0) Red Blood Count 5.11 x10^6/uL (4.30-5.70) Hemoglobin 13.5 g/dL (13.0-17.5) Hematocrit 42.4 % (39.0-53.0) Mean Corpuscular Volume 83 fL (79-100) Mean Corpuscular Hemoglobin 26 pg (25-35) Mean Corpuscular Hemoglobin Concent 32 g/dL (31-37) Red Cell Distribution Width 16.4 % (11.5-14.5) Platelet Count 106 x10^3/uL (140-400) Neutrophils (%) (Auto) 87 % (31-73) Lymphocytes (%) (Auto) 6 % (24-48) Monocytes (%) (Auto) 6 % (0-9) Eosinophils (%) (Auto) 2 % (0-3) Basophils (%) (Auto) 0 % (0-3) Neutrophils # (Auto) 11.5 x10^3/uL (1.8-7.7) Lymphocytes # (Auto) 0.8 x10^3/uL (1.0-4.8) Monocytes # (Auto) 0.7 x10^3/uL (0.0-1.1) Eosinophils # (Auto) 0.2 x10^3/uL (0.0-0.7) Basophils # (Auto) 0.0 x10^3/uL (0.0-0.2) D-Dimer (Hannah) 19.21 ug/mlFEU (0.00-0.50) Sodium Level 142 mmol/L (136-145) Potassium Level 4.4 mmol/L (3.5-5.1) Chloride Level 109 mmol/L (98-107) Carbon Dioxide Level 30 mmol/L (21-32) Anion Gap 3 (6-14) Blood Urea Nitrogen 30 mg/dL (8-26) Creatinine 0.7 mg/dL (0.7-1.3) Estimated GFR (Cockcroft-Gault) 127.6 Glucose Level 258 mg/dL (70-99) Calcium Level 8.2 mg/dL (8.5-10.1) Phosphorus Level 2.7 mg/dL (2.6-4.7) Magnesium Level 2.3 mg/dL (1.8-2.4) Total Bilirubin 0.5 mg/dL (0.2-1.0) Direct Bilirubin 0.2 mg/dL (0.0-0.2) Aspartate Amino Transf (AST/SGOT) 50 U/L (15-37) Alanine Aminotransferase (ALT/SGPT) 37 U/L (16-63) Alkaline Phosphatase 99 U/L (46-116) Total Protein 5.7 g/dL (6.4-8.2) Albumin 1.7 g/dL (3.4-5.0) Triglycerides Level 299 mg/dL (0-150) O2 Saturation 93 % (92-99) Arterial Blood pH 7.41 (7.35-7.45) Arterial Blood pCO2 at Patient Temp 50 mmHg (35-46) Arterial Blood pO2 at Patient Temp 67 mmHg (85-108) Arterial Blood HCO3 31 mmol/L (21-28) Arterial Blood Base Excess 5 mmol/L (-3-3) FiO2 80% Test 07/21/20 11:36 07/21/20 17:42 07/21/20 20:39 07/22/20 00:59 Glucose (Fingerstick) 203 mg/dL (70-99) 250 mg/dL (70-99) 213 mg/dL (70-99) 207 mg/dL (70-99) Laboratory Tests Test 07/21/20 11:36 07/21/20 17:42 07/21/20 20:39 07/22/20 00:59 Glucose (Fingerstick) 203 mg/dL (70-99) 250 mg/dL (70-99) 213 mg/dL (70-99) 207 mg/dL (70-99) Microbiology 07/13/20 Urine Culture - Final, Complete 07/13/20 Blood Culture - Final, Complete NO GROWTH AFTER 5 DAYS Medications Current Medications Dexamethasone Sodium Phosphate (Decadron) 6 mg 1X ONCE IV ; Start 07/13/20 at 09:30; Stop 07/13/20 at 09:39; Status DC Ceftriaxone Sodium (Rocephin) 1 gm 1X ONCE IVP Last administered on 07/13/20at 09:36; Start 07/13/20 at 09:30; Stop 07/13/20 at 09:31; Status DC Azithromycin 250 ml @ 250 mls/hr 1X ONCE IV Last administered on 07/13/20at 09:37; Start 07/13/20 at 09:30; Stop 07/13/20 at 10:29; Status DC Sodium Chloride 1,000 ml @ 1,000 mls/hr 1X ONCE IV Last administered on 07/13/20at 09:36; Start 07/13/20 at 09:30; Stop 07/13/20 at 10:29; Status DC Acetaminophen (Tylenol) 1,000 mg 1X ONCE PO Last administered on 07/13/20at 09:36; Start 07/13/20 at 09:30; Stop 07/13/20 at 09:31; Status DC Dexamethasone Sodium Phosphate (Decadron) 4 mg STK-MED ONCE .ROUTE ; Start 07/13/20 at 09:28; Stop 07/13/20 at 09:28; Status DC Azithromycin 250 ml @ As Directed STK-MED ONCE IV ; Start 07/13/20 at 09:28; Stop 07/13/20 at 09:28; Status DC Ceftriaxone Sodium (Rocephin) 1 gm STK-MED ONCE IVP ; Start 07/13/20 at 09:28; Stop 07/13/20 at 09:28; Status DC Dexamethasone Sodium Phosphate (Decadron) 6 mg 1X ONCE IVP Last administered on 07/13/20at 09:42; Start 07/13/20 at 09:45; Stop 07/13/20 at 09:46; Status DC Ondansetron HCl (Zofran) 4 mg PRN Q8HRS PRN IV NAUSEA/VOMITING; Start 07/13/20 at 09:45; Stop 07/14/20 at 08:19; Status DC Enoxaparin Sodium (Lovenox 120mg Syringe) 110 mg 1X ONCE SQ Last administered on 07/13/20at 10:14; Start 07/13/20 at 10:15; Stop 07/13/20 at 10:16; Status DC Iohexol (Omnipaque 350 Mg/ml) 100 ml 1X ONCE IV Last administered on 07/13/20at 10:15; Start 07/13/20 at 10:15; Stop 07/13/20 at 10:16; Status DC Info (CONTRAST GIVEN -- Rx MONITORING) 1 each PRN DAILY PRN MC SEE COMMENTS; Start 07/13/20 at 10:30; Stop 07/15/20 at 10:29; Status DC Potassium Chloride (Klor-Con) 40 meq 1X ONCE PO Last administered on 07/13/20at 11:20; Start 07/13/20 at 11:15; Stop 07/13/20 at 11:16; Status DC Potassium Chloride/Water 100 ml @ 100 mls/hr Q1H IV ; Start 07/13/20 at 10:45; Stop 07/13/20 at 10:46; Status DC Potassium Chloride/Water 100 ml @ 100 mls/hr Q1H IV Last administered on 07/13/20at 17:17; Start 07/13/20 at 11:30; Stop 07/13/20 at 15:29; Status DC Sodium Chloride 1,000 ml @ 125 mls/hr 1X ONCE IV Last administered on 07/13/20at 11:26; Start 07/13/20 at 11:00; Stop 07/13/20 at 18:59; Status DC Calcium Gluconate 1000 mg/Sodium Chloride 110 ml @ 220 mls/hr 1X ONCE IV Last administered on 07/13/20at 11:51; Start 07/13/20 at 11:45; Stop 07/13/20 at 12 :14; Status DC Magnesium Sulfate 50 ml @ 25 mls/hr 1X ONCE IV Last administered on 07/13/20at 13:26; Start 07/13/20 at 11:30; Stop 07/13/20 at 13:29; Status DC Remdesivir 200 mg/ Sodium Chloride 210 ml @ 210 mls/hr 1X ONCE IV Last administered on 07/13/20at 15:21; Start 07/13/20 at 14:00; Stop 07/13/20 at 14:59; Status DC Remdesivir 100 mg/ Sodium Chloride 230 ml @ 460 mls/hr Q24H IV Last administered on 07/17/20at 15:36; Start 07/14/20 at 14:00; Stop 07/17/20 at 14:29; Status DC Magnesium Sulfate 50 ml @ 25 mls/hr 1X ONCE IV ; Start 07/13/20 at 12:30; Stop 07/13/20 at 14:29; Status UNV Vitamin D (Vitamin D3) 1,000 unit DAILY PO Last administered on 07/21/20at 08:07; Start 07/13/20 at 13:00 Ascorbic Acid (Vitamin C) 1,000 mg DAILY PO Last administered on 07/21/20at 08:07; Start 07/13/20 at 13:00 Dexamethasone (Decadron) 6 mg DAILYWBKFT PO Last administered on 07/14/20at 09:14; Start 07/14/20 at 08:00; Stop 07/15/20 at 09:13; Status DC Doxycycline Hyclate 100 mg/ Dextrose 100 ml @ 50 mls/hr Q12HR IV Last administered on 07/13/20at 13:21; Start 07/13/20 at 13:00; Stop 07/13/20 at 23:25; Status DC Ceftriaxone Sodium (Rocephin) 1 gm Q24H IVP ; Start 07/14/20 at 09:00; Stop 07/13/20 at 23:25; Status DC Enoxaparin Sodium (Lovenox 40mg Syringe) 40 mg Q24H SQ Last administered on 07/13/20at 13:31; Start 07/13/20 at 13:00; Stop 07/14/20 at 10:47; Status DC Influenza Virus Vaccine Quadrival (Fluzone Quad Syringe) 0.5 ml ONCE ONCE VAX IM ; Start 07/15/20 at 09:00; Stop 07/15/20 at 09:01; Status DC Benzonatate (Tessalon Perle) 100 mg Q6HRS PO Last administered on 07/18/20at 05:36; Start 07/13/20 at 18:00; Stop 07/19/20 at 10:24; Status DC Phenol (Chloraseptic) 1 spray PRN Q2HR PRN PO SORE THROAT Last administered on 07/13/20at 16:27; Start 07/13/20 at 16:15 Acetaminophen (Tylenol) 650 mg PRN Q6HRS PRN PO MILD PAIN / TEMP > 100.3'F Last administered on 07/19/20at 12:55; Start 07/13/20 at 16:15 Prochlorperazine Edisylate (Compazine) 10 mg PRN Q6HRS PRN IV NAUSEA/VOMITING; Start 07/13/20 at 16:15 Lorazepam (Ativan Inj) 0.25 mg PRN Q6HRS PRN IVP ANXIETY / AGITATION Last administered on 07/13/20at 16:42; Start 07/13/20 at 16:45 Sterile Water (WATER for RESP) 1,000 ml CONT PRN INH VIA VAPOTHERM DEVICE; Start 07/13/20 at 17:15 Dexmedetomidine HCl 400 mcg/ Sodium Chloride 100 ml @ 0 mls/hr CONT PRN IV PER PROTOCOL; Start 07/13/20 at 17:00 Sodium Chloride 500 ml @ 500 mls/hr 1X PRN PRN IV SEE COMMENTS; Start 07/13/20 at 17:00 Atropine Sulfate (ATROPINE 0.5mg SYRINGE) 0.5 mg PRN Q5MIN PRN IV SEE COMMENTS; Start 07/13/20 at 17:00 Propofol 100 ml @ As Directed STK-MED ONCE IV ; Start 07/13/20 at 17:20; Stop 07/13/20 at 17:20; Status DC Succinylcholine Chloride (Anectine) 200 mg STK-MED ONCE .ROUTE ; Start 07/13/20 at 17:40; Stop 07/13/20 at 17:41; Status DC Fentanyl Citrate 30 ml @ 0 mls/hr CONT PRN IV SEE PROTOCOL Last administered on 07/13/20at 18:40; Start 07/13/20 at 17:45; Stop 07/13/20 at 20:11; Status DC Propofol 100 ml @ 0 mls/hr CONT PRN IV PER PROTOCOL Last administered on 07/14/20at 20:13; Start 07/13/20 at 17:45; Stop 07/20/20 at 11:33; Status DC Chlorhexidine Gluconate (Peridex) 15 ml BID MM Last administered on 07/15/20at 08:33; Start 07/13/20 at 21:00; Stop 07/16/20 at 18:59; Status DC Midazolam HCl 100 ml @ 0 mls/hr CONT PRN IV SEE PROTOCOL Last administered on 07/21/20at 23:46; Start 07/13/20 at 17:45 Vecuronium [place] (Norcuron Bolus) 10 mg STK-MED ONCE IV ; Start 07/13/20 at 18:12; Stop 07/13/20 at 18:12; Status DC Etomidate (Amidate) 20 mg STK-MED ONCE IV ; Start 07/13/20 at 18:24; Stop 07/13/20 at 18:24; Status DC Vecuronium [place] (Norcuron Bolus) 6 mg PRN Q4HRS PRN IV Out of sync with ventilator Last administered on 07/13/20at 19:39; Start 07/13/20 at 19:30 Fentanyl Citrate 55 ml @ 0 mls/hr CONT PRN PRN IV PAIN Last administered on 07/21/20at 21:08; Start 07/13/20 at 19:45 Vecuronium [place] 50 mg/ Miscellaneous 50 ml @ 5.683 mls/ hr CONT PRN IV SEE I/O RECORD Last administered on 07/21/20at 23:06; Start 07/13/20 at 22:00 Norepinephrine Bitartrate 8 mg/ Dextrose 258 ml @ 22.91 mls/ hr CONT PRN IV PER PROTOCOL Last administered on 07/15/20at 00:09; Start 07/13/20 at 23:30 Ringer's Solution 1,000 ml @ 100 mls/hr Q10H IV Last administered on 07/14/20at 20:12; Start 07/13/20 at 23:30; Stop 07/15/20 at 09:08; Status DC Thiamine HCl 300 mg/Dextrose 53 ml @ 102 mls/hr DAILY IV Last administered on 07/21/20at 08:44; Start 07/14/20 at 09:00 Vancomycin HCl (Vanco Per Pharmacy) 1 each PRN DAILY PRN MC SEE COMMENTS Last administered on 07/14/20at 02:10; Start 07/13/20 at 23:16; Stop 07/14/20 at 09:14; Status DC Piperacillin Sod/ Tazobactam Sod (Zosyn Per Pharmacy) 1 each PRN DAILY PRN MC SEE COMMENTS; Start 07/13/20 at 23:16 Vancomycin HCl 2 gm/Sodium Chloride 500 ml @ 250 mls/hr 1X ONCE IV Last administered on 07/14/20at 00:24; Start 07/13/20 at 23:45; Stop 07/14/20 at 01:44; Status DC Piperacillin Sod/ Tazobactam Sod 3.375 gm/Sodium Chloride 50 ml @ 100 mls/hr Q6HRS IV Last administered on 07/22/20at 06:50; Start 07/14/20 at 00:00 Vancomycin HCl 1.5 gm/Sodium Chloride 500 ml @ 250 mls/hr Q8H IV Last administered on 07/14/20at 08:46; Start 07/14/20 at 08:00; Stop 07/14/20 at 09:14; Status DC Vancomycin HCl (Vancomycin Trough Level) 1 each 1X ONCE MC ; Start 07/14/20 at 23:30; Stop 07/14/20 at 23:31; Status Cancel Etomidate (Amidate) 20 mg STK-MED ONCE IV ; Start 07/13/20 at 18:00; Stop 07/14/20 at 08:36; Status DC Succinylcholine Chloride (Anectine) 200 mg STK-MED ONCE .ROUTE ; Start 07/13/20 at 18:00; Stop 07/14/20 at 08:36; Status DC Linezolid/Dextrose 300 ml @ 300 mls/hr Q12HR IV Last administered on 07/19/20 at 09:56; Start 07/14/20 at 21:00; Stop 07/19/20 at 10:10; Status DC Insulin Glargine (Lantus Syringe) 8 unit QHS SQ Last administered on 07/14/20at 20:42; Start 07/14/20 at 21:00; Stop 07/15/20 at 07:57; Status DC Insulin Human Lispro (HumaLOG) 0-9 UNITS Q6HRS SQ Last administered on 07/22/20at 07:22; Start 07/14/20 at 12:00 Dextrose (Dextrose 50%-Water Syringe) 12.5 gm PRN Q15MIN PRN IV SEE COMMENTS; Start 07/14/20 at 09:30 Enoxaparin Sodium (Lovenox 40mg Syringe) 40 mg BID SQ Last administered on 07/21/20at 20:00; Start 07/14/20 at 21:00 Famotidine (Pepcid Vial) 20 mg BID IVP Last administered on 07/21/20at 19:59; Start 07/14/20 at 21:00 Insulin Glargine (Lantus Syringe) 15 unit QHS SQ ; Start 07/15/20 at 21:00; Stop 07/15/20 at 18:18; Status DC Insulin Human Lispro (HumaLOG) 5 units Q6HRS SQ Last administered on 07/15/20at 23:46; Start 07/15/20 at 12:00; Stop 07/16/20 at 09:56; Status DC Info (Tpn Per Pharmacy) 1 each PRN DAILY PRN MC SEE COMMENTS Last administered on 07/21/20at 15:00; Start 07/15/20 at 09:15 Dexamethasone Sodium Phosphate (Decadron) 6 mg DAILY IVP Last administered on 07/21/20at 08:06; Start 07/15/20 at 10:00 Sodium Chloride 90 meq/Potassium Chloride 25 meq/ Potassium Phosphate 13.6 mmol/Magnesium Sulfate 10 meq/ Calcium Gluconate 10 meq/ Multivitamins 5 ml/Zinc/Copper/ Manganese/ Selenium 1 ml/ Total Parenteral Nutrition/Amino Acids/Dextrose 1,512 ml @ 63 mls/hr TPN CONT IV Last administered on 07/15/20at 22:01; Start 07/15/20 at 22:00; Stop 07/16/20 at 21:59; Status DC Sodium Phosphate 15 mmol/Sodium Chloride 105 ml @ 105 mls/hr 1X ONCE IV Last administered on 07/15/20at 13:12; Start 07/15/20 at 13:00; Stop 07/15/20 at 13:59; Status DC Insulin Glargine (Lantus Syringe) 20 unit QHS SQ Last administered on 07/15/20at 21:04; Start 07/15/20 at 21:00; Stop 07/16/20 at 09:56; Status DC Insulin Human Lispro (HumaLOG) 18 units 1X ONCE SQ Last administered on 07/16/20at 00:41; Start 07/16/20 at 01:00; Stop 07/16/20 at 01:01; Status DC Insulin Human Lispro (HumaLOG) 26 units 1X ONCE SQ Last administered on 07/16/20at 06:06; Start 07/16/20 at 06:30; Stop 07/16/20 at 06:31; Status DC Insulin Glargine (Lantus Syringe) 45 unit QHS SQ Last administered on 07/16/20at 21:24; Start 07/16/20 at 21:00; Stop 07/17/20 at 06:44; Status DC Insulin Human Lispro (HumaLOG) 10 units Q6HRS SQ Last administered on 07/18/20at 05:38; Start 07/16/20 at 12:00; Stop 07/18/20 at 10:07; Status DC Sodium Phosphate 30 mmol/Sodium Chloride 260 ml @ 65 mls/hr 1X ONCE IV Last administered on 07/16/20at 13:29; Start 07/16/20 at 13:00; Stop 07/16/20 at 16:59; Status DC Multi-Ingred Cream/Lotion/Oil/ Oint (Artificial Tears Eye Ointment) 1 klaudia Q6HRS OU Last administered on 07/22/20at 06:00; Start 07/16/20 at 13:00 Sodium Chloride 90 meq/Potassium Phosphate 20 mmol/ Calcium Gluconate 10 meq/ Multivitamins 5 ml/Zinc/Copper/ Manganese/ Selenium 1 ml/ Total Parenteral Nutrition/Amino Acids/Dextrose/ Fat Emulsion Intravenous 1,512 ml @ 63 mls/hr TPN CONT IV Last administered on 07/16/20at 22:54; Start 07/16/20 at 22:00; Stop 07/17/20 at 21:59; Status DC Insulin Human Lispro (HumaLOG) 20 units 1X ONCE SQ Last administered on 07/16/20at 23:55; Start 07/16/20 at 23:55; Stop 07/16/20 at 23:56; Status DC Insulin Glargine (Lantus Syringe) 45 unit BID SQ Last administered on 07/21/20at 20:50; Start 07/17/20 at 09:00 Insulin Human Lispro (HumaLOG) 25 units 1X ONCE SQ Last administered on 07/17/20at 06:50; Start 07/17/20 at 07:00; Stop 07/17/20 at 07:01; Status DC Potassium Phosphate 13.6 mmol/Sodium Chloride 254.5333 ml @ 127.... Q2H IV Last administered on 07/17/20at 13:22; Start 07/17/20 at 11:30; Stop 07/17/20 at 13:29; Status DC Sodium Chloride 90 meq/Potassium Phosphate 23 mmol/ Calcium Gluconate 10 meq/ Multivitamins 5 ml/Zinc/Copper/ Manganese/ Selenium 1 ml/ Total Parenteral Nutrition/Amino Acids/Dextrose/ Fat Emulsion Intravenous 1,512 ml @ 63 mls/hr TPN CONT IV Last administered on 07/17/20at 21:32; Start 07/17/20 at 22:00; Stop 07/18/20 at 21:59; Status DC Insulin Human Lispro (HumaLOG) 18 units Q6HRS SQ Last administered on 07/22/20at 07:22; Start 07/18/20 at 12:00 Sodium Chloride 90 meq/Potassium Phosphate 23 mmol/ Calcium Gluconate 5 meq/ Multivitamins 5 ml/Zinc/Copper/ Manganese/ Selenium 1 ml/ Total Parenteral Nutrition/Amino Acids/Dextrose/ Fat Emulsion Intravenous 1,512 ml @ 63 mls/hr TPN CONT IV Last administered on 07/18/20at 20:52; Start 07/18/20 at 22:00; Stop 07/19/20 at 21:59; Status DC Sodium Chloride 70 meq/Potassium Phosphate 23 mmol/ Calcium Gluconate 5 meq/ Multivitamins 5 ml/Zinc/Copper/ Manganese/ Selenium 1 ml/ Total Parenteral Nutrition/Amino Acids/Dextrose/ Fat Emulsion Intravenous 1,512 ml @ 63 mls/hr TPN CONT IV Last administered on 07/19/20at 20:49; Start 07/19/20 at 22:00; Stop 07/20/20 at 21:59; Status DC Propofol 100 ml @ 3.42 mls/hr CONT PRN IV PER PROTOCOL Last administered on 07/22/20at 02:20; Start 07/20/20 at 11:30 Sodium Chloride 70 meq/Potassium Phosphate 23 mmol/ Calcium Gluconate 5 meq/ Multivitamins 5 ml/Zinc/Copper/ Manganese/ Selenium 1 ml/ Total Parenteral Nutrition/Amino Acids/Dextrose 1,512 ml @ 63 mls/hr TPN CONT IV Last administered on 07/20/20at 20:48; Start 07/20/20 at 22:00; Stop 07/21/20 at 21:59; Status DC Sodium Chloride 70 meq/Potassium Phosphate 23 mmol/ Calcium Gluconate 5 meq/ Multivitamins 5 ml/Zinc/Copper/ Manganese/ Selenium 1 ml/ Total Parenteral N utrition/Amino Acids/Dextrose 1,512 ml @ 63 mls/hr TPN CONT IV Last administered on 07/22/20at 03:10; Start 07/21/20 at 22:00; Stop 07/22/20 at 21:59 Active Scripts Active Reported No Known Medications Prior To Admisstion (Info) Each 1 Each MC 1X Vitals/I & O Vital Sign - Last 24 Hours 07/21/20 07/21/20 07/21/20 07/21/20 08:00 08:00 08:05 08:47 Temp 98.2 98.2 Pulse 72 Resp 30 B/P (MAP) 139/79 (99) Pulse Ox 97 99 99 O2 Delivery Ventilator Mechanical Ventilator Ventilator O2 Flow Rate 40.0 07/21/20 07/21/20 07/21/20 07/21/20 09:00 10:00 11:00 11:34 Temp 98.2 98.2 99.3 98.2 98.2 99.3 Pulse 88 116 107 Resp 30 30 30 B/P (MAP) 130/67 (88) 149/73 (98) 133/81 (98) Pulse Ox 96 99 98 97 O2 Delivery Ventilator Ventilator Ventilator Ventilator 07/21/20 07/21/20 07/21/20 07/21/20 11:50 12:00 13:00 14:00 Temp 99.5 99.3 98.4 99.5 99.3 98.4 Pulse 100 70 65 Resp 30 30 30 B/P (MAP) 118/72 (87) 107/59 (75) 110/61 (77) Pulse Ox 97 100 100 O2 Delivery Mechanical Ventilator Ventilator Ventilator Ventilator 07/21/20 07/21/20 07/21/20 07/21/20 15:00 15:09 16:00 16:00 Temp 98.4 98.4 98.4 98.4 Pulse 62 65 Resp 30 30 B/P (MAP) 114/61 (78) 113/63 (80) Pulse Ox 98 100 98 O2 Delivery Ventilator Ventilator Mechanical Ventilator Ventilator 07/21/20 07/21/20 07/21/20 07/21/20 17:00 18:00 20:00 20:00 Temp 98.2 97.9 97.9 98.2 97.9 97.9 Pulse 57 55 52 Resp 30 30 29 B/P (MAP) 120/64 (82) 118/64 (82) 122/68 (86) Pulse Ox 100 100 100 O2 Delivery Ventilator Ventilator Ventilator Mechanical Ventilator O2 Flow Rate 40.0 07/21/20 07/21/20 07/21/20 07/21/20 20:12 21:00 21:08 22:00 Pulse 96 Resp 30 30 30 B/P (MAP) 116/58 (77) Pulse Ox 100 100 100 100 O2 Delivery Ventilator Ventilator Ventilator Ventilator 12/07/21/20 07/22/20 07/22/20 22:00 23:00 00:00 00:00 Temp 97.9 97.9 Pulse 102 72 70 Resp 29 B/P (MAP) 141/70 (93) 106/54 (71) 106/60 (75) Pulse Ox 98 98 100 O2 Delivery Ventilator Ventilator Ventilator Mechanical Ventilator O2 Flow Rate 40.0 07/22/20 07/22/20 07/22/20 07/22/20 00:05 01:00 02:00 03:00 Pulse 68 64 59 Resp 30 B/P (MAP) 136/81 (99) 122/71 (88) 122/72 (89) Pulse Ox 100 100 100 100 O2 Delivery Ventilator Ventilator Ventilator Ventilator 07/22/20 07/22/20 03:22 04:00 Pulse Ox 100 O2 Delivery Ventilator Mechanical Ventilator O2 Flow Rate 40.0 Intake and Output 07/21/20 07/21/20 07/22/20 15:00 23:00 07:00 Intake Total 1561.2 ml Output Total 660 ml 1175 ml 650 ml Balance -660 ml 386.2 ml -650 ml Justicifation of Admission Dx: Justifications for Admission: Justification of Admission Dx: Yes Comminuty Aquired Pneumonia: Dehydration COLIN VELAZQUEZ MD Jul 22, 2020 07:42
[2020-07-22 07:55] LABS: BASO % 0 % (0-3); EOS # 0.2 x10^3/uL (0.0-0.7); EOS % 2 % (0-3); HEMATOCRIT 38.1 % (39.0-53.0); HEMOGLOBIN 12.9 g/dL (13.0-17.5); LYMPH # 0.8 x10^3/uL (1.0-4.8); LYMPH % 6 % (24-48); MEAN CORPUSCULAR HEMOGLOBIN 28 pg (25-35); MEAN CORPUSCULAR HGB CONC 34 g/dL (31-37); MEAN CORPUSCULAR VOLUME 83 fL (79-100); MONO % 0 % (0-9); NEUT # 11.7 x10^3/uL (1.8-7.7); NEUT % 92 % (31-73); PLATELET COUNT 144 x10^3/uL (140-400); RED BLOOD COUNT 4.57 x10^6/uL (4.30-5.70); RED CELL DISTRIBUTION WIDTH 16.8 % (11.5-14.5); WHITE BLOOD COUNT 12.8 x10^3/uL (4.0-11.0)
[2020-07-22] MEDS: FAMOTIDINE 20 MG/2 ML VIAL IVP SCH ×2 (08:12→20:42)
[2020-07-22] MEDS: DEXAMETHASONE SOD PHOS 4 MG/ML VIAL IVP SCH (08:12)
[2020-07-22] MEDS: CHOLECALCIFEROL (VITAMIN D3) 1,000 UNIT TABLET PO SCH (08:13)
[2020-07-22] MEDS: ENOXAPARIN 40 MG/0.4 ML SYRINGE. SQ SCH ×2 (08:13→20:41)
[2020-07-22] MEDS: ASCORBIC ACID 1,000 MG TABLET PO SCH (08:13)
[2020-07-22 08:28] LABS: BASE EXCESS ABG 5 mmol/L (-3-3); HCO3 ABG 30 mmol/L (21-28); PCO2 ABG 45 mmHg (35-46); PO2 ABG 97 mmHg (85-108); SAT O2 ABG 97 % (92-99)
--- NOTE | 2020-07-22 08:28 | PDOC ---
Infectious Disease Note Subjective: Subjective pt intubated/sedated FiO2 80% PEEP of 13 Temperature 99.3 No acute issues per RN Vital Signs: Vital Signs Vital Signs Date Time Temp Pulse Resp B/P (MAP) Pulse Ox O2 Delivery O2 Flow Rate FiO2 07/22/20 07:00 63 30 119/71 (87) 100 Ventilator 07/22/20 04:00 98.4 98.4 07/22/20 04:00 40.0 Physical Exam: PHYSICAL EXAM GENERAL: Intubated, sedated. HEENT: Normocephalic, atraumatic. ETT and OG tube in place. NECK: Supple. LUNGS: Coarse breath sounds bilaterally. HEART: S1, S2. ABDOMEN: Obese. Bowel sounds present, mildly distended. EXTREMITIES: No edema, no cyanosis. DERMATOLOGIC: Warm, dry. No generalized rash. NEUROLOGIC: Intubated. PSYCHIATRIC: Unable to assess. Right upper extremity PICC line clean Medications: Inpatient Meds: Current Medications Medications (Trade) Dose Ordered Sig/Sola Start Time Stop Time Status Last Admin Dose Admin Acetaminophen (Tylenol) 650 mg PRN Q6HRS PRN 07/13/20 16:15 07/19/20 12:55 650 MG Ascorbic Acid (Vitamin C) 1,000 mg DAILY 07/13/20 13:00 07/22/20 08:13 1,000 MG Atropine Sulfate (ATROPINE 0.5mg SYRINGE) 0.5 mg PRN Q5MIN PRN 07/13/20 17:00 Azithromycin 250 ml @ As Directed STK-MED ONCE 07/13/20 09:28 07/13/20 09:28 DC Benzonatate (Tessalon Perle) 100 mg Q6HRS 07/13/20 18:00 07/19/20 10:24 DC 07/18/20 05:36 100 MG Calcium Gluconate 1000 mg/Sodium Chloride 110 ml @ 220 mls/hr 1X ONCE 07/13/20 11:45 07/13/20 12:14 DC 07/13/20 11:51 220 MLS/HR Ceftriaxone Sodium (Rocephin) 1 gm Q24H 07/14/20 09:00 07/13/20 23:25 DC Chlorhexidine Gluconate (Peridex) 15 ml BID 07/13/20 21:00 07/16/20 18:59 DC 07/15/20 08:33 15 ML Dexamethasone (Decadron) 6 mg [id number] 07/14/20 08:00 07/15/20 09:13 DC 07/14/20 09:14 6 MG Dexamethasone Sodium Phosphate (Decadron) 6 mg DAILY 07/15/20 10:00 07/22/20 08:12 6 MG Dexmedetomidine HCl 400 mcg/ Sodium Chloride 100 ml @ 0 mls/hr CONT PRN 07/13/20 17:00 Dextrose (Dextrose 50%-Water Syringe) 12.5 gm PRN Q15MIN PRN 07/14/20 09:30 Doxycycline Hyclate 100 mg/ Dextrose 100 ml @ 50 mls/hr Q12HR 07/13/20 13:00 07/13/20 23:25 DC 07/13/20 13:21 50 MLS/HR Enoxaparin Sodium (Lovenox 120mg Syringe) 110 mg 1X ONCE 07/13/20 10:15 07/13/20 10:16 DC 07/13/20 10:14 110 MG Enoxaparin Sodium (Lovenox 40mg Syringe) 40 mg BID 07/14/20 21:00 07/22/20 08:13 40 MG Etomidate (Amidate) 20 mg STK-MED ONCE 07/13/20 18:00 07/14/20 08:36 DC Famotidine (Pepcid Vial) 20 mg BID 07/14/20 21:00 07/22/20 08:12 20 MG Fentanyl Citrate 55 ml @ 0 mls/hr CONT PRN PRN 07/13/20 19:45 07/21/20 21:08 4 MLS/HR Influenza Virus Vaccine Quadrival (Fluzone Quad Syringe) 0.5 ml ONCE ONCE 07/15/20 09:00 07/15/20 09:01 DC Info (CONTRAST GIVEN -- Rx MONITORING) 1 each PRN DAILY PRN 07/13/20 10:30 07/15/20 10:29 DC Info (Tpn Per Pharmacy) 1 each PRN DAILY PRN 07/15/20 09:15 07/21/20 15:00 1 EACH Insulin Glargine (Lantus Syringe) 45 unit BID 07/17/20 09:00 07/21/20 20:50 45 UNIT Insulin Human Lispro (HumaLOG) 18 units Q6HRS 07/18/20 12:00 07/22/20 07:22 18 UNITS Iohexol (Omnipaque 350 Mg/ml) 100 ml 1X ONCE 07/13/20 10:15 07/13/20 10:16 DC 07/13/20 10:15 100 ML Linezolid/Dextrose 300 ml @ 300 mls/hr Q12HR 07/14/20 21:00 07/19/20 10:10 DC 07/19/20 09:56 300 MLS/HR Lorazepam (Ativan Inj) 0.25 mg PRN Q6HRS PRN 07/13/20 16:45 07/13/20 16:42 0.25 MG Magnesium Sulfate 50 ml @ 25 mls/hr 1X ONCE 07/13/20 12:30 07/13/20 14:29 UNV Midazolam HCl 100 ml @ 0 mls/hr CONT PRN 07/13/20 17:45 07/21/20 23:46 10 MLS/HR Multi-Ingred Cream/Lotion/Oil/ Oint (Artificial Tears Eye Ointment) 1 klaudia Q6HRS 07/16/20 13:00 07/22/20 06:00 1 KLAUDIA Norepinephrine Bitartrate 8 mg/ Dextrose 258 ml @ 22.91 mls/ hr CONT PRN 07/13/20 23:30 07/15/20 00:09 9.164 MLS/HR Ondansetron HCl (Zofran) 4 mg PRN Q8HRS PRN 07/13/20 09:45 07/14/20 08:19 DC Phenol (Chloraseptic) 1 spray PRN Q2HR PRN 07/13/20 16:15 07/13/20 16:27 1 SPRAY Piperacillin Sod/ Tazobactam Sod (Zosyn Per Pharmacy) 1 each PRN DAILY PRN 07/13/20 23:16 Piperacillin Sod/ Tazobactam Sod 3.375 gm/Sodium Chloride 50 ml @ 100 mls/hr Q6HRS 07/14/20 00:00 07/22/20 06:50 100 MLS/HR Potassium Chloride/Water 100 ml @ 100 mls/hr Q1H 07/13/20 11:30 07/13/20 15:29 DC 07/13/20 17:17 100 MLS/HR Potassium Phosphate 13.6 mmol/Sodium Chloride 254.5333 ml @ 127.... Q2H 07/17/20 11:30 07/17/20 13:29 DC 07/17/20 13:22 127.267 MLS/HR Potassium Chloride (Klor-Con) 40 meq 1X ONCE 07/13/20 11:15 07/13/20 11:16 DC 07/13/20 11:20 40 MEQ Prochlorperazine Edisylate (Compazine) 10 mg PRN Q6HRS PRN 07/13/20 16:15 Propofol 100 ml @ 3.42 mls/hr CONT PRN 07/20/20 11:30 07/22/20 08:04 23.94 MLS/HR Remdesivir 100 mg/ Sodium Chloride 230 ml @ 460 mls/hr Q24H 07/14/20 14:00 07/17/20 14:29 DC 07/17/20 15:36 460 MLS/HR Remdesivir 200 mg/ Sodium Chloride 210 ml @ 210 mls/hr 1X ONCE 07/13/20 14:00 07/13/20 14:59 DC 07/13/20 15:21 210 MLS/HR Ringer's Solution 1,000 ml @ 100 mls/hr Q10H 07/13/20 23:30 07/15/20 09:08 DC 07/14/20 20:12 100 MLS/HR Sodium Chloride 70 meq/Potassium Phosphate 23 mmol/ Calcium Gluconate 5 meq/ Multivitamins 5 ml/Zinc/Copper/ Manganese/ Selenium 1 ml/ Total Parenteral Nutrition/Amino Acids/Dextrose 1,512 ml @ 63 mls/hr TPN CONT 07/21/20 22:00 07/22/20 21:59 07/22/20 03:10 63 MLS/HR Sodium Chloride 70 meq/Potassium Phosphate 23 mmol/ Calcium Gluconate 5 meq/ Multivitamins 5 ml/Zinc/Copper/ Manganese/ Selenium 1 ml/ Total Parenteral Nutrition/Amino Acids/Dextrose/ Fat Emulsion Intravenous 1,512 ml @ 63 mls/hr TPN CONT 07/19/20 22:00 07/20/20 21:59 DC 07/19/20 20:49 63 MLS/HR Sodium Chloride 90 meq/Potassium Chloride 25 meq/ Potassium Phosphate 13.6 mmol/Magnesium Sulfate 10 meq/ Calcium Gluconate 10 meq/ Multivitamins 5 ml/Zinc/Copper/ Manganese/ Selenium 1 ml/ Total Parenteral Nutrition/Amino Acids/Dextrose 1,512 ml @ 63 mls/hr TPN CONT 07/15/20 22:00 07/16/20 21:59 DC 07/15/20 22:01 63 MLS/HR Sodium Chloride 90 meq/Potassium Phosphate 20 mmol/ Calcium Gluconate 10 meq/ Multivitamins 5 ml/Zinc/Copper/ Manganese/ Selenium 1 ml/ Total Parenteral Nutrition/Amino Acids/Dextrose/ Fat Emulsion Intravenous 1,512 ml @ 63 mls/hr TPN CONT 07/16/20 22:00 07/17/20 21:59 DC 07/16/20 22:54 63 MLS/HR Sodium Chloride 90 meq/Potassium Phosphate 23 mmol/ Calcium Gluconate 5 meq/ Multivitamins 5 ml/Zinc/Copper/ Manganese/ Selenium 1 ml/ Total Parenteral Nutrition/Amino Acids/Dextrose/ Fat Emulsion Intravenous 1,512 ml @ 63 mls/hr TPN CONT 07/18/20 22:00 07/19/20 21:59 DC 07/18/20 20:52 63 MLS/HR Sodium Chloride 90 meq/Potassium Phosphate 23 mmol/ Calcium Gluconate 10 meq/ Multivitamins 5 ml/Zinc/Copper/ Manganese/ Selenium 1 ml/ Total Parenteral Nutrition/Amino Acids/Dextrose/ Fat Emulsion Intravenous 1,512 ml @ 63 mls/hr TPN CONT 07/17/20 22:00 07/18/20 21:59 DC 07/17/20 21:32 63 MLS/HR Sodium Phosphate 15 mmol/Sodium Chloride 105 ml @ 105 mls/hr 1X ONCE 07/15/20 13:00 07/15/20 13:59 DC 07/15/20 13:12 105 MLS/HR Sodium Phosphate 30 mmol/Sodium Chloride 260 ml @ 65 mls/hr 1X ONCE 07/16/20 13:00 07/16/20 16:59 DC 07/16/20 13:29 65 MLS/HR Sterile Water (WATER for RESP) 1,000 ml CONT PRN 07/13/20 17:15 Succinylcholine Chloride (Anectine) 200 mg STK-MED ONCE 07/13/20 18:00 07/14/20 08:36 DC Thiamine HCl 300 mg/Dextrose 53 ml @ 102 mls/hr DAILY 07/14/20 09:00 07/21/20 08:44 102 MLS/HR Vancomycin HCl (Vanco Per Pharmacy) 1 each PRN DAILY PRN 07/13/20 23:16 07/14/20 09:14 DC 07/14/20 02:10 1 EACH Vancomycin HCl (Vancomycin Trough Level) 1 each 1X ONCE 07/14/20 23:30 07/14/20 23:31 Cancel Vancomycin HCl 1.5 gm/Sodium Chloride 500 ml @ 250 mls/hr Q8H 07/14/20 08:00 07/14/20 09:14 DC 07/14/20 08:46 250 MLS/HR Vancomycin HCl 2 gm/Sodium Chloride 500 ml @ 250 mls/hr 1X ONCE 07/13/20 23:45 07/14/20 01:44 DC 07/14/20 00:24 250 MLS/HR Vecuronium [place] 50 mg/ Miscellaneous 50 ml @ 5.683 mls/ hr CONT PRN 07/13/20 22:00 07/21/20 23:06 3.552 MLS/HR Vecuronium [place] (Norcuron Bolus) 6 mg PRN Q4HRS PRN 07/13/20 19:30 07/13/20 19:39 6 MG Vitamin D (Vitamin D3) 1,000 unit DAILY 07/13/20 13:00 07/22/20 08:13 1,000 UNIT Labs: Lab Laboratory Tests Test 07/21/20 11:36 07/21/20 17:42 07/21/20 20:39 07/22/20 00:59 Glucose (Fingerstick) 203 mg/dL (70-99) 250 mg/dL (70-99) 213 mg/dL (70-99) 207 mg/dL (70-99) Test 07/22/20 07:13 White Blood Count 12.8 x10^3/uL (4.0-11.0) Red Blood Count 4.57 x10^6/uL (4.30-5.70) Hemoglobin 12.9 g/dL (13.0-17.5) Hematocrit 38.1 % (39.0-53.0) Mean Corpuscular Volume 83 fL (79-100) Mean Corpuscular Hemoglobin 28 pg (25-35) Mean Corpuscular Hemoglobin Concent 34 g/dL (31-37) Red Cell Distribution Width 16.8 % (11.5-14.5) Platelet Count 144 x10^3/uL (140-400) Neutrophils (%) (Auto) 92 % (31-73) Lymphocytes (%) (Auto) 6 % (24-48) Monocytes (%) (Auto) 0 % (0-9) Eosinophils (%) (Auto) 2 % (0-3) Basophils (%) (Auto) 0 % (0-3) Neutrophils # (Auto) 11.7 x10^3/uL (1.8-7.7) Lymphocytes # (Auto) 0.8 x10^3/uL (1.0-4.8) Monocytes # (Auto) 0.0 x10^3/uL (0.0-1.1) Eosinophils # (Auto) 0.2 x10^3/uL (0.0-0.7) Basophils # (Auto) 0.0 x10^3/uL (0.0-0.2) Objective: Assessment: 1. COVID-19 pneumonia 2. Fever resolved 3. Acute hypoxic respiratory failure. From COVID-19 pneumonia 4. Morbid obesity. 5. Severe protein-calorie malnutrition. 6. Hyponatremia, hypokalemia. 7. Leukocytosis from steroid Plan: Plan of Care Continue supportive care Status post remdesivir 07/14 remains on Steroids MO Zosyn Monitor labs ALICIA HAAS MD Jul 22, 2020 08:28
[2020-07-22 08:32] LABS: FIO2 ABG 75
[2020-07-22] MEDS: THIAMINE INJ 300 MG in IV DEXTROSE 5% 50 ML IV SCH (09:05)
[2020-07-22] MEDS: INSULIN GLARGINE SYRINGE. SQ SCH ×2 (09:13→20:39)
[2020-07-22] MEDS: fentaNYL HIGH DOSE PCA 55 ML IV PRN ×2 (09:42→22:45)
[2020-07-22] MEDS: MIDAZOLAM 100mg/100ml NS BAG 100 ML IV PRN ×2 (09:44→20:39)
[2020-07-22 11:01] LABS: ALBUMIN 1.5 g/dL (3.4-5.0); ALBUMIN/GLOBULIN RATIO 0.4 (1.0-1.7); CALCIUM 7.5 mg/dL (8.5-10.1); GFR 84.5; POTASSIUM 3.4 mmol/L (3.5-5.1); TOTAL BILIRUBIN 0.5 mg/dL (0.2-1.0); TOTAL PROTEIN 5.5 g/dL (6.4-8.2)
[2020-07-22] MEDS: TPN PER PHARMACY MC PRN (11:18)
--- NOTE | 2020-07-22 11:21 | NUR ---
Pharmacy TPN Dosing Note S: LYUDMILA HOBBS is a 35 year old M Currently receiving Central Continuous TPN started 07/15/20 B:Pertinent PMH: TF INTOLERANCE, INTUBATED LABS: Sodium: 146 Potassium: 3.4 Chloride: 106 Calcium: 8.2 Corrected Calcium: 10.20 Magnesium: 2.3 CO2: 30 SCr: 0.7 Glucose: 178, 262 Albumin: 1.5 AST: 36 ALT: 33 TPN FORMULA: TPN TYPE: Central Continuous AMINO ACIDS: 120 gm DEXTROSE: 225 gm LIPIDS: - gm SODIUM CHLORIDE: 50 mEq SODIUM ACETATE: - mEq SODIUM PHOSPHATE: - mmol POTASSIUM CHLORIDE: 20 mEq POTASSIUM ACETATE: - mEq POTASSIUM PHOSPHATE: 23 mmol MAGNESIUM: - mEq CALCIUM: 5 mEq INSULIN: - units MULTIPLE VITAMIN: 5 ml TRACE ELEMENTS: 1 ml(s) TPN PLAN: 07/22 slight changes in electrolytes, continue to leave out Lipids as pt is on Propofol drip. R: Change TPN as above Will monitor electrolytes, glucose, and tolerance to TPN. BRANDY MENDEZ RP, 07/22/20 1122
[2020-07-22 11:30] LABS: % BANDS 19 % (0-9); % EOS 1 % (0-5); % LYMPHS 6 % (24-48); % METAS 1 % (0-0); % MONOS 1 % (0-10); % MYELOS 2 % (0-0); % SEGS 70 % (35-66); PLT ESTIMATE ADEQUATE (ADEQUATE)
[2020-07-22 11:32] LABS: ANISOCYTOSIS SLIGHT; POIKILOCYTOSIS SLIGHT; TOXIC VACUOLATION SLIGHT
--- NOTE | 2020-07-22 13:45 | PDOC ---
PULMONARY PROGRESS NOTES DATE: 07/22/20 TIME: 13:43 Subjective remains on vent A/C 75% and PEEP 13 improving oxygenation slowly no other concerns Vitals Vital Signs Date Time Temp Pulse Resp B/P (MAP) Pulse Ox O2 Delivery O2 Flow Rate FiO2 07/22/20 12:26 Mechanical Ventilator 07/22/20 12:00 98.1 114 30 168/93 (118) 97 98.1 07/22/20 04:00 40.0 Comments Patient seen during , visual exam preformed intubated/sedated no accessory muscle use no distress no obvious edema Labs Laboratory Tests Test 07/20/20 17:37 07/20/20 20:50 07/21/20 00:21 07/21/20 05:56 Glucose (Fingerstick) 243 mg/dL (70-99) 256 mg/dL (70-99) 240 mg/dL (70-99) 261 mg/dL (70-99) Test 07/21/20 06:00 07/21/20 07:25 07/21/20 11:36 07/21/20 17:42 White Blood Count 13.3 x10^3/uL (4.0-11.0) Red Blood Count 5.11 x10^6/uL (4.30-5.70) Hemoglobin 13.5 g/dL (13.0-17.5) Hematocrit 42.4 % (39.0-53.0) Mean Corpuscular Volume 83 fL (79-100) Mean Corpuscular Hemoglobin 26 pg (25-35) Mean Corpuscular Hemoglobin Concent 32 g/dL (31-37) Red Cell Distribution Width 16.4 % (11.5-14.5) Platelet Count 106 x10^3/uL (140-400) Neutrophils (%) (Auto) 87 % (31-73) Lymphocytes (%) (Auto) 6 % (24-48) Monocytes (%) (Auto) 6 % (0-9) Eosinophils (%) (Auto) 2 % (0-3) Basophils (%) (Auto) 0 % (0-3) Neutrophils # (Auto) 11.5 x10^3/uL (1.8-7.7) Lymphocytes # (Auto) 0.8 x10^3/uL (1.0-4.8) Monocytes # (Auto) 0.7 x10^3/uL (0.0-1.1) Eosinophils # (Auto) 0.2 x10^3/uL (0.0-0.7) Basophils # (Auto) 0.0 x10^3/uL (0.0-0.2) D-Dimer (Hannah) 19.21 ug/mlFEU (0.00-0.50) Sodium Level 142 mmol/L (136-145) Potassium Level 4.4 mmol/L (3.5-5.1) Chloride Level 109 mmol/L (98-107) Carbon Dioxide Level 30 mmol/L (21-32) Anion Gap 3 (6-14) Blood Urea Nitrogen 30 mg/dL (8-26) Creatinine 0.7 mg/dL (0.7-1.3) Estimated GFR (Cockcroft-Gault) 127.6 Glucose Level 258 mg/dL (70-99) Calcium Level 8.2 mg/dL (8.5-10.1) Phosphorus Level 2.7 mg/dL (2.6-4.7) Magnesium Level 2.3 mg/dL (1.8-2.4) Total Bilirubin 0.5 mg/dL (0.2-1.0) Direct Bilirubin 0.2 mg/dL (0.0-0.2) Aspartate Amino Transf (AST/SGOT) 50 U/L (15-37) Alanine Aminotransferase (ALT/SGPT) 37 U/L (16-63) Alkaline Phosphatase 99 U/L (46-116) Total Protein 5.7 g/dL (6.4-8.2) Albumin 1.7 g/dL (3.4-5.0) Triglycerides Level 299 mg/dL (0-150) O2 Saturation 93 % (92-99) Arterial Blood pH 7.41 (7.35-7.45) Arterial Blood pCO2 at Patient Temp 50 mmHg (35-46) Arterial Blood pO2 at Patient Temp 67 mmHg (85-108) Arterial Blood HCO3 31 mmol/L (21-28) Arterial Blood Base Excess 5 mmol/L (-3-3) FiO2 80% Glucose (Fingerstick) 203 mg/dL (70-99) 250 mg/dL (70-99) Test 07/21/20 20:39 07/22/20 00:59 07/22/20 06:46 07/22/20 07:13 Glucose (Fingerstick) 213 mg/dL (70-99) 207 mg/dL (70-99) 178 mg/dL (70-99) White Blood Count 12.8 x10^3/uL (4.0-11.0) Red Blood Count 4.57 x10^6/uL (4.30-5.70) Hemoglobin 12.9 g/dL (13.0-17.5) Hematocrit 38.1 % (39.0-53.0) Mean Corpuscular Volume 83 fL (79-100) Mean Corpuscular Hemoglobin 28 pg (25-35) Mean Corpuscular Hemoglobin Concent 34 g/dL (31-37) Red Cell Distribution Width 16.8 % (11.5-14.5) Platelet Count 144 x10^3/uL (140-400) Neutrophils (%) (Auto) 92 % (31-73) Lymphocytes (%) (Auto) 6 % (24-48) Monocytes (%) (Auto) 0 % (0-9) Eosinophils (%) (Auto) 2 % (0-3) Basophils (%) (Auto) 0 % (0-3) Neutrophils # (Auto) 11.7 x10^3/uL (1.8-7.7) Lymphocytes # (Auto) 0.8 x10^3/uL (1.0-4.8) Monocytes # (Auto) 0.0 x10^3/uL (0.0-1.1) Eosinophils # (Auto) 0.2 x10^3/uL (0.0-0.7) Basophils # (Auto) 0.0 x10^3/uL (0.0-0.2) Segmented Neutrophils % 70 % (35-66) Band Neutrophils % 19 % (0-9) Lymphocytes % 6 % (24-48) Monocytes % 1 % (0-10) Eosinophils % 1 % (0-5) Metamyelocytes % 1 % (0-0) Myelocytes % 2 % (0-0) Toxic Vacuolation Slight Platelet Estimate Adequate (ADEQUATE) Poikilocytosis Slight Anisocytosis Slight Test 07/22/20 08:05 07/22/20 09:15 07/22/20 12:13 O2 Saturation 97 % (92-99) Arterial Blood pH 7.45 (7.35-7.45) Arterial Blood pCO2 at Patient Temp 45 mmHg (35-46) Arterial Blood pO2 at Patient Temp 97 mmHg (85-108) Arterial Blood HCO3 30 mmol/L (21-28) Arterial Blood Base Excess 5 mmol/L (-3-3) FiO2 75 Sodium Level 146 mmol/L (136-145) Potassium Level 3.4 mmol/L (3.5-5.1) Chloride Level 106 mmol/L (98-107) Carbon Dioxide Level 32 mmol/L (21-32) Anion Gap 8 (6-14) Blood Urea Nitrogen 29 mg/dL (8-26) Creatinine 1.0 mg/dL (0.7-1.3) Estimated GFR (Cockcroft-Gault) 84.5 BUN/Creatinine Ratio 29 (6-20) Glucose Level 262 mg/dL (70-99) Calcium Level 7.5 mg/dL (8.5-10.1) Total Bilirubin 0.5 mg/dL (0.2-1.0) Aspartate Amino Transf (AST/SGOT) 36 U/L (15-37) Alanine Aminotransferase (ALT/SGPT) 33 U/L (16-63) Alkaline Phosphatase 75 U/L (46-116) Total Protein 5.5 g/dL (6.4-8.2) Albumin 1.5 g/dL (3.4-5.0) Albumin/Globulin Ratio 0.4 (1.0-1.7) Glucose (Fingerstick) 166 mg/dL (70-99) Laboratory Tests Test 07/21/20 17:42 07/21/20 20:39 07/22/20 00:59 07/22/20 06:46 Glucose (Fingerstick) 250 mg/dL (70-99) 213 mg/dL (70-99) 207 mg/dL (70-99) 178 mg/dL (70-99) Test 07/22/20 07:13 07/22/20 08:05 07/22/20 09:15 07/22/20 12:13 White Blood Count 12.8 x10^3/uL (4.0-11.0) Red Blood Count 4.57 x10^6/uL (4.30-5.70) Hemoglobin 12.9 g/dL (13.0-17.5) Hematocrit 38.1 % (39.0-53.0) Mean Corpuscular Volume 83 fL (79-100) Mean Corpuscular Hemoglobin 28 pg (25-35) Mean Corpuscular Hemoglobin Concent 34 g/dL (31-37) Red Cell Distribution Width 16.8 % (11.5-14.5) Platelet Count 144 x10^3/uL (140-400) Neutrophils (%) (Auto) 92 % (31-73) Lymphocytes (%) (Auto) 6 % (24-48) Monocytes (%) (Auto) 0 % (0-9) Eosinophils (%) (Auto) 2 % (0-3) Basophils (%) (Auto) 0 % (0-3) Neutrophils # (Auto) 11.7 x10^3/uL (1.8-7.7) Lymphocytes # (Auto) 0.8 x10^3/uL (1.0-4.8) Monocytes # (Auto) 0.0 x10^3/uL (0.0-1.1) Eosinophils # (Auto) 0.2 x10^3/uL (0.0-0.7) Basophils # (Auto) 0.0 x10^3/uL (0.0-0.2) Segmented Neutrophils % 70 % (35-66) Band Neutrophils % 19 % (0-9) Lymphocytes % 6 % (24-48) Monocytes % 1 % (0-10) Eosinophils % 1 % (0-5) Metamyelocytes % 1 % (0-0) Myelocytes % 2 % (0-0) Toxic Vacuolation Slight Platelet Estimate Adequate (ADEQUATE) Poikilocytosis Slight Anisocytosis Slight O2 Saturation 97 % (92-99) Arterial Blood pH 7.45 (7.35-7.45) Arterial Blood pCO2 at Patient Temp 45 mmHg (35-46) Arterial Blood pO2 at Patient Temp 97 mmHg (85-108) Arterial Blood HCO3 30 mmol/L (21-28) Arterial Blood Base Excess 5 mmol/L (-3-3) FiO2 75 Sodium Level 146 mmol/L (136-145) Potassium Level 3.4 mmol/L (3.5-5.1) Chloride Level 106 mmol/L (98-107) Carbon Dioxide Level 32 mmol/L (21-32) Anion Gap 8 (6-14) Blood Urea Nitrogen 29 mg/dL (8-26) Creatinine 1.0 mg/dL (0.7-1.3) Estimated GFR (Cockcroft-Gault) 84.5 BUN/Creatinine Ratio 29 (6-20) Glucose Level 262 mg/dL (70-99) Calcium Level 7.5 mg/dL (8.5-10.1) Total Bilirubin 0.5 mg/dL (0.2-1.0) Aspartate Amino Transf (AST/SGOT) 36 U/L (15-37) Alanine Aminotransferase (ALT/SGPT) 33 U/L (16-63) Alkaline Phosphatase 75 U/L (46-116) Total Protein 5.5 g/dL (6.4-8.2) Albumin 1.5 g/dL (3.4-5.0) Albumin/Globulin Ratio 0.4 (1.0-1.7) Glucose (Fingerstick) 166 mg/dL (70-99) Medications Active Scripts Medications Dose Route/Sig Max Daily Dose Days Date Category No Known Medications Prior To Admisstion (Info) Each 1 Each 1X 07/13/20 Reported Comments [id number]/18 IMPRESSION: 1. Mild interval improvement in widespread airspace disease. 2. Stable position of tubes and lines. 3. Possible small loculated pleural effusion on the left. CTA chest IMPRESSION: 1. No evidence of acute pulmonary embolism. Evaluation of distal pulmonary arteries is limited by motion artifact. 2. Extensive, fairly confluent groundglass opacities throughout both lungs, slightly peripheral and basilar predominance. This could be seen with severe multifocal pneumonia and/or ARDS. Electronically signed by: Lucinda Cespedes MD (07/13/2020 11:33 AM) [id number] Impression . IMPRESSION: 1. Acute hypoxemic respiratory failure secondary to COVID-19 viral pneumonia, intubated, slowly improvement in oxygenation 2. COVID-19 viral pneumonia. 3. Abnormal x-ray. 4. Tobacco dependence. 5. obesity 6. Fever /, on BS abx 7. Severe agitation Plan . PLAN: Continue Vent support, currently 75% and PEEP 13, will reduce PEEP to 11 today Follow CXR and ABG-- reviewed Continue adequate sedation Has comleted full course of remdesivir Continue Dexamethasone will slow taper Continue ABX per ID currently off ABX Continue TPN for nutritional support, didn't tolerate tube feeding DVT/GI PPX D/W RN and RT Pt. is FULL code Critical Care Time 0900-0930AM NEEL GANT MD Jul 22, 2020 13:45
--- NOTE | 2020-07-22 14:59 | NUR ---
SS following up with discharge planning. SS reviewed pt chart and discussed with pt RN. Pt is currently on the vent at 75%. COVID19 positive. Pt on TPN. Not stable. Self pay. SS will continue to follow for discharge planning.
[2020-07-22] MEDS: VECURONIUM BROMIDE 50 MG in TOTAL VOLUME 50 ML IV PRN (15:34)
[2020-07-22] MEDS ORDERED: [UNRECOGNIZED DRUG - OTHER] IV SCH (22:00)
[2020-07-22] MEDS ORDERED: TOTAL PARENTERAL NUTRITION IV SCH (22:00)
[2020-07-22] MEDS ORDERED: DEXTROSE 70% IV SCH (22:00)
[2020-07-22] MEDS ORDERED: AMINO ACID IV SCH (22:00)
[2020-07-23] VITALS (29 sets, daily range): BP systolic 85–195; BP diastolic 35–140
[2020-07-23] MEDS: MINERAL OIL/PETROLATUM,WHITE OPHTH OINT 3.5GM TUBE. OU SCH ×5 (00:33→23:51)
[2020-07-23] MEDS: VECURONIUM BROMIDE 50 MG in TOTAL VOLUME 50 ML IV PRN ×3 (03:00→22:53)
[2020-07-23] MEDS: PROPOFOL 100 ML IV PRN ×3 (03:28→19:02)
[2020-07-23] MEDS: ACETAMINOPHEN 325 MG TABLET. PO PRN (04:07)
--- NOTE | 2020-07-23 04:23 | RAD ---
XR CHEST 1V 07/23/2020 4:12 AM INDICATION: Pneumonia COMPARISON: 07/18/2020 TECHNIQUE: Portable frontal view of the chest is provided. FINDINGS: The cardiomediastinal silhouette is and endotracheal tube and nasogastric tube are in similar positio n. Right upper extremity PICC is in similar position. There is complete opacification of the left hemithorax, new from prior summation. Right infrahilar in terstitial airspace disease appears similar. No suspicious osseous abnormality. IMPRESSION: No opacification of left hemithorax without significant mediastinal shift. Consideration may be given for large left pleural effusion versus atelectasis of the left lung. Electronically signed by: Rosaline Veronica MD (07/23/2020 4:20 AM) MARK
[2020-07-23] MEDS: INSULIN LISPRO 300 UNITS/3 ML VIAL. SQ SCH ×10 (05:33→23:53)
[2020-07-23 05:40] LABS: BASO # 0.1 x10^3/uL (0.0-0.2); BASO % 0 % (0-3); EOS # 0.1 x10^3/uL (0.0-0.7); EOS % 0 % (0-3); HEMATOCRIT 42.9 % (39.0-53.0); HEMOGLOBIN 13.5 g/dL (13.0-17.5); LYMPH # 0.8 x10^3/uL (1.0-4.8); LYMPH % 2 % (24-48); MEAN CORPUSCULAR HEMOGLOBIN 26 pg (25-35); MEAN CORPUSCULAR HGB CONC 32 g/dL (31-37); MEAN CORPUSCULAR VOLUME 83 fL (79-100); MONO % 3 % (0-9); NEUT # 30.7 x10^3/uL (1.8-7.7); NEUT % 94 % (31-73); PLATELET COUNT 181 x10^3/uL (140-400); RED BLOOD COUNT 5.14 x10^6/uL (4.30-5.70); RED CELL DISTRIBUTION WIDTH 16.6 % (11.5-14.5); WHITE BLOOD COUNT 32.6 x10^3/uL (4.0-11.0)
[2020-07-23 05:58] LABS: ALBUMIN/GLOBULIN RATIO 0.5 (1.0-1.7); CALCIUM 8.3 mg/dL (8.5-10.1); CREATININE 0.9 mg/dL (0.7-1.3); GFR 95.5; POTASSIUM 4.2 mmol/L (3.5-5.1); TOTAL BILIRUBIN 1.3 mg/dL (0.2-1.0); TOTAL PROTEIN 6.2 g/dL (6.4-8.2)
--- NOTE | 2020-07-23 06:43 | NUR ---
Notified Dr. Sean Ayala of temp 102.1 during the night, changes in xray and increase in WBC this am. Received orders for antibiotics.
[2020-07-23 07:05] LABS: % ATYL 1 % (0-0); % BANDS 22 % (0-9); % EOS 1 % (0-5); % LYMPHS 2 % (24-48); % MONOS 4 % (0-10); % MYELOS 1 % (0-0); % SEGS 69 % (35-66); PLT ESTIMATE ADEQUATE (ADEQUATE)
[2020-07-23 07:06] LABS: ANISOCYTOSIS SLIGHT; POLYCHROMASIA SLIGHT
--- NOTE | 2020-07-23 07:27 | PDOC ---
Infectious Disease Note Subjective: Subjective pt intubated/sedated Was febrile at 89 F earlier this morning Started on Levophed this morning Vital Signs: Vital Signs Vital Signs Date Time Temp Pulse Resp B/P (MAP) Pulse Ox O2 Delivery O2 Flow Rate FiO2 07/23/20 05:34 89 07/23/20 05:00 99.5 130 30 149/55 (86) Ventilator 99.5 Physical Exam: PHYSICAL EXAM GENERAL: Intubated, sedated. HEENT: Normocephalic, atraumatic. ETT and OG tube in place. NECK: Supple. LUNGS: Coarse breath sounds bilaterally. HEART: S1, S2. ABDOMEN: Obese. Bowel sounds present, mildly distended. EXTREMITIES: No edema, no cyanosis. DERMATOLOGIC: Warm, dry. No generalized rash. NEUROLOGIC: Intubated. PSYCHIATRIC: Unable to assess. Right upper extremity PICC line clean no accessory muscle use no distress no obvious edema Medications: Inpatient Meds: Current Medications Medications (Trade) Dose Ordered Sig/Sola Start Time Stop Time Status Last Admin Dose Admin Acetaminophen (Tylenol) 650 mg PRN Q6HRS PRN 07/13/20 16:15 07/23/20 04:07 650 MG Ascorbic Acid (Vitamin C) 1,000 mg DAILY 07/13/20 13:00 07/22/20 08:13 1,000 MG Atropine Sulfate (ATROPINE 0.5mg SYRINGE) 0.5 mg PRN Q5MIN PRN 07/13/20 17:00 Azithromycin 250 ml @ As Directed STK-MED ONCE 07/13/20 09:28 07/13/20 09:28 DC Benzonatate (Tessalon Perle) 100 mg Q6HRS 07/13/20 18:00 07/19/20 10:24 DC 07/18/20 05:36 100 MG Calcium Gluconate 1000 mg/Sodium Chloride 110 ml @ 220 mls/hr 1X ONCE 07/13/20 11:45 07/13/20 12:14 DC 07/13/20 11:51 220 MLS/HR Ceftriaxone Sodium (Rocephin) 1 gm Q24H 07/14/20 09:00 07/13/20 23:25 DC Chlorhexidine Gluconate (Peridex) 15 ml BID 07/13/20 21:00 07/16/20 18:59 DC 12/22/20 08:33 15 ML Dexamethasone (Decadron) 6 mg [id number] 07/14/20 08:00 07/15/20 09:13 DC 07/14/20 09:14 6 MG Dexamethasone Sodium Phosphate (Decadron) 4 mg DAILY 07/23/20 09:00 Dexmedetomidine HCl 400 mcg/ Sodium Chloride 100 ml @ 0 mls/hr CONT PRN 07/13/20 17:00 Dextrose (Dextrose 50%-Water Syringe) 12.5 gm PRN Q15MIN PRN 07/14/20 09:30 Doxycycline Hyclate 100 mg/ Dextrose 100 ml @ 50 mls/hr Q12HR 07/13/20 13:00 07/13/20 23:25 DC 07/13/20 13:21 50 MLS/HR Enoxaparin Sodium (Lovenox 120mg Syringe) 110 mg 1X ONCE 07/13/20 10:15 07/13/20 10:16 DC 07/13/20 10:14 110 MG Enoxaparin Sodium (Lovenox 40mg Syringe) 40 mg BID 07/14/20 21:00 07/22/20 20:41 40 MG Etomidate (Amidate) 20 mg STK-MED ONCE 07/13/20 18:00 07/14/20 08:36 DC Famotidine (Pepcid Vial) 20 mg BID 07/14/20 21:00 07/22/20 20:42 20 MG Fentanyl Citrate 55 ml @ 0 mls/hr CONT PRN PRN 07/13/20 19:45 07/22/20 22:45 3.99 MLS/HR Influenza Virus Vaccine Quadrival (Fluzone Quad [id number] Syringe) 0.5 ml ONCE ONCE 07/15/20 09:00 07/15/20 09:01 DC Info (CONTRAST GIVEN -- Rx MONITORING) 1 each PRN DAILY PRN 07/13/20 10:30 07/15/20 10:29 DC Info (Tpn Per Pharmacy) 1 each PRN DAILY PRN 07/15/20 09:15 07/22/20 11:18 1 EACH Insulin Glargine (Lantus Syringe) 45 unit BID 07/17/20 09:00 07/22/20 20:39 45 UNIT Insulin Human Lispro (HumaLOG) 18 units Q6HRS 07/18/20 12:00 07/22/20 19:01 18 UNITS Iohexol (Omnipaque 350 Mg/ml) 100 ml 1X ONCE 07/13/20 10:15 07/13/20 10:16 DC 07/13/20 10:15 100 ML Linezolid/Dextrose 300 ml @ 300 mls/hr Q12HR 07/23/20 09:00 Lorazepam (Ativan Inj) 0.25 mg PRN Q6HRS PRN 07/13/20 16:45 07/13/20 16:42 0.25 MG Magnesium Sulfate 50 ml @ 25 mls/hr 1X ONCE 07/13/20 12:30 07/13/20 14:29 UNV Midazolam HCl 100 ml @ 0 mls/hr CONT PRN 07/13/20 17:45 07/22/20 20:39 10 MLS/HR Multi-Ingred Cream/Lotion/Oil/ Oint (Artificial Tears Eye Ointment) 1 klaudia Q6HRS 07/16/20 13:00 07/23/20 05:40 1 KLAUDIA Norepinephrine Bitartrate 8 mg/ Dextrose 258 ml @ 22.91 mls/ hr CONT PRN 07/13/20 23:30 07/15/20 00:09 9.164 MLS/HR Ondansetron HCl (Zofran) 4 mg PRN Q8HRS PRN 07/13/20 09:45 07/14/20 08:19 DC Phenol (Chloraseptic) 1 spray PRN Q2HR PRN 07/13/20 16:15 07/13/20 16:27 1 SPRAY Piperacillin Sod/ Tazobactam Sod (Zosyn Per Pharmacy) 1 each PRN DAILY PRN 07/13/20 23:16 07/22/20 09:33 DC Piperacillin Sod/ Tazobactam Sod 3.375 gm/Sodium Chloride 50 ml @ 100 mls/hr Q6HRS 07/23/20 12:00 Potassium Chloride/Water 100 ml @ 100 mls/hr Q1H 07/13/20 11:30 07/13/20 15:29 DC 07/13/20 17:17 100 MLS/HR Potassium Phosphate 13.6 mmol/Sodium Chloride 254.5333 ml @ 127.... Q2H 07/17/20 11:30 07/17/20 13:29 DC 07/17/20 13:22 127.267 MLS/HR Potassium Chloride (Klor-Con) 40 meq 1X ONCE 07/13/20 11:15 07/13/20 11:16 DC 07/13/20 11:20 40 MEQ Prochlorperazine Edisylate (Compazine) 10 mg PRN Q6HRS PRN 07/13/20 16:15 Propofol 100 ml @ 3.42 mls/hr CONT PRN 07/20/20 11:30 07/23/20 07:16 28.3 MLS/HR Remdesivir 100 mg/ Sodium Chloride 230 ml @ 460 mls/hr Q24H 07/14/20 14:00 07/17/20 14:29 DC 07/17/20 15:36 460 MLS/HR Remdesivir 200 mg/ Sodium Chloride 210 ml @ 210 mls/hr 1X ONCE 07/13/20 14:00 07/13/20 14:59 DC 07/13/20 15:21 210 MLS/HR Ringer's Solution 1,000 ml @ 100 mls/hr Q10H 07/13/20 23:30 07/15/20 09:08 DC 07/14/20 20:12 100 MLS/HR Sodium Chloride 50 meq/Potassium Chloride 20 meq/ Potassium Phosphate 23 mmol/ Calcium Gluconate 5 meq/ Multivitamins 5 ml/Zinc/Copper/ Manganese/ Selenium 1 ml/ Total Parenteral Nutrition/Amino Acids/Dextrose 1,512 ml @ 63 mls/hr TPN CONT 07/22/20 22:00 07/23/20 21:59 07/22/20 22:33 63 MLS/HR Sodium Chloride 70 meq/Potassium Phosphate 23 mmol/ Calcium Gluconate 5 meq/ Multivitamins 5 ml/Zinc/Copper/ Manganese/ Selenium 1 ml/ Total Parenteral Nutrition/Amino Acids/Dextrose 1,512 ml @ 63 mls/hr TPN CONT 07/21/20 22:00 07/22/20 21:59 DC 07/22/20 03:10 63 MLS/HR Sodium Chloride 70 meq/Potassium Phosphate 23 mmol/ Calcium Gluconate 5 meq/ Multivitamins 5 ml/Zinc/Copper/ Manganese/ Selenium 1 ml/ Total Parenteral Nutrition/Amino Acids/Dextrose/ Fat Emulsion Intravenous 1,512 ml @ 63 mls/hr TPN CONT 07/19/20 22:00 07/20/20 21:59 DC 07/19/20 20:49 63 MLS/HR Sodium Chloride 90 meq/Potassium Chloride 25 meq/ Potassium Phosphate 13.6 mmol/Magnesium Sulfate 10 meq/ Calcium Gluconate 10 meq/ Multivitamins 5 ml/Zinc/Copper/ Manganese/ Selenium 1 ml/ Total Parenteral Nutrition/Amino Acids/Dextrose 1,512 ml @ 63 mls/hr TPN CONT 07/15/20 22:00 07/16/20 21:59 DC 07/15/20 22:01 63 MLS/HR Sodium Chloride 90 meq/Potassium Phosphate 20 mmol/ Calcium Gluconate 10 meq/ Multivitamins 5 ml/Zinc/Copper/ Manganese/ Selenium 1 ml/ Total Parenteral Nutrition/Amino Acids/Dextrose/ Fat Emulsion Intravenous 1,512 ml @ 63 mls/hr TPN CONT 07/16/20 22:00 07/17/20 21:59 DC 07/16/20 22:54 63 MLS/HR Sodium Chloride 90 meq/Potassium Phosphate 23 mmol/ Calcium Gluconate 5 meq/ Multivitamins 5 ml/Zinc/Copper/ Manganese/ Selenium 1 ml/ Total Parenteral Nutrition/Amino Acids/Dextrose/ Fat Emulsion Intravenous 1,512 ml @ 63 mls/hr TPN CONT 07/18/20 22:00 07/19/20 21:59 DC 07/18/20 20:52 63 MLS/HR Sodium Chloride 90 meq/Potassium Phosphate 23 mmol/ Calcium Gluconate 10 meq/ Multivitamins 5 ml/Zinc/Copper/ Manganese/ Selenium 1 ml/ Total Parenteral Nutrition/Amino Acids/Dextrose/ Fat Emulsion Intravenous 1,512 ml @ 63 mls/hr TPN CONT 07/17/20 22:00 07/18/20 21:59 DC 07/17/20 21:32 63 MLS/HR Sodium Phosphate 15 mmol/Sodium Chloride 105 ml @ 105 mls/hr 1X ONCE 07/15/20 13:00 07/15/20 13:59 DC 07/15/20 13:12 105 MLS/HR Sodium Phosphate 30 mmol/Sodium Chloride 260 ml @ 65 mls/hr 1X ONCE 07/16/20 13:00 07/16/20 16:59 DC 07/16/20 13:29 65 MLS/HR Sterile Water (WATER for RESP) 1,000 ml CONT PRN 07/13/20 17:15 Succinylcholine Chloride (Anectine) 200 mg STK-MED ONCE 07/13/20 18:00 07/14/20 08:36 DC Thiamine HCl 300 mg/Dextrose 53 ml @ 102 mls/hr DAILY 07/14/20 09:00 07/22/20 09:05 102 MLS/HR Vancomycin HCl (Vanco Per Pharmacy) 1 each PRN DAILY PRN 07/13/20 23:16 07/14/20 09:14 DC 07/14/20 02:10 1 EACH Vancomycin HCl (Vancomycin Trough Level) 1 each 1X ONCE 07/14/20 23:30 07/14/20 23:31 Cancel Vancomycin HCl 1.5 gm/Sodium Chloride 500 ml @ 250 mls/hr Q8H 07/14/20 08:00 07/14/20 09:14 DC 07/14/20 08:46 250 MLS/HR Vancomycin HCl 2 gm/Sodium Chloride 500 ml @ 250 mls/hr 1X ONCE 07/13/20 23:45 07/14/20 01:44 DC 07/14/20 00:24 250 MLS/HR Vecuronium [place] 50 mg/ Miscellaneous 50 ml @ 5.683 mls/ hr CONT PRN 07/13/20 22:00 07/23/20 03:00 4.262 MLS/HR Vecuronium [place] (Norcuron Bolus) 6 mg PRN Q4HRS PRN 07/13/20 19:30 07/13/20 19:39 6 MG Vitamin D (Vitamin D3) 1,000 unit DAILY 07/13/20 13:00 07/22/20 08:13 1,000 UNIT Labs: Lab Laboratory Tests Test 07/22/20 08:05 07/22/20 09:15 07/22/20 12:13 07/22/20 18:59 O2 Saturation 97 % (92-99) Arterial Blood pH 7.45 (7.35-7.45) Arterial Blood pCO2 at Patient Temp 45 mmHg (35-46) Arterial Blood pO2 at Patient Temp 97 mmHg (85-108) Arterial Blood HCO3 30 mmol/L (21-28) Arterial Blood Base Excess 5 mmol/L (-3-3) FiO2 75 Sodium Level 146 mmol/L (136-145) Potassium Level 3.4 mmol/L (3.5-5.1) Chloride Level 106 mmol/L (98-107) Carbon Dioxide Level 32 mmol/L (21-32) Anion Gap 8 (6-14) Blood Urea Nitrogen 29 mg/dL (8-26) Creatinine 1.0 mg/dL (0.7-1.3) Estimated GFR (Cockcroft-Gault) 84.5 BUN/Creatinine Ratio 29 (6-20) Glucose Level 262 mg/dL (70-99) Calcium Level 7.5 mg/dL (8.5-10.1) Total Bilirubin 0.5 mg/dL (0.2-1.0) Aspartate Amino Transf (AST/SGOT) 36 U/L (15-37) Alanine Aminotransferase (ALT/SGPT) 33 U/L (16-63) Alkaline Phosphatase 75 U/L (46-116) Total Protein 5.5 g/dL (6.4-8.2) Albumin 1.5 g/dL (3.4-5.0) Albumin/Globulin Ratio 0.4 (1.0-1.7) Glucose (Fingerstick) 166 mg/dL (70-99) 208 mg/dL (70-99) Test 07/23/20 00:13 07/23/20 05:15 07/23/20 05:20 Glucose (Fingerstick) 126 mg/dL (70-99) 96 mg/dL (70-99) White Blood Count 32.6 x10^3/uL (4.0-11.0) Red Blood Count 5.14 x10^6/uL (4.30-5.70) Hemoglobin 13.5 g/dL (13.0-17.5) Hematocrit 42.9 % (39.0-53.0) Mean Corpuscular Volume 83 fL (79-100) Mean Corpuscular Hemoglobin 26 pg (25-35) Mean Corpuscular Hemoglobin Concent 32 g/dL (31-37) Red Cell Distribution Width 16.6 % (11.5-14.5) Platelet Count 181 x10^3/uL (140-400) Neutrophils (%) (Auto) 94 % (31-73) Lymphocytes (%) (Auto) 2 % (24-48) Monocytes (%) (Auto) 3 % (0-9) Eosinophils (%) (Auto) 0 % (0-3) Basophils (%) (Auto) 0 % (0-3) Neutrophils # (Auto) 30.7 x10^3/uL (1.8-7.7) Lymphocytes # (Auto) 0.8 x10^3/uL (1.0-4.8) Monocytes # (Auto) 1.0 x10^3/uL (0.0-1.1) Eosinophils # (Auto) 0.1 x10^3/uL (0.0-0.7) Basophils # (Auto) 0.1 x10^3/uL (0.0-0.2) Segmented Neutrophils % 69 % (35-66) Band Neutrophils % 22 % (0-9) Lymphocytes % 2 % (24-48) Atypical Lymphocytes % (Manual) 1 % (0-0) Monocytes % 4 % (0-10) Eosinophils % 1 % (0-5) Myelocytes % 1 % (0-0) Platelet Estimate Adequate (ADEQUATE) Polychromasia Slight Anisocytosis Slight Sodium Level 141 mmol/L (136-145) Potassium Level 4.2 mmol/L (3.5-5.1) Chloride Level 106 mmol/L (98-107) Carbon Dioxide Level 29 mmol/L (21-32) Anion Gap 6 (6-14) Blood Urea Nitrogen 32 mg/dL (8-26) Creatinine 0.9 mg/dL (0.7-1.3) Estimated GFR (Cockcroft-Gault) 95.5 BUN/Creatinine Ratio 36 (6-20) Glucose Level 125 mg/dL (70-99) Calcium Level 8.3 mg/dL (8.5-10.1) Total Bilirubin 1.3 mg/dL (0.2-1.0) Aspartate Amino Transf (AST/SGOT) 46 U/L (15-37) Alanine Aminotransferase (ALT/SGPT) 39 U/L (16-63) Alkaline Phosphatase 93 U/L (46-116) Total Protein 6.2 g/dL (6.4-8.2) Albumin 2.0 g/dL (3.4-5.0) Albumin/Globulin Ratio 0.5 (1.0-1.7) Objective: Assessment: 1. COVID-19 pneumonia 2. Fever now could have secondary bacterial pneumonia 3. Acute hypoxic respiratory failure. From COVID-19 pneumonia 4. Morbid obesity. 5. Severe protein-calorie malnutrition. 6. Hyponatremia, hypokalemia. 7. Leukocytosis from steroid Plan: Plan of Care There is complete opacification of the left hemithorax on today's chest x-ray Continue Zosyn Add Zyvox Pulmonary team following Repeat blood cultures, UA and urine culture and sputum culture continue supportive care Status post remdesivir 07/14 Status post steroids Monitor labs and cultures Discussed with ALICIA CASTRO MD Jul 23, 2020 07:27
[2020-07-23] MEDS: NOREPINEPHRINE VIAL 8 MG in IV DEXTROSE 5% 250 ML IV PRN (07:52)
[2020-07-23] MEDS: THIAMINE INJ 300 MG in IV DEXTROSE 5% 50 ML IV SCH (08:53)
[2020-07-23] MEDS: ENOXAPARIN 40 MG/0.4 ML SYRINGE. SQ SCH ×2 (08:54→21:26)
[2020-07-23] MEDS: FAMOTIDINE 20 MG/2 ML VIAL IVP SCH ×2 (08:54→21:27)
[2020-07-23] MEDS: ASCORBIC ACID 1,000 MG TABLET PO SCH (08:54)
[2020-07-23] MEDS: CHOLECALCIFEROL (VITAMIN D3) 1,000 UNIT TABLET PO SCH (08:54)
[2020-07-23] MEDS: PIPERACILLIN/TAZOBACTAM 4.5 GM in IV NORMAL SALINE 100ML 100 ML IV SCH ×3 (08:56→23:53)
[2020-07-23] MEDS: INSULIN GLARGINE SYRINGE. SQ SCH ×2 (08:56→21:28)
--- NOTE | 2020-07-23 08:59 | PDOC ---
PROGRESS NOTES Date of Service: DATE: 07/23/20 TIME: 08:59 Chief Complaint Chief Complaint impression Acute hypoxemic respiratory failure secondary to COVID-19 viral pneumonia. COVID-19 viral pneumonia. severe multifocal pneumonia and/or ARDS. Tobacco dependence. Hyponatremia Hyperkalemia Hypomagnesemia vent support assist-control mode currently FiO2 of 85% and PEEP of 11 Worsening oxygenation overnight plan icu bed FEN - TPN PPX - lovenox FULL CODE Dispo - ICU Continue full course of remdesivir Continue Dexamethasone ,, taper iv ABX zyvox and zosyn, FiO2 85% PEEP of 11 cxr in am 12-30 cc time 36 minutes History of Present Illness History of Present Illness Mr Luque is a 35 yo M morbidly obese who presented with chief complaint of respiratory distress. Patient tested positive for Covid about 6 days prior to admit Patient had a fever, chills, cough, myalgias and headache. Patient had abdominal discomfort with diarrhea. Over the last day the patient became more short of breath. Patient had trouble sleeping and was satting 65% on room air in triage. Symptoms worse with activity and at night and somewhat better with taking Tylenol. 07/13: Eventful day with worsening respiratory distress, required intubation emergently with ED physician 07/14: Febrile to 101.8F this morning. PEEP 14, FiO2 100%. UOP stable. Required paralysis overnight for vent dysynchrony. Remdesivir day 1 07/15: Temp 100 F this morning. Still requiring paralysis for vent dyssynchrony on PEEP of 14 with FiO2 100%. Right upper extremity PICC placed for pressors. 07/16: Afebrile overnight still requiring PEEP of 14 and FiO2 100% but PaO2 on ABG up to 59 today. Glucose in the 300s despite insulin regimen. Triglycerides low 200s on TPN. Phosphorus low at 1.5. 07/17: T-max 100.4 F overnight. Glucose still in the 300s despite very large increase in insulin. O2 saturations 96% on PEEP of 14 and FiO2 100%. Labs p ending. 07/18: Afebrile overnight. Still in 300s. O2 saturation 97% on PEEP of 14 FiO2 40%. ABG 7.35/59/91. No desaturations with repositioning today. Chest radiograph overall slightly improved 07/19: Afebrile overnight seen on vent paralyzed on TPN with FiO2 85% PEEP of 14. ABG 7.41/50/92. Afebrile. FiO2 80%, PEEP 13. ABG 7.39/53/69. Plan: Cont ICU care Vitals Vitals Vital Signs Date Time Temp Pulse Resp B/P (MAP) Pulse Ox O2 Delivery O2 Flow Rate FiO2 07/23/20 05:34 89 07/23/20 05:00 99.5 130 30 149/55 (86) Ventilator 99.5 Physical Exam Physical Exam GENERAL: Intubated, sedated. HEENT: Normocephalic, atraumatic. ETT and OG tube in place. NECK: Supple. LUNGS: Coarse breath sounds bilaterally. HEART: S1, S2. ABDOMEN: Obese. Bowel sounds present, mildly distended. EXTREMITIES: No edema, no cyanosis. DERMATOLOGIC: Warm, dry. No generalized rash. NEUROLOGIC: Intubated. PSYCHIATRIC: Unable to assess. Right upper extremity PICC line clean no accessory muscle use no distress no obvious edema General: mild distress Heart: Regular rate, Normal S1, Normal S2 Abdomen: Normal bowel sounds, Soft Extremities: No clubbing, No cyanosis Skin: No rashes, No breakdown Labs LABS XR CHEST 1V 07/23/2020 4:12 AM INDICATION: Pneumonia COMPARISON: 07/18/2020 TECHNIQUE: Portable frontal view of the chest is provided. FINDINGS: The cardiomediastinal silhouette is and endotracheal tube and nasogastric tube are in similar position. Right upper extremity PICC is in similar position. There is complete opacification of the left hemithorax, new from prior summation. Right infrahilar interstitial airspace disease appears similar. No suspicious osseous abnormality. IMPRESSION: No opacification of left hemithorax without significant mediastinal shift. Consideration may be given for large left pleural effusion versus atelectasis of the left lung. Electronically signed by: Naomie Veronica MD (07/23/2020 4:20 AM) [facility] DICTATED and SIGNED BY: NAOMIE VERONICA MD DATE: 07/23/20 [id number] Laboratory Tests Test 07/22/20 09:15 07/22/20 12:13 07/22/20 18:59 07/23/20 00:13 Sodium Level 146 mmol/L (136-145) Potassium Level 3.4 mmol/L (3.5-5.1) Chloride Level 106 mmol/L (98-107) Carbon Dioxide Level 32 mmol/L (21-32) Anion Gap 8 (6-14) Blood Urea Nitrogen 29 mg/dL (8-26) Creatinine 1.0 mg/dL (0.7-1.3) Estimated GFR (Cockcroft-Gault) 84.5 BUN/Creatinine Ratio 29 (6-20) Glucose Level 262 mg/dL (70-99) Calcium Level 7.5 mg/dL (8.5-10.1) Total Bilirubin 0.5 mg/dL (0.2-1.0) Aspartate Amino Transf (AST/SGOT) 36 U/L (15-37) Alanine Aminotransferase (ALT/SGPT) 33 U/L (16-63) Alkaline Phosphatase 75 U/L (46-116) Total Protein 5.5 g/dL (6.4-8.2) Albumin 1.5 g/dL (3.4-5.0) Albumin/Globulin Ratio 0.4 (1.0-1.7) Glucose (Fingerstick) 166 mg/dL (70-99) 208 mg/dL (70-99) 126 mg/dL (70-99) Test 07/23/20 05:15 07/23/20 05:20 Glucose (Fingerstick) 96 mg/dL (70-99) White Blood Count 32.6 x10^3/uL (4.0-11.0) Red Blood Count 5.14 x10^6/uL (4.30-5.70) Hemoglobin 13.5 g/dL (13.0-17.5) Hematocrit 42.9 % (39.0-53.0) Mean Corpuscular Volume 83 fL (79-100) Mean Corpuscular Hemoglobin 26 pg (25-35) Mean Corpuscular Hemoglobin Concent 32 g/dL (31-37) Red Cell Distribution Width 16.6 % (11.5-14.5) Platelet Count 181 x10^3/uL (140-400) Neutrophils (%) (Auto) 94 % (31-73) Lymphocytes (%) (Auto) 2 % (24-48) Monocytes (%) (Auto) 3 % (0-9) Eosinophils (%) (Auto) 0 % (0-3) Basophils (%) (Auto) 0 % (0-3) Neutrophils # (Auto) 30.7 x10^3/uL (1.8-7.7) Lymphocytes # (Auto) 0.8 x10^3/uL (1.0-4.8) Monocytes # (Auto) 1.0 x10^3/uL (0.0-1.1) Eosinophils # (Auto) 0.1 x10^3/uL (0.0-0.7) Basophils # (Auto) 0.1 x10^3/uL (0.0-0.2) Segmented Neutrophils % 69 % (35-66) Band Neutrophils % 22 % (0-9) Lymphocytes % 2 % (24-48) Atypical Lymphocytes % (Manual) 1 % (0-0) Monocytes % 4 % (0-10) Eosinophils % 1 % (0-5) Myelocytes % 1 % (0-0) Platelet Estimate Adequate (ADEQUATE) Polychromasia Slight Anisocytosis Slight Sodium Level 141 mmol/L (136-145) Potassium Level 4.2 mmol/L (3.5-5.1) Chloride Level 106 mmol/L (98-107) Carbon Dioxide Level 29 mmol/L (21-32) Anion Gap 6 (6-14) Blood Urea Nitrogen 32 mg/dL (8-26) Creatinine 0.9 mg/dL (0.7-1.3) Estimated GFR (Cockcroft-Gault) 95.5 BUN/Creatinine Ratio 36 (6-20) Glucose Level 125 mg/dL (70-99) Calcium Level 8.3 mg/dL (8.5-10.1) Total Bilirubin 1.3 mg/dL (0.2-1.0) Aspartate Amino Transf (AST/SGOT) 46 U/L (15-37) Alanine Aminotransferase (ALT/SGPT) 39 U/L (16-63) Alkaline Phosphatase 93 U/L (46-116) Total Protein 6.2 g/dL (6.4-8.2) Albumin 2.0 g/dL (3.4-5.0) Albumin/Globulin Ratio 0.5 (1.0-1.7) Assessment and Plan Assessmemt and Plan Problems Medical Problems: (1) Acute hypoxemic respiratory failure due to severe acute respiratory syndrome coronavirus 2 (SARS-CoV-2) disease Status: Acute (2) Dyspnea Status: Acute Comment Review of Relevant I have reviewed the following items mile (where applicable) has been applied. Labs Laboratory Tests Test 07/21/20 11:36 07/21/20 17:42 07/21/20 20:39 07/22/20 00:59 Glucose (Fingerstick) 203 mg/dL (70-99) 250 mg/dL (70-99) 213 mg/dL (70-99) 207 mg/dL (70-99) Test 07/22/20 06:46 07/22/20 07:13 07/22/20 08:05 07/22/20 09:15 Glucose (Fingerstick) 178 mg/dL (70-99) White Blood Count 12.8 x10^3/uL (4.0-11.0) Red Blood Count 4.57 x10^6/uL (4.30-5.70) Hemoglobin 12.9 g/dL (13.0-17.5) Hematocrit 38.1 % (39.0-53.0) Mean Corpuscular Volume 83 fL (79-100) Mean Corpuscular Hemoglobin 28 pg (25-35) Mean Corpuscular Hemoglobin Concent 34 g/dL (31-37) Red Cell Distribution Width 16.8 % (11.5-14.5) Platelet Count 144 x10^3/uL (140-400) Neutrophils (%) (Auto) 92 % (31-73) Lymphocytes (%) (Auto) 6 % (24-48) Monocytes (%) (Auto) 0 % (0-9) Eosinophils (%) (Auto) 2 % (0-3) Basophils (%) (Auto) 0 % (0-3) Neutrophils # (Auto) 11.7 x10^3/uL (1.8-7.7) Lymphocytes # (Auto) 0.8 x10^3/uL (1.0-4.8) Monocytes # (Auto) 0.0 x10^3/uL (0.0-1.1) Eosinophils # (Auto) 0.2 x10^3/uL (0.0-0.7) Basophils # (Auto) 0.0 x10^3/uL (0.0-0.2) Segmented Neutrophils % 70 % (35-66) Band Neutrophils % 19 % (0-9) Lymphocytes % 6 % (24-48) Monocytes % 1 % (0-10) Eosinophils % 1 % (0-5) Metamyelocytes % 1 % (0-0) Myelocytes % 2 % (0-0) Toxic Vacuolation Slight Platelet Estimate Adequate (ADEQUATE) Poikilocytosis Slight Anisocytosis Slight O2 Saturation 97 % (92-99) Arterial Blood pH 7.45 (7.35-7.45) Arterial Blood pCO2 at Patient Temp 45 mmHg (35-46) Arterial Blood pO2 at Patient Temp 97 mmHg (85-108) Arterial Blood HCO3 30 mmol/L (21-28) Arterial Blood Base Excess 5 mmol/L (-3-3) FiO2 75 Sodium Level 146 mmol/L (136-145) Potassium Level 3.4 mmol/L (3.5-5.1) Chloride Level 106 mmol/L (98-107) Carbon Dioxide Level 32 mmol/L (21-32) Anion Gap 8 (6-14) Blood Urea Nitrogen 29 mg/dL (8-26) Creatinine 1.0 mg/dL (0.7-1.3) Estimated GFR (Cockcroft-Gault) 84.5 BUN/Creatinine Ratio 29 (6-20) Glucose Level 262 mg/dL (70-99) Calcium Level 7.5 mg/dL (8.5-10.1) Total Bilirubin 0.5 mg/dL (0.2-1.0) Aspartate Amino Transf (AST/SGOT) 36 U/L (15-37) Alanine Aminotransferase (ALT/SGPT) 33 U/L (16-63) Alkaline Phosphatase 75 U/L (46-116) Total Protein 5.5 g/dL (6.4-8.2) Albumin 1.5 g/dL (3.4-5.0) Albumin/Globulin Ratio 0.4 (1.0-1.7) Test 07/22/20 12:13 07/22/20 18:59 07/23/20 00:13 07/23/20 05:15 Glucose (Fingerstick) 166 mg/dL (70-99) 208 mg/dL (70-99) 126 mg/dL (70-99) 96 mg/dL (70-99) Test 07/23/20 05:20 White Blood Count 32.6 x10^3/uL (4.0-11.0) Red Blood Count 5.14 x10^6/uL (4.30-5.70) Hemoglobin 13.5 g/dL (13.0-17.5) Hematocrit 42.9 % (39.0-53.0) Mean Corpuscular Volume 83 fL (79-100) Mean Corpuscular Hemoglobin 26 pg (25-35) Mean Corpuscular Hemoglobin Concent 32 g/dL (31-37) Red Cell Distribution Width 16.6 % (11.5-14.5) Platelet Count 181 x10^3/uL (140-400) Neutrophils (%) (Auto) 94 % (31-73) Lymphocytes (%) (Auto) 2 % (24-48) Monocytes (%) (Auto) 3 % (0-9) Eosinophils (%) (Auto) 0 % (0-3) Basophils (%) (Auto) 0 % (0-3) Neutrophils # (Auto) 30.7 x10^3/uL (1.8-7.7) Lymphocytes # (Auto) 0.8 x10^3/uL (1.0-4.8) Monocytes # (Auto) 1.0 x10^3/uL (0.0-1.1) Eosinophils # (Auto) 0.1 x10^3/uL (0.0-0.7) Basophils # (Auto) 0.1 x10^3/uL (0.0-0.2) Segmented Neutrophils % 69 % (35-66) Band Neutrophils % 22 % (0-9) Lymphocytes % 2 % (24-48) Atypical Lymphocytes % (Manual) 1 % (0-0) Monocytes % 4 % (0-10) Eosinophils % 1 % (0-5) Myelocytes % 1 % (0-0) Platelet Estimate Adequate (ADEQUATE) Polychromasia Slight Anisocytosis Slight Sodium Level 141 mmol/L (136-145) Potassium Level 4.2 mmol/L (3.5-5.1) Chloride Level 106 mmol/L (98-107) Carbon Dioxide Level 29 mmol/L (21-32) Anion Gap 6 (6-14) Blood Urea Nitrogen 32 mg/dL (8-26) Creatinine 0.9 mg/dL (0.7-1.3) Estimated GFR (Cockcroft-Gault) 95.5 BUN/Creatinine Ratio 36 (6-20) Glucose Level 125 mg/dL (70-99) Calcium Level 8.3 mg/dL (8.5-10.1) Total Bilirubin 1.3 mg/dL (0.2-1.0) Aspartate Amino Transf (AST/SGOT) 46 U/L (15-37) Alanine Aminotransferase (ALT/SGPT) 39 U/L (16-63) Alkaline Phosphatase 93 U/L (46-116) Total Protein 6.2 g/dL (6.4-8.2) Albumin 2.0 g/dL (3.4-5.0) Albumin/Globulin Ratio 0.5 (1.0-1.7) Laboratory Tests Test 07/22/20 09:15 07/22/20 12:13 07/22/20 18:59 07/23/20 00:13 Sodium Level 146 mmol/L (136-145) Potassium Level 3.4 mmol/L (3.5-5.1) Chloride Level 106 mmol/L (98-107) Carbon Dioxide Level 32 mmol/L (21-32) Anion Gap 8 (6-14) Blood Urea Nitrogen 29 mg/dL (8-26) Creatinine 1.0 mg/dL (0.7-1.3) Estimated GFR (Cockcroft-Gault) 84.5 BUN/Creatinine Ratio 29 (6-20) Glucose Level 262 mg/dL (70-99) Calcium Level 7.5 mg/dL (8.5-10.1) Total Bilirubin 0.5 mg/dL (0.2-1.0) Aspartate Amino Transf (AST/SGOT) 36 U/L (15-37) Alanine Aminotransferase (ALT/SGPT) 33 U/L (16-63) Alkaline Phosphatase 75 U/L (46-116) Total Protein 5.5 g/dL (6.4-8.2) Albumin 1.5 g/dL (3.4-5.0) Albumin/Globulin Ratio 0.4 (1.0-1.7) Glucose (Fingerstick) 166 mg/dL (70-99) 208 mg/dL (70-99) 126 mg/dL (70-99) Test 07/23/20 05:15 07/23/20 05:20 Glucose (Fingerstick) 96 mg/dL (70-99) White Blood Count 32.6 x10^3/uL (4.0-11.0) Red Blood Count 5.14 x10^6/uL (4.30-5.70) Hemoglobin 13.5 g/dL (13.0-17.5) Hematocrit 42.9 % (39.0-53.0) Mean Corpuscular Volume 83 fL (79-100) Mean Corpuscular Hemoglobin 26 pg (25-35) Mean Corpuscular Hemoglobin Concent 32 g/dL (31-37) Red Cell Distribution Width 16.6 % (11.5-14.5) Platelet Count 181 x10^3/uL (140-400) Neutrophils (%) (Auto) 94 % (31-73) Lymphocytes (%) (Auto) 2 % (24-48) Monocytes (%) (Auto) 3 % (0-9) Eosinophils (%) (Auto) 0 % (0-3) Basophils (%) (Auto) 0 % (0-3) Neutrophils # (Auto) 30.7 x10^3/uL (1.8-7.7) Lymphocytes # (Auto) 0.8 x10^3/uL (1.0-4.8) Monocytes # (Auto) 1.0 x10^3/uL (0.0-1.1) Eosinophils # (Auto) 0.1 x10^3/uL (0.0-0.7) Basophils # (Auto) 0.1 x10^3/uL (0.0-0.2) Segmented Neutrophils % 69 % (35-66) Band Neutrophils % 22 % (0-9) Lymphocytes % 2 % (24-48) Atypical Lymphocytes % (Manual) 1 % (0-0) Monocytes % 4 % (0-10) Eosinophils % 1 % (0-5) Myelocytes % 1 % (0-0) Platelet Estimate Adequate (ADEQUATE) Polychromasia Slight Anisocytosis Slight Sodium Level 141 mmol/L (136-145) Potassium Level 4.2 mmol/L (3.5-5.1) Chloride Level 106 mmol/L (98-107) Carbon Dioxide Level 29 mmol/L (21-32) Anion Gap 6 (6-14) Blood Urea Nitrogen 32 mg/dL (8-26) Creatinine 0.9 mg/dL (0.7-1.3) Estimated GFR (Cockcroft-Gault) 95.5 BUN/Creatinine Ratio 36 (6-20) Glucose Level 125 mg/dL (70-99) Calcium Level 8.3 mg/dL (8.5-10.1) Total Bilirubin 1.3 mg/dL (0.2-1.0) Aspartate Amino Transf (AST/SGOT) 46 U/L (15-37) Alanine Aminotransferase (ALT/SGPT) 39 U/L (16-63) Alkaline Phosphatase 93 U/L (46-116) Total Protein 6.2 g/dL (6.4-8.2) Albumin 2.0 g/dL (3.4-5.0) Albumin/Globulin Ratio 0.5 (1.0-1.7) Microbiology 07/13/20 Urine Culture - Final, Complete 07/13/20 Blood Culture - Final, Complete NO GROWTH AFTER 5 DAYS Medications Current Medications Dexamethasone Sodium Phosphate (Decadron) 6 mg 1X ONCE IV ; Start 07/13/20 at 09:30; Stop 07/13/20 at 09:39; Status DC Ceftriaxone Sodium (Rocephin) 1 gm 1X ONCE IVP Last administered on 07/13/20at 09:36; Start 07/13/20 at 09:30; Stop 07/13/20 at 09:31; Status DC Azithromycin 250 ml @ 250 mls/hr 1X ONCE IV Last administered on 07/13/20at 09:37; Start 07/13/20 at 09:30; Stop 07/13/20 at 10:29; Status DC Sodium Chloride 1,000 ml @ 1,000 mls/hr 1X ONCE IV Last administered on 07/13/20at 09:36; Start 07/13/20 at 09:30; Stop 07/13/20 at 10:29; Status DC Acetaminophen (Tylenol) 1,000 mg 1X ONCE PO Last administered on 07/13/20at 0 9:36; Start 07/13/20 at 09:30; Stop 07/13/20 at 09:31; Status DC Dexamethasone Sodium Phosphate (Decadron) 4 mg STK-MED ONCE .ROUTE ; Start 07/13/20 at 09:28; Stop 07/13/20 at 09:28; Status DC Azithromycin 250 ml @ As Directed STK-MED ONCE IV ; Start 07/13/20 at 09:28; Stop 07/13/20 at 09:28; Status DC Ceftriaxone Sodium (Rocephin) 1 gm STK-MED ONCE IVP ; Start 07/13/20 at 09:28; Stop 07/13/20 at 09:28; Status DC Dexamethasone Sodium Phosphate (Decadron) 6 mg 1X ONCE IVP Last administered on 07/13/20at 09:42; Start 07/13/20 at 09:45; Stop 07/13/20 at 09:46; Status DC Ondansetron HCl (Zofran) 4 mg PRN Q8HRS PRN IV NAUSEA/VOMITING; Start 07/13/20 at 09:45; Stop 07/14/20 at 08:19; Status DC Enoxaparin Sodium (Lovenox 120mg Syringe) 110 mg 1X ONCE SQ Last administered on 07/13/20at 10:14; Start 07/13/20 at 10:15; Stop 07/13/20 at 10:16; Status DC Iohexol (Omnipaque 350 Mg/ml) 100 ml 1X ONCE IV Last administered on 07/13/20at 10:15; Start 07/13/20 at 10:15; Stop 07/13/20 at 10:16; Status DC Info (CONTRAST GIVEN -- Rx MONITORING) 1 each PRN DAILY PRN MC SEE COMMENTS; Start 07/13/20 at 10:30; Stop 07/15/20 at 10:29; Status DC Potassium Chloride (Klor-Con) 40 meq 1X ONCE PO Last administered on 07/13/20at 11:20; Start 07/13/20 at 11:15; Stop 07/13/20 at 11:16; Status DC Potassium Chloride/Water 100 ml @ 100 mls/hr Q1H IV ; Start 07/13/20 at 10:45; Stop 07/13/20 at 10:46; Status DC Potassium Chloride/Water 100 ml @ 100 mls/hr Q1H IV Last administered on 07/13/20at 17:17; Start 07/13/20 at 11:30; Stop 07/13/20 at 15:29; Status DC Sodium Chloride 1,000 ml @ 125 mls/hr 1X ONCE IV Last administered on 07/13/20at 11:26; Start 07/13/20 at 11:00; Stop 07/13/20 at 18:59; Status DC Calcium Gluconate 1000 mg/Sodium Chloride 110 ml @ 220 mls/hr 1X ONCE IV Last administered on 07/13/20at 11:51; Start 07/13/20 at 11:45; Stop 07/13/20 at 12:14; Status DC Magnesium Sulfate 50 ml @ 25 mls/hr 1X ONCE IV Last administered on 07/13/20at 13:26; Start 07/13/20 at 11:30; Stop 07/13/20 at 13:29; Status DC Remdesivir 200 mg/ Sodium Chloride 210 ml @ 210 mls/hr 1X ONCE IV Last administered on 07/13/20at 15:21; Start 07/13/20 at 14:00; Stop 07/13/20 at 14:59; Status DC Remdesivir 100 mg/ Sodium Chloride 230 ml @ 460 mls/hr Q24H IV Last administered on 07/17/20at 15:36; Start 07/14/20 at 14:00; Stop 07/17/20 at 14:29; Status DC Magnesium Sulfate 50 ml @ 25 mls/hr 1X ONCE IV ; Start 07/13/20 at 12:30; Stop 07/13/20 at 14:29; Status UNV Vitamin D (Vitamin D3) 1,000 unit DAILY PO Last administered on 07/23/20at 08:54; Start 07/13/20 at 13:00 Ascorbic Acid (Vitamin C) 1,000 mg DAILY PO Last administered on 07/23/20at 08:54; Start 07/13/20 at 13:00 Dexamethasone (Decadron) 6 mg [id number] PO Last administered on 07/14/20at 09:14; Start 07/14/20 at 08:00; Stop 07/15/20 at 09:13; Status DC Doxycycline Hyclate 100 mg/ Dextrose 100 ml @ 50 mls/hr Q12HR IV Last administered on 07/13/20at 13:21; Start 07/13/20 at 13:00; Stop 07/13/20 at 23:25; Status DC Ceftriaxone Sodium (Rocephin) 1 gm Q24H IVP ; Start 07/14/20 at 09:00; Stop 07/13/20 at 23:25; Status DC Enoxaparin Sodium (Lovenox 40mg Syringe) 40 mg Q24H SQ Last administered on 07/13/20at 13:31; Start 07/13/20 at 13:00; Stop 07/14/20 at 10:47; Status DC Influenza Virus Vaccine Quadrival (Fluzone Quad Syringe) 0.5 ml ONCE ONCE VAX IM ; Start 07/15/20 at 09:00; Stop 07/15/20 at 09:01; Status DC Benzonatate (Tessalon Perle) 100 mg Q6HRS PO Last administered on 07/18/20at 05:36; Start 07/13/20 at 18:00; Stop 07/19/20 at 10:24; Status DC Phenol (Chloraseptic) 1 spray PRN Q2HR PRN PO SORE THROAT Last administered on 07/13/20at 16:27; Start 07/13/20 at 16:15 Acetaminophen (Tylenol) 650 mg PRN Q6HRS PRN PO MILD PAIN / TEMP > 100.3'F Last administered on 07/23/20at 04:07; Start 07/13/20 at 16:15 Prochlorperazine Edisylate (Compazine) 10 mg PRN Q6HRS PRN IV NAUSEA/VOMITING; Start 07/13/20 at 16:15 Lorazepam (Ativan Inj) 0.25 mg PRN Q6HRS PRN IVP ANXIETY / AGITATION Last administered on 07/13/20at 16:42; Start 07/13/20 at 16:45 Sterile Water (WATER for RESP) 1,000 ml CONT PRN INH VIA VAPOTHERM DEVICE; Start 07/13/20 at 17:15 Dexmedetomidine HCl 400 mcg/ Sodium Chloride 100 ml @ 0 mls/hr CONT PRN IV PER PROTOCOL; Start 07/13/20 at 17:00 Sodium Chloride 500 ml @ 500 mls/hr 1X PRN PRN IV SEE COMMENTS; Start 07/13/20 at 17:00 Atropine Sulfate (ATROPINE 0.5mg SYRINGE) 0.5 mg PRN Q5MIN PRN IV SEE COMMENTS; Start 07/13/20 at 17:00 Propofol 100 ml @ As Directed STK-MED ONCE IV ; Start 07/13/20 at 17:20; Stop 07/13/20 at 17:20; Status DC Succinylcholine Chloride (Anectine) 200 mg STK-MED ONCE .ROUTE ; Start 07/13/20 at 17:40; Stop 07/13/20 at 17:41; Status DC Fentanyl Citrate 30 ml @ 0 mls/hr CONT PRN IV SEE PROTOCOL Last administered on 07/13/20at 18:40; Start 07/13/20 at 17:45; Stop 07/13/20 at 20:11; Status DC Propofol 100 ml @ 0 mls/hr CONT PRN IV PER PROTOCOL Last administered on 07/14/20at 20:13; Start 07/13/20 at 17:45; Stop 07/20/20 at 11:33; Status DC Chlorhexidine Gluconate (Peridex) 15 ml BID MM Last administered on 07/15/20at 08:33; Start 07/13/20 at 21:00; Stop 07/16/20 at 18:59; Status DC Midazolam HCl 100 ml @ 0 mls/hr CONT PRN IV SEE PROTOCOL Last administered on 07/22/20at 20:39; Start 07/13/20 at 17:45 Vecuronium [place] (Norcuron Bolus) 10 mg STK-MED ONCE IV ; Start 07/13/20 at 18:12; Stop 07/13/20 at 18:12; Status DC Etomidate (Amidate) 20 mg STK-MED ONCE IV ; Start 07/13/20 at 18:24; Stop 07/13/20 at 18:24; Status DC Vecuronium [place] (Norcuron Bolus) 6 mg PRN Q4HRS PRN IV Out of sync with ventilator Last administered on 07/13/20at 19:39; Start 07/13/20 at 19:30 Fentanyl Citrate 55 ml @ 0 mls/hr CONT PRN PRN IV PAIN Last administered on 07/22/20at 22:45; Start 07/13/20 at 19:45 Vecuronium [place] 50 mg/ Miscellaneous 50 ml @ 5.683 mls/ hr CONT PRN IV SEE I/O RECORD Last administered on 07/23/20at 03:00; Start 07/13/20 at 22:00 Norepinephrine Bitartrate 8 mg/ Dextrose 258 ml @ 22.91 mls/ hr CONT PRN IV PER PROTOCOL Last administered on 07/23/20at 07:52; Start 07/13/20 at 23:30 Ringer's Solution 1,000 ml @ 100 mls/hr Q10H IV Last administered on 07/14/20at 20:12; Start 07/13/20 at 23:30; Stop 07/15/20 at 09:08; Status DC Thiamine HCl 300 mg/Dextrose 53 ml @ 102 mls/hr DAILY IV Last administered on 07/23/20at 08:53; Start 07/14/20 at 09:00 Vancomycin HCl (Vanco Per Pharmacy) 1 each PRN DAILY PRN MC SEE COMMENTS Last administered on 07/14/20at 02:10; Start 07/13/20 at 23:16; Stop 07/14/20 at 09:14; Status DC Piperacillin Sod/ Tazobactam Sod (Zosyn Per Pharmacy) 1 each PRN DAILY PRN MC SEE COMMENTS; Start 07/13/20 at 23:16; Stop 07/22/20 at 09:33; Status DC Vancomycin HCl 2 gm/Sodium Chloride 500 ml @ 250 mls/hr 1X ONCE IV Last administered on 07/14/20at 00:24; Start 07/13/20 at 23:45; Stop 07/14/20 at 01:44; Status DC Piperacillin Sod/ Tazobactam Sod 3.375 gm/Sodium Chloride 50 ml @ 100 mls/hr Q6HRS IV Last administered on 07/22/20at 06:50; Start 07/14/20 at 00:00; Stop 07/22/20 at 09:32; Status DC Vancomycin HCl 1.5 gm/Sodium Chloride 500 ml @ 250 mls/hr Q8H IV Last administered on 07/14/20at 08:46; Start 07/14/20 at 08:00; Stop 07/14/20 at 09:14; Status DC Vancomycin HCl (Vancomycin Trough Level) 1 each 1X ONCE MC ; Start 07/14/20 at 23:30; Stop 07/14/20 at 23:31; Status Cancel Etomidate (Amidate) 20 mg STK-MED ONCE IV ; Start 07/13/20 at 18:00; Stop 07/14/20 at 08:36; Status DC Succinylcholine Chloride (Anectine) 200 mg STK-MED ONCE .ROUTE ; Start 07/13/20 at 18:00; Stop 07/14/20 at 08:36; Status DC Linezolid/Dextrose 300 ml @ 300 mls/hr Q12HR IV Last administered on 07/19/20at 09:56; Start 07/14/20 at 21:00; Stop 07/19/20 at 10:10; Status DC Insulin Glargine (Lantus Syringe) 8 unit QHS SQ Last administered on 07/14/20at 20:42; Start 07/14/20 at 21:00; Stop 07/15/20 at 07:57; Status DC Insulin Human Lispro (HumaLOG) 0-9 UNITS Q6HRS SQ Last administered on 07/22/20at 19:00; Start 07/14/20 at 12:00 Dextrose (Dextrose 50%-Water Syringe) 12.5 gm PRN Q15MIN PRN IV SEE COMMENTS; Start 07/14/20 at 09:30 Enoxaparin Sodium (Lovenox 40mg Syringe) 40 mg BID SQ Last administered on 07/23/20at 08:54; Start 07/14/20 at 21:00 Famotidine (Pepcid Vial) 20 mg BID IVP Last administered on 07/23/20at 08:54; Start 07/14/20 at 21:00 Insulin Glargine (Lantus Syringe) 15 unit QHS SQ ; Start 07/15/20 at 21:00; Stop 07/15/20 at 18:18; Status DC Insulin Human Lispro (HumaLOG) 5 units Q6HRS SQ Last administered on 07/15/20at 23:46; Start 07/15/20 at 12:00; Stop 07/16/20 at 09:56; Status DC Info (Tpn Per Pharmacy) 1 each PRN DAILY PRN MC SEE COMMENTS Last administered on 07/22/20at 11:18; Start 07/15/20 at 09:15 Dexamethasone Sodium Phosphate (Decadron) 6 mg DAILY IVP Last administered on 07/22/20at 08:12; Start 07/15/20 at 10:00; Stop 07/22/20 at 13:47; Status DC Sodium Chloride 90 meq/Potassium Chloride 25 meq/ Potassium Phosphate 13.6 mmol/Magnesium Sulfate 10 meq/ Calcium Gluconate 10 meq/ Multivitamins 5 ml/Zinc/Copper/ Manganese/ Selenium 1 ml/ Total Parenteral Nutrition/Amino Acids/Dextrose 1,512 ml @ 63 mls/hr TPN CONT IV Last administered on 07/15/20at 22:01; Start 07/15/20 at 22:00; Stop 07/16/20 at 21:59; Status DC Sodium Phosphate 15 mmol/Sodium Chloride 105 ml @ 105 mls/hr 1X ONCE IV Last administered on 07/15/20at 13:12; Start 07/15/20 at 13:00; Stop 07/15/20 at 13:59; Status DC Insulin Glargine (Lantus Syringe) 20 unit QHS SQ Last administered on 07/15/20at 21:04; Start 07/15/20 at 21:00; Stop 07/16/20 at 09:56; Status DC Insulin Human Lispro (HumaLOG) 18 units 1X ONCE SQ Last administered on 07/16/20at 00:41; Start 07/16/20 at 01:00; Stop 07/16/20 at 01:01; Status DC Insulin Human Lispro (HumaLOG) 26 units 1X ONCE SQ Last administered on 07/16/20at 06:06; Start 07/16/20 at 06:30; Stop 07/16/20 at 06:31; Status DC Insulin Glargine (Lantus Syringe) 45 unit QHS SQ Last administered on 07/16/20at 21:24; Start 07/16/20 at 21:00; Stop 07/17/20 at 06:44; Status DC Insulin Human Lispro (HumaLOG) 10 units Q6HRS SQ Last administered on 07/18/20at 05:38; Start 07/16/20 at 12:00; Stop 07/18/20 at 10:07; Status DC Sodium Phosphate 30 mmol/Sodium Chloride 260 ml @ 65 mls/hr 1X ONCE IV Last administered on 07/16/20at 13:29; Start 07/16/20 at 13:00; Stop 07/16/20 at 16:59; Status DC Multi-Ingred Cream/Lotion/Oil/ Oint (Artificial Tears Eye Ointment) 1 klaudia Q6HRS OU Last administered on 07/23/20at 05:40; Start 07/16/20 at 13:00 Sodium Chloride 90 meq/Potassium Phosphate 20 mmol/ Calcium Gluconate 10 meq/ Multivitamins 5 ml/Zinc/Copper/ Manganese/ Selenium 1 ml/ Total Parenteral Nutrition/Amino Acids/Dextrose/ Fat Emulsion Intravenous 1,512 ml @ 63 mls/hr TPN CONT IV Last administered on 07/16/20at 22:54; Start 07/16/20 at 22:00; Stop 07/17/20 at 21:59; Status DC Insulin Human Lispro (HumaLOG) 20 units 1X ONCE SQ Last administered on 07/16/20at 23:55; Start 07/16/20 at 23:55; Stop 07/16/20 at 23:56; Status DC Insulin Glargine (Lantus Syringe) 45 unit BID SQ Last administered on 07/23/20at 08:56; Start 07/17/20 at 09:00 Insulin Human Lispro (HumaLOG) 25 units 1X ONCE SQ Last administered on 07/17/20at 06:50; Start 07/17/20 at 07:00; Stop 07/17/20 at 07:01; Status DC Potassium Phosphate 13.6 mmol/Sodium Chloride 254.5333 ml @ 127.... Q2H IV Last administered on 07/17/20at 13:22; Start 07/17/20 at 11:30; Stop 07/17/20 at 13:29; Status DC Sodium Chloride 90 meq/Potassium Phosphate 23 mmol/ Calcium Gluconate 10 meq/ Multivitamins 5 ml/Zinc/Copper/ Manganese/ Selenium 1 ml/ Total Parenteral Nutrition/Amino Acids/Dextrose/ Fat Emulsion Intravenous 1,512 ml @ 63 mls/hr TPN CONT IV Last administered on 07/17/20at 21:32; Start 07/17/20 at 22:00; Stop 07/18/20 at 21:59; Status DC Insulin Human Lispro (HumaLOG) 18 units Q6HRS SQ Last administered on 07/22/20at 19:01; Start 07/18/20 at 12:00 Sodium Chloride 90 meq/Potassium Phosphate 23 mmol/ Calcium Gluconate 5 meq/ Multivitamins 5 ml/Zinc/Copper/ Manganese/ Selenium 1 ml/ Total Parenteral Nutrition/Amino Acids/Dextrose/ Fat Emulsion Intravenous 1,512 ml @ 63 mls/hr TPN CONT IV Last administered on 07/18/20at 20:52; Start 07/18/20 at 22:00; Stop 07/19/20 at 21:59; Status DC Sodium Chloride 70 meq/Potassium Phosphate 23 mmol/ Calcium Gluconate 5 meq/ Multivitamins 5 ml/Zinc/Copper/ Manganese/ Selenium 1 ml/ Total Parenteral Nutrition/Amino Acids/Dextrose/ Fat Emulsion Intravenous 1,512 ml @ 63 mls/hr TPN CONT IV Last administered on 07/19/20at 20:49; Start 07/19/20 at 22:00; Stop 07/20/20 at 21:59; Status DC Propofol 100 ml @ 3.42 mls/hr CONT PRN IV PER PROTOCOL Last administered on 07/23/20at 07:16; Start 07/20/20 at 11:30 Sodium Chloride 70 meq/Potassium Phosphate 23 mmol/ Calcium Gluconate 5 meq/ Multivitamins 5 ml/Zinc/Copper/ Manganese/ Selenium 1 ml/ Total Parenteral Nutrition/Amino Acids/Dextrose 1,512 ml @ 63 mls/hr TPN CONT IV Last administered on 07/20/20at 20:48; Start 07/20/20 at 22:00; Stop 07/21/20 at 21:59; Status DC Sodium Chloride 70 meq/Potassium Phosphate 23 mmol/ Calcium Gluconate 5 meq/ Multivitamins 5 ml/Zinc/Copper/ Manganese/ Selenium 1 ml/ Total Parenteral Nutrition/Amino Acids/Dextrose 1,512 ml @ 63 mls/hr TPN CONT IV Last administered on 07/22/20at 03:10; Start 07/21/20 at 22:00; Stop 07/22/20 at 21:59; Status DC Sodium Chloride 50 meq/Potassium Chloride 20 meq/ Potassium Phosphate 23 mmol/ Calcium Gluconate 5 meq/ Multivitamins 5 ml/Zinc/Copper/ Manganese/ Selenium 1 ml/ Total Parenteral Nutrition/Amino Acids/Dextrose 1,512 ml @ 63 mls/hr TPN CONT IV Last administered on 07/22/20at 22:33; Start 07/22/20 at 22:00; Stop 07/23/20 at 21:59 Dexamethasone Sodium Phosphate (Decadron) 4 mg DAILY IVP ; Start 07/23/20 at 09:00 Linezolid/Dextrose 300 ml @ 300 mls/hr Q12HR IV Last administered on 07/23/20at 08:54; Start 07/23/20 at 09:00 Piperacillin Sod/ Tazobactam Sod 3.375 gm/Sodium Chloride 50 ml @ 100 mls/hr Q6HRS IV ; Start 07/23/20 at 12:00; Stop 07/23/20 at 08:05; Status DC Piperacillin Sod/ Tazobactam Sod 4.5 gm/Sodium Chloride 100 ml @ 200 mls/hr Q6HRS IV Last administered on 07/23/20at 08:56; Start 07/23/20 at 09:00 Active Scripts Active Reported No Known Medications Prior To Admisstion (Info) Each 1 Each MC 1X Vitals/I & O Vital Sign - Last 24 Hours 07/22/20 07/22/20 07/22/20 07/22/20 09:00 09:42 10:00 10:20 Pulse 62 69 Resp 30 30 B/P (MAP) 119/70 (86) 141/85 (103) Pulse Ox 100 100 100 100 O2 Delivery Ventilator Ventilator Ventilator Ventilator 07/22/20 07/22/20 07/22/20 07/22/20 11:00 11:38 12:00 12:26 Temp 98.1 98.1 Pulse 88 114 Resp 30 30 B/P (MAP) 141/85 (103) 168/93 (118) Pulse Ox 100 100 97 O2 Delivery Ventilator Ventilator Ventilator Mechanical Ventilator 07/22/20 07/22/20 07/22/20 07/22/20 13:00 14:00 15:00 15:44 Pulse 114 104 69 Resp 30 30 30 B/P (MAP) 176/84 (114) 153/76 (101) 141/73 (95) Pulse Ox 96 97 98 98 O2 Delivery Ventilator Ventilator Ventilator Ventilator 07/22/20 07/22/20 07/22/20 07/22/20 16:00 16:00 17:00 18:00 Temp 98.3 98.3 Pulse 77 68 60 Resp 30 30 30 B/P (MAP) 155/81 (105) 138/67 (90) 138/66 (90) Pulse Ox 99 100 100 O2 Delivery Ventilator Mechanical Ventilator Ventilator Ventilator 07/22/20 07/22/20 07/22/20 07/22/20 19:00 20:00 20:00 20:26 Temp 98.2 98.2 Pulse 62 70 Resp 30 30 B/P (MAP) 160/84 (109) 160/81 (107) Pulse Ox 100 100 100 O2 Delivery Ventilator Ventilator Mechanical Ventilator Ventilator 07/22/20 07/22/20 07/22/2007/23/20 21:00 22:00 23:00 00:00 Pulse 110 110 106 Resp 30 30 30 B/P (MAP) 144/70 (94) 171/89 (116) 176/98 (124) Pulse Ox 98 97 96 96 O2 Delivery Ventilator Ventilator Ventilator Ventilator 07/23/20 07/23/20 07/23/20 07/23/20 00:00 00:00 01:00 02:00 Temp 99.2 99.2 Pulse 117 121 129 Resp 30 30 30 B/P (MAP) 184/98 (126) 161/85 (110) 195/101 (132) Pulse Ox 96 96 94 O2 Delivery Ventilator Mechanical Ventilator Ventilator Ventilator 07/23/20 07/23/20 07/23/20 07/23/20 03:00 03:07 04:00 04:00 Temp 102.1 102.1 Pulse 132 136 Resp 30 30 B/P (MAP) 157/69 (98) 188/83 (118) Pulse Ox 93 94 91 O2 Delivery Ventilator Ventilator Ventilator Mechanical Ventilator 07/23/20 07/23/20 05:00 05:34 Temp 99.5 99.5 Pulse 130 Resp 30 B/P (MAP) 149/55 (86) Pulse Ox 88 89 O2 Delivery Ventilator Intake and Output 07/22/20 07/22/20 07/23/20 15:00 23:00 07:00 Intake Total 3012.7 ml Output Total 675 ml 950 ml 900 ml Balance -675 ml 2062.7 ml -900 ml Justicifation of Admission Dx: Justifications for Admission: Justification of Admission Dx: Yes Comminuty Aquired Pneumonia: Dehydration COLIN VELAZQUEZ MD Jul 23, 2020 08:59
[2020-07-23 09:08] LABS: BASE EXCESS ABG 2 mmol/L (-3-3); HCO3 ABG 30 mmol/L (21-28); PO2 ABG 52 mmHg (85-108); SAT O2 ABG 83 % (92-99)
[2020-07-23 09:11] LABS: PCO2 ABG 63 mmHg (35-46)
[2020-07-23 09:12] LABS: FIO2 ABG 85/vent
[2020-07-23] MEDS ORDERED: IV NORMAL SALINE 1000ML BAG 1,000 ML IV ONE (10:00)
--- NOTE | 2020-07-23 10:48 | PDOC ---
PULMONARY PROGRESS NOTES DATE: 07/23/20 TIME: 10:44 Subjective Patient remains on vent support assist-control mode currently FiO2 of 85% and PEEP of 11 Worsening oxygenation overnight Fever this morning Hypotension as well now requiring vasopressors no other concerns Vitals Vital Signs Date Time Temp Pulse Resp B/P (MAP) Pulse Ox O2 Delivery O2 Flow Rate FiO2 07/23/20 08:44 93 Ventilator 07/23/20 05:00 99.5 130 30 149/55 (86) 99.5 Comments Patient seen during , visual exam preformed intubated/sedated no accessory muscle use no distress no obvious edema Labs Laboratory Tests Test 07/21/20 11:36 07/21/20 17:42 07/21/20 20:39 07/22/20 00:59 Glucose (Fingerstick) 203 mg/dL (70-99) 250 mg/dL (70-99) 213 mg/dL (70-99) 207 mg/dL (70-99) Test 07/22/20 06:46 07/22/20 07:13 07/22/20 08:05 07/22/20 09:15 Glucose (Fingerstick) 178 mg/dL (70-99) White Blood Count 12.8 x10^3/uL (4.0-11.0) Red Blood Count 4.57 x10^6/uL (4.30-5.70) Hemoglobin 12.9 g/dL (13.0-17.5) Hematocrit 38.1 % (39.0-53.0) Mean Corpuscular Volume 83 fL (79-100) Mean Corpuscular Hemoglobin 28 pg (25-35) Mean Corpuscular Hemoglobin Concent 34 g/dL (31-37) Red Cell Distribution Width 16.8 % (11.5-14.5) Platelet Count 144 x10^3/uL (140-400) Neutrophils (%) (Auto) 92 % (31-73) Lymphocytes (%) (Auto) 6 % (24-48) Monocytes (%) (Auto) 0 % (0-9) Eosinophils (%) (Auto) 2 % (0-3) Basophils (%) (Auto) 0 % (0-3) Neutrophils # (Auto) 11.7 x10^3/uL (1.8-7.7) Lymphocytes # (Auto) 0.8 x10^3/uL (1.0-4.8) Monocytes # (Auto) 0.0 x10^3/uL (0.0-1.1) Eosinophils # (Auto) 0.2 x10^3/uL (0.0-0.7) Basophils # (Auto) 0.0 x10^3/uL (0.0-0.2) Segmented Neutrophils % 70 % (35-66) Band Neutrophils % 19 % (0-9) Lymphocytes % 6 % (24-48) Monocytes % 1 % (0-10) Eosinophils % 1 % (0-5) Metamyelocytes % 1 % (0-0) Myelocytes % 2 % (0-0) Toxic Vacuolation Slight Platelet Estimate Adequate (ADEQUATE) Poikilocytosis Slight Anisocytosis Slight O2 Saturation 97 % (92-99) Arterial Blood pH 7.45 (7.35-7.45) Arterial Blood pCO2 at Patient Temp 45 mmHg (35-46) Arterial Blood pO2 at Patient Temp 97 mmHg (85-108) Arterial Blood HCO3 30 mmol/L (21-28) Arterial Blood Base Excess 5 mmol/L (-3-3) FiO2 75 Sodium Level 146 mmol/L (136-145) Potassium Level 3.4 mmol/L (3.5-5.1) Chloride Level 106 mmol/L (98-107) Carbon Dioxide Level 32 mmol/L (21-32) Anion Gap 8 (6-14) Blood Urea Nitrogen 29 mg/dL (8-26) Creatinine 1.0 mg/dL (0.7-1.3) Estimated GFR (Cockcroft-Gault) 84.5 BUN/Creatinine Ratio 29 (6-20) Glucose Level 262 mg/dL (70-99) Calcium Level 7.5 mg/dL (8.5-10.1) Total Bilirubin 0.5 mg/dL (0.2-1.0) Aspartate Amino Transf (AST/SGOT) 36 U/L (15-37) Alanine Aminotransferase (ALT/SGPT) 33 U/L (16-63) Alkaline Phosphatase 75 U/L (46-116) Total Protein 5.5 g/dL (6.4-8.2) Albumin 1.5 g/dL (3.4-5.0) Albumin/Globulin Ratio 0.4 (1.0-1.7) Test 07/22/20 12:13 07/22/20 18:59 07/23/20 00:13 07/23/20 05:15 Glucose (Fingerstick) 166 mg/dL (70-99) 208 mg/dL (70-99) 126 mg/dL (70-99) 96 mg/dL (70-99) Test 07/23/20 05:20 07/23/20 08:00 White Blood Count 32.6 x10^3/uL (4.0-11.0) Red Blood Count 5.14 x10^6/uL (4.30-5.70) Hemoglobin 13.5 g/dL (13.0-17.5) Hematocrit 42.9 % (39.0-53.0) Mean Corpuscular Volume 83 fL (79-100) Mean Corpuscular Hemoglobin 26 pg (25-35) Mean Corpuscular Hemoglobin Concent 32 g/dL (31-37) Red Cell Distribution Width 16.6 % (11.5-14.5) Platelet Count 181 x10^3/uL (140-400) Neutrophils (%) (Auto) 94 % (31-73) Lymphocytes (%) (Auto) 2 % (24-48) Monocytes (%) (Auto) 3 % (0-9) Eosinophils (%) (Auto) 0 % (0-3) Basophils (%) (Auto) 0 % (0-3) Neutrophils # (Auto) 30.7 x10^3/uL (1.8-7.7) Lymphocytes # (Auto) 0.8 x10^3/uL (1.0-4.8) Monocytes # (Auto) 1.0 x10^3/uL (0.0-1.1) Eosinophils # (Auto) 0.1 x10^3/uL (0.0-0.7) Basophils # (Auto) 0.1 x10^3/uL (0.0-0.2) Segmented Neutrophils % 69 % (35-66) Band Neutrophils % 22 % (0-9) Lymphocytes % 2 % (24-48) Atypical Lymphocytes % (Manual) 1 % (0-0) Monocytes % 4 % (0-10) Eosinophils % 1 % (0-5) Myelocytes % 1 % (0-0) Platelet Estimate Adequate (ADEQUATE) Polychromasia Slight Anisocytosis Slight Sodium Level 141 mmol/L (136-145) Potassium Level 4.2 mmol/L (3.5-5.1) Chloride Level 106 mmol/L (98-107) Carbon Dioxide Level 29 mmol/L (21-32) Anion Gap 6 (6-14) Blood Urea Nitrogen 32 mg/dL (8-26) Creatinine 0.9 mg/dL (0.7-1.3) Estimated GFR (Cockcroft-Gault) 95.5 BUN/Creatinine Ratio 36 (6-20) Glucose Level 125 mg/dL (70-99) Calcium Level 8.3 mg/dL (8.5-10.1) Total Bilirubin 1.3 mg/dL (0.2-1.0) Aspartate Amino Transf (AST/SGOT) 46 U/L (15-37) Alanine Aminotransferase (ALT/SGPT) 39 U/L (16-63) Alkaline Phosphatase 93 U/L (46-116) Total Protein 6.2 g/dL (6.4-8.2) Albumin 2.0 g/dL (3.4-5.0) Albumin/Globulin Ratio 0.5 (1.0-1.7) O2 Saturation 83 % (92-99) Arterial Blood pH 7.30 (7.35-7.45) Arterial Blood pCO2 at Patient Temp 63 mmHg (35-46) Arterial Blood pO2 at Patient Temp 52 mmHg (85-108) Arterial Blood HCO3 30 mmol/L (21-28) Arterial Blood Base Excess 2 mmol/L (-3-3) FiO2 85/vent Laboratory Tests Test 07/22/20 12:13 07/22/20 18:59 07/23/20 00:13 07/23/20 05:15 Glucose (Fingerstick) 166 mg/dL (70-99) 208 mg/dL (70-99) 126 mg/dL (70-99) 96 mg/dL (70-99) Test 07/23/20 05:20 07/23/20 08:00 White Blood Count 32.6 x10^3/uL (4.0-11.0) Red Blood Count 5.14 x10^6/uL (4.30-5.70) Hemoglobin 13.5 g/dL (13.0-17.5) Hematocrit 42.9 % (39.0-53.0) Mean Corpuscular Volume 83 fL (79-100) Mean Corpuscular Hemoglobin 26 pg (25-35) Mean Corpuscular Hemoglobin Concent 32 g/dL (31-37) Red Cell Distribution Width 16.6 % (11.5-14.5) Platelet Count 181 x10^3/uL (140-400) Neutrophils (%) (Auto) 94 % (31-73) Lymphocytes (%) (Auto) 2 % (24-48) Monocytes (%) (Auto) 3 % (0-9) Eosinophils (%) (Auto) 0 % (0-3) Basophils (%) (Auto) 0 % (0-3) Neutrophils # (Auto) 30.7 x10^3/uL (1.8-7.7) Lymphocytes # (Auto) 0.8 x10^3/uL (1.0-4.8) Monocytes # (Auto) 1.0 x10^3/uL (0.0-1.1) Eosinophils # (Auto) 0.1 x10^3/uL (0.0-0.7) Basophils # (Auto) 0.1 x10^3/uL (0.0-0.2) Segmented Neutrophils % 69 % (35-66) Band Neutrophils % 22 % (0-9) Lymphocytes % 2 % (24-48) Atypical Lymphocytes % (Manual) 1 % (0-0) Monocytes % 4 % (0-10) Eosinophils % 1 % (0-5) Myelocytes % 1 % (0-0) Platelet Estimate Adequate (ADEQUATE) Polychromasia Slight Anisocytosis Slight Sodium Level 141 mmol/L (136-145) Potassium Level 4.2 mmol/L (3.5-5.1) Chloride Level 106 mmol/L (98-107) Carbon Dioxide Level 29 mmol/L (21-32) Anion Gap 6 (6-14) Blood Urea Nitrogen 32 mg/dL (8-26) Creatinine 0.9 mg/dL (0.7-1.3) Estimated GFR (Cockcroft-Gault) 95.5 BUN/Creatinine Ratio 36 (6-20) Glucose Level 125 mg/dL (70-99) Calcium Level 8.3 mg/dL (8.5-10.1) Total Bilirubin 1.3 mg/dL (0.2-1.0) Aspartate Amino Transf (AST/SGOT) 46 U/L (15-37) Alanine Aminotransferase (ALT/SGPT) 39 U/L (16-63) Alkaline Phosphatase 93 U/L (46-116) Total Protein 6.2 g/dL (6.4-8.2) Albumin 2.0 g/dL (3.4-5.0) Albumin/Globulin Ratio 0.5 (1.0-1.7) O2 Saturation 83 % (92-99) Arterial Blood pH 7.30 (7.35-7.45) Arterial Blood pCO2 at Patient Temp 63 mmHg (35-46) Arterial Blood pO2 at Patient Temp 52 mmHg (85-108) Arterial Blood HCO3 30 mmol/L (21-28) Arterial Blood Base Excess 2 mmol/L (-3-3) FiO2 85/vent Medications Active Scripts Medications Dose Route/Sig Max Daily Dose Days Date Category No Known Medications Prior To Admisstion (Info) Each 1 Each 1X 07/13/20 Reported Comments CXR1 IMPRESSION: No opacification of left hemithorax without significant mediastinal shift. Consideration may be given for large left pleural effusion versus atelectasis of the left lung. CTA chest IMPRESSION: 1. No evidence of acute pulmonary embolism. Evaluation of distal pulmonary arteries is limited by motion artifact. 2. Extensive, fairly confluent groundglass opacities throughout both lungs, slightly peripheral and basilar predominance. This could be seen with severe multifocal pneumonia and/or ARDS. Electronically signed by: Lucinda Cespedes MD (07/13/2020 11:33 AM) [id number] Impression . IMPRESSION: 1. Acute hypoxemic respiratory failure secondary to COVID-19 viral pneumonia, intubated, 2. COVID-19 viral pneumonia. 3. Abnormal x-ray. 4. Tobacco dependence. 5. obesity 6. Fever /, on BS abx 7. Severe agitation-- resolved 8. complete opacification of the left lobe large left pleural effusion versus atelectasis of the lung Plan . PLAN: Continue Vent support, currently 85% and PEEP 11 Follow CXR and ABG-- reviewed--chest x-ray shows complete opacification of the left lobe large pleural effusion versus atelectasis Suction every 4 with directional catheter and add percussion therapy, repeat [facility] x-ray in the morning if not improved consider bronchoscopy Continue adequate sedation Has comleted full course of remdesivir Continue Dexamethasone will slow taper Continue ABX per ID, Zosyn and Zyvox--monitor CBC as increasing leukocytosis, obtain repeat blood cultures, urine culture, sputum culture and lactic acid Continue vasopressors to keep MAP greater than 65 Continue TPN for nutritional support, didn't tolerate tube feeding DVT/GI PPX D/W RN and RT Pt. is FULL code Critical Care Time 1000-1030AM NEEL GANT MD Jul 23, 2020 10:48
[2020-07-23] MEDS: TPN PER PHARMACY MC PRN (10:59)
--- NOTE | 2020-07-23 10:59 | NUR ---
Pharmacy TPN Dosing Note S: LYUDMILA HOBBS is a 35 year old M Currently receiving Central Continuous TPN started 07/15/20 B:Pertinent PMH: TF INTOLERANCE, INTUBATED Height: 5 feet, 6 inches Weight: 113.0 kg Current diet: NPO LABS: Sodium: 141 Potassium: 4.2 Chloride: 106 Calcium: 8.2 Corrected Calcium: 9.80 Magnesium: 2.3 CO2: 29 SCr: 0.9 Glucose: 96-126 Albumin: 2.0 AST: 46 ALT: 39 TPN FORMULA: TPN TYPE: Central Continuous AMINO ACIDS: 120 gm DEXTROSE: 225 gm SODIUM CHLORIDE: 50 mEq POTASSIUM CHLORIDE: 20 mEq POTASSIUM PHOSPHATE: 23 mmol CALCIUM: 5 mEq MULTIPLE VITAMIN: 5 ml TRACE ELEMENTS: 1 ml(s) THIAMINE 300 mg TPN PLAN: Electrolytes WNL. Added thiamine to TPN instead of daily IVPB. -BMP/Mag/Phos in AM R: Change TPN as noted above. Will monitor electrolytes, glucose, and tolerance to TPN. PADILLA GREER [facility], 07/23/20 2160
[2020-07-23] MEDS ORDERED: PIPERACILLIN/TAZOBACTAM 3.375 GM in IV NORMAL SALINE 50ML 50 ML IV SCH (12:00)
[2020-07-23] MEDS: DEXAMETHASONE SOD PHOS 4 MG/ML VIAL IVP SCH (12:20)
[2020-07-23] MEDS: fentaNYL HIGH DOSE PCA 55 ML IV PRN (12:23)
[2020-07-23 14:41] LABS: BILIRUBIN,URINE SMALL (NEG); CLARITY,URINE CLEAR; COLOR,URINE YELLOW
[2020-07-23 14:42] LABS: BACTERIA,URINE FEW /HPF (0-FEW); GRANULAR CASTS,URINE OCCASIONAL /HPF; HYALINE CASTS, URINE MODERATE /HPF; NITRITE,URINE NEGATIVE (NEG); PROTEIN,URINE 30 mg/dL (NEG-TRACE); UROBILINOGEN,URINE 0.2 mg/dL (0.2 mg/dL); WAXY CASTS,URINE OCCASIONAL /HPF
--- NOTE | 2020-07-23 16:05 | NUR ---
SS following up with discharge planning. SS reviewed pt chart and discussed with pt RN. Pt is currently on the vent at 85%. Pt having temperature today. COVID19 positive. Pt on IV Zosyn, IV Zyvox, and TPN. Not stable. SS will continue to follow for discharge planning.
[2020-07-23] MEDS: MIDAZOLAM 100mg/100ml NS BAG 100 ML IV PRN (17:15)
[2020-07-23] MEDS ORDERED: TOTAL PARENTERAL NUTRITION IV SCH (22:00)
[2020-07-23] MEDS ORDERED: DEXTROSE 70% IV SCH (22:00)
[2020-07-23] MEDS ORDERED: [UNRECOGNIZED DRUG - OTHER] IV SCH (22:00)
[2020-07-23] MEDS ORDERED: AMINO ACID IV SCH (22:00)
[2020-07-24] VITALS (27 sets, daily range): BP systolic 72–190; BP diastolic 45–100
[2020-07-24] MEDS: fentaNYL HIGH DOSE PCA 55 ML IV PRN ×2 (01:13→14:30)
[2020-07-24] MEDS: ACETAMINOPHEN 325 MG TABLET. PO PRN (04:19)
--- NOTE | 2020-07-24 04:31 | RAD ---
XR CHEST 1V 07/24/2020 3:59 AM INDICATION: Hypoxia COMPARISON: 07/23/2020 TECHNIQUE: Portable frontal view of the chest is provided. FINDINGS/ IMPRESSION: The cardiomediastinal silhouette is similar in appearance. Right upper extremity PICC is in similar p osition. Nasogastric tube and endotracheal tube are in similar position. There is a left apical pneumothorax with 3.3 cm pleural separation. Left lateral pneumothorax compon ent measures 1.0 cm pleural separation. There is persistent consolidation of the left upper and lower lobes. Persistent small left pleural effusion. Right-sided weakness interstitial and alveolar airspace disease appears similar. FOR INTERNAL CODING PURPOSES Critical result: Findings discussed with Rick covering nurse, at 07/24/2020 4:28 AM. RESULT CODE: (C) Electronically signed by: Rosaline Veronica MD (07/24/2020 4:29 AM) MARK
[2020-07-24] MEDS: MIDAZOLAM 100mg/100ml NS BAG 100 ML IV PRN ×2 (04:38→16:45)
[2020-07-24] MEDS: MINERAL OIL/PETROLATUM,WHITE OPHTH OINT 3.5GM TUBE. OU SCH ×4 (06:15→23:56)
[2020-07-24] MEDS: PIPERACILLIN/TAZOBACTAM 4.5 GM in IV NORMAL SALINE 100ML 100 ML IV SCH ×4 (06:15→23:56)
[2020-07-24] MEDS: INSULIN LISPRO 300 UNITS/3 ML VIAL. SQ SCH ×8 (06:16→23:58)
[2020-07-24 06:29] LABS: BASO # 0.2 x10^3/uL (0.0-0.2); BASO % 1 % (0-3); EOS % 0 % (0-3); HEMATOCRIT 37.7 % (39.0-53.0); HEMOGLOBIN 11.9 g/dL (13.0-17.5); LYMPH # 0.9 x10^3/uL (1.0-4.8); LYMPH % 4 % (24-48); MEAN CORPUSCULAR HEMOGLOBIN 27 pg (25-35); MEAN CORPUSCULAR HGB CONC 32 g/dL (31-37); MEAN CORPUSCULAR VOLUME 85 fL (79-100); MONO # 1.1 x10^3/uL (0.0-1.1); MONO % 5 % (0-9); NEUT # 18.3 x10^3/uL (1.8-7.7); NEUT % 89 % (31-73); PLATELET COUNT 138 x10^3/uL (140-400); RED BLOOD COUNT 4.45 x10^6/uL (4.30-5.70); RED CELL DISTRIBUTION WIDTH 16.6 % (11.5-14.5); WHITE BLOOD COUNT 20.5 x10^3/uL (4.0-11.0)
[2020-07-24] MEDS ORDERED: EPINEPHrine SYRINGE 1 MG/10 ML SYRINGE ONE ×2 (06:34→07:00)
[2020-07-24 06:35] LABS: CALCIUM 7.4 mg/dL (8.5-10.1); CREATININE 1.2 mg/dL (0.7-1.3); GFR 68.5; MAGNESIUM 1.9 mg/dL (1.8-2.4); PHOSPHORUS 3.1 mg/dL (2.6-4.7); POTASSIUM 4.4 mmol/L (3.5-5.1)
--- NOTE | 2020-07-24 07:00 | NUR ---
Dr. Sandhu at bedside and place chest tube to left chest. Pt sedated with Versed 5mg bolus and Vecuronium 6mg IV bolus. CT placed to -20mmhg suction. Received 180cc of serosanguineous fluid. CXR obtained.
--- NOTE | 2020-07-24 07:20 | RAD ---
EXAM: XR CHEST 1V 07/24/2020 6:51 AM CLINICAL INDICATION: Chest tube placement COMPARISON: Chest radiograph 07/24/2020 TECHNIQUE: AP supine view of the chest FINDINGS: There is a new left thoracostomy tube. Nasogastric tube courses below the diaphragm. An en dotracheal tube terminates approximately 5.5 cm above the marleny. Cardiac silhouette is obscured. The left pneumothorax has decreased in size and is no longer visible. Diffuse consolidation throughout t he left lung with air bronchograms is unchanged. Decreased, mild opacities in the right lung. No pleu ral effusion. No acute osseous abnormality. IMPRESSION: 1. Placement of a left thoracostomy tube. The left pneumothorax has decreased in size, no longer vis ible. 2. Diffuse consolidation throughout the left lung is unchanged. 3. Decreased opacities in the right lung. Electronically signed by: Lucinda Cespedes MD (07/24/2020 7:18 AM) [id number]
[2020-07-24 07:59] LABS: BASE EXCESS ABG 2 mmol/L (-3-3); HCO3 ABG 30 mmol/L (21-28); PO2 ABG 56 mmHg (85-108); SAT O2 ABG 86 % (92-99)
--- NOTE | 2020-07-24 08:03 | PDOC ---
PROGRESS NOTES Date of Service: DATE: 07/24/20 TIME: 08:03 Chief Complaint Chief Complaint impression Acute hypoxemic respiratory failure secondary to COVID-19 viral pneumonia. COVID-19 viral pneumonia. severe multifocal pneumonia and/or ARDS. Tobacco dependence. Hyponatremia Hyperkalemia Hypomagnesemia vent support assist-control mode currently FiO2 of 85% and PEEP of 11 Worsening oxygenation Status post CTS placement f/u cults neg so far /continue supportive care Status post remdesivir 07/14 Status post steroids Monitor labs and cultures plan icu bed FEN - TPN PPX - lovenox FULL CODE Dispo - ICU Continue full course of remdesivir Continue Dexamethasone ,, taper iv ABX zyvox and zosyn, FiO2 85% PEEP of 11 S/P chest tube 07-24 // The left pneumothorax has decreased in size, no longer visible Fever overnight 102.2 cc time 34 minutes History of Present Illness History of Present Illness Mr Luque is a 35 yo M morbidly obese who presented with chief complaint of respiratory distress. Patient tested positive for Covid about 6 days prior to admit Patient had a fever, chills, cough, myalgias and headache. Patient had abdominal discomfort with diarrhea. Over the last day the patient became more short of breath. Patient had trouble sleeping and was satting 65% on room air in triage. Symptoms worse with activity and at night and somewhat better with taking Tylenol. 07/13: Eventful day with worsening respiratory distress, required intubation emergently with ED physician 07/14: Febrile to 101.8F this morning. PEEP 14, FiO2 100%. UOP stable. Required paralysis overnight for vent dysynchrony. Remdesivir day 1 07/15: Temp 100 F this morning. Still requiring paralysis for vent dyssynchrony on PEEP of 14 with FiO2 100%. Right upper extremity PICC placed for pressors. 07/16: Afebrile overnight still requiring PEEP of 14 and FiO2 100% but PaO2 on ABG up to 59 today. Glucose in the 300s despite insulin regimen. Triglycerides low 200s on TPN. Phosphorus low at 1.5. 07/17: T-max 100.4 F overnight. Glucose still in the 300s despite very large increase in insulin. O2 saturations 96% on PEEP of 14 and FiO2 100%. Labs pending. 07/18: Afebrile overnight. Still in 300s. O2 saturation 97% on PEEP of 14 FiO2 40%. ABG 7.35/59/91. No desaturations with repositioning today. Chest radiograph overall slightly improved 07/19: Afebrile overnight seen on vent paralyzed on TPN with FiO2 85% PEEP of 14. ABG 7.41/50/92. Afebrile. FiO2 80%, PEEP 13. ABG 7.39/53/69. Plan: Cont ICU care Vitals Vitals Vital Signs Date Time Temp Pulse Resp B/P (MAP) Pulse Ox O2 Delivery O2 Flow Rate FiO2 07/24/20 07:00 102.2 102.2 07/24/20 06:00 128 30 80/54 (63) 98 Ventilator 07/23/20 12:53 40.0 Physical Exam Physical Exam GENERAL: Intubated, sedated. HEENT: Normocephalic, atraumatic. ETT and OG tube in place. NECK: Supple. LUNGS: Coarse breath sounds bilaterally. HEART: S1, S2. ABDOMEN: Obese. Bowel sounds present, mildly distended. EXTREMITIES: No edema, no cyanosis. DERMATOLOGIC: Warm, dry. No generalized rash. NEUROLOGIC: Intubated. PSYCHIATRIC: Unable to assess. Right upper extremity PICC line clean no accessory muscle use no distress no obvious edema General: Cooperative, mild distress Heart: Regular rate, Normal S1, Normal S2 Abdomen: Normal bowel sounds, Soft Extremities: No clubbing, No cyanosis Skin: No rashes, No breakdown Labs LABS EXAM: XR CHEST 1V 07/24/2020 6:51 AM CLINICAL INDICATION: Chest tube placement COMPARISON: Chest radiograph 07/24/2020 TECHNIQUE: AP supine view of the chest FINDINGS: There is a new left thoracostomy tube. Nasogastric tube courses below the diaphragm. An endotracheal tube terminates approximately 5.5 cm above the marleny. Cardiac silhouette is obscured. The left pneumothorax has decreased in size and is no longer visible. Diffuse consolidation throughout the left lung with air bronchograms is unchanged. Decreased, mild opacities in the right lung. No pleural effusion. No acute osseous abnormality. IMPRESSION: 1. Placement of a left thoracostomy tube. The left pneumothorax has decreased in size, no longer visible. 2. Diffuse consolidation throughout the left lung is unchanged. 3. Decreased opacities in the right lung. Electronically signed by: Lucinda Cespedes MD (07/24/2020 7:18 AM) [id number] DICTATED and SIGNED BY: LUCINDA CESPEDES MD DATE: 07/24/20 [id number] Laboratory Tests Test 07/23/20 09:50 07/23/20 11:51 07/23/20 15:00 07/23/20 16:58 Urine Collection Type Unknown Urine Color Yellow Urine Clarity Clear Urine pH 6.0 (<5.0-8.0) Urine Specific [place] 1.020 (1.000-1.030) Urine Protein 30 mg/dL (NEG-TRACE) Urine Glucose (UA) Negative mg/dL (NEG) Urine Ketones (Stick) Negative mg/dL (NEG) Urine Blood Small (NEG) Urine Nitrite Negative (NEG) Urine Bilirubin Small (NEG) Urine Urobilinogen Dipstick 0.2 mg/dL (0.2 mg/dL) Urine Leukocyte Esterase Trace (NEG) Urine RBC 11-20 /HPF (0-2) Urine WBC 5-10 /HPF (0-4) Urine Renal Epithelial Cells Few /LPF Urine Bacteria Few /HPF (0-FEW) Urine Cellular Casts Occ /HPF Urine Hyaline Casts Moderate /HPF Urine Granular Casts Occasional /HPF Urine Waxy Casts Occasional /HPF Urine Mucus Marked /LPF Glucose (Fingerstick) 226 mg/dL (70-99) 175 mg/dL (70-99) Lactic Acid Level 2.0 mmol/L (0.4-2.0) Test 07/23/20 17:56 07/23/20 22:06 07/23/20 23:37 07/24/20 05:45 Glucose (Fingerstick) 183 mg/dL (70-99) 180 mg/dL (70-99) 214 mg/dL (70-99) 162 mg/dL (70-99) Test 07/24/20 06:00 White Blood Count 20.5 x10^3/uL (4.0-11.0) Red Blood Count 4.45 x10^6/uL (4.30-5.70) Hemoglobin 11.9 g/dL (13.0-17.5) Hematocrit 37.7 % (39.0-53.0) Mean Corpuscular Volume 85 fL (79-100) Mean Corpuscular Hemoglobin 27 pg (25-35) Mean Corpuscular Hemoglobin Concent 32 g/dL (31-37) Red Cell Distribution Width 16.6 % (11.5-14.5) Platelet Count 138 x10^3/uL (140-400) Neutrophils (%) (Auto) 89 % (31-73) Lymphocytes (%) (Auto) 4 % (24-48) Monocytes (%) (Auto) 5 % (0-9) Eosinophils (%) (Auto) 0 % (0-3) Basophils (%) (Auto) 1 % (0-3) Neutrophils # (Auto) 18.3 x10^3/uL (1.8-7.7) Lymphocytes # (Auto) 0.9 x10^3/uL (1.0-4.8) Monocytes # (Auto) 1.1 x10^3/uL (0.0-1.1) Eosinophils # (Auto) 0.0 x10^3/uL (0.0-0.7) Basophils # (Auto) 0.2 x10^3/uL (0.0-0.2) Sodium Level 138 mmol/L (136-145) Potassium Level 4.4 mmol/L (3.5-5.1) Chloride Level 104 mmol/L (98-107) Carbon Dioxide Level 29 mmol/L (21-32) Anion Gap 5 (6-14) Blood Urea Nitrogen 33 mg/dL (8-26) Creatinine 1.2 mg/dL (0.7-1.3) Estimated GFR (Cockcroft-Gault) 68.5 Glucose Level 232 mg/dL (70-99) Calcium Level 7.4 mg/dL (8.5-10.1) Phosphorus Level 3.1 mg/dL (2.6-4.7) Magnesium Level 1.9 mg/dL (1.8-2.4) Assessment and Plan Assessmemt and Plan Problems Medical Problems: (1) Acute hypoxemic respiratory failure due to severe acute respiratory syndrome coronavirus 2 (SARS-CoV-2) disease Status: Acute (2) Dyspnea Status: Acute Comment Review of Relevant I have reviewed the following items mile (where applicable) has been applied. Labs Laboratory Tests Test 07/22/20 08:05 07/22/20 09:15 07/22/20 12:13 07/22/20 18:59 O2 Saturation 97 % (92-99) Arterial Blood pH 7.45 (7.35-7.45) Arterial Blood pCO2 at Patient Temp 45 mmHg (35-46) Arterial Blood pO2 at Patient Temp 97 mmHg (85-108) Arterial Blood HCO3 30 mmol/L (21-28) Arterial Blood Base Excess 5 mmol/L (-3-3) FiO2 75 Sodium Level 146 mmol/L (136-145) Potassium Level 3.4 mmol/L (3.5-5.1) Chloride Level 106 mmol/L (98-107) Carbon Dioxide Level 32 mmol/L (21-32) Anion Gap 8 (6-14) Blood Urea Nitrogen 29 mg/dL (8-26) Creatinine 1.0 mg/dL (0.7-1.3) Estimated GFR (Cockcroft-Gault) 84.5 BUN/Creatinine Ratio 29 (6-20) Glucose Level 262 mg/dL (70-99) Calcium Level 7.5 mg/dL (8.5-10.1) Total Bilirubin 0.5 mg/dL (0.2-1.0) Aspartate Amino Transf (AST/SGOT) 36 U/L (15-37) Alanine Aminotransferase (ALT/SGPT) 33 U/L (16-63) Alkaline Phosphatase 75 U/L (46-116) Total Protein 5.5 g/dL (6.4-8.2) Albumin 1.5 g/dL (3.4-5.0) Albumin/Globulin Ratio 0.4 (1.0-1.7) Glucose (Fingerstick) 166 mg/dL (70-99) 208 mg/dL (70-99) Test 07/23/20 00:13 07/23/20 05:15 07/23/20 05:20 07/23/20 08:00 Glucose (Fingerstick) 126 mg/dL (70-99) 96 mg/dL (70-99) White Blood Count 32.6 x10^3/uL (4.0-11.0) Red Blood Count 5.14 x10^6/uL (4.30-5.70) Hemoglobin 13.5 g/dL (13.0-17.5) Hematocrit 42.9 % (39.0-53.0) Mean Corpuscular Volume 83 fL (79-100) Mean Corpuscular Hemoglobin 26 pg (25-35) Mean Corpuscular Hemoglobin Concent 32 g/dL (31-37) Red Cell Distribution Width 16.6 % (11.5-14.5) Platelet Count 181 x10^3/uL (140-400) Neutrophils (%) (Auto) 94 % (31-73) Lymphocytes (%) (Auto) 2 % (24-48) Monocytes (%) (Auto) 3 % (0-9) Eosinophils (%) (Auto) 0 % (0-3) Basophils (%) (Auto) 0 % (0-3) Neutrophils # (Auto) 30.7 x10^3/uL (1.8-7.7) Lymphocytes # (Auto) 0.8 x10^3/uL (1.0-4.8) Monocytes # (Auto) 1.0 x10^3/uL (0.0-1.1) Eosinophils # (Auto) 0.1 x10^3/uL (0.0-0.7) Basophils # (Auto) 0.1 x10^3/uL (0.0-0.2) Segmented Neutrophils % 69 % (35-66) Band Neutrophils % 22 % (0-9) Lymphocytes % 2 % (24-48) Atypical Lymphocytes % (Manual) 1 % (0-0) Monocytes % 4 % (0-10) Eosinophils % 1 % (0-5) Myelocytes % 1 % (0-0) Platelet Estimate Adequate (ADEQUATE) Polychromasia Slight Anisocytosis Slight Sodium Level 141 mmol/L (136-145) Potassium Level 4.2 mmol/L (3.5-5.1) Chloride Level 106 mmol/L (98-107) Carbon Dioxide Level 29 mmol/L (21-32) Anion Gap 6 (6-14) Blood Urea Nitrogen 32 mg/dL (8-26) Creatinine 0.9 mg/dL (0.7-1.3) Estimated GFR (Cockcroft-Gault) 95.5 BUN/Creatinine Ratio 36 (6-20) Glucose Level 125 mg/dL (70-99) Calcium Level 8.3 mg/dL (8.5-10.1) Total Bilirubin 1.3 mg/dL (0.2-1.0) Aspartate Amino Transf (AST/SGOT) 46 U/L (15-37) Alanine Aminotransferase (ALT/SGPT) 39 U/L (16-63) Alkaline Phosphatase 93 U/L (46-116) Total Protein 6.2 g/dL (6.4-8.2) Albumin 2.0 g/dL (3.4-5.0) Albumin/Globulin Ratio 0.5 (1.0-1.7) O2 Saturation 83 % (92-99) Arterial Blood pH 7.30 (7.35-7.45) Arterial Blood pCO2 at Patient Temp 63 mmHg (35-46) Arterial Blood pO2 at Patient Temp 52 mmHg (85-108) Arterial Blood HCO3 30 mmol/L (21-28) Arterial Blood Base Excess 2 mmol/L (-3-3) FiO2 85/vent Test 07/23/20 09:50 07/23/20 11:51 07/23/20 15:00 07/23/20 16:58 Urine Collection Type Unknown Urine Color Yellow Urine Clarity Clear Urine pH 6.0 (<5.0-8.0) Urine Specific [place] 1.020 (1.000-1.030) Urine Protein 30 mg/dL (NEG-TRACE) Urine Glucose (UA) Negative mg/dL (NEG) Urine Ketones (Stick) Negative mg/dL (NEG) Urine Blood Small (NEG) Urine Nitrite Negative (NEG) Urine Bilirubin Small (NEG) Urine Urobilinogen Dipstick 0.2 mg/dL (0.2 mg/dL) Urine Leukocyte Esterase Trace (NEG) Urine RBC 11-20 /HPF (0-2) Urine WBC 5-10 /HPF (0-4) Urine Renal Epithelial Cells Few /LPF Urine Bacteria Few /HPF (0-FEW) Urine Cellular Casts Occ /HPF Urine Hyaline Casts Moderate /HPF Urine Granular Casts Occasional /HPF Urine Waxy Casts Occasional /HPF Urine Mucus Marked /LPF Glucose (Fingerstick) 226 mg/dL (70-99) 175 mg/dL (70-99) Lactic Acid Level 2.0 mmol/L (0.4-2.0) Test 07/23/20 17:56 07/23/20 22:06 07/23/20 23:37 07/24/20 05:45 Glucose (Fingerstick) 183 mg/dL (70-99) 180 mg/dL (70-99) 214 mg/dL (70-99) 162 mg/dL (70-99) Test 07/24/20 06:00 White Blood Count 20.5 x10^3/uL (4.0-11.0) Red Blood Count 4.45 x10^6/uL (4.30-5.70) Hemoglobin 11.9 g/dL (13.0-17.5) Hematocrit 37.7 % (39.0-53.0) Mean Corpuscular Volume 85 fL (79-100) Mean Corpuscular Hemoglobin 27 pg (25-35) Mean Corpuscular Hemoglobin Concent 32 g/dL (31-37) Red Cell Distribution Width 16.6 % (11.5-14.5) Platelet Count 138 x10^3/uL (140-400) Neutrophils (%) (Auto) 89 % (31-73) Lymphocytes (%) (Auto) 4 % (24-48) Monocytes (%) (Auto) 5 % (0-9) Eosinophils (%) (Auto) 0 % (0-3) Basophils (%) (Auto) 1 % (0-3) Neutrophils # (Auto) 18.3 x10^3/uL (1.8-7.7) Lymphocytes # (Auto) 0.9 x10^3/uL (1.0-4.8) Monocytes # (Auto) 1.1 x10^3/uL (0.0-1.1) Eosinophils # (Auto) 0.0 x10^3/uL (0.0-0.7) Basophils # (Auto) 0.2 x10^3/uL (0.0-0.2) Sodium Level 138 mmol/L (136-145) Potassium Level 4.4 mmol/L (3.5-5.1) Chloride Level 104 mmol/L (98-107) Carbon Dioxide Level 29 mmol/L (21-32) Anion Gap 5 (6-14) Blood Urea Nitrogen 33 mg/dL (8-26) Creatinine 1.2 mg/dL (0.7-1.3) Estimated GFR (Cockcroft-Gault) 68.5 Glucose Level 232 mg/dL (70-99) Calcium Level 7.4 mg/dL (8.5-10.1) Phosphorus Level 3.1 mg/dL (2.6-4.7) Magnesium Level 1.9 mg/dL (1.8-2.4) Laboratory Tests Test 07/23/20 09:50 07/23/20 11:51 07/23/20 15:00 07/23/20 16:58 Urine Collection Type Unknown Urine Color Yellow Urine Clarity Clear Urine pH 6.0 (<5.0-8.0) Urine Specific [place] 1.020 (1.000-1.030) Urine Protein 30 mg/dL (NEG-TRACE) Urine Glucose (UA) Negative mg/dL (NEG) Urine Ketones (Stick) Negative mg/dL (NEG) Urine Blood Small (NEG) Urine Nitrite Negative (NEG) Urine Bilirubin Small (NEG) Urine Urobilinogen Dipstick 0.2 mg/dL (0.2 mg/dL) Urine Leukocyte Esterase Trace (NEG) Urine RBC 11-20 /HPF (0-2) Urine WBC 5-10 /HPF (0-4) Urine Renal Epithelial Cells Few /LPF Urine Bacteria Few /HPF (0-FEW) Urine Cellular Casts Occ /HPF Urine Hyaline Casts Moderate /HPF Urine Granular Casts Occasional /HPF Urine Waxy Casts Occasional /HPF Urine Mucus Marked /LPF Glucose (Fingerstick) 226 mg/dL (70-99) 175 mg/dL (70-99) Lactic Acid Level 2.0 mmol/L (0.4-2.0) Test 07/23/20 17:56 07/23/20 22:06 07/23/20 23:37 07/24/20 05:45 Glucose (Fingerstick) 183 mg/dL (70-99) 180 mg/dL (70-99) 214 mg/dL (70-99) 162 mg/dL (70-99) Test 07/24/20 06:00 White Blood Count 20.5 x10^3/uL (4.0-11.0) Red Blood Count 4.45 x10^6/uL (4.30-5.70) Hemoglobin 11.9 g/dL (13.0-17.5) Hematocrit 37.7 % (39.0-53.0) Mean Corpuscular Volume 85 fL (79-100) Mean Corpuscular Hemoglobin 27 pg (25-35) Mean Corpuscular Hemoglobin Concent 32 g/dL (31-37) Red Cell Distribution Width 16.6 % (11.5-14.5) Platelet Count 138 x10^3/uL (140-400) Neutrophils (%) (Auto) 89 % (31-73) Lymphocytes (%) (Auto) 4 % (24-48) Monocytes (%) (Auto) 5 % (0-9) Eosinophils (%) (Auto) 0 % (0-3) Basophils (%) (Auto) 1 % (0-3) Neutrophils # (Auto) 18.3 x10^3/uL (1.8-7.7) Lymphocytes # (Auto) 0.9 x10^3/uL (1.0-4.8) Monocytes # (Auto) 1.1 x10^3/uL (0.0-1.1) Eosinophils # (Auto) 0.0 x10^3/uL (0.0-0.7) Basophils # (Auto) 0.2 x10^3/uL (0.0-0.2) Sodium Level 138 mmol/L (136-145) Potassium Level 4.4 mmol/L (3.5-5.1) Chloride Level 104 mmol/L (98-107) Carbon Dioxide Level 29 mmol/L (21-32) Anion Gap 5 (6-14) Blood Urea Nitrogen 33 mg/dL (8-26) Creatinine 1.2 mg/dL (0.7-1.3) Estimated GFR (Cockcroft-Gault) 68.5 Glucose Level 232 mg/dL (70-99) Calcium Level 7.4 mg/dL (8.5-10.1) Phosphorus Level 3.1 mg/dL (2.6-4.7) Magnesium Level 1.9 mg/dL (1.8-2.4) Microbiology 07/13/20 Urine Culture - Final, Complete 07/13/20 Blood Culture - Final, Complete NO GROWTH AFTER 5 DAYS Medications Current Medications Dexamethasone Sodium Phosphate (Decadron) 6 mg 1X ONCE IV ; Start 07/13/20 at 09:30; Stop 07/13/20 at 09:39; Status DC Ceftriaxone Sodium (Rocephin) 1 gm 1X ONCE IVP Last administered on 07/13/20at 09:36; Start 07/13/20 at 09:30; Stop 07/13/20 at 09:31; Status DC Azithromycin 250 ml @ 250 mls/hr 1X ONCE IV Last administered on 07/13/20at 09:37; Start 07/13/20 at 09:30; Stop 07/13/20 at 10:29; Status DC Sodium Chloride 1,000 ml @ 1,000 mls/hr 1X ONCE IV Last administered on 07/13/20at 09:36; Start 07/13/20 at 09:30; Stop 07/13/20 at 10:29; Status DC Acetaminophen (Tylenol) 1,000 mg 1X ONCE PO Last administered on 07/13/20at 09:36; Start 07/13/20 at 09:30; Stop 07/13/20 at 09:31; Status DC Dexamethasone Sodium Phosphate (Decadron) 4 mg STK-MED ONCE .ROUTE ; Start 07/13/20 at 09:28; Stop 07/13/20 at 09:28; Status DC Azithromycin 250 ml @ As Directed STK-MED ONCE IV ; Start 07/13/20 at 09:28; Stop 07/13/20 at 09:28; Status DC Ceftriaxone Sodium (Rocephin) 1 gm STK-MED ONCE IVP ; Start 07/13/20 at 09:28; Stop 07/13/20 at 09:28; Status DC Dexamethasone Sodium Phosphate (Decadron) 6 mg 1X ONCE IVP Last administered on 07/13/20at 09:42; Start 07/13/20 at 09:45; Stop 07/13/20 at 09:46; Status DC Ondansetron HCl (Zofran) 4 mg PRN Q8HRS PRN IV NAUSEA/VOMITING; Start 07/13/20 at 09:45; Stop 07/14/20 at 08:19; Status DC Enoxaparin Sodium (Lovenox 120mg Syringe) 110 mg 1X ONCE SQ Last administered on 07/13/20at 10:14; Start 07/13/20 at 10:15; Stop 07/13/20 at 10:16; Status DC Iohexol (Omnipaque 350 Mg/ml) 100 ml 1X ONCE IV Last administered on 07/13/20at 10:15; Start 07/13/20 at 10:15; Stop 07/13/20 at 10:16; Status DC Info (CONTRAST GIVEN -- Rx MONITORING) 1 each PRN DAILY PRN MC SEE COMMENTS; Start 07/13/20 at 10:30; Stop 07/15/20 at 10:29; Status DC Potassium Chloride (Klor-Con) 40 meq 1X ONCE PO Last administered on 07/13/20at 11:20; Start 07/13/20 at 11:15; Stop 07/13/20 at 11:16; Status DC Potassium Chloride/Water 100 ml @ 100 mls/hr Q1H IV ; Start 07/13/20 at 10:45; Stop 07/13/20 at 10:46; Status DC Potassium Chloride/Water 100 ml @ 100 mls/hr Q1H IV Last administered on 07/13/20at 17:17; Start 07/13/20 at 11:30; Stop 07/13/20 at 15:29; Status DC Sodium Chloride 1,000 ml @ 125 mls/hr 1X ONCE IV Last administered on 07/13/20at 11:26; Start 07/13/20 at 11:00; Stop 07/13/20 at 18:59; Status DC Calcium Gluconate 1000 mg/Sodium Chloride 110 ml @ 220 mls/hr 1X ONCE IV Last administered on 07/13/20at 11:51; Start 07/13/20 at 11:45; Stop 07/13/20 at 12:14; Status DC Magnesium Sulfate 50 ml @ 25 mls/hr 1X ONCE IV Last administered on 07/13/20at 13:26; Start 07/13/20 at 11:30; Stop 07/13/20 at 13:29; Status DC Remdesivir 200 mg/ Sodium Chloride 210 ml @ 210 mls/hr 1X ONCE IV Last administered on 07/13/20at 15:21; Start 07/13/20 at 14:00; Stop 07/13/20 at 14:59; Status DC Remdesivir 100 mg/ Sodium Chloride 230 ml @ 460 mls/hr Q24H IV Last administered on 07/17/20at 15:36; Start 07/14/20 at 14:00; Stop 07/17/20 at 14:29; Status DC Magnesium Sulfate 50 ml @ 25 mls/hr 1X ONCE IV ; Start 07/13/20 at 12:30; Stop 07/13/20 at 14:29; Status UNV Vitamin D (Vitamin D3) 1,000 unit DAILY PO Last administered on 07/23/20at 08:54; Start 07/13/20 at 13:00 Ascorbic Acid (Vitamin C) 1,000 mg DAILY PO Last administered on 07/23/20at 08:54; Start 07/13/20 at 13:00 Dexamethasone (Decadron) 6 mg DAILYWBKFT PO Last administered on 07/14/20at 09:14; Start 07/14/20 at 08:00; Stop 07/15/20 at 09:13; Status DC Doxycycline Hyclate 100 mg/ Dextrose 100 ml @ 50 mls/hr Q12HR IV Last administered on 07/13/20at 13:21; Start 07/13/20 at 13:00; Stop 07/13/20 at 23:25; Status DC Ceftriaxone Sodium (Rocephin) 1 gm Q24H IVP ; Start 07/14/20 at 09:00; Stop 07/13/20 at 23:25; Status DC Enoxaparin Sodium (Lovenox 40mg Syringe) 40 mg Q24H SQ Last administered on 07/13/20at 13:31; Start 07/13/20 at 13:00; Stop 07/14/20 at 10:47; Status DC Influenza Virus Vaccine Quadrival (Fluzone Quad Syringe) 0.5 ml ONCE ONCE VAX IM ; Start 07/15/20 at 09:00; Stop 07/15/20 at 09:01; Status DC Benzonatate (Tessalon Perle) 100 mg Q6HRS PO Last administered on 07/18/20at 05:36; Start 07/13/20 at 18:00; Stop 07/19/20 at 10:24; Status DC Phenol (Chloraseptic) 1 spray PRN Q2HR PRN PO SORE THROAT Last administered on 07/13/20at 16:27; Start 07/13/20 at 16:15 Acetaminophen (Tylenol) 650 mg PRN Q6HRS PRN PO MILD PAIN / TEMP > 100.3'F Last administered on 07/24/20at 04:19; Start 07/13/20 at 16:15 Prochlorperazine Edisylate (Compazine) 10 mg PRN Q6HRS PRN IV NAUSEA/VOMITING; Start 07/13/20 at 16:15 Lorazepam (Ativan Inj) 0.25 mg PRN Q6HRS PRN IVP ANXIETY / AGITATION Last administered on 07/13/20at 16:42; Start 07/13/20 at 16:45 Sterile Water (WATER for RESP) 1,000 ml CONT PRN INH VIA VAPOTHERM DEVICE; Start 07/13/20 at 17:15 Dexmedetomidine HCl 400 mcg/ Sodium Chloride 100 ml @ 0 mls/hr CONT PRN IV PER PROTOCOL; Start 07/13/20 at 17:00 Sodium Chloride 500 ml @ 500 mls/hr 1X PRN PRN IV SEE COMMENTS; Start 07/13/20 at 17:00 Atropine Sulfate (ATROPINE 0.5mg SYRINGE) 0.5 mg PRN Q5MIN PRN IV SEE COMMENTS; Start 07/13/20 at 17:00 Propofol 100 ml @ As Directed STK-MED ONCE IV ; Start 07/13/20 at 17:20; Stop 07/13/20 at 17:20; Status DC Succinylcholine Chloride (Anectine) 200 mg STK-MED ONCE .ROUTE ; Start 07/13/20 at 17:40; Stop 07/13/20 at 17:41; Status DC Fentanyl Citrate 30 ml @ 0 mls/hr CONT PRN IV SEE PROTOCOL Last administered on 07/13/20at 18:40; Start 07/13/20 at 17:45; Stop 07/13/20 at 20:11; Status DC Propofol 100 ml @ 0 mls/hr CONT PRN IV PER PROTOCOL Last administered on 07/14/20at 20:13; Start 07/13/20 at 17:45; Stop 07/20/20 at 11:33; Status DC Chlorhexidine Gluconate (Peridex) 15 ml BID MM Last administered on 07/15/20at 08:33; Start 07/13/20 at 21:00; Stop 07/16/20 at 18:59; Status DC Midazolam HCl 100 ml @ 0 mls/hr CONT PRN IV SEE PROTOCOL Last administered on 07/24/20at 04:38; Start 07/13/20 at 17:45 Vecuronium [place] (Norcuron Bolus) 10 mg STK-MED ONCE IV ; Start 07/13/20 at 18:12; Stop 07/13/20 at 18:12; Status DC Etomidate (Amidate) 20 mg STK-MED ONCE IV ; Start 07/13/20 at 18:24; Stop 07/13/20 at 18:24; Status DC Vecuronium [place] (Norcuron Bolus) 6 mg PRN Q4HRS PRN IV Out of sync with ventilator Last administered on 07/13/20at 19:39; Start 07/13/20 at 19:30 Fentanyl Citrate 55 ml @ 0 mls/hr CONT PRN PRN IV PAIN Last administered on 07/24/20at 01:13; Start 07/13/20 at 19:45 Vecuronium [place] 50 mg/ Miscellaneous 50 ml @ 5.683 mls/ hr CONT PRN IV SEE I/O RECORD Last administered on 07/23/20at 22:53; Start 07/13/20 at 22:00 Norepinephrine Bitartrate 8 mg/ Dextrose 258 ml @ 22.91 mls/ hr CONT PRN IV PER PROTOCOL Last administered on 07/23/20at 07:52; Start 07/13/20 at 23:30 Ringer's Solution 1,000 ml @ 100 mls/hr Q10H IV Last administered on 07/14/20at 20:12; Start 07/13/20 at 23:30; Stop 07/15/20 at 09:08; Status DC Thiamine HCl 300 mg/Dextrose 53 ml @ 102 mls/hr DAILY IV Last administered on 07/23/20at 08:53; Start 07/14/20 at 09:00; Stop 07/23/20 at 10:56; Status DC Vancomycin HCl (Vanco Per Pharmacy) 1 each PRN DAILY PRN MC SEE COMMENTS Last administered on 07/14/20at 02:10; Start 07/13/20 at 23:16; Stop 07/14/20 at 09:14; Status DC Piperacillin Sod/ Tazobactam Sod (Zosyn Per Pharmacy) 1 each PRN DAILY PRN MC SEE COMMENTS; Start 07/13/20 at 23:16; Stop 07/22/20 at 09:33; Status DC Vancomycin HCl 2 gm/Sodium Chloride 500 ml @ 250 mls/hr 1X ONCE IV Last administered on 07/14/20at 00:24; Start 07/13/20 at 23:45; Stop 07/14/20 at 01:44; Status DC Piperacillin Sod/ Tazobactam Sod 3.375 gm/Sodium Chloride 50 ml @ 100 mls/hr Q6HRS IV Last administered on 07/22/20at 06:50; Start 07/14/20 at 00:00; Stop 07/22/20 at 09:32; Status DC Vancomycin HCl 1.5 gm/Sodium Chloride 500 ml @ 250 mls/hr Q8H IV Last administered on 07/14/20at 08:46; Start 07/14/20 at 08:00; Stop 07/14/20 at 09:14; Status DC Vancomycin HCl (Vancomycin Trough Level) 1 each 1X ONCE MC ; Start 07/14/20 at 23:30; Stop 07/14/20 at 23:31; Status Cancel Etomidate (Amidate) 20 mg STK-MED ONCE IV ; Start 07/13/20 at 18:00; Stop 07/14/20 at 08:36; Status DC Succinylcholine Chloride (Anectine) 200 mg STK-MED ONCE .ROUTE ; Start 07/13/20 at 18:00; Stop 07/14/20 at 08:36; Status DC Linezolid/Dextrose 300 ml @ 300 mls/hr Q12HR IV Last administered on 07/19/20at 09:56; Start 07/14/20 at 21:00; Stop 07/19/20 at 10:10; Status DC Insulin Glargine (Lantus Syringe) 8 unit QHS SQ Last administered on 07/14/20at 20:42; Start 07/14/20 at 21:00; Stop 07/15/20 at 07:57; Status DC Insulin Human Lispro (HumaLOG) 0-9 UNITS Q6HRS SQ Last administered on 07/24/20at 06:16; Start 07/14/20 at 12:00 Dextrose (Dextrose 50%-Water Syringe) 12.5 gm PRN Q15MIN PRN IV SEE COMMENTS; Start 07/14/20 at 09:30 Enoxaparin Sodium (Lovenox 40mg Syringe) 40 mg BID SQ Last administered on 07/23/20at 21:26; Start 07/14/20 at 21:00 Famotidine (Pepcid Vial) 20 mg BID IVP Last administered on 07/23/20at 21:27; Start 07/14/20 at 21:00 Insulin Glargine (Lantus Syringe) 15 unit QHS SQ ; Start 07/15/20 at 21:00; Stop 07/15/20 at 18:18; Status DC Insulin Human Lispro (HumaLOG) 5 units Q6HRS SQ Last administered on 07/15/20at 23:46; Start 07/15/20 at 12:00; Stop 07/16/20 at 09:56; Status DC Info (Tpn Per Pharmacy) 1 each PRN DAILY PRN MC SEE COMMENTS Last administered on 07/23/20at 10:59; Start 07/15/20 at 09:15 Dexamethasone Sodium Phosphate (Decadron) 6 mg DAILY IVP Last administered on 07/22/20at 08:12; Start 07/15/20 at 10:00; Stop 07/22/20 at 13:47; Status DC Sodium Chloride 90 meq/Potassium Chloride 25 meq/ Potassium Phosphate 13.6 mmol/Magnesium Sulfate 10 meq/ Calcium Gluconate 10 meq/ Multivitamins 5 ml/Zinc/Copper/ Manganese/ Selenium 1 ml/ Total Parenteral Nutrition/Amino Acids/Dextrose 1,512 ml @ 63 mls/hr TPN CONT IV Last administered on 07/15/20at 22:01; Start 07/15/20 at 22:00; Stop 07/16/20 at 21:59; Status DC Sodium Phosphate 15 mmol/Sodium Chloride 105 ml @ 105 mls/hr 1X ONCE IV Last administered on 07/15/20at 13:12; Start 07/15/20 at 13:00; Stop 07/15/20 at 13:59; Status DC Insulin Glargine (Lantus Syringe) 20 unit QHS SQ Last administered on 07/15/20at 21:04; Start 07/15/20 at 21:00; Stop 07/16/20 at 09:56; Status DC Insulin Human Lispro (HumaLOG) 18 units 1X ONCE SQ Last administered on 07/16/20at 00:41; Start 07/16/20 at 01:00; Stop 07/16/20 at 01:01; Status DC Insulin Human Lispro (HumaLOG) 26 units 1X ONCE SQ Last administered on 07/16/20at 06:06; Start 07/16/20 at 06:30; Stop 07/16/20 at 06:31; Status DC Insulin Glargine (Lantus Syringe) 45 unit QHS SQ Last administered on 07/16/20at 21:24; Start 07/16/20 at 21:00; Stop 07/17/20 at 06:44; Status DC Insulin Human Lispro (HumaLOG) 10 units Q6HRS SQ Last administered on 07/18/20at 05:38; Start 07/16/20 at 12:00; Stop 07/18/20 at 10:07; Status DC Sodium Phosphate 30 mmol/Sodium Chloride 260 ml @ 65 mls/hr 1X ONCE IV Last administered on 07/16/20at 13:29; Start 07/16/20 at 13:00; Stop 07/16/20 at 16:59; Status DC Multi-Ingred Cream/Lotion/Oil/ Oint (Artificial Tears Eye Ointment) 1 klaudia Q6HRS OU Last administered on 07/24/20at 06:15; Start 07/16/20 at 13:00 Sodium Chloride 90 meq/Potassium Phosphate 20 mmol/ Calcium Gluconate 10 meq/ Multivitamins 5 ml/Zinc/Copper/ Manganese/ Selenium 1 ml/ Total Parenteral Nutrition/Amino Acids/Dextrose/ Fat Emulsion Intravenous 1,512 ml @ 63 mls/hr TPN CONT IV Last administered on 07/16/20at 22:54; Start 07/16/20 at 22:00; Stop 07/17/20 at 21:59; Status DC Insulin Human Lispro (HumaLOG) 20 units 1X ONCE SQ Last administered on 07/16/20at 23:55; Start 07/16/20 at 23:55; Stop 07/16/20 at 23:56; Status DC Insulin Glargine (Lantus Syringe) 45 unit BID SQ Last administered on 07/23/20at 21:28; Start 07/17/20 at 09:00 Insulin Human Lispro (HumaLOG) 25 units 1X ONCE SQ Last administered on 07/17/20at 06:50; Start 07/17/20 at 07:00; Stop 07/17/20 at 07:01; Status DC Potassium Phosphate 13.6 mmol/Sodium Chloride 254.5333 ml @ 127.... Q2H IV Last administered on 07/17/20at 13:22; Start 07/17/20 at 11:30; Stop 07/17/20 at 13:29; Status DC Sodium Chloride 90 meq/Potassium Phosphate 23 mmol/ Calcium Gluconate 10 meq/ Multivitamins 5 ml/Zinc/Copper/ Manganese/ Selenium 1 ml/ Total Parenteral Nutrition/Amino Acids/Dextrose/ Fat Emulsion Intravenous 1,512 ml @ 63 mls/hr TPN CONT IV Last administered on 07/17/20at 21:32; Start 07/17/20 at 22:00; Stop 07/18/20 at 21:59; Status DC Insulin Human Lispro (HumaLOG) 18 units Q6HRS SQ Last administered on 07/24/20at 06:17; Start 07/18/20 at 12:00 Sodium Chloride 90 meq/Potassium Phosphate 23 mmol/ Calcium Gluconate 5 meq/ Multivitamins 5 ml/Zinc/Copper/ Manganese/ Selenium 1 ml/ Total Parenteral Nutrition/Amino Acids/Dextrose/ Fat Emulsion Intravenous 1,512 ml @ 63 mls/hr TPN CONT IV Last administered on 07/18/20at 20:52; Start 07/18/20 at 22:00; Stop 07/19/20 at 21:59; Status DC Sodium Chloride 70 meq/Potassium Phosphate 23 mmol/ Calcium Gluconate 5 meq/ Multivitamins 5 ml/Zinc/Copper/ Manganese/ Selenium 1 ml/ Total Parenteral Nutrition/Amino Acids/Dextrose/ Fat Emulsion Intravenous 1,512 ml @ 63 mls/hr TPN CONT IV Last administered on 07/19/20at 20:49; Start 07/19/20 at 22:00; Stop 07/20/20 at 21:59; Status DC Propofol 100 ml @ 3.42 mls/hr CONT PRN IV PER PROTOCOL Last administered on 07/23/20at 19:02; Start 07/20/20 at 11:30 Sodium Chloride 70 meq/Potassium Phosphate 23 mmol/ Calcium Gluconate 5 meq/ Multivitamins 5 ml/Zinc/Copper/ Manganese/ Selenium 1 ml/ Total Parenteral Nutrition/Amino Acids/Dextrose 1,512 ml @ 63 mls/hr TPN CONT IV Last administered on 07/20/20at 20:48; Start 07/20/20 at 22:00; Stop 07/21/20 at 21:59; Status DC Sodium Chloride 70 meq/Potassium Phosphate 23 mmol/ Calcium Gluconate 5 meq/ Multivitamins 5 ml/Zinc/Copper/ Manganese/ Selenium 1 ml/ Total Parenteral Nutrition/Amino Acids/Dextrose 1,512 ml @ 63 mls/hr TPN CONT IV Last administered on 07/22/20at 03:10; Start 07/21/20 at 22:00; Stop 07/22/20 at 21:59; Status DC Sodium Chloride 50 meq/Potassium Chloride 20 meq/ Potassium Phosphate 23 mmol/ Calcium Gluconate 5 meq/ Multivitamins 5 ml/Zinc/Copper/ Manganese/ Selenium 1 ml/ Total Parenteral Nutrition/Amino Acids/Dextrose 1,512 ml @ 63 mls/hr TPN CONT IV Last administered on 07/22/20at 22:33; Start 07/22/20 at 22:00; Stop 07/23/20 at 21:59; Status DC Dexamethasone Sodium Phosphate (Decadron) 4 mg DAILY IVP Last administered on 07/23/20at 12:20; Start 07/23/20 at 09:00 Linezolid/Dextrose 300 ml @ 300 mls/hr Q12HR IV Last administered on 07/23/20at 21:26; Start 07/23/20 at 09:00 Piperacillin Sod/ Tazobactam Sod 3.375 gm/Sodium Chloride 50 ml @ 100 mls/hr Q6HRS IV ; Start 07/23/20 at 12:00; Stop 07/23/20 at 08:05; Status DC Piperacillin Sod/ Tazobactam Sod 4.5 gm/Sodium Chloride 100 ml @ 200 mls/hr Q6HRS IV Last administered on 07/24/20at 06:15; Start 07/23/20 at 09:00 Sodium Chloride 50 meq/Potassium Chloride 20 meq/ Potassium Phosphate 23 mmol/ Calcium Gluconate 5 meq/ Multivitamins 5 ml/Zinc/Copper/ Manganese/ Selenium 1 ml/ Thiamine HCl 300 mg/Total Parenteral Nutrition/Amino Acids/Dextrose 1,512 ml @ 63 mls/hr TPN CONT IV Last administered on 07/23/20at 21:56; Start 07/23/20 at 22:00; Stop 07/24/20 at 21:59 Sodium Chloride 1,000 ml @ 1,000 mls/hr 1X ONCE IV Last administered on 07/23/20at 10:00; Start 07/23/20 at 10:00; Stop 07/23/20 at 17:27; Status DC Epinephrine HCl (EPINEPHrine SYRINGE) 1 mg STK-MED ONCE .ROUTE ; Start 07/24/20 at 06:34; Stop 07/24/20 at 06:35; Status DC Active Scripts Active Reported No Known Medications Prior To Admisstion (Info) Each 1 Each MC 1X Vitals/I & O Vital Sign - Last 24 Hours 07/23/20 07/23/20 07/23/20 07/23/20 08:44 09:00 10:00 10:58 Pulse 118 122 Resp 30 30 B/P (MAP) 91/59 (70) 101/66 (78) Pulse Ox 93 94 91 91 O2 Delivery Ventilator Ventilator Ventilator Ventilator 07/23/20 07/23/20 07/23/20 07/23/20 11:00 12:00 12:00 12:23 Temp 100.2 100.2 Pulse 122 138 Resp 30 30 B/P (MAP) 140/72 (94) 118/62 (80) Pulse Ox 92 88 91 O2 Delivery Ventilator Ventilator Mechanical Ventilator O2 Flow Rate 40.0 07/23/20 07/23/20 07/23/20 07/23/20 12:53 13:00 14:00 15:00 Pulse 130 114 120 Resp 30 30 30 B/P (MAP) 117/61 (79) 124/140 (135) 149/85 (106) Pulse Ox 91 89 88 91 O2 Delivery Ventilator Ventilator Ventilator O2 Flow Rate 40.0 07/23/20 07/23/20 07/23/20 07/23/20 15:03 16:00 16:00 17:00 Temp 99.2 99.2 Pulse 112 112 Resp 30 30 B/P (MAP) 102/68 (79) 150/85 (106) Pulse Ox 91 92 92 O2 Delivery Ventilator Mechanical Ventilator Ventilator Ventilator 07/23/20 07/23/20 07/23/20 07/23/20 18:00 19:00 20:00 20:00 Temp 98.7 98.7 Pulse 105 110 116 Resp 30 30 30 B/P (MAP) 137/75 (95) 150/82 (104) 161/90 (113) Pulse Ox 92 93 93 O2 Delivery Ventilator Ventilator Mechanical Ventilator Ventilator 07/23/20 07/23/20 07/23/20 07/23/20 20:21 20:30 20:45 21:00 Pulse 114 122 118 Resp 30 30 30 B/P (MAP) 161/90 (113) 156/85 (108) 149/87 (107) Pulse Ox 93 93 92 93 O2 Delivery Ventilator Ventilator Ventilator Ventilator 12/3007/23/20 07/23/20 07/23/20 21:45 22:00 22:30 23:00 Pulse 108 108 110 109 Resp 30 30 30 30 B/P (MAP) 162/89 (113) 153/78 (103) 160/91 (114) 141/73 (95) Pulse Ox 90 89 91 91 O2 Delivery Ventilator Ventilator Ventilator Ventilator 07/23/20 07/23/20 07/24/20 07/24/20 23:15 23:45 00:00 00:00 Temp 99.1 99.1 Pulse 107 105 107 Resp 30 30 30 B/P (MAP) 102/53 (69) 140/85 (103) 117/58 (77) Pulse Ox 91 91 91 O2 Delivery Ventilator Ventilator Mechanical Ventilator Ventilator 07/24/20 07/24/20 07/24/20 07/24/20 00:19 01:00 02:00 03:00 Pulse 110 116 116 Resp 30 30 30 B/P (MAP) 95/53 (67) 138/80 (99) 118/67 (84) Pulse Ox 92 92 90 90 O2 Delivery Ventilator Ventilator Ventilator Ventilator 07/24/20 07/24/20 07/24/20 07/24/20 04:00 04:00 04:37 05:00 Temp 101.4 101.4 Pulse 122 124 Resp 30 30 B/P (MAP) 157/78 (104) 93/57 (69) Pulse Ox 87 96 99 O2 Delivery Ventilator Mechanical Ventilator Ventilator Ventilator 07/24/20 07/24/20 07/24/20 07/24/20 05:35 05:45 06:00 07:00 Temp 102.2 102.2 Pulse 120 122 128 Resp 30 30 30 B/P (MAP) 72/54 (60) 76/58 (64) 80/54 (63) Pulse Ox 100 98 98 O2 Delivery Ventilator Ventilator Ventilator Intake and Output 07/23/20 07/23/20 07/24/20 15:00 23:00 07:00 Intake Total 1400 ml 2779 ml 882.1 ml Output Total 415 ml 2875 ml 1630 ml Balance 985 ml -96 ml -747.9 ml Justicifation of Admission Dx: Justifications for Admission: Justification of Admission Dx: Yes Comminuty Aquired Pneumonia: Dehydration COLIN VELAZQUEZ MD Jul 24, 2020 08:03
[2020-07-24] MEDS: ENOXAPARIN 40 MG/0.4 ML SYRINGE. SQ SCH ×2 (08:19→21:06)
[2020-07-24] MEDS: DEXAMETHASONE SOD PHOS 4 MG/ML VIAL IVP SCH (08:19)
[2020-07-24] MEDS: FAMOTIDINE 20 MG/2 ML VIAL IVP SCH ×2 (08:19→21:06)
[2020-07-24] MEDS: ASCORBIC ACID 1,000 MG TABLET PO SCH (08:19)
[2020-07-24] MEDS: CHOLECALCIFEROL (VITAMIN D3) 1,000 UNIT TABLET PO SCH (08:19)
[2020-07-24] MEDS: PROPOFOL 100 ML IV PRN ×2 (08:21→22:07)
[2020-07-24] MEDS: INSULIN GLARGINE SYRINGE. SQ SCH ×2 (08:25→21:07)
[2020-07-24 08:47] LABS: PCO2 ABG 67 mmHg (35-46)
[2020-07-24 08:48] LABS: FIO2 ABG 100%+11
--- NOTE | 2020-07-24 10:34 | PDOC ---
PULMONARY PROGRESS NOTES DATE: 07/24/20 TIME: 10:30 Subjective Patient remains on vent support assist-control mode currently FiO2 of 100% and PEEP of 11 S/P chest tube this am Fever overnight no other concerns Vitals Vital Signs Date Time Temp Pulse Resp B/P (MAP) Pulse Ox O2 Delivery O2 Flow Rate FiO2 07/24/20 07:35 94 Ventilator 07/24/20 07:00 102.2 102.2 07/24/20 06:00 128 30 80/54 (63) 07/23/20 12:53 40.0 Comments Patient seen during , visual exam preformed intubated/sedated no accessory muscle use no distress no obvious edema Labs Laboratory Tests Test 07/22/20 12:13 07/22/20 18:59 07/23/20 00:13 07/23/20 05:15 Glucose (Fingerstick) 166 mg/dL (70-99) 208 mg/dL (70-99) 126 mg/dL (70-99) 96 mg/dL (70-99) Test 07/23/20 05:20 07/23/20 08:00 07/23/20 09:50 07/23/20 11:51 White Blood Count 32.6 x10^3/uL (4.0-11.0) Red Blood Count 5.14 x10^6/uL (4.30-5.70) Hemoglobin 13.5 g/dL (13.0-17.5) Hematocrit 42.9 % (39.0-53.0) Mean Corpuscular Volume 83 fL (79-100) Mean Corpuscular Hemoglobin 26 pg (25-35) Mean Corpuscular Hemoglobin Concent 32 g/dL (31-37) Red Cell Distribution Width 16.6 % (11.5-14.5) Platelet Count 181 x10^3/uL (140-400) Neutrophils (%) (Auto) 94 % (31-73) Lymphocytes (%) (Auto) 2 % (24-48) Monocytes (%) (Auto) 3 % (0-9) Eosinophils (%) (Auto) 0 % (0-3) Basophils (%) (Auto) 0 % (0-3) Neutrophils # (Auto) 30.7 x10^3/uL (1.8-7.7) Lymphocytes # (Auto) 0.8 x10^3/uL (1.0-4.8) Monocytes # (Auto) 1.0 x10^3/uL (0.0-1.1) Eosinophils # (Auto) 0.1 x10^3/uL (0.0-0.7) Basophils # (Auto) 0.1 x10^3/uL (0.0-0.2) Segmented Neutrophils % 69 % (35-66) Band Neutrophils % 22 % (0-9) Lymphocytes % 2 % (24-48) Atypical Lymphocytes % (Manual) 1 % (0-0) Monocytes % 4 % (0-10) Eosinophils % 1 % (0-5) Myelocytes % 1 % (0-0) Platelet Estimate Adequate (ADEQUATE) Polychromasia Slight Anisocytosis Slight Sodium Level 141 mmol/L (136-145) Potassium Level 4.2 mmol/L (3.5-5.1) Chloride Level 106 mmol/L (98-107) Carbon Dioxide Level 29 mmol/L (21-32) Anion Gap 6 (6-14) Blood Urea Nitrogen 32 mg/dL (8-26) Creatinine 0.9 mg/dL (0.7-1.3) Estimated GFR (Cockcroft-Gault) 95.5 BUN/Creatinine Ratio 36 (6-20) Glucose Level 125 mg/dL (70-99) Calcium Level 8.3 mg/dL (8.5-10.1) Total Bilirubin 1.3 mg/dL (0.2-1.0) Aspartate Amino Transf (AST/SGOT) 46 U/L (15-37) Alanine Aminotransferase (ALT/SGPT) 39 U/L (16-63) Alkaline Phosphatase 93 U/L (46-116) Total Protein 6.2 g/dL (6.4-8.2) Albumin 2.0 g/dL (3.4-5.0) Albumin/Globulin Ratio 0.5 (1.0-1.7) O2 Saturation 83 % (92-99) Arterial Blood pH 7.30 (7.35-7.45) Arterial Blood pCO2 at Patient Temp 63 mmHg (35-46) Arterial Blood pO2 at Patient Temp 52 mmHg (85-108) Arterial Blood HCO3 30 mmol/L (21-28) Arterial Blood Base Excess 2 mmol/L (-3-3) FiO2 85/vent Urine Collection Type Unknown Urine Color Yellow Urine Clarity Clear Urine pH 6.0 (<5.0-8.0) Urine Specific [place] 1.020 (1.000-1.030) Urine Protein 30 mg/dL (NEG-TRACE) Urine Glucose (UA) Negative mg/dL (NEG) Urine Ketones (Stick) Negative mg/dL (NEG) Urine Blood Small (NEG) Urine Nitrite Negative (NEG) Urine Bilirubin Small (NEG) Urine Urobilinogen Dipstick 0.2 mg/dL (0.2 mg/dL) Urine Leukocyte Esterase Trace (NEG) Urine RBC 11-20 /HPF (0-2) Urine WBC 5-10 /HPF (0-4) Urine Renal Epithelial Cells Few /LPF Urine Bacteria Few /HPF (0-FEW) Urine Cellular Casts Occ /HPF Urine Hyaline Casts Moderate /HPF Urine Granular Casts Occasional /HPF Urine Waxy Casts Occasional /HPF Urine Mucus Marked /LPF Glucose (Fingerstick) 226 mg/dL (70-99) Test 07/23/20 15:00 07/23/20 16:58 07/23/20 17:56 07/23/20 22:06 Lactic Acid Level 2.0 mmol/L (0.4-2.0) Glucose (Fingerstick) 175 mg/dL (70-99) 183 mg/dL (70-99) 180 mg/dL (70-99) Test 07/23/20 23:37 07/24/20 05:45 07/24/20 06:00 07/24/20 07:40 Glucose (Fingerstick) 214 mg/dL (70-99) 162 mg/dL (70-99) White Blood Count 20.5 x10^3/uL (4.0-11.0) Red Blood Count 4.45 x10^6/uL (4.30-5.70) Hemoglobin 11.9 g/dL (13.0-17.5) Hematocrit 37.7 % (39.0-53.0) Mean Corpuscular Volume 85 fL (79-100) Mean Corpuscular Hemoglobin 27 pg (25-35) Mean Corpuscular Hemoglobin Concent 32 g/dL (31-37) Red Cell Distribution Width 16.6 % (11.5-14.5) Platelet Count 138 x10^3/uL (140-400) Neutrophils (%) (Auto) 89 % (31-73) Lymphocytes (%) (Auto) 4 % (24-48) Monocytes (%) (Auto) 5 % (0-9) Eosinophils (%) (Auto) 0 % (0-3) Basophils (%) (Auto) 1 % (0-3) Neutrophils # (Auto) 18.3 x10^3/uL (1.8-7.7) Lymphocytes # (Auto) 0.9 x10^3/uL (1.0-4.8) Monocytes # (Auto) 1.1 x10^3/uL (0.0-1.1) Eosinophils # (Auto) 0.0 x10^3/uL (0.0-0.7) Basophils # (Auto) 0.2 x10^3/uL (0.0-0.2) Sodium Level 138 mmol/L (136-145) Potassium Level 4.4 mmol/L (3.5-5.1) Chloride Level 104 mmol/L (98-107) Carbon Dioxide Level 29 mmol/L (21-32) Anion Gap 5 (6-14) Blood Urea Nitrogen 33 mg/dL (8-26) Creatinine 1.2 mg/dL (0.7-1.3) Estimated GFR (Cockcroft-Gault) 68.5 Glucose Level 232 mg/dL (70-99) Calcium Level 7.4 mg/dL (8.5-10.1) Phosphorus Level 3.1 mg/dL (2.6-4.7) Magnesium Level 1.9 mg/dL (1.8-2.4) O2 Saturation 86 % (92-99) Arterial Blood pH 7.27 (7.35-7.45) Arterial Blood pCO2 at Patient Temp 67 mmHg (35-46) Arterial Blood pO2 at Patient Temp 56 mmHg (85-108) Arterial Blood HCO3 30 mmol/L (21-28) Arterial Blood Base Excess 2 mmol/L (-3-3) FiO2 100%+11 Laboratory Tests Test 07/23/20 11:51 07/23/20 15:00 07/23/20 16:58 07/23/20 17:56 Glucose (Fingerstick) 226 mg/dL (70-99) 175 mg/dL (70-99) 183 mg/dL (70-99) Lactic Acid Level 2.0 mmol/L (0.4-2.0) Test 07/23/20 22:06 07/23/20 23:37 07/24/20 05:45 07/24/20 06:00 Glucose (Fingerstick) 180 mg/dL (70-99) 214 mg/dL (70-99) 162 mg/dL (70-99) White Blood Count 20.5 x10^3/uL (4.0-11.0) Red Blood Count 4.45 x10^6/uL (4.30-5.70) Hemoglobin 11.9 g/dL (13.0-17.5) Hematocrit 37.7 % (39.0-53.0) Mean Corpuscular Volume 85 fL (79-100) Mean Corpuscular Hemoglobin 27 pg (25-35) Mean Corpuscular Hemoglobin Concent 32 g/dL (31-37) Red Cell Distribution Width 16.6 % (11.5-14.5) Platelet Count 138 x10^3/uL (140-400) Neutrophils (%) (Auto) 89 % (31-73) Lymphocytes (%) (Auto) 4 % (24-48) Monocytes (%) (Auto) 5 % (0-9) Eosinophils (%) (Auto) 0 % (0-3) Basophils (%) (Auto) 1 % (0-3) Neutrophils # (Auto) 18.3 x10^3/uL (1.8-7.7) Lymphocytes # (Auto) 0.9 x10^3/uL (1.0-4.8) Monocytes # (Auto) 1.1 x10^3/uL (0.0-1.1) Eosinophils # (Auto) 0.0 x10^3/uL (0.0-0.7) Basophils # (Auto) 0.2 x10^3/uL (0.0-0.2) Sodium Level 138 mmol/L (136-145) Potassium Level 4.4 mmol/L (3.5-5.1) Chloride Level 104 mmol/L (98-107) Carbon Dioxide Level 29 mmol/L (21-32) Anion Gap 5 (6-14) Blood Urea Nitrogen 33 mg/dL (8-26) Creatinine 1.2 mg/dL (0.7-1.3) Estimated GFR (Cockcroft-Gault) 68.5 Glucose Level 232 mg/dL (70-99) Calcium Level 7.4 mg/dL (8.5-10.1) Phosphorus Level 3.1 mg/dL (2.6-4.7) Magnesium Level 1.9 mg/dL (1.8-2.4) Test 07/24/20 07:40 O2 Saturation 86 % (92-99) Arterial Blood pH 7.27 (7.35-7.45) Arterial Blood pCO2 at Patient Temp 67 mmHg (35-46) Arterial Blood pO2 at Patient Temp 56 mmHg (85-108) Arterial Blood HCO3 30 mmol/L (21-28) Arterial Blood Base Excess 2 mmol/L (-3-3) FiO2 100%+11 Medications Active Scripts Medications Dose Route/Sig Max Daily Dose Days Date Category No Known Medications Prior To Admisstion (Info) Each 1 Each 1X 07/13/20 Reported Comments CXR1 IMPRESSION: No opacification of left hemithorax without significant mediastinal shift. Consideration may be given for large left pleural effusion versus atelectasis of the left lung. CTA chest IMPRESSION: 1. No evidence of acute pulmonary embolism. Evaluation of distal pulmonary arteries is limited by motion artifact. 2. Extensive, fairly confluent groundglass opacities throughout both lungs, slightly peripheral and basilar predominance. This could be seen with severe multifocal pneumonia and/or ARDS. Electronically signed by: Lucinda Cespedes MD (07/13/2020 11:33 AM) [id number] Impression . IMPRESSION: 1. Acute hypoxemic respiratory failure secondary to COVID-19 viral pneumonia, intubated, 2. COVID-19 viral pneumonia. 3. Abnormal x-ray. 4. Tobacco dependence. 5. obesity 6. Fever /, on BS abx 7. Severe agitation-- resolved 8. complete opacification of the left lobe large left pleural effusion versus atelectasis of the lung Plan . PLAN: Continue Vent support, currently 100% and PEEP 11-- in pressure control with driving pressure of 38 and rate of 30 Follow CXR and ABG-- reviewed--chest x-ray show L pneumothorax S/p chest tube this am Daily CXR Continue adequate sedation Has completed full course of remdesivir Continue Dexamethasone will slow taper Continue ABX per ID, monitor WBC, improved today Continue vasopressors to keep MAP greater than 65 Continue TPN for nutritional support, didn't tolerate tube feeding DVT/GI PPX D/W RN and RT Pt. is FULL code Critical Care Time [id number] AM NEEL GANT MD Jul 24, 2020 10:34
[2020-07-24] MEDS: NOREPINEPHRINE VIAL 8 MG in IV DEXTROSE 5% 250 ML IV PRN (11:06)
--- NOTE | 2020-07-24 11:16 | PDOC ---
Infectious Disease Note Subjective: Subjective pt intubated/sedated Status post left CTS placement Remains febrile Remains on Levophed Vital Signs: Vital Signs Vital Signs Date Time Temp Pulse Resp B/P (MAP) Pulse Ox O2 Delivery O2 Flow Rate FiO2 07/24/20 07:35 94 Ventilator 07/24/20 07:00 102.2 102.2 07/24/20 06:00 128 30 80/54 (63) 07/23/20 12:53 40.0 Physical Exam: PHYSICAL EXAM GENERAL: Intubated, sedated. HEENT: Normocephalic, atraumatic. ETT and OG tube in place. NECK: Supple. LUNGS: Coarse breath sounds bilaterally. CTS present HEART: S1, S2. Tachycardia ABDOMEN: Obese. Bowel sounds present, mildly distended. EXTREMITIES: No edema, no cyanosis. DERMATOLOGIC: Warm, dry. No generalized rash. NEUROLOGIC: Intubated. PSYCHIATRIC: Unable to assess. Right upper extremity PICC line clean Medications: Inpatient Meds: Current Medications Medications (Trade) Dose Ordered Sig/Sola Start Time Stop Time Status Last Admin Dose Admin Acetaminophen (Tylenol) 650 mg PRN Q6HRS PRN 07/13/20 16:15 07/24/20 04:19 650 MG Ascorbic Acid (Vitamin C) 1,000 mg DAILY 07/13/20 13:00 07/24/20 08:19 1,000 MG Atropine Sulfate (ATROPINE 0.5mg SYRINGE) 0.5 mg PRN Q5MIN PRN 07/13/20 17:00 Azithromycin 250 ml @ As Directed STK-MED ONCE 07/13/20 09:28 07/13/20 09:28 DC Benzonatate (Tessalon Perle) 100 mg Q6HRS 07/13/20 18:00 07/19/20 10:24 DC 07/18/20 05:36 100 MG Calcium Gluconate 1000 mg/Sodium Chloride 110 ml @ 220 mls/hr 1X ONCE 07/13/20 11:45 07/13/20 12:14 DC 07/13/20 11:51 220 MLS/HR Ceftriaxone Sodium (Rocephin) 1 gm Q24H 07/14/20 09:00 07/13/20 23:25 DC Chlorhexidine Gluconate (Peridex) 15 ml BID 07/13/20 21:00 07/16/20 18:59 DC 07/15/20 08:33 15 ML Dexamethasone (Decadron) 6 mg [id number] 07/14/20 08:00 07/15/20 09:13 DC 07/14/20 09:14 6 MG Dexamethasone Sodium Phosphate (Decadron) 4 mg DAILY 07/23/20 09:00 07/24/20 08:19 4 MG Dexmedetomidine HCl 400 mcg/ Sodium Chloride 100 ml @ 0 mls/hr CONT PRN 07/13/20 17:00 Dextrose (Dextrose 50%-Water Syringe) 12.5 gm PRN Q15MIN PRN 07/14/20 09:30 Doxycycline Hyclate 100 mg/ Dextrose 100 ml @ 50 mls/hr Q12HR 07/13/20 13:00 07/13/20 23:25 DC 07/13/20 13:21 50 MLS/HR Enoxaparin Sodium (Lovenox 120mg Syringe) 110 mg 1X ONCE 07/13/20 10:15 07/13/20 10:16 DC 07/13/20 10:14 110 MG Enoxaparin Sodium (Lovenox 40mg Syringe) 40 mg BID 07/14/20 21:00 07/24/20 08:19 40 MG Epinephrine HCl (EPINEPHrine SYRINGE) 1 mg STK-MED ONCE 07/24/20 07:00 07/24/20 08:37 DC Etomidate (Amidate) 20 mg STK-MED ONCE 07/13/20 18:00 07/14/20 08:36 DC Famotidine (Pepcid Vial) 20 mg BID 07/14/20 21:00 07/24/20 08:19 20 MG Fentanyl Citrate 55 ml @ 0 mls/hr CONT PRN PRN 07/13/20 19:45 07/24/20 01:13 3.98 MLS/HR Influenza Virus Vaccine Quadrival (Fluzone Quad Syringe) 0.5 ml ONCE ONCE 07/15/20 09:00 07/15/20 09:01 DC Info (CONTRAST GIVEN -- Rx MONITORING) 1 each PRN DAILY PRN 07/13/20 10:30 07/15/20 10:29 DC Info (Tpn Per Pharmacy) 1 each PRN DAILY PRN 07/15/20 09:15 07/23/20 10:59 1 EACH Insulin Glargine (Lantus Syringe) 45 unit BID 07/17/20 09:00 07/24/20 08:25 45 UNIT Insulin Human Lispro (HumaLOG) 18 units Q6HRS 07/18/20 12:00 07/24/20 06:17 18 UNITS Iohexol (Omnipaque 350 Mg/ml) 100 ml 1X ONCE 07/13/20 10:15 07/13/20 10:16 DC 07/13/20 10:15 100 ML Linezolid/Dextrose 300 ml @ 300 mls/hr Q12HR 07/23/20 09:00 07/24/20 08:20 300 MLS/HR Lorazepam (Ativan Inj) 0.25 mg PRN Q6HRS PRN 07/13/20 16:45 07/13/20 16:42 0.25 MG Magnesium Sulfate 50 ml @ 25 mls/hr 1X ONCE 07/13/20 12:30 07/13/20 14:29 UNV Midazolam HCl 100 ml @ 0 mls/hr CONT PRN 07/13/20 17:45 07/24/20 04:38 10 MLS/HR Multi-Ingred Cream/Lotion/Oil/ Oint (Artificial Tears Eye Ointment) 1 klaudia Q6HRS 07/16/20 13:00 07/24/20 06:15 1 KLAUDIA Norepinephrine Bitartrate 8 mg/ Dextrose 258 ml @ 22.91 mls/ hr CONT PRN 07/13/20 23:30 07/24/20 11:06 15 MLS/HR Ondansetron HCl (Zofran) 4 mg PRN Q8HRS PRN 07/13/20 09:45 07/14/20 08:19 DC Phenol (Chloraseptic) 1 spray PRN Q2HR PRN 07/13/20 16:15 07/13/20 16:27 1 SPRAY Piperacillin Sod/ Tazobactam Sod (Zosyn Per Pharmacy) 1 each PRN DAILY PRN 07/13/20 23:16 07/22/20 09:33 DC Piperacillin Sod/ Tazobactam Sod 3.375 gm/Sodium Chloride 50 ml @ 100 mls/hr Q6HRS 07/23/20 12:00 07/23/20 08:05 DC Piperacillin Sod/ Tazobactam Sod 4.5 gm/Sodium Chloride 100 ml @ 200 mls/hr Q6HRS 07/23/20 09:00 07/24/20 06:15 200 MLS/HR Potassium Chloride/Water 100 ml @ 100 mls/hr Q1H 07/13/20 11:30 07/13/20 15:29 DC 07/13/20 17:17 100 MLS/HR Potassium Phosphate 13.6 mmol/Sodium Chloride 254.5333 ml @ 127.... Q2H 07/17/20 11:30 07/17/20 13:29 DC 07/17/20 13:22 127.267 MLS/HR Potassium Chloride (Klor-Con) 40 meq 1X ONCE 07/13/20 11:15 07/13/20 11:16 DC 07/13/20 11:20 40 MEQ Prochlorperazine Edisylate (Compazine) 10 mg PRN Q6HRS PRN 07/13/20 16:15 Propofol 100 ml @ 3.42 mls/hr CONT PRN 07/20/20 11:30 07/24/20 08:21 5 MLS/HR Remdesivir 100 mg/ Sodium Chloride 230 ml @ 460 mls/hr Q24H 07/14/20 14:00 07/17/20 14:29 DC 07/17/20 15:36 460 MLS/HR Remdesivir 200 mg/ Sodium Chloride 210 ml @ 210 mls/hr 1X ONCE 07/13/20 14:00 07/13/20 14:59 DC 07/13/20 15:21 210 MLS/HR Ringer's Solution 1,000 ml @ 100 mls/hr Q10H 07/13/20 23:30 07/15/20 09:08 DC 07/14/20 20:12 100 MLS/HR Sodium Chloride 1,000 ml @ 1,000 mls/hr 1X ONCE 07/23/20 10:00 07/23/20 17:27 DC 07/23/20 10:00 1,000 MLS/HR Sodium Chloride 50 meq/Potassium Chloride 20 meq/ Potassium Phosphate 23 mmol/ Calcium Gluconate 5 meq/ Multivitamins 5 ml/Zinc/Copper/ Manganese/ Selenium 1 ml/ Thiamine HCl 300 mg/Total Parenteral Nutrition/Amino Acids/Dextrose 1,512 ml @ 63 mls/hr TPN CONT 07/23/20 22:00 07/24/20 21:59 07/23/20 21:56 63 MLS/HR Sodium Chloride 50 meq/Potassium Chloride 20 meq/ Potassium Phosphate 23 mmol/ Calcium Gluconate 5 meq/ Multivitamins 5 ml/Zinc/Copper/ Manganese/ Selenium 1 ml/ Total Parenteral Nutrition/Amino Acids/Dextrose 1,512 ml @ 63 mls/hr TPN CONT 07/22/20 22:00 07/23/20 21:59 DC 07/22/20 22:33 63 MLS/HR Sodium Chloride 70 meq/Potassium Phosphate 23 mmol/ Calcium Gluconate 5 meq/ Multivitamins 5 ml/Zinc/Copper/ Manganese/ Selenium 1 ml/ Total Parenteral Nutrition/Amino Acids/Dextrose 1,512 ml @ 63 mls/hr TPN CONT 07/21/20 22:00 07/22/20 21:59 DC 07/22/20 03:10 63 MLS/HR Sodium Chloride 70 meq/Potassium Phosphate 23 mmol/ Calcium Gluconate 5 meq/ Multivitamins 5 ml/Zinc/Copper/ Manganese/ Selenium 1 ml/ Total Parenteral Nutrition/Amino Acids/Dextrose/ Fat Emulsion Intravenous 1,512 ml @ 63 mls/hr TPN CONT 07/19/20 22:00 07/20/20 21:59 DC 07/19/20 20:49 63 MLS/HR Sodium Chloride 90 meq/Potassium Chloride 25 meq/ Potassium Phosphate 13.6 mmol/Magnesium Sulfate 10 meq/ Calcium Gluconate 10 meq/ Multivitamins 5 ml/Zinc/Copper/ Manganese/ Selenium 1 ml/ Total Parenteral Nutrition/Amino Acids/Dextrose 1,512 ml @ 63 mls/hr TPN CONT 07/15/20 22:00 07/16/20 21:59 DC 07/15/20 22:01 63 MLS/HR Sodium Chloride 90 meq/Potassium Phosphate 20 mmol/ Calcium Gluconate 10 meq/ Multivitamins 5 ml/Zinc/Copper/ Manganese/ Selenium 1 ml/ Total Parenteral Nutrition/Amino Acids/Dextrose/ Fat Emulsion Intravenous 1,512 ml @ 63 mls/hr TPN CONT 07/16/20 22:00 07/17/20 21:59 DC 07/16/20 22:54 63 MLS/HR Sodium Chloride 90 meq/Potassium Phosphate 23 mmol/ Calcium Gluconate 5 meq/ Multivitamins 5 ml/Zinc/Copper/ Manganese/ Selenium 1 ml/ Total Parenteral Nutrition/Amino Acids/Dextrose/ Fat Emulsion Intravenous 1,512 ml @ 63 mls/hr TPN CONT 07/18/20 22:00 07/19/20 21:59 DC 07/18/20 20:52 63 MLS/HR Sodium Chloride 90 meq/Potassium Phosphate 23 mmol/ Calcium Gluconate 10 meq/ Multivitamins 5 ml/Zinc/Copper/ Manganese/ Selenium 1 ml/ Total Parenteral Nutrition/Amino Acids/Dextrose/ Fat Emulsion Intravenous 1,512 ml @ 63 mls/hr TPN CONT 07/17/20 22:00 07/18/20 21:59 DC 07/17/20 21:32 63 MLS/HR Sodium Phosphate 15 mmol/Sodium Chloride 105 ml @ 105 mls/hr 1X ONCE 07/15/20 13:00 07/15/20 13:59 DC 07/15/20 13:12 105 MLS/HR Sodium Phosphate 30 mmol/Sodium Chloride 260 ml @ 65 mls/hr 1X ONCE 07/16/20 13:00 07/16/20 16:59 DC 07/16/20 13:29 65 MLS/HR Sterile Water (WATER for RESP) 1,000 ml CONT PRN 07/13/20 17:15 Succinylcholine Chloride (Anectine) 200 mg STK-MED ONCE 07/13/20 18:00 07/14/20 08:36 DC Thiamine HCl 300 mg/Dextrose 53 ml @ 102 mls/hr DAILY 07/14/20 09:00 07/23/20 10:56 DC 07/23/20 08:53 102 MLS/HR Vancomycin HCl (Vanco Per Pharmacy) 1 each PRN DAILY PRN 07/13/20 23:16 07/14/20 09:14 DC 07/14/20 02:10 1 EACH Vancomycin HCl (Vancomycin Trough Level) 1 each 1X ONCE 07/14/20 23:30 07/14/20 23:31 Cancel Vancomycin HCl 1.5 gm/Sodium Chloride 500 ml @ 250 mls/hr Q8H 07/14/20 08:00 07/14/20 09:14 DC 07/14/20 08:46 250 MLS/HR Vancomycin HCl 2 gm/Sodium Chloride 500 ml @ 250 mls/hr 1X ONCE 07/13/20 23:45 07/14/20 01:44 DC 07/14/20 00:24 250 MLS/HR Vecuronium [place] 50 mg/ Miscellaneous 50 ml @ 5.683 mls/ hr CONT PRN 07/13/20 22:00 07/23/20 22:53 4 MLS/HR Vecuronium [place] (Norcuron Bolus) 6 mg PRN Q4HRS PRN 07/13/20 19:30 07/13/20 19:39 6 MG Vitamin D (Vitamin D3) 1,000 unit DAILY 07/13/20 13:00 07/24/20 08:19 1,000 UNIT Labs: Lab Laboratory Tests Test 07/23/20 11:51 07/23/20 15:00 07/23/20 16:58 07/23/20 17:56 Glucose (Fingerstick) 226 mg/dL (70-99) 175 mg/dL (70-99) 183 mg/dL (70-99) Lactic Acid Level 2.0 mmol/L (0.4-2.0) Test 07/23/20 22:06 07/23/20 23:37 07/24/20 05:45 07/24/20 06:00 Glucose (Fingerstick) 180 mg/dL (70-99) 214 mg/dL (70-99) 162 mg/dL (70-99) White Blood Count 20.5 x10^3/uL (4.0-11.0) Red Blood Count 4.45 x10^6/uL (4.30-5.70) Hemoglobin 11.9 g/dL (13.0-17.5) Hematocrit 37.7 % (39.0-53.0) Mean Corpuscular Volume 85 fL (79-100) Mean Corpuscular Hemoglobin 27 pg (25-35) Mean Corpuscular Hemoglobin Concent 32 g/dL (31-37) Red Cell Distribution Width 16.6 % (11.5-14.5) Platelet Count 138 x10^3/uL (140-400) Neutrophils (%) (Auto) 89 % (31-73) Lymphocytes (%) (Auto) 4 % (24-48) Monocytes (%) (Auto) 5 % (0-9) Eosinophils (%) (Auto) 0 % (0-3) Basophils (%) (Auto) 1 % (0-3) Neutrophils # (Auto) 18.3 x10^3/uL (1.8-7.7) Lymphocytes # (Auto) 0.9 x10^3/uL (1.0-4.8) Monocytes # (Auto) 1.1 x10^3/uL (0.0-1.1) Eosinophils # (Auto) 0.0 x10^3/uL (0.0-0.7) Basophils # (Auto) 0.2 x10^3/uL (0.0-0.2) Sodium Level 138 mmol/L (136-145) Potassium Level 4.4 mmol/L (3.5-5.1) Chloride Level 104 mmol/L (98-107) Carbon Dioxide Level 29 mmol/L (21-32) Anion Gap 5 (6-14) Blood Urea Nitrogen 33 mg/dL (8-26) Creatinine 1.2 mg/dL (0.7-1.3) Estimated GFR (Cockcroft-Gault) 68.5 Glucose Level 232 mg/dL (70-99) Calcium Level 7.4 mg/dL (8.5-10.1) Phosphorus Level 3.1 mg/dL (2.6-4.7) Magnesium Level 1.9 mg/dL (1.8-2.4) Test 07/24/20 07:40 O2 Saturation 86 % (92-99) Arterial Blood pH 7.27 (7.35-7.45) Arterial Blood pCO2 at Patient Temp 67 mmHg (35-46) Arterial Blood pO2 at Patient Temp 56 mmHg (85-108) Arterial Blood HCO3 30 mmol/L (21-28) Arterial Blood Base Excess 2 mmol/L (-3-3) FiO2 100%+11 Objective: Assessment: 1. COVID-19 pneumonia 2. Fever could have secondary bacterial pneumonia 3. Acute hypoxic respiratory failure. 4. Morbid obesity. 5. Severe protein-calorie malnutrition. 6. Hyponatremia, hypokalemia. 7. Leukocytosis from steroid 8. complete opacification of the left hemithorax 9. Left pneumothorax status post CTS Plan: Plan of Care Continue Zosyn and Zyvox Leukocytosis appears multifactorial Status post CTS placement f/u cults neg so far continue supportive care Status post remdesivir 07/14 Status post steroids Monitor labs and cultures Discussed with ALICIA CASTRO MD Jul 24, 2020 11:16
[2020-07-24] MEDS: TPN PER PHARMACY MC PRN ×2 (11:22→11:28)
--- NOTE | 2020-07-24 11:27 | NUR ---
Pharmacy TPN Dosing Note S: LYUDMILA HOBBS is a 35 year old M Currently receiving Central Continuous TPN started 07/15/20 B:Pertinent PMH: TF INTOLERANCE, INTUBATED Height: 5 feet, 6 inches Weight: 112.2 kg Current diet: NPO LABS: Sodium: 138 Potassium: 4.4 Chloride: 104 Calcium: 7.4 Corrected Calcium: 9.00 Magnesium: 1.9 CO2: 29 SCr: 1.2 Glucose: 162-232 Albumin: 2.0 AST: 46 ALT: 39 TPN FORMULA: TPN TYPE: Central Continuous AMINO ACIDS: 120 gm DEXTROSE: 225 gm SODIUM CHLORIDE: 50 mEq POTASSIUM CHLORIDE: 20 mEq POTASSIUM PHOSPHATE: 23 mmol CALCIUM: 5 mEq MULTIPLE VITAMIN: 5 ml TRACE ELEMENTS: 1 ml(s) THIAMINE 300MG TPN PLAN: Continue same R: Continue TPN Will monitor electrolytes, glucose, and tolerance to TPN. Nan Kan RPH, 07/24/20 1127
[2020-07-24] MEDS: VECURONIUM BROMIDE 50 MG in TOTAL VOLUME 50 ML IV PRN (13:18)
--- NOTE | 2020-07-24 15:54 | NUR ---
SS following up with discharge planning. SS reviewed pt chart and discussed with pt RN. Pt is currently on the vent at 100%. Pt on TPN, IV Zosyn, and IV Zyvox. COVID19 positive. Chest tube placed. Not stable. SS will continue to follow for discharge planning.
[2020-07-24] MEDS ORDERED: DEXTROSE 70% IV SCH (22:00)
[2020-07-24] MEDS ORDERED: AMINO ACID IV SCH (22:00)
[2020-07-24] MEDS ORDERED: TOTAL PARENTERAL NUTRITION IV SCH (22:00)
[2020-07-24] MEDS ORDERED: [UNRECOGNIZED DRUG - OTHER] IV SCH (22:00)
[2020-07-25] VITALS (33 sets, daily range): BP systolic 66–149; BP diastolic 44–75
[2020-07-25] MEDS: ACETAMINOPHEN 325 MG TABLET. PO PRN (00:16)
[2020-07-25] MEDS: VECURONIUM BROMIDE 50 MG in TOTAL VOLUME 50 ML IV PRN ×3 (02:27→21:18)
[2020-07-25] MEDS: MIDAZOLAM 100mg/100ml NS BAG 100 ML IV PRN ×3 (02:27→21:17)
[2020-07-25] MEDS: PROPOFOL 100 ML IV PRN ×3 (02:37→13:46)
[2020-07-25] MEDS: fentaNYL HIGH DOSE PCA 55 ML IV PRN ×2 (03:55→17:27)
[2020-07-25] MEDS: PIPERACILLIN/TAZOBACTAM 4.5 GM in IV NORMAL SALINE 100ML 100 ML IV SCH ×2 (05:53→11:52)
[2020-07-25] MEDS: INSULIN LISPRO 300 UNITS/3 ML VIAL. SQ SCH ×8 (05:54→23:45)
[2020-07-25] MEDS: MINERAL OIL/PETROLATUM,WHITE OPHTH OINT 3.5GM TUBE. OU SCH ×4 (05:55→23:44)
[2020-07-25 06:05] LABS: BASO # 0.1 x10^3/uL (0.0-0.2); BASO % 1 % (0-3); EOS % 0 % (0-3); HEMATOCRIT 36.5 % (39.0-53.0); HEMOGLOBIN 11.5 g/dL (13.0-17.5); LYMPH # 0.8 x10^3/uL (1.0-4.8); LYMPH % 6 % (24-48); MEAN CORPUSCULAR HEMOGLOBIN 27 pg (25-35); MEAN CORPUSCULAR HGB CONC 32 g/dL (31-37); MEAN CORPUSCULAR VOLUME 85 fL (79-100); MONO # 0.8 x10^3/uL (0.0-1.1); MONO % 6 % (0-9); NEUT # 12.6 x10^3/uL (1.8-7.7); NEUT % 88 % (31-73); PLATELET COUNT 160 x10^3/uL (140-400); RED BLOOD COUNT 4.32 x10^6/uL (4.30-5.70); RED CELL DISTRIBUTION WIDTH 16.7 % (11.5-14.5); WHITE BLOOD COUNT 14.4 x10^3/uL (4.0-11.0)
[2020-07-25 06:19] LABS: CALCIUM 8.2 mg/dL (8.5-10.1); CREATININE 1.4 mg/dL (0.7-1.3); GFR 57.3
--- NOTE | 2020-07-25 06:41 | RAD ---
XR CHEST 1V 07/25/2020 6:29 AM INDICATION: Chest tube COMPARISON: 07/24/2020 TECHNIQUE: Portable frontal view of the chest is provided. FINDINGS: The cardiomediastinal silhouette is similar in appearance. Endotracheal tube, nasogastric tube, right upper extremity PICC and left-sided thoracostomy tube are in similar position. There is near complete opacification the left hemithorax, similar to prior examination. Air bronchogr ams are identified. No pneumothorax. There is subcutaneous emphysema along the left lateral chest wal l inferiorly at the site of chest tube insertion. Perihilar mixed interstitial and alveolar airspace disease identified within the right lung, similar. No suspicious osseous abnormality. IMPRESSION: Aeration of the lungs appears similar to the prior examination. Support lines and tubes are in simila r position. There is increased subcutaneous emphysema along the left lateral chest wall at the site o f chest tube insertion. Electronically signed by: Rosaline Veronica MD (07/25/2020 6:38 AM) [facility]
--- NOTE | 2020-07-25 07:00 | NUR ---
Dr Sandhu at bedside and examined Lt CT. No crepitus noted. Orders to change dressing and apply more vaseline gauze.
[2020-07-25 07:51] LABS: BASE EXCESS ABG 1 mmol/L (-3-3); CORRECTED PCO2 ABG 68 mmHg; CORRECTED PH ABG 7.26; CORRECTED PO2 ABG 46 mmHg; HCO3 ABG 29 mmol/L (21-28)
[2020-07-25 07:53] LABS: PCO2 ABG 60 mmHg (35-46); PO2 ABG < 42 mmHg (85-108); SAT O2 ABG 67 % (92-99)
[2020-07-25] MEDS ORDERED: ACETAMINOPHEN 650 MG/20.3 ML SOLUTION. PEG PRN (08:00)
[2020-07-25] MEDS: DEXAMETHASONE SOD PHOS 4 MG/ML VIAL IVP SCH (08:10)
[2020-07-25] MEDS: CHOLECALCIFEROL (VITAMIN D3) 1,000 UNIT TABLET PO SCH (08:10)
[2020-07-25] MEDS: ENOXAPARIN 40 MG/0.4 ML SYRINGE. SQ SCH ×2 (08:10→21:18)
[2020-07-25] MEDS: FAMOTIDINE 20 MG/2 ML VIAL IVP SCH ×2 (08:10→21:18)
[2020-07-25] MEDS: ASCORBIC ACID 1,000 MG TABLET PO SCH (08:10)
[2020-07-25] MEDS: INSULIN GLARGINE SYRINGE. SQ SCH ×2 (08:11→21:20)
--- NOTE | 2020-07-25 09:00 | NUR ---
called Dr. Sandhu re: decreased O2 saturation of 70% and ABG corrected values; informed him of extreme air leak around chest tube even after re-dressing with vaseline gauze. No orders received, no change in plan of care.
[2020-07-25] MEDS: NOREPINEPHRINE VIAL 8 MG in IV DEXTROSE 5% 250 ML IV PRN ×4 (09:36→23:34)
--- NOTE | 2020-07-25 10:18 | PDOC ---
PROGRESS NOTES Date of Service: DATE: 07/25/20 TIME: 10:17 Chief Complaint Chief Complaint impression Acute hypoxemic respiratory failure secondary to COVID-19 viral pneumonia. COVID-19 viral pneumonia. severe multifocal pneumonia and/or ARDS. Tobacco dependence. Hyponatremia Hyperkalemia Hypomagnesemia vent support assist-control mode currently FiO2 of 100% and PEEP of 11 Worsening oxygenation Status post CTS placement f/u cults neg so far /continue supportive care Status post remdesivir 07/14 Status post steroids Monitor labs and cultures plan icu bed FEN - TPN PPX - lovenox FULL CODE Dispo - ICU Continue full course of remdesivir Continue Dexamethasone ,, taper iv ABX zyvox and zosyn, FiO2 85% PEEP of 11 S/P chest tube 07-24 // The left pneumothorax has decreased in size, no longer visible Fever overnight 102.2 cc time 37 minutes History of Present Illness History of Present Illness Mr Luque is a 35 yo M morbidly obese who presented with chief complaint of respiratory distress. Patient tested positive for Covid about 6 days prior to admit Patient had a fever, chills, cough, myalgias and headache. Patient had abdominal discomfort with diarrhea. Over the last day the patient became more short of breath. Patient had trouble sleeping and was satting 65% on room air in triage. Symptoms worse with activity and at night and somewhat better with taking Tylenol. 07/13: Eventful day with worsening respiratory distress, required intubation emergently with ED physician 07/14: Febrile to 101.8F this morning. PEEP 14, FiO2 100%. UOP stable. Required paralysis overnight for vent dysynchrony. Remdesivir day 1 07/15: Temp 100 F this morning. Still requiring paralysis for vent dyssynchrony on PEEP of 14 with FiO2 100%. Right upper extremity PICC placed for pressors. 07/16: Afebrile overnight still requiring PEEP of 14 and FiO2 100% but PaO2 on ABG up to 59 today. Glucose in the 300s despite insulin regimen. Triglycerides low 200s on TPN. Phosphorus low at 1.5. 07/17: T-max 100.4 F overnight. Glucose still in the 300s despite very large increase in insulin. O2 saturations 96% on PEEP of 14 and FiO2 100%. Labs pending. 07/18: Afebrile overnight. Still in 300s. O2 saturation 97% on PEEP of 14 FiO2 40%. ABG 7.35/59/91. No desaturations with repositioning today. Chest radiograph overall slightly improved 07/19: Afebrile overnight seen on vent paralyzed on TPN with FiO2 85% PEEP of 14. ABG 7.41/50/92. Afebrile. FiO2 80%, PEEP 13. ABG 7.39/53/69. Plan: Cont ICU care Vitals Vitals Vital Signs Date Time Temp Pulse Resp B/P (MAP) Pulse Ox O2 Delivery O2 Flow Rate FiO2 07/25/20 10:00 140 30 77/44 (55) 69 Ventilator 07/25/20 07:00 104.0 104.0 07/24/20 15:00 40.0 Physical Exam Physical Exam GENERAL: Intubated, sedated. HEENT: Normocephalic, atraumatic. ETT and OG tube in place. NECK: Supple. LUNGS: Coarse breath sounds bilaterally. CTS present HEART: S1, S2. Tachycardia ABDOMEN: Obese. Bowel sounds present, mildly distended. EXTREMITIES: No edema, no cyanosis. DERMATOLOGIC: Warm, dry. No generalized rash. NEUROLOGIC: Intubated. PSYCHIATRIC: Unable to assess. Right upper extremity PICC line clean General: Cooperative, No acute distress Heart: Regular rate, Normal S1, Normal S2 Abdomen: Normal bowel sounds, Soft Extremities: No clubbing, No cyanosis Skin: No rashes, No breakdown Labs LABS XR CHEST 1V 07/25/2020 6:29 AM INDICATION: Chest tube COMPARISON: 07/24/2020 TECHNIQUE: Portable frontal view of the chest is provided. FINDINGS: The cardiomediastinal silhouette is similar in appearance. Endotracheal tube, nasogastric tube, right upper extremity PICC and left-sided thoracostomy tube are in similar position. There is near complete opacification the left hemithorax, similar to prior examination. Air bronchograms are identified. No pneumothorax. There is subcutaneous emphysema along the left lateral chest wall inferiorly at the site of chest tube insertion. Perihilar mixed interstitial and alveolar airspace disease identified within the right lung, similar. No suspicious osseous abnormality. IMPRESSION: Aeration of the lungs appears similar to the prior examination. Support lines and tubes are in similar position. There is increased subcutaneous emphysema along the left lateral chest wall at the site of chest tube insertion. Electronically signed by: Naomie Veronica MD (07/25/2020 6:38 AM) [facility] DICTATED and SIGNED BY: NAOMIE VERONICA MD DATE: 07/25/20 [id number] Laboratory Tests Test 07/24/20 13:32 07/24/20 17:25 07/24/20 23:54 07/25/20 05:00 Glucose (Fingerstick) 219 mg/dL (70-99) 225 mg/dL (70-99) 195 mg/dL (70-99) White Blood Count 14.4 x10^3/uL (4.0-11.0) Red Blood Count 4.32 x10^6/uL (4.30-5.70) Hemoglobin 11.5 g/dL (13.0-17.5) Hematocrit 36.5 % (39.0-53.0) Mean Corpuscular Volume 85 fL (79-100) Mean Corpuscular Hemoglobin 27 pg (25-35) Mean Corpuscular Hemoglobin Concent 32 g/dL (31-37) Red Cell Distribution Width 16.7 % (11.5-14.5) Platelet Count 160 x10^3/uL (140-400) Neutrophils (%) (Auto) 88 % (31-73) Lymphocytes (%) (Auto) 6 % (24-48) Monocytes (%) (Auto) 6 % (0-9) Eosinophils (%) (Auto) 0 % (0-3) Basophils (%) (Auto) 1 % (0-3) Neutrophils # (Auto) 12.6 x10^3/uL (1.8-7.7) Lymphocytes # (Auto) 0.8 x10^3/uL (1.0-4.8) Monocytes # (Auto) 0.8 x10^3/uL (0.0-1.1) Eosinophils # (Auto) 0.0 x10^3/uL (0.0-0.7) Basophils # (Auto) 0.1 x10^3/uL (0.0-0.2) Sodium Level 144 mmol/L (136-145) Potassium Level 5.0 mmol/L (3.5-5.1) Chloride Level 108 mmol/L (98-107) Carbon Dioxide Level 30 mmol/L (21-32) Anion Gap 6 (6-14) Blood Urea Nitrogen 45 mg/dL (8-26) Creatinine 1.4 mg/dL (0.7-1.3) Estimated GFR (Cockcroft-Gault) 57.3 Glucose Level 120 mg/dL (70-99) Calcium Level 8.2 mg/dL (8.5-10.1) Test 07/25/20 05:33 07/25/20 07:48 Glucose (Fingerstick) 136 mg/dL (70-99) O2 Saturation 67 % (92-99) Arterial Blood pH 7.30 (7.35-7.45) Arterial Blood pH (Temp corrected) 7.26 Arterial Blood pCO2 at Patient Temp 60 mmHg (35-46) Arterial Blood pCO2 (Temp correct) 68 mmHg Arterial Blood pO2 at Patient Temp < 42 mmHg (85-108) Arterial Blood pO2 (Temp corrected) 46 mmHg Arterial Blood HCO3 29 mmol/L (21-28) Arterial Blood Base Excess 1 mmol/L (-3-3) Assessment and Plan Assessmemt and Plan Problems Medical Problems: (1) Acute hypoxemic respiratory failure due to severe acute respiratory syndrome coronavirus 2 (SARS-CoV-2) disease Status: Acute (2) Dyspnea Status: Acute Comment Review of Relevant I have reviewed the following items mile (where applicable) has been applied. Labs Laboratory Tests Test 07/23/20 11:51 07/23/20 15:00 07/23/20 16:58 07/23/20 17:56 Glucose (Fingerstick) 226 mg/dL (70-99) 175 mg/dL (70-99) 183 mg/dL (70-99) Lactic Acid Level 2.0 mmol/L (0.4-2.0) Test 07/23/20 22:06 07/23/20 23:37 07/24/20 05:45 07/24/20 06:00 Glucose (Fingerstick) 180 mg/dL (70-99) 214 mg/dL (70-99) 162 mg/dL (70-99) White Blood Count 20.5 x10^3/uL (4.0-11.0) Red Blood Count 4.45 x10^6/uL (4.30-5.70) Hemoglobin 11.9 g/dL (13.0-17.5) Hematocrit 37.7 % (39.0-53.0) Mean Corpuscular Volume 85 fL (79-100) Mean Corpuscular Hemoglobin 27 pg (25-35) Mean Corpuscular Hemoglobin Concent 32 g/dL (31-37) Red Cell Distribution Width 16.6 % (11.5-14.5) Platelet Count 138 x10^3/uL (140-400) Neutrophils (%) (Auto) 89 % (31-73) Lymphocytes (%) (Auto) 4 % (24-48) Monocytes (%) (Auto) 5 % (0-9) Eosinophils (%) (Auto) 0 % (0-3) Basophils (%) (Auto) 1 % (0-3) Neutrophils # (Auto) 18.3 x10^3/uL (1.8-7.7) Lymphocytes # (Auto) 0.9 x10^3/uL (1.0-4.8) Monocytes # (Auto) 1.1 x10^3/uL (0.0-1.1) Eosinophils # (Auto) 0.0 x10^3/uL (0.0-0.7) Basophils # (Auto) 0.2 x10^3/uL (0.0-0.2) Sodium Level 138 mmol/L (136-145) Potassium Level 4.4 mmol/L (3.5-5.1) Chloride Level 104 mmol/L (98-107) Carbon Dioxide Level 29 mmol/L (21-32) Anion Gap 5 (6-14) Blood Urea Nitrogen 33 mg/dL (8-26) Creatinine 1.2 mg/dL (0.7-1.3) Estimated GFR (Cockcroft-Gault) 68.5 Glucose Level 232 mg/dL (70-99) Calcium Level 7.4 mg/dL (8.5-10.1) Phosphorus Level 3.1 mg/dL (2.6-4.7) Magnesium Level 1.9 mg/dL (1.8-2.4) Test 07/24/20 07:40 07/24/20 13:32 07/24/20 17:25 07/24/20 23:54 O2 Saturation 86 % (92-99) Arterial Blood pH 7.27 (7.35-7.45) Arterial Blood pCO2 at Patient Temp 67 mmHg (35-46) Arterial Blood pO2 at Patient Temp 56 mmHg (85-108) Arterial Blood HCO3 30 mmol/L (21-28) Arterial Blood Base Excess 2 mmol/L (-3-3) FiO2 100%+11 Glucose (Fingerstick) 219 mg/dL (70-99) 225 mg/dL (70-99) 195 mg/dL (70-99) Test 07/25/20 05:00 07/25/20 05:33 07/25/20 07:48 White Blood Count 14.4 x10^3/uL (4.0-11.0) Red Blood Count 4.32 x10^6/uL (4.30-5.70) Hemoglobin 11.5 g/dL (13.0-17.5) Hematocrit 36.5 % (39.0-53.0) Mean Corpuscular Volume 85 fL (79-100) Mean Corpuscular Hemoglobin 27 pg (25-35) Mean Corpuscular Hemoglobin Concent 32 g/dL (31-37) Red Cell Distribution Width 16.7 % (11.5-14.5) Platelet Count 160 x10^3/uL (140-400) Neutrophils (%) (Auto) 88 % (31-73) Lymphocytes (%) (Auto) 6 % (24-48) Monocytes (%) (Auto) 6 % (0-9) Eosinophils (%) (Auto) 0 % (0-3) Basophils (%) (Auto) 1 % (0-3) Neutrophils # (Auto) 12.6 x10^3/uL (1.8-7.7) Lymphocytes # (Auto) 0.8 x10^3/uL (1.0-4.8) Monocytes # (Auto) 0.8 x10^3/uL (0.0-1.1) Eosinophils # (Auto) 0.0 x10^3/uL (0.0-0.7) Basophils # (Auto) 0.1 x10^3/uL (0.0-0.2) Sodium Level 144 mmol/L (136-145) Potassium Level 5.0 mmol/L (3.5-5.1) Chloride Level 108 mmol/L (98-107) Carbon Dioxide Level 30 mmol/L (21-32) Anion Gap 6 (6-14) Blood Urea Nitrogen 45 mg/dL (8-26) Creatinine 1.4 mg/dL (0.7-1.3) Estimated GFR (Cockcroft-Gault) 57.3 Glucose Level 120 mg/dL (70-99) Calcium Level 8.2 mg/dL (8.5-10.1) Glucose (Fingerstick) 136 mg/dL (70-99) O2 Saturation 67 % (92-99) Arterial Blood pH 7.30 (7.35-7.45) Arterial Blood pH (Temp corrected) 7.26 Arterial Blood pCO2 at Patient Temp 60 mmHg (35-46) Arterial Blood pCO2 (Temp correct) 68 mmHg Arterial Blood pO2 at Patient Temp < 42 mmHg (85-108) Arterial Blood pO2 (Temp corrected) 46 mmHg Arterial Blood HCO3 29 mmol/L (21-28) Arterial Blood Base Excess 1 mmol/L (-3-3) Laboratory Tests Test 07/24/20 13:32 07/24/20 17:25 07/24/20 23:54 07/25/20 05:00 Glucose (Fingerstick) 219 mg/dL (70-99) 225 mg/dL (70-99) 195 mg/dL (70-99) White Blood Count 14.4 x10^3/uL (4.0-11.0) Red Blood Count 4.32 x10^6/uL (4.30-5.70) Hemoglobin 11.5 g/dL (13.0-17.5) Hematocrit 36.5 % (39.0-53.0) Mean Corpuscular Volume 85 fL (79-100) Mean Corpuscular Hemoglobin 27 pg (25-35) Mean Corpuscular Hemoglobin Concent 32 g/dL (31-37) Red Cell Distribution Width 16.7 % (11.5-14.5) Platelet Count 160 x10^3/uL (140-400) Neutrophils (%) (Auto) 88 % (31-73) Lymphocytes (%) (Auto) 6 % (24-48) Monocytes (%) (Auto) 6 % (0-9) Eosinophils (%) (Auto) 0 % (0-3) Basophils (%) (Auto) 1 % (0-3) Neutrophils # (Auto) 12.6 x10^3/uL (1.8-7.7) Lymphocytes # (Auto) 0.8 x10^3/uL (1.0-4.8) Monocytes # (Auto) 0.8 x10^3/uL (0.0-1.1) Eosinophils # (Auto) 0.0 x10^3/uL (0.0-0.7) Basophils # (Auto) 0.1 x10^3/uL (0.0-0.2) Sodium Level 144 mmol/L (136-145) Potassium Level 5.0 mmol/L (3.5-5.1) Chloride Level 108 mmol/L (98-107) Carbon Dioxide Level 30 mmol/L (21-32) Anion Gap 6 (6-14) Blood Urea Nitrogen 45 mg/dL (8-26) Creatinine 1.4 mg/dL (0.7-1.3) Estimated GFR (Cockcroft-Gault) 57.3 Glucose Level 120 mg/dL (70-99) Calcium Level 8.2 mg/dL (8.5-10.1) Test 07/25/20 05:33 07/25/20 07:48 Glucose (Fingerstick) 136 mg/dL (70-99) O2 Saturation 67 % (92-99) Arterial Blood pH 7.30 (7.35-7.45) Arterial Blood pH (Temp corrected) 7.26 Arterial Blood pCO2 at Patient Temp 60 mmHg (35-46) Arterial Blood pCO2 (Temp correct) 68 mmHg Arterial Blood pO2 at Patient Temp < 42 mmHg (85-108) Arterial Blood pO2 (Temp corrected) 46 mmHg Arterial Blood HCO3 29 mmol/L (21-28) Arterial Blood Base Excess 1 mmol/L (-3-3) Microbiology 07/23/20 Blood Culture - Preliminary, Resulted NO GROWTH AFTER 1 DAY 07/13/20 Urine Culture - Final, Complete Medications Current Medications Dexamethasone Sodium Phosphate (Decadron) 6 mg 1X ONCE IV ; Start 07/13/20 at 09:30; Stop 07/13/20 at 09:39; Status DC Ceftriaxone Sodium (Rocephin) 1 gm 1X ONCE IVP Last administered on 07/13/20at 09:36; Start 07/13/20 at 09:30; Stop 07/13/20 at 09:31; Status DC Azithromycin 250 ml @ 250 mls/hr 1X ONCE IV Last administered on 07/13/20at 09:37; Start 07/13/20 at 09:30; Stop 07/13/20 at 10:29; Status DC Sodium Chloride 1,000 ml @ 1,000 mls/hr 1X ONCE IV Last administered on 07/13/20at 09:36; Start 07/13/20 at 09:30; Stop 07/13/20 at 10:29; Status DC Acetaminophen (Tylenol) 1,000 mg 1X ONCE PO Last administered on 07/13/20at 09:36; Start 07/13/20 at 09:30; Stop 07/13/20 at 09:31; Status DC Dexamethasone Sodium Phosphate (Decadron) 4 mg STK-MED ONCE .ROUTE ; Start 07/13/20 at 09:28; Stop 07/13/20 at 09:28; Status DC Azithromycin 250 ml @ As Directed STK-MED ONCE IV ; Start 07/13/20 at 09:28; Stop 07/13/20 at 09:28; Status DC Ceftriaxone Sodium (Rocephin) 1 gm STK-MED ONCE IVP ; Start 07/13/20 at 09:28; Stop 07/13/20 at 09:28; Status DC Dexamethasone Sodium Phosphate (Decadron) 6 mg 1X ONCE IVP Last administered on 07/13/20at 09:42; Start 07/13/20 at 09:45; Stop 07/13/20 at 09:46; Status DC Ondansetron HCl (Zofran) 4 mg PRN Q8HRS PRN IV NAUSEA/VOMITING; Start 07/13/20 at 09:45; Stop 07/14/20 at 08:19; Status DC Enoxaparin Sodium (Lovenox 120mg Syringe) 110 mg 1X ONCE SQ Last administered on 07/13/20at 10:14; Start 07/13/20 at 10:15; Stop 07/13/20 at 10:16; Status DC Iohexol (Omnipaque 350 Mg/ml) 100 ml 1X ONCE IV Last administered on 07/13/20at 10:15; Start 07/13/20 at 10:15; Stop 07/13/20 at 10:16; Status DC Info (CONTRAST GIVEN -- Rx MONITORING) 1 each PRN DAILY PRN MC SEE COMMENTS; Start 07/13/20 at 10:30; Stop 07/15/20 at 10:29; Status DC Potassium Chloride (Klor-Con) 40 meq 1X ONCE PO Last administered on 07/13/20at 11:20; Start 07/13/20 at 11:15; Stop 07/13/20 at 11:16; Status DC Potassium Chloride/Water 100 ml @ 100 mls/hr Q1H IV ; Start 07/13/20 at 10:45; Stop 07/13/20 at 10:46; Status DC Potassium Chloride/Water 100 ml @ 100 mls/hr Q1H IV Last administered on 07/13/20at 17:17; Start 07/13/20 at 11:30; Stop 07/13/20 at 15:29; Status DC Sodium Chloride 1,000 ml @ 125 mls/hr 1X ONCE IV Last administered on 07/13/20at 11:26; Start 07/13/20 at 11:00; Stop 07/13/20 at 18:59; Status DC Calcium Gluconate 1000 mg/Sodium Chloride 110 ml @ 220 mls/hr 1X ONCE IV Last administered on 07/13/20at 11:51; Start 07/13/20 at 11:45; Stop 07/13/20 at 12:14; Status DC Magnesium Sulfate 50 ml @ 25 mls/hr 1X ONCE IV Last administered on 07/13/20at 13:26; Start 07/13/20 at 11:30; Stop 07/13/20 at 13:29; Status DC Remdesivir 200 mg/ Sodium Chloride 210 ml @ 210 mls/hr 1X ONCE IV Last administered on 07/13/20at 15:21; Start 07/13/20 at 14:00; Stop 07/13/20 at 14:59; Status DC Remdesivir 100 mg/ Sodium Chloride 230 ml @ 460 mls/hr Q24H IV Last administered on 07/17/20at 15:36; Start 07/14/20 at 14:00; Stop 07/17/20 at 14:29; Status DC Magnesium Sulfate 50 ml @ 25 mls/hr 1X ONCE IV ; Start 07/13/20 at 12:30; Stop 07/13/20 at 14:29; Status UNV Vitamin D (Vitamin D3) 1,000 unit DAILY PO Last administered on 07/25/20at 08:10; Start 07/13/20 at 13:00 Ascorbic Acid (Vitamin C) 1,000 mg DAILY PO Last administered on 07/25/20at 08:10; Start 07/13/20 at 13:00 Dexamethasone (Decadron) 6 mg [id number] PO Last administered on 07/14/20at 09:14; Start 07/14/20 at 08:00; Stop 07/15/20 at 09:13; Status DC Doxycycline Hyclate 100 mg/ Dextrose 100 ml @ 50 mls/hr Q12HR IV Last administered on 07/13/20at 13:21; Start 07/13/20 at 13:00; Stop 07/13/20 at 23:25; Status DC Ceftriaxone Sodium (Rocephin) 1 gm Q24H IVP ; Start 07/14/20 at 09:00; Stop 07/13/20 at 23:25; Status DC Enoxaparin Sodium (Lovenox 40mg Syringe) 40 mg Q24H SQ Last administered on 07/13/20at 13:31; Start 07/13/20 at 13:00; Stop 07/14/20 at 10:47; Status DC Influenza Virus Vaccine Quadrival (Fluzone Quad Syringe) 0.5 ml ONCE ONCE VAX IM ; Start 07/15/20 at 09:00; Stop 07/15/20 at 09:01; Status DC Benzonatate (Tessalon Perle) 100 mg Q6HRS PO Last administered on 07/18/20at 05:36; Start 07/13/20 at 18:00; Stop 07/19/20 at 10:24; Status DC Phenol (Chloraseptic) 1 spray PRN Q2HR PRN PO SORE THROAT Last administered on 07/13/20at 16:27; Start 07/13/20 at 16:15 Acetaminophen (Tylenol) 650 mg PRN Q6HRS PRN PO MILD PAIN / TEMP > 100.3'F Last administered on 07/25/20at 00:16; Start 07/13/20 at 16:15 Prochlorperazine Edisylate (Compazine) 10 mg PRN Q6HRS PRN IV NAUSEA/VOMITING; Start 07/13/20 at 16:15 Lorazepam (Ativan Inj) 0.25 mg PRN Q6HRS PRN IVP ANXIETY / AGITATION Last administered on 07/13/20at 16:42; Start 07/13/20 at 16:45 Sterile Water (WATER for RESP) 1,000 ml CONT PRN INH VIA VAPOTHERM DEVICE; Start 07/13/20 at 17:15 Dexmedetomidine HCl 400 mcg/ Sodium Chloride 100 ml @ 0 mls/hr CONT PRN IV PER PROTOCOL; Start 07/13/20 at 17:00 Sodium Chloride 500 ml @ 500 mls/hr 1X PRN PRN IV SEE COMMENTS; Start 07/13/20 at 17:00 Atropine Sulfate (ATROPINE 0.5mg SYRINGE) 0.5 mg PRN Q5MIN PRN IV SEE COMMENTS; Start 07/13/20 at 17:00 Propofol 100 ml @ As Directed STK-MED ONCE IV ; Start 07/13/20 at 17:20; Stop 07/13/20 at 17:20; Status DC Succinylcholine Chloride (Anectine) 200 mg STK-MED ONCE .ROUTE ; Start 07/13/20 at 17:40; Stop 07/13/20 at 17:41; Status DC Fentanyl Citrate 30 ml @ 0 mls/hr CONT PRN IV SEE PROTOCOL Last administered on 07/13/20at 18:40; Start 07/13/20 at 17:45; Stop 07/13/20 at 20:11; Status DC Propofol 100 ml @ 0 mls/hr CONT PRN IV PER PROTOCOL Last administered on 07/14/20at 20:13; Start 07/13/20 at 17:45; Stop 07/20/20 at 11:33; Status DC Chlorhexidine Gluconate (Peridex) 15 ml BID MM Last administered on 07/15/20at 08:33; Start 07/13/20 at 21:00; Stop 07/16/20 at 18:59; Status DC Midazolam HCl 100 ml @ 0 mls/hr CONT PRN IV SEE PROTOCOL Last administered on 07/25/20at 02:27; Start 07/13/20 at 17:45 Vecuronium [place] (Norcuron Bolus) 10 mg STK-MED ONCE IV ; Start 07/13/20 at 18:12; Stop 07/13/20 at 18:12; Status DC Etomidate (Amidate) 20 mg STK-MED ONCE IV ; Start 07/13/20 at 18:24; Stop 07/13/20 at 18:24; Status DC Vecuronium [place] (Norcuron Bolus) 6 mg PRN Q4HRS PRN IV Out of sync with ventilator Last administered on 07/13/20at 19:39; Start 07/13/20 at 19:30 Fentanyl Citrate 55 ml @ 0 mls/hr CONT PRN PRN IV PAIN Last administered on 07/25/20at 03:55; Start 07/13/20 at 19:45 Vecuronium [place] 50 mg/ Miscellaneous 50 ml @ 5.683 mls/ hr CONT PRN IV SEE I/O RECORD Last administered on 07/25/20at 02:27; Start 07/13/20 at 22:00 Norepinephrine Bitartrate 8 mg/ Dextrose 258 ml @ 22.91 mls/ hr CONT PRN IV PER PROTOCOL Last administered on 07/25/20at 09:36; Start 07/13/20 at 23:30 Ringer's Solution 1,000 ml @ 100 mls/hr Q10H IV Last administered on 07/14/20at 20:12; Start 07/13/20 at 23:30; Stop 07/15/20 at 09:08; Status DC Thiamine HCl 300 mg/Dextrose 53 ml @ 102 mls/hr DAILY IV Last administered on 07/23/20at 08:53; Start 07/14/20 at 09:00; Stop 07/23/20 at 10:56; Status DC Vancomycin HCl (Vanco Per Pharmacy) 1 each PRN DAILY PRN MC SEE COMMENTS Last administered on 07/14/20at 02:10; Start 07/13/20 at 23:16; Stop 07/14/20 at 09:14; Status DC Piperacillin Sod/ Tazobactam Sod (Zosyn Per Pharmacy) 1 each PRN DAILY PRN MC SEE COMMENTS; Start 07/13/20 at 23:16; Stop 07/22/20 at 09:33; Status DC Vancomycin HCl 2 gm/Sodium Chloride 500 ml @ 250 mls/hr 1X ONCE IV Last administered on 07/14/20at 00:24; Start 07/13/20 at 23:45; Stop 07/14/20 at 01:44; Status DC Piperacillin Sod/ Tazobactam Sod 3.375 gm/Sodium Chloride 50 ml @ 100 mls/hr Q6HRS IV Last administered on 07/22/20at 06:50; Start 07/14/20 at 00:00; Stop 07/22/20 at 09:32; Status DC Vancomycin HCl 1.5 gm/Sodium Chloride 500 ml @ 250 mls/hr Q8H IV Last administered on 07/14/20at 08:46; Start 07/14/20 at 08:00; Stop 07/14/20 at 09:14; Status DC Vancomycin HCl (Vancomycin Trough Level) 1 each 1X ONCE MC ; Start 07/14/20 at 23:30; Stop 07/14/20 at 23:31; Status Cancel Etomidate (Amidate) 20 mg STK-MED ONCE IV ; Start 07/13/20 at 18:00; Stop 07/14/20 at 08:36; Status DC Succinylcholine Chloride (Anectine) 200 mg STK-MED ONCE .ROUTE ; Start 07/13/20 at 18:00; Stop 07/14/20 at 08:36; Status DC Linezolid/Dextrose 300 ml @ 300 mls/hr Q12HR IV Last administered on 07/19/20at 09:56; Start 07/14/20 at 21:00; Stop 07/19/20 at 10:10; Status DC Insulin Glargine (Lantus Syringe) 8 unit QHS SQ Last administered on 07/14/20at 20:42; Start 07/14/20 at 21:00; Stop 07/15/20 at 07:57; Status DC Insulin Human Lispro (HumaLOG) 0-9 UNITS Q6HRS SQ Last administered on 07/24/20at 23:58; Start 07/14/20 at 12:00 Dextrose (Dextrose 50%-Water Syringe) 12.5 gm PRN Q15MIN PRN IV SEE COMMENTS; Start 07/14/20 at 09:30 Enoxaparin Sodium (Lovenox 40mg Syringe) 40 mg BID SQ Last administered on 07/25/20at 08:10; Start 07/14/20 at 21:00 Famotidine (Pepcid Vial) 20 mg BID IVP Last administered on 07/25/20at 08:10; Start 07/14/20 at 21:00 Insulin Glargine (Lantus Syringe) 15 unit QHS SQ ; Start 07/15/20 at 21:00; Stop 07/15/20 at 18:18; Status DC Insulin Human Lispro (HumaLOG) 5 units Q6HRS SQ Last administered on 07/15/20at 23:46; Start 07/15/20 at 12:00; Stop 07/16/20 at 09:56; Status DC Info (Tpn Per Pharmacy) 1 each PRN DAILY PRN MC SEE COMMENTS Last administered on 07/24/20at 11:28; Start 07/15/20 at 09:15 Dexamethasone Sodium Phosphate (Decadron) 6 mg DAILY IVP Last administered on 07/22/20at 08:12; Start 07/15/20 at 10:00; Stop 07/22/20 at 13:47; Status DC Sodium Chloride 90 meq/Potassium Chloride 25 meq/ Potassium Phosphate 13.6 mmol/Magnesium Sulfate 10 meq/ Calcium Gluconate 10 meq/ Multivitamins 5 ml/Zinc/Copper/ Manganese/ Selenium 1 ml/ Total Parenteral Nutrition/Amino Acids/Dextrose 1,512 ml @ 63 mls/hr TPN CONT IV Last administered on 07/15/20at 22:01; Start 07/15/20 at 22:00; Stop 07/16/20 at 21:59; Status DC Sodium Phosphate 15 mmol/Sodium Chloride 105 ml @ 105 mls/hr 1X ONCE IV Last administered on 07/15/20at 13:12; Start 07/15/20 at 13:00; Stop 07/15/20 at 13:59; Status DC Insulin Glargine (Lantus Syringe) 20 unit QHS SQ Last administered on 07/15/20at 21:04; Start 07/15/20 at 21:00; Stop 07/16/20 at 09:56; Status DC Insulin Human Lispro (HumaLOG) 18 units 1X ONCE SQ Last administered on 07/16/20at 00:41; Start 07/16/20 at 01:00; Stop 07/16/20 at 01:01; Status DC Insulin Human Lispro (HumaLOG) 26 units 1X ONCE SQ Last administered on 07/16/20at 06:06; Start 07/16/20 at 06:30; Stop 07/16/20 at 06:31; Status DC Insulin Glargine (Lantus Syringe) 45 unit QHS SQ Last administered on at 21:24; Start 07/16/20 at 21:00; Stop 07/17/20 at 06:44; Status DC Insulin Human Lispro (HumaLOG) 10 units Q6HRS SQ Last administered on 07/18/20at 05:38; Start 07/16/20 at 12:00; Stop 07/18/20 at 10:07; Status DC Sodium Phosphate 30 mmol/Sodium Chloride 260 ml @ 65 mls/hr 1X ONCE IV Last administered on 07/16/20at 13:29; Start 07/16/20 at 13:00; Stop 07/16/20 at 16:59; Status DC Multi-Ingred Cream/Lotion/Oil/ Oint (Artificial Tears Eye Ointment) 1 klaudia Q6HRS OU Last administered on 07/25/20at 05:55; Start 07/16/20 at 13:00 Sodium Chloride 90 meq/Potassium Phosphate 20 mmol/ Calcium Gluconate 10 meq/ Multivitamins 5 ml/Zinc/Copper/ Manganese/ Selenium 1 ml/ Total Parenteral Nutrition/Amino Acids/Dextrose/ Fat Emulsion Intravenous 1,512 ml @ 63 mls/hr TPN CONT IV Last administered on 07/16/20at 22:54; Start 07/16/20 at 22:00; Stop 07/17/20 at 21:59; Status DC Insulin Human Lispro (HumaLOG) 20 units 1X ONCE SQ Last administered on 07/16/20at 23:55; Start 07/16/20 at 23:55; Stop 07/16/20 at 23:56; Status DC Insulin Glargine (Lantus Syringe) 45 unit BID SQ Last administered on 07/25/20at 08:11; Start 07/17/20 at 09:00 Insulin Human Lispro (HumaLOG) 25 units 1X ONCE SQ Last administered on 07/17/20at 06:50; Start 07/17/20 at 07:00; Stop 07/17/20 at 07:01; Status DC Potassium Phosphate 13.6 mmol/Sodium Chloride 254.5333 ml @ 127.... Q2H IV Last administered on 07/17/20at 13:22; Start 07/17/20 at 11:30; Stop 07/17/20 at 13:29; Status DC Sodium Chloride 90 meq/Potassium Phosphate 23 mmol/ Calcium Gluconate 10 meq/ Multivitamins 5 ml/Zinc/Copper/ Manganese/ Selenium 1 ml/ Total Parenteral Nutrition/Amino Acids/Dextrose/ Fat Emulsion Intravenous 1,512 ml @ 63 mls/hr TPN CONT IV Last administered on 07/17/20at 21:32; Start 07/17/20 at 22:00; Stop 07/18/20 at 21:59; Status DC Insulin Human Lispro (HumaLOG) 18 units Q6HRS SQ Last administered on 07/25/20at 05:54; Start 07/18/20 at 12:00 Sodium Chloride 90 meq/Potassium Phosphate 23 mmol/ Calcium Gluconate 5 meq/ Multivitamins 5 ml/Zinc/Copper/ Manganese/ Selenium 1 ml/ Total Parenteral Nutrition/Amino Acids/Dextrose/ Fat Emulsion Intravenous 1,512 ml @ 63 mls/hr TPN CONT IV Last administered on 07/18/20at 20:52; Start 07/18/20 at 22:00; Stop 07/19/20 at 21:59; Status DC Sodium Chloride 70 meq/Potassium Phosphate 23 mmol/ Calcium Gluconate 5 meq/ Multivitamins 5 ml/Zinc/Copper/ Manganese/ Selenium 1 ml/ Total Parenteral Nutrition/Amino Acids/Dextrose/ Fat Emulsion Intravenous 1,512 ml @ 63 mls/hr TPN CONT IV Last administered on 07/19/20at 20:49; Start 07/19/20 at 22:00; Stop 07/20/20 at 21:59; Status DC Propofol 100 ml @ 3.42 mls/hr CONT PRN IV PER PROTOCOL Last administered on 07/25/20at 08:35; Start 07/20/20 at 11:30 Sodium Chloride 70 meq/Potassium Phosphate 23 mmol/ Calcium Gluconate 5 meq/ Multivitamins 5 ml/Zinc/Copper/ Manganese/ Selenium 1 ml/ Total Parenteral Nutrition/Amino Acids/Dextrose 1,512 ml @ 63 mls/hr TPN CONT IV Last administered on 07/20/20at 20:48; Start 07/20/20 at 22:00; Stop 07/21/20 at 21:59; Status DC Sodium Chloride 70 meq/Potassium Phosphate 23 mmol/ Calcium Gluconate 5 meq/ Multivitamins 5 ml/Zinc/Copper/ Manganese/ Selenium 1 ml/ Total Parenteral Nutrition/Amino Acids/Dextrose 1,512 ml @ 63 mls/hr TPN CONT IV Last administered on 07/22/20at 03:10; Start 07/21/20 at 22:00; Stop 07/22/20 at 21:59; Status DC Sodium Chloride 50 meq/Potassium Chloride 20 meq/ Potassium Phosphate 23 mmol/ Calcium Gluconate 5 meq/ Multivitamins 5 ml/Zinc/Copper/ Manganese/ Selenium 1 ml/ Total Parenteral Nutrition/Amino Acids/Dextrose 1,512 ml @ 63 mls/hr TPN CONT IV Last administered on 07/22/20at 22:33; Start 07/22/20 at 22:00; Stop 07/23/20 at 21:59; Status DC Dexamethasone Sodium Phosphate (Decadron) 4 mg DAILY IVP Last administered on 07/25/20at 08:10; Start 07/23/20 at 09:00 Linezolid/Dextrose 300 ml @ 300 mls/hr Q12HR IV Last administered on 07/25/20at 08:09; Start 07/23/20 at 09:00 Piperacillin Sod/ Tazobactam Sod 3.375 gm/Sodium Chloride 50 ml @ 100 mls/hr Q6HRS IV ; Start 07/23/20 at 12:00; Stop 07/23/20 at 08:05; Status DC Piperacillin Sod/ Tazobactam Sod 4.5 gm/Sodium Chloride 100 ml @ 200 mls/hr Q6HRS IV Last administered on 07/25/20at 05:53; Start 07/23/20 at 09:00 Sodium Chloride 50 meq/Potassium Chloride 20 meq/ Potassium Phosphate 23 mmol/ Calcium Gluconate 5 meq/ Multivitamins 5 ml/Zinc/Copper/ Manganese/ Selenium 1 ml/ Thiamine HCl 300 mg/Total Parenteral Nutrition/Amino Acids/Dextrose 1,512 ml @ 63 mls/hr TPN CONT IV Last administered on 07/23/20at 21:56; Start 07/23/20 at 22:00; Stop 07/24/20 at 21:59; Status DC Sodium Chloride 1,000 ml @ 1,000 mls/hr 1X ONCE IV Last administered on 07/23/20at 10:00; Start 07/23/20 at 10:00; Stop 07/23/20 at 17:27; Status DC Epinephrine HCl (EPINEPHrine SYRINGE) 1 mg STK-MED ONCE .ROUTE ; Start 07/24/20 at 06:34; Stop 07/24/20 at 06:35; Status DC Epinephrine HCl (EPINEPHrine SYRINGE) 1 mg STK-MED ONCE .ROUTE ; Start 07/24/20 at 07:00; Stop 07/24/20 at 08:37; Status DC Sodium Chloride 50 meq/Potassium Chloride 20 meq/ Potassium Phosphate 23 mmol/ Calcium Gluconate 5 meq/ Multivitamins 5 ml/Zinc/Copper/ Manganese/ Selenium 1 ml/ Thiamine HCl 300 mg/Total Parenteral Nutrition/Amino Acids/Dextrose 1,512 ml @ 63 mls/hr TPN CONT IV Last administered on 07/24/20at 22:07; Start 07/24 at 22:00; Stop 07/25/20 at 21:59 Acetaminophen (Tylenol) 650 mg PRN Q6HRS PRN PEG MILD PAIN / TEMP > 100.3'F; Start 07/25/20 at 08:00 Active Scripts Active Reported No Known Medications Prior To Admisstion (Info) Each 1 Each MC 1X Vitals/I & O Vital Sign - Last 24 Hours 07/24/20 07/24/20 07/24/20 07/24/20 11:00 11:54 12:00 12:00 Pulse 112 114 Resp 30 30 B/P (MAP) 102/58 (73) 100/60 (73) Pulse Ox 94 94 94 O2 Delivery Ventilator Ventilator Mechanical Ventilator Ventilator 07/24/20 07/24/20 07/24/20 07/24/20 13:00 14:00 15:00 15:00 Temp 102.1 102.1 Pulse 112 110 108 Resp 30 30 30 B/P (MAP) 99/49 (66) 134/63 (86) 101/46 (64) Pulse Ox 95 95 97 96 O2 Delivery Ventilator Ventilator Ventilator O2 Flow Rate 40.0 07/24/20 07/24/20 07/24/20 07/24/20 15:28 16:00 16:00 17:00 Temp 98.7 98.7 Pulse 110 108 Resp 30 30 B/P (MAP) 100/46 (64) 99/45 (63) Pulse Ox 97 98 98 O2 Delivery Ventilator Ventilator Mechanical Ventilator Ventilator 07/24/20 07/24/20 07/24/20 07/24/20 18:00 19:00 20:00 20:00 Temp 101.2 101.2 Pulse 102 109 108 Resp 30 30 30 B/P (MAP) 101/49 (66) 131/74 (93) 110/61 (77) Pulse Ox 98 96 98 O2 Delivery Ventilator Ventilator Ventilator Mechanical Ventilator 07/24/20 07/24/20 07/24/20 07/24/20 20:23 21:00 21:45 22:00 Pulse 109 115 Resp 30 30 B/P (MAP) 114/60 (78) 190/100 (130) 110/62 (78) Pulse Ox 98 97 97 O2 Delivery Ventilator Ventilator Ventilator 07/24/20 07/24/20 07/25/20 07/25/20 23:00 23:45 00:00 00:00 Temp 103.3 103.3 Pulse 115 115 Resp 30 30 B/P (MAP) 103/51 (68) 103/51 (68) Pulse Ox 99 95 99 O2 Delivery Ventilator Ventilator Mechanical Ventilator Ventilator 07/25/20 07/25/20 07/25/20 07/25/20 01:00 02:00 03:00 03:55 Temp 103.3 103.3 Pulse 122 123 124 Resp 30 30 30 30 B/P (MAP) 102/49 (66) 120/58 (78) 111/63 (79) Pulse Ox 97 93 95 O2 Delivery Ventilator Ventilator Ventilator Ventilator 07/25/20 07/25/20 07/25/20 07/25/20 04:00 04:00 04:15 04:30 Temp 100.6 100.6 Pulse 128 Resp 30 30 B/P (MAP) 137/74 (95) Pulse Ox 92 91 O2 Delivery Mechanical Ventilator Ventilator Ventilator Ventilator 07/25/20 07/25/20 07/25/20 07/25/20 05:00 06:00 07:00 07:40 Temp 104.0 104.0 Pulse 137 142 144 Resp 30 30 30 B/P (MAP) 149/61 (90) 134/55 (81) 122/53 (76) Pulse Ox 92 87 80 80 O2 Delivery Ventilator Ventilator Ventilator Ventilator 07/25/20 07/25/20 07/25/20 07/25/20 07:45 08:00 08:15 09:00 Pulse 144 144 144 144 Resp 30 30 30 30 B/P (MAP) 97/44 (61) 85/45 (58) 78/47 (57) 70/45 (53) Pulse Ox 80 80 80 78 O2 Delivery Ventilator Ventilator Ventilator Ventilator 1/1/07/25/20 07/25/20 07/25/20 09:15 09:30 09:45 10:00 Pulse 144 144 144 140 Resp 30 30 30 30 B/P (MAP) 102/54 (70) 85/46 (59) 76/47 (57) 77/44 (55) Pulse Ox 79 72 68 69 O2 Delivery Ventilator Ventilator Ventilator Ventilator Intake and Output 07/24/20 07/24/20 07/25/20 15:00 23:00 07:00 Intake Total 400 ml 1515 ml Output Total 1025 ml 1695 ml 1100 ml Balance -625 ml -180 ml -1100 ml Justicifation of Admission Dx: Justifications for Admission: Justification of Admission Dx: Yes Comminuty Aquired Pneumonia: Dehydration COLIN VELAZQUEZ MD Jul 25, 2020 10:18
--- NOTE | 2020-07-25 11:16 | PDOC ---
PULMONARY PROGRESS NOTES DATE: 07/25/20 TIME: 11:09 Subjective Patient remains on vent support assist-control/pressure control mode currently FiO2 of 100% and PEEP of 11 Continue hypoxia despite vent support S/P chest tube left chest tube 07/24/20 Remains on pressors Fever overnight TMAX 104.0 no other concerns Vitals Vital Signs Date Time Temp Pulse Resp B/P (MAP) Pulse Ox O2 Delivery O2 Flow Rate FiO2 07/25/20 10:00 140 30 77/44 (55) 69 Ventilator 07/25/20 07:00 104.0 104.0 07/24/20 15:00 40.0 Comments Patient seen during , visual exam preformed intubated/sedated fever, hypoxia sub-Q air to left lateral chest no accessory muscle use no distress no obvious edema Labs Laboratory Tests Test 07/23/20 11:51 07/23/20 15:00 07/23/20 16:58 07/23/20 17:56 Glucose (Fingerstick) 226 mg/dL (70-99) 175 mg/dL (70-99) 183 mg/dL (70-99) Lactic Acid Level 2.0 mmol/L (0.4-2.0) Test 07/23/20 22:06 07/23/20 23:37 07/24/20 05:45 07/24/20 06:00 Glucose (Fingerstick) 180 mg/dL (70-99) 214 mg/dL (70-99) 162 mg/dL (70-99) White Blood Count 20.5 x10^3/uL (4.0-11.0) Red Blood Count 4.45 x10^6/uL (4.30-5.70) Hemoglobin 11.9 g/dL (13.0-17.5) Hematocrit 37.7 % (39.0-53.0) Mean Corpuscular Volume 85 fL (79-100) Mean Corpuscular Hemoglobin 27 pg (25-35) Mean Corpuscular Hemoglobin Concent 32 g/dL (31-37) Red Cell Distribution Width 16.6 % (11.5-14.5) Platelet Count 138 x10^3/uL (140-400) Neutrophils (%) (Auto) 89 % (31-73) Lymphocytes (%) (Auto) 4 % (24-48) Monocytes (%) (Auto) 5 % (0-9) Eosinophils (%) (Auto) 0 % (0-3) Basophils (%) (Auto) 1 % (0-3) Neutrophils # (Auto) 18.3 x10^3/uL (1.8-7.7) Lymphocytes # (Auto) 0.9 x10^3/uL (1.0-4.8) Monocytes # (Auto) 1.1 x10^3/uL (0.0-1.1) Eosinophils # (Auto) 0.0 x10^3/uL (0.0-0.7) Basophils # (Auto) 0.2 x10^3/uL (0.0-0.2) Sodium Level 138 mmol/L (136-145) Potassium Level 4.4 mmol/L (3.5-5.1) Chloride Level 104 mmol/L (98-107) Carbon Dioxide Level 29 mmol/L (21-32) Anion Gap 5 (6-14) Blood Urea Nitrogen 33 mg/dL (8-26) Creatinine 1.2 mg/dL (0.7-1.3) Estimated GFR (Cockcroft-Gault) 68.5 Glucose Level 232 mg/dL (70-99) Calcium Level 7.4 mg/dL (8.5-10.1) Phosphorus Level 3.1 mg/dL (2.6-4.7) Magnesium Level 1.9 mg/dL (1.8-2.4) Clostridium difficile Toxin (PCR) Neg (NEGATIVE) Test 07/24/20 07:40 07/24/20 13:32 07/24/20 17:25 07/24/20 23:54 O2 Saturation 86 % (92-99) Arterial Blood pH 7.27 (7.35-7.45) Arterial Blood pCO2 at Patient Temp 67 mmHg (35-46) Arterial Blood pO2 at Patient Temp 56 mmHg (85-108) Arterial Blood HCO3 30 mmol/L (21-28) Arterial Blood Base Excess 2 mmol/L (-3-3) FiO2 100%+11 Glucose (Fingerstick) 219 mg/dL (70-99) 225 mg/dL (70-99) 195 mg/dL (70-99) Test 07/25/20 05:00 07/25/20 05:33 07/25/20 07:48 White Blood Count 14.4 x10^3/uL (4.0-11.0) Red Blood Count 4.32 x10^6/uL (4.30-5.70) Hemoglobin 11.5 g/dL (13.0-17.5) Hematocrit 36.5 % (39.0-53.0) Mean Corpuscular Volume 85 fL (79-100) Mean Corpuscular Hemoglobin 27 pg (25-35) Mean Corpuscular Hemoglobin Concent 32 g/dL (31-37) Red Cell Distribution Width 16.7 % (11.5-14.5) Platelet Count 160 x10^3/uL (140-400) Neutrophils (%) (Auto) 88 % (31-73) Lymphocytes (%) (Auto) 6 % (24-48) Monocytes (%) (Auto) 6 % (0-9) Eosinophils (%) (Auto) 0 % (0-3) Basophils (%) (Auto) 1 % (0-3) Neutrophils # (Auto) 12.6 x10^3/uL (1.8-7.7) Lymphocytes # (Auto) 0.8 x10^3/uL (1.0-4.8) Monocytes # (Auto) 0.8 x10^3/uL (0.0-1.1) Eosinophils # (Auto) 0.0 x10^3/uL (0.0-0.7) Basophils # (Auto) 0.1 x10^3/uL (0.0-0.2) Sodium Level 144 mmol/L (136-145) Potassium Level 5.0 mmol/L (3.5-5.1) Chloride Level 108 mmol/L (98-107) Carbon Dioxide Level 30 mmol/L (21-32) Anion Gap 6 (6-14) Blood Urea Nitrogen 45 mg/dL (8-26) Creatinine 1.4 mg/dL (0.7-1.3) Estimated GFR (Cockcroft-Gault) 57.3 Glucose Level 120 mg/dL (70-99) Calcium Level 8.2 mg/dL (8.5-10.1) Glucose (Fingerstick) 136 mg/dL (70-99) O2 Saturation 67 % (92-99) Arterial Blood pH 7.30 (7.35-7.45) Arterial Blood pH (Temp corrected) 7.26 Arterial Blood pCO2 at Patient Temp 60 mmHg (35-46) Arterial Blood pCO2 (Temp correct) 68 mmHg Arterial Blood pO2 at Patient Temp < 42 mmHg (85-108) Arterial Blood pO2 (Temp corrected) 46 mmHg Arterial Blood HCO3 29 mmol/L (21-28) Arterial Blood Base Excess 1 mmol/L (-3-3) Laboratory Tests Test 07/24/20 13:32 07/24/20 17:25 07/24/20 23:54 07/25/20 05:00 Glucose (Fingerstick) 219 mg/dL (70-99) 225 mg/dL (70-99) 195 mg/dL (70-99) White Blood Count 14.4 x10^3/uL (4.0-11.0) Red Blood Count 4.32 x10^6/uL (4.30-5.70) Hemoglobin 11.5 g/dL (13.0-17.5) Hematocrit 36.5 % (39.0-53.0) Mean Corpuscular Volume 85 fL (79-100) Mean Corpuscular Hemoglobin 27 pg (25-35) Mean Corpuscular Hemoglobin Concent 32 g/dL (31-37) Red Cell Distribution Width 16.7 % (11.5-14.5) Platelet Count 160 x10^3/uL (140-400) Neutrophils (%) (Auto) 88 % (31-73) Lymphocytes (%) (Auto) 6 % (24-48) Monocytes (%) (Auto) 6 % (0-9) Eosinophils (%) (Auto) 0 % (0-3) Basophils (%) (Auto) 1 % (0-3) Neutrophils # (Auto) 12.6 x10^3/uL (1.8-7.7) Lymphocytes # (Auto) 0.8 x10^3/uL (1.0-4.8) Monocytes # (Auto) 0.8 x10^3/uL (0.0-1.1) Eosinophils # (Auto) 0.0 x10^3/uL (0.0-0.7) Basophils # (Auto) 0.1 x10^3/uL (0.0-0.2) Sodium Level 144 mmol/L (136-145) Potassium Level 5.0 mmol/L (3.5-5.1) Chloride Level 108 mmol/L (98-107) Carbon Dioxide Level 30 mmol/L (21-32) Anion Gap 6 (6-14) Blood Urea Nitrogen 45 mg/dL (8-26) Creatinine 1.4 mg/dL (0.7-1.3) Estimated GFR (Cockcroft-Gault) 57.3 Glucose Level 120 mg/dL (70-99) Calcium Level 8.2 mg/dL (8.5-10.1) Test 07/25/20 05:33 07/25/20 07:48 Glucose (Fingerstick) 136 mg/dL (70-99) O2 Saturation 67 % (92-99) Arterial Blood pH 7.30 (7.35-7.45) Arterial Blood pH (Temp corrected) 7.26 Arterial Blood pCO2 at Patient Temp 60 mmHg (35-46) Arterial Blood pCO2 (Temp correct) 68 mmHg Arterial Blood pO2 at Patient Temp < 42 mmHg (85-108) Arterial Blood pO2 (Temp corrected) 46 mmHg Arterial Blood HCO3 29 mmol/L (21-28) Arterial Blood Base Excess 1 mmol/L (-3-3) Medications Active Scripts Medications Dose Route/Sig Max Daily Dose Days Date Category No Known Medications Prior To Admisstion (Info) Each 1 Each 1X 07/13/20 Reported Comments CXR 07/25/20 IMPRESSION: Aeration of the lungs appears similar to the prior examination. Support lines and tubes are in similar position. There is increased subcutaneous emphysema along the left lateral chest wall at the site of chest tube insertion. CTA chest IMPRESSION: 1. No evidence of acute pulmonary embolism. Evaluation of distal pulmonary salomon megan is limited by motion artifact. 2. Extensive, fairly confluent groundglass opacities throughout both lungs, slightly peripheral and basilar predominance. This could be seen with severe multifocal pneumonia and/or ARDS. Electronically signed by: Lucinda Cespedes MD (07/13/2020 11:33 AM) [id number] Impression . IMPRESSION: 1. Acute hypoxemic respiratory failure secondary to COVID-19 viral pneumonia, intubated, 2. COVID-19 viral pneumonia. 3. Abnormal x-ray. 4. Tobacco dependence. 5. obesity 6. Fever /, on BS abx 7. Severe agitation-- resolved 8. Left pneumothorax - S/P chest tube Plan . PLAN: Continue Vent support, currently 100% and PEEP 11-- in pressure control with driving pressure of 38 and rate of 30, ongoing hypoxia despite current vent support Follow CXR and ABG-- reviewed--no changes continue chest tube, positive air leak Daily CXR Continue adequate sedation Has completed full course of remdesivir Has completed full course of steroids Continue ABX per ID, follow cultures NGTD Monitor renal function -- SEBAS Continue vasopressors to keep MAP greater than 65 Continue TPN for nutritional support, DVT/GI PPX D/W RN and RT Pt. has very poor prognosis Pt. is FULL code Critical Care Time 5099-2334 AM NEEL GANT MD Jul 25, 2020 11:16
--- NOTE | 2020-07-25 12:56 | PDOC ---
Infectious Disease Note Subjective: Subjective pt intubated/sedated Remains febrile Requiring Levophed Vital Signs: Vital Signs Vital Signs Date Time Temp Pulse Resp B/P (MAP) Pulse Ox O2 Delivery O2 Flow Rate FiO2 07/25/20 12:00 99.7 132 30 97/48 (64) 74 Ventilator 99.7 07/24/20 15:00 40.0 Physical Exam: PHYSICAL EXAM GENERAL: Intubated, sedated. HEENT: Normocephalic, atraumatic. ETT and OG tube in place. NECK: Supple. LUNGS: Coarse breath sounds bilaterally. CTS present HEART: S1, S2. Tachycardia ABDOMEN: Obese. Bowel sounds present, mildly distended. EXTREMITIES: No edema, no cyanosis. DERMATOLOGIC: Warm, dry. No generalized rash. NEUROLOGIC: Intubated. PSYCHIATRIC: Unable to assess. Right upper extremity PICC line clean Medications: Inpatient Meds: Current Medications Medications (Trade) Dose Ordered Sig/Sola Start Time Stop Time Status Last Admin Dose Admin Acetaminophen (Tylenol) 650 mg PRN Q6HRS PRN 07/25/20 08:00 Ascorbic Acid (Vitamin C) 1,000 mg DAILY 07/13/20 13:00 07/25/20 08:10 1,000 MG Atropine Sulfate (ATROPINE 0.5mg SYRINGE) 0.5 mg PRN Q5MIN PRN 07/13/20 17:00 Azithromycin 250 ml @ As Directed STK-MED ONCE 07/13/20 09:28 07/13/20 09:28 DC Benzonatate (Tessalon Perle) 100 mg Q6HRS 07/13/20 18:00 07/19/20 10:24 DC 07/18/20 05:36 100 MG Calcium Gluconate 1000 mg/Sodium Chloride 110 ml @ 220 mls/hr 1X ONCE 07/13/20 11:45 07/13/20 12:14 DC 07/13/20 11:51 220 MLS/HR Ceftriaxone Sodium (Rocephin) 1 gm Q24H 07/14/20 09:00 07/13/20 23:25 DC Chlorhexidine Gluconate (Peridex) 15 ml BID 07/13/20 21:00 07/16/20 18:59 DC 07/15/20 08:33 15 ML Dexamethasone (Decadron) 6 mg [id number] 07/14/20 08:00 07/15/20 09:13 DC 07/14/20 09:14 6 MG Dexamethasone Sodium Phosphate (Decadron) 4 mg DAILY 07/23/20 09:00 07/25/20 11:18 DC 07/25/20 08:10 4 MG Dexmedetomidine HCl 400 mcg/ Sodium Chloride 100 ml @ 0 mls/hr CONT PRN 07/13/20 17:00 Dextrose (Dextrose 50%-Water Syringe) 12.5 gm PRN Q15MIN PRN 07/14/20 09:30 Doxycycline Hyclate 100 mg/ Dextrose 100 ml @ 50 mls/hr Q12HR 07/13/20 13:00 07/13/20 23:25 DC 07/13/20 13:21 50 MLS/HR Enoxaparin Sodium (Lovenox 120mg Syringe) 110 mg 1X ONCE 07/13/20 10:15 07/13/20 10:16 DC 07/13/20 10:14 110 MG Enoxaparin Sodium (Lovenox 40mg Syringe) 40 mg BID 07/14/20 21:00 07/25/20 08:10 40 MG Epinephrine HCl (EPINEPHrine SYRINGE) 1 mg STK-MED ONCE 07/24/20 07:00 07/24/20 08:37 DC Etomidate (Amidate) 20 mg STK-MED ONCE 07/13/20 18:00 07/14/20 08:36 DC Famotidine (Pepcid Vial) 20 mg BID 07/14/20 21:00 07/25/20 08:10 20 MG Fentanyl Citrate 55 ml @ 0 mls/hr CONT PRN PRN 07/13/20 19:45 07/25/20 03:55 4 MLS/HR Influenza Virus Vaccine Quadrival (Fluzone Quad Syringe) 0.5 ml ONCE ONCE 07/15/20 09:00 07/15/20 09:01 DC Info (CONTRAST GIVEN -- Rx MONITORING) 1 each PRN DAILY PRN 07/13/20 10:30 07/15/20 10:29 DC Info (Tpn Per Pharmacy) 1 each PRN DAILY PRN 07/15/20 09:15 07/24/20 11:28 1 EACH Insulin Glargine (Lantus Syringe) 45 unit BID 07/17/20 09:00 07/25/20 08:11 45 UNIT Insulin Human Lispro (HumaLOG) 18 units Q6HRS 07/18/20 12:00 07/25/20 12:17 18 UNITS Iohexol (Omnipaque 350 Mg/ml) 100 ml 1X ONCE 07/13/20 10:15 07/13/20 10:16 DC 07/13/20 10:15 100 ML Linezolid/Dextrose 300 ml @ 300 mls/hr Q12HR 07/23/20 09:00 07/25/20 08:09 300 MLS/HR Lorazepam (Ativan Inj) 0.25 mg PRN Q6HRS PRN 07/13/20 16:45 07/13/20 16:42 0.25 MG Magnesium Sulfate 50 ml @ 25 mls/hr 1X ONCE 07/13/20 12:30 07/13/20 14:29 UNV Meropenem 1 gm/ Sodium Chloride 100 ml @ 200 mls/hr Q8HRS 07/25/20 14:00 Midazolam HCl 100 ml @ 0 mls/hr CONT PRN 07/13/20 17:45 07/25/20 10:23 10 MLS/HR Multi-Ingred Cream/Lotion/Oil/ Oint (Artificial Tears Eye Ointment) 1 klaudia Q6HRS 07/16/20 13:00 07/25/20 12:00 1 KLAUDIA Norepinephrine Bitartrate 8 mg/ Dextrose 258 ml @ 22.91 mls/ hr CONT PRN 07/13/20 23:30 07/25/20 09:36 18.328 MLS/HR Ondansetron HCl (Zofran) 4 mg PRN Q8HRS PRN 07/13/20 09:45 07/14/20 08:19 DC Phenol (Chloraseptic) 1 spray PRN Q2HR PRN 07/13/20 16:15 07/13/20 16:27 1 SPRAY Piperacillin Sod/ Tazobactam Sod (Zosyn Per Pharmacy) 1 each PRN DAILY PRN 07/13/20 23:16 07/22/20 09:33 DC Piperacillin Sod/ Tazobactam Sod 3.375 gm/Sodium Chloride 50 ml @ 100 mls/hr Q6HRS 07/23/20 12:00 07/23/20 08:05 DC Piperacillin Sod/ Tazobactam Sod 4.5 gm/Sodium Chloride 100 ml @ 200 mls/hr Q6HRS 07/23/20 09:00 07/25/20 12:46 DC 07/25/20 11:52 200 MLS/HR Potassium Chloride/Water 100 ml @ 100 mls/hr Q1H 07/13/20 11:30 07/13/20 15:29 DC 07/13/20 17:17 100 MLS/HR Potassium Phosphate 13.6 mmol/Sodium Chloride 254.5333 ml @ 127.... Q2H 07/17/20 11:30 07/17/20 13:29 DC 07/17/20 13:22 127.267 MLS/HR Potassium Chloride (Klor-Con) 40 meq 1X ONCE 07/13/20 11:15 07/13/20 11:16 DC 07/13/20 11:20 40 MEQ Prochlorperazine Edisylate (Compazine) 10 mg PRN Q6HRS PRN 07/13/20 16:15 Propofol 100 ml @ 3.42 mls/hr CONT PRN 07/20/20 11:30 07/25/20 08:35 17.7 MLS/HR Remdesivir 100 mg/ Sodium Chloride 230 ml @ 460 mls/hr Q24H 07/14/20 14:00 07/17/20 14:29 DC 07/17/20 15:36 460 MLS/HR Remdesivir 200 mg/ Sodium Chloride 210 ml @ 210 mls/hr 1X ONCE 07/13/20 14:00 07/13/20 14:59 DC 07/13/20 15:21 210 MLS/HR Ringer's Solution 1,000 ml @ 100 mls/hr Q10H 07/13/20 23:30 07/15/20 09:08 DC 07/14/20 20:12 100 MLS/HR Sodium Chloride 50 meq/Potassium Chloride 20 meq/ Potassium Phosphate 23 mmol/ Calcium Gluconate 5 meq/ Multivitamins 5 ml/Zinc/Copper/ Manganese/ Selenium 1 ml/ Thiamine HCl 300 mg/Total Parenteral Nutrition/Amino Acids/Dextrose 1,512 ml @ 63 mls/hr TPN CONT 07/24/20 22:00 07/25/20 21:59 07/24/20 22:07 63 MLS/HR Sodium Chloride 50 meq/Potassium Chloride 20 meq/ Potassium Phosphate 23 mmol/ Calcium Gluconate 5 meq/ Multivitamins 5 ml/Zinc/Copper/ Manganese/ Selenium 1 ml/ Total Parenteral Nutrition/Amino Acids/Dextrose 1,512 ml @ 63 mls/hr TPN CONT 07/22/20 22:00 07/23/20 21:59 DC 07/22/20 22:33 63 MLS/HR Sodium Chloride 70 meq/Potassium Phosphate 23 mmol/ Calcium Gluconate 5 meq/ Multivitamins 5 ml/Zinc/Copper/ Manganese/ Selenium 1 ml/ Total Parenteral Nutrition/Amino Acids/Dextrose 1,512 ml @ 63 mls/hr TPN CONT 07/21/20 22:00 07/22/20 21:59 DC 07/22/20 03:10 63 MLS/HR Sodium Chloride 70 meq/Potassium Phosphate 23 mmol/ Calcium Gluconate 5 meq/ Multivitamins 5 ml/Zinc/Copper/ Manganese/ Selenium 1 ml/ Total Parenteral Nutrition/Amino Acids/Dextrose/ Fat Emulsion Intravenous 1,512 ml @ 63 mls/hr TPN CONT 07/19/20 22:00 07/20/20 21:59 DC 07/19/20 20:49 63 MLS/HR Sodium Chloride 90 meq/Potassium Chloride 25 meq/ Potassium Phosphate 13.6 mmol/Magnesium Sulfate 10 meq/ Calcium Gluconate 10 meq/ Multivitamins 5 ml/Zinc/Copper/ Manganese/ Selenium 1 ml/ Total Parenteral Nutrition/Amino Acids/Dextrose 1,512 ml @ 63 mls/hr TPN CONT 07/15/20 22:00 07/16/20 21:59 DC 07/15/20 22:01 63 MLS/HR Sodium Chloride 90 meq/Potassium Phosphate 20 mmol/ Calcium Gluconate 10 meq/ Multivitamins 5 ml/Zinc/Copper/ Manganese/ Selenium 1 ml/ Total Parenteral Nutrition/Amino Acids/Dextrose/ Fat Emulsion Intravenous 1,512 ml @ 63 mls/hr TPN CONT 07/16/20 22:00 07/17/20 21:59 DC 07/16/20 22:54 63 MLS/HR Sodium Chloride 90 meq/Potassium Phosphate 23 mmol/ Calcium Gluconate 5 meq/ Multivitamins 5 ml/Zinc/Copper/ Manganese/ Selenium 1 ml/ Total Parenteral Nutrition/Amino Acids/Dextrose/ Fat Emulsion Intravenous 1,512 ml @ 63 mls/hr TPN CONT 07/18/20 22:00 07/19/20 21:59 DC 07/18/20 20:52 63 MLS/HR Sodium Chloride 90 meq/Potassium Phosphate 23 mmol/ Calcium Gluconate 10 meq/ Multivitamins 5 ml/Zinc/Copper/ Manganese/ Selenium 1 ml/ Total Parenteral Nutrition/Amino Acids/Dextrose/ Fat Emulsion Intravenous 1,512 ml @ 63 mls/hr TPN CONT 07/17/20 22:00 07/18/20 21:59 DC 07/17/20 21:32 63 MLS/HR Sodium Phosphate 15 mmol/Sodium Chloride 105 ml @ 105 mls/hr 1X ONCE 07/15/20 13:00 07/15/20 13:59 DC 07/15/20 13:12 105 MLS/HR Sodium Phosphate 30 mmol/Sodium Chloride 260 ml @ 65 mls/hr 1X ONCE 07/16/20 13:00 07/16/20 16:59 DC 07/16/20 13:29 65 MLS/HR Sterile Water (WATER for RESP) 1,000 ml CONT PRN 07/13/20 17:15 Succinylcholine Chloride (Anectine) 200 mg STK-MED ONCE 07/13/20 18:00 07/14/20 08:36 DC Thiamine HCl 300 mg/Dextrose 53 ml @ 102 mls/hr DAILY 07/14/20 09:00 07/23/20 10:56 DC 07/23/20 08:53 102 MLS/HR Vancomycin HCl (Vanco Per Pharmacy) 1 each PRN DAILY PRN 07/13/20 23:16 07/14/20 09:14 DC 07/14/20 02:10 1 EACH Vancomycin HCl (Vancomycin Trough Level) 1 each 1X ONCE 07/14/20 23:30 07/14/20 23:31 Cancel Vancomycin HCl 1.5 gm/Sodium Chloride 500 ml @ 250 mls/hr Q8H 07/14/20 08:00 07/14/20 09:14 DC 07/14/20 08:46 250 MLS/HR Vancomycin HCl 2 gm/Sodium Chloride 500 ml @ 250 mls/hr 1X ONCE 07/13/20 23:45 07/14/20 01:44 DC 07/14/20 00:24 250 MLS/HR Vecuronium [place] 50 mg/ Miscellaneous 50 ml @ 5.683 mls/ hr CONT PRN 07/13/20 22:00 07/25/20 10:25 5 MLS/HR Vecuronium [place] (Norcuron Bolus) 6 mg PRN Q4HRS PRN 07/13/20 19:30 07/13/20 19:39 6 MG Vitamin D (Vitamin D3) 1,000 unit DAILY 07/13/20 13:00 07/25/20 08:10 1,000 UNIT Labs: Lab Laboratory Tests Test 07/24/20 13:32 07/24/20 17:25 07/24/20 23:54 07/25/20 05:00 Glucose (Fingerstick) 219 mg/dL (70-99) 225 mg/dL (70-99) 195 mg/dL (70-99) White Blood Count 14.4 x10^3/uL (4.0-11.0) Red Blood Count 4.32 x10^6/uL (4.30-5.70) Hemoglobin 11.5 g/dL (13.0-17.5) Hematocrit 36.5 % (39.0-53.0) Mean Corpuscular Volume 85 fL (79-100) Mean Corpuscular Hemoglobin 27 pg (25-35) Mean Corpuscular Hemoglobin Concent 32 g/dL (31-37) Red Cell Distribution Width 16.7 % (11.5-14.5) Platelet Count 160 x10^3/uL (140-400) Neutrophils (%) (Auto) 88 % (31-73) Lymphocytes (%) (Auto) 6 % (24-48) Monocytes (%) (Auto) 6 % (0-9) Eosinophils (%) (Auto) 0 % (0-3) Basophils (%) (Auto) 1 % (0-3) Neutrophils # (Auto) 12.6 x10^3/uL (1.8-7.7) Lymphocytes # (Auto) 0.8 x10^3/uL (1.0-4.8) Monocytes # (Auto) 0.8 x10^3/uL (0.0-1.1) Eosinophils # (Auto) 0.0 x10^3/uL (0.0-0.7) Basophils # (Auto) 0.1 x10^3/uL (0.0-0.2) Sodium Level 144 mmol/L (136-145) Potassium Level 5.0 mmol/L (3.5-5.1) Chloride Level 108 mmol/L (98-107) Carbon Dioxide Level 30 mmol/L (21-32) Anion Gap 6 (6-14) Blood Urea Nitrogen 45 mg/dL (8-26) Creatinine 1.4 mg/dL (0.7-1.3) Estimated GFR (Cockcroft-Gault) 57.3 Glucose Level 120 mg/dL (70-99) Calcium Level 8.2 mg/dL (8.5-10.1) Test 07/25/20 05:33 07/25/20 07:48 07/25/20 11:55 Glucose (Fingerstick) 136 mg/dL (70-99) 121 mg/dL (70-99) O2 Saturation 67 % (92-99) Arterial Blood pH 7.30 (7.35-7.45) Arterial Blood pH (Temp corrected) 7.26 Arterial Blood pCO2 at Patient Temp 60 mmHg (35-46) Arterial Blood pCO2 (Temp correct) 68 mmHg Arterial Blood pO2 at Patient Temp < 42 mmHg (85-108) Arterial Blood pO2 (Temp corrected) 46 mmHg Arterial Blood HCO3 29 mmol/L (21-28) Arterial Blood Base Excess 1 mmol/L (-3-3) Objective: Assessment: 1. COVID-19 pneumonia 2. Fever could have secondary bacterial pneumonia 3. Acute hypoxic respiratory failure. 4. Morbid obesity. 5. Severe protein-calorie malnutrition. 6. Hyponatremia, hypokalemia. 7. Leukocytosis from steroid 8. complete opacification of the left hemithorax 9. Left pneumothorax status post CTS Plan: Plan of Care Change Zosyn to Merrem Continue Zyvox Leukocytosis improved Status post CTS placement f/u cults neg so far continue supportive care Status post remdesivir 07/14 Status post steroids Monitor labs and cultures Critically ill Prognosis guarded Discussed with ALICIA CASTRO MD Jul 25, 2020 12:56
[2020-07-25] MEDS: TPN PER PHARMACY MC PRN (13:19)
--- NOTE | 2020-07-25 13:21 | NUR ---
Pharmacy TPN Dosing Note S: LYUDMILA HOBBS is a 35 year old M Currently receiving Central Continuous TPN started 07/15/20 B:Pertinent PMH: TF INTOLERANCE, INTUBATED Height: 5 feet, 6 inches Weight: 113.8 kg Current diet: NPO LABS: Sodium: 144 Potassium: 5.0 Chloride: 108 Calcium: 8.2 Corrected Calcium: 9.80 Magnesium: 1.9 CO2: 30 SCr: 1.4 Glucose: 120 Albumin: 2.0 AST: 46 ALT: 39 TPN FORMULA: TPN TYPE: Central Continuous AMINO ACIDS: 120 gm DEXTROSE: 250 gm LIPIDS: - gm SODIUM CHLORIDE: 50 mEq SODIUM ACETATE: - mEq SODIUM PHOSPHATE: 8 mmol POTASSIUM CHLORIDE: - mEq POTASSIUM ACETATE: - mEq POTASSIUM PHOSPHATE: 15 mmol MAGNESIUM: - mEq CALCIUM: 5 mEq INSULIN: - units MULTIPLE VITAMIN: 5 ml TRACE ELEMENTS: 1 ml(s) TPN PLAN: Increase dextrose to 250gm per dietitian recs K=5.0; will remove all KCl (20mEq) and convert some [facility] to [facility] in the am R: Continue TPN as written above. Will monitor electrolytes, glucose, and tolerance to TPN. IVETTE FERRIS RPH, 07/25/20 [id number]
[2020-07-25] MEDS: MEROPENEM 1 GM in IV NORMAL SALINE 100ML 100 ML IV SCH ×2 (13:45→21:49)
[2020-07-25] MEDS ORDERED: TOTAL PARENTERAL NUTRITION IV SCH (22:00)
[2020-07-25] MEDS ORDERED: DEXTROSE 70% IV SCH (22:00)
[2020-07-25] MEDS ORDERED: AMINO ACID IV SCH (22:00)
[2020-07-25] MEDS ORDERED: [UNRECOGNIZED DRUG - OTHER] IV SCH (22:00)
[2020-07-26] VITALS: BP 141/66
[2020-07-26 01:00] VITALS: BP 77/44
--- NOTE | 2020-07-26 01:15 | NUR ---
2100- O2 sat began to drop to 70's. Fluctuated from 71-88%, but stayed mostly in 70's. 2214 - Family called with update to let them know of pt's continued decline. 2229 - Dr Sandhu called with update. Sr Sandhu states there is nothing more to be done at this time. 2300- Family at bedside. 0006 - Family requests comfort care through Viky FAJARDO who is at the bedside to translate. Dr Sandhu called and new orders for DNR and comfort care received. 0032 - All drips turned off at this time. 0115 - Pt remains with 0/4 twitches on TOF. No cough, gag, pupillary, or deep pain response. Will wait another 30 minutes to be sure paralytic is out of system before extubation.
--- NOTE | 2020-07-26 02:37 | NUR ---
Pt extubated 0200 by RT. No attempt to breathe was made. 4/4 twitches on TOF assessment. No cough, gag, blink, or response to deep pain. No pupillary reflexes present. Time of 020.
--- NOTE | 2020-07-30 20:31 | PDOC3 ---
Discharge Summary Date of Discharge: Jul 25, 2020 Follow-Up: Other () Admitting Diagnosis comment: discharge hospital summary Chief Complaint impression Acute hypoxemic respiratory failure secondary to COVID-19 viral pneumonia. COVID-19 viral pneumonia. severe multifocal pneumonia and/or ARDS. Tobacco dependence. Hyponatremia Hyperkalemia Hypomagnesemia vent support assist-control mode currently FiO2 of 100% and PEEP of 11 Worsening oxygenation Status post CTS placement f/u cults neg so far /continue supportive care Status post remdesivir 07/14 Status post steroids Monitor labs and cultures plan 07-25-19 icu bed FEN - TPN PPX - lovenox FULL CODE Dispo - ICU Continue full course of remdesivir Continue Dexamethasone ,, taper iv ABX zyvox and zosyn, FiO2 85% PEEP of 11 S/P chest tube 07-24 // The left pneumothorax has decreased in size, no longer visible Fever overnight 102.2 cc time 37 minutes History of Present Illness History of Present Illness Mr Luque is a 35 yo M morbidly obese who presented with chief complaint of respiratory distress. Patient tested positive for Covid about 6 days prior to admit Patient had a fever, chills, cough, myalgias and headache. Patient had abdominal discomfort with diarrhea. Over the last day the patient became more short of breath. Patient had trouble sleeping and was satting 65% on room air in triage. Symptoms worse with activity and at night and somewhat better with taking Tylenol. 07/13: Eventful day with worsening respiratory distress, required intubation emergently with ED physician 07/14: Febrile to 101.8F this morning. PEEP 14, FiO2 100%. UOP stable. Required paralysis overnight for vent dysynchrony. Remdesivir day 1 07/15: Temp 100 F this morning. Still requiring paralysis for vent dyssynchrony on PEEP of 14 with FiO2 100%. Right upper extremity PICC placed for pressors. 07/16: Afebrile overnight still requiring PEEP of 14 and FiO2 100% but PaO2 on ABG up to 59 today. Glucose in the 300s despite insulin regimen. Triglycerides low 200s on TPN. Phosphorus low at 1.5. 07/17: T-max 100.4 F overnight. Glucose still in the 300s despite very large increase in insulin. O2 saturations 96% on PEEP of 14 and FiO2 100%. Labs pending. 07/18: Afebrile overnight. Still in 300s. O2 saturation 97% on PEEP of 14 FiO2 40%. ABG 7.35/59/91. No desaturations with repositioning today. Chest radiograph overall slightly improved 07/19: Afebrile overnight seen on vent paralyzed on TPN with FiO2 85% PEEP of 14. ABG 7.41/50/92. Afebrile. FiO2 80%, PEEP 13. ABG 7.39/53/69. Plan: Cont ICU care Vitals Vitals Vital Signs Date Time Temp Pulse Resp B/P (MAP) Pulse Ox O2 Delivery O2 Flow Rate FiO2 07/25/20 10:00 140 30 77/44 (55) 69 Ventilator 07/25/20 07:00 104.0 104.0 07/24/20 15:00 40.0 Physical Exam Physical Exam GENERAL: Intubated, sedated. HEENT: Normocephalic, atraumatic. ETT and OG tube in place. NECK: Supple. LUNGS: Coarse breath sounds bilaterally. CTS present HEART: S1, S2. Tachycardia ABDOMEN: Obese. Bowel sounds present, mildly distended. EXTREMITIES: No edema, no cyanosis. DERMATOLOGIC: Warm, dry. No generalized rash. NEUROLOGIC: Intubated. PSYCHIATRIC: Unable to assess. Right upper extremity PICC line clean General: Cooperative, No acute distress Heart: Regular rate, Normal S1, Normal S2 Abdomen: Normal bowel sounds, Soft Extremities: No clubbing, No cyanosis Skin: No rashes, No breakdown Labs LABS XR CHEST 1V 07/25/2020 6:29 AM INDICATION: Chest tube COMPARISON: 07/24/2020 TECHNIQUE: Portable frontal view of the chest is provided. FINDINGS: The cardiomediastinal silhouette is similar in appearance. Endotracheal tube, nasogastric tube, right upper extremity PICC and left-sided thoracostomy tube are in similar position. There is near complete opacification the left hemithorax, similar to prior examination. Air bronchograms are identified. No pneumothorax. There is subcutaneous emphysema along the left lateral chest wall inferiorly at the site of chest tube insertion. Perihilar mixed interstitial and alveolar airspace disease identified within the right lung, similar. No suspicious osseous abnormality. IMPRESSION: Aeration of the lungs appears similar to the prior examination. Support lines and tubes are in similar position. There is increased subcutaneous emphysema along the left lateral chest wall at the site of chest tube insertion. Electronically signed by: Naomie Tobar MD (07/25/2020 6:38 AM) [facility] DICTATED and SIGNED BY: NAOMIE TOBAR MD DATE: 07/25/20 [id number] 0 FINAL DIAGNOSIS Problems Medical Problems: (1) Acute hypoxemic respiratory failure due to severe acute respiratory syndrome coronavirus 2 (SARS-CoV-2) disease Status: Acute (2) Dyspnea Status: Acute Brief Hospital Course Mr. Faulkner is a 35 old [sex] who presented with [ ] CONDITION AT DISCHARGE: / Discharge Medications Current Medications Dexamethasone Sodium Phosphate (Decadron) 6 mg 1X ONCE IV ; Start 07/13/20 at 09:30; Stop 07/13/20 at 09:39; Status DC Ceftriaxone Sodium (Rocephin) 1 gm 1X ONCE IVP Last administered on 07/13/20at 09:36; Start 07/13/20 at 09:30; Stop 07/13/20 at 09:31; Status DC Azithromycin 250 ml @ 250 mls/hr 1X ONCE IV Last administered on 07/13/20at 09:37; Start 07/13/20 at 09:30; Stop 07/13/20 at 10:29; Status DC Sodium Chloride 1,000 ml @ 1,000 mls/hr 1X ONCE IV Last administered on 07/13/20at 09:36; Start 07/13/20 at 09:30; Stop 07/13/20 at 10:29; Status DC Acetaminophen (Tylenol) 1,000 mg 1X ONCE PO Last administered on 07/13/20at 09:36; Start 07/13/20 at 09:30; Stop 07/13/20 at 09:31; Status DC Dexamethasone Sodium Phosphate (Decadron) 4 mg STK-MED ONCE .ROUTE ; Start 07/13/20 at 09:28; Stop 07/13/20 at 09:28; Status DC Azithromycin 250 ml @ As Directed STK-MED ONCE IV ; Start 07/13/20 at 09:28; Stop 07/13/20 at 09:28; Status DC Ceftriaxone Sodium (Rocephin) 1 gm STK-MED ONCE IVP ; Start 07/13/20 at 09:28; Stop 07/13/20 at 09:28; Status DC Dexamethasone Sodium Phosphate (Decadron) 6 mg 1X ONCE IVP Last administered on 07/13/20at 09:42; Start 07/13/20 at 09:45; Stop 07/13/20 at 09:46; Status DC Ondansetron HCl (Zofran) 4 mg PRN Q8HRS PRN IV NAUSEA/VOMITING; Start 07/13/20 at 09:45; Stop 07/14/20 at 08:19; Status DC Enoxaparin Sodium (Lovenox 120mg Syringe) 110 mg 1X ONCE SQ Last administered on 07/13/20at 10:14; Start 07/13/20 at 10:15; Stop 07/13/20 at 10:16; Status DC Iohexol (Omnipaque 350 Mg/ml) 100 ml 1X ONCE IV Last administered on 07/13/20at 10:15; Start 07/13/20 at 10:15; Stop 07/13/20 at 10:16; Status DC Info (CONTRAST GIVEN -- Rx MONITORING) 1 each PRN DAILY PRN MC SEE COMMENTS; Start 07/13/20 at 10:30; Stop 07/15/20 at 10:29; Status DC Potassium Chloride (Klor-Con) 40 meq 1X ONCE PO Last administered on 07/13/20at 11:20; Start 07/13/20 at 11:15; Stop 07/13/20 at 11:16; Status DC Potassium Chloride/Water 100 ml @ 100 mls/hr Q1H IV ; Start 07/13/20 at 10:45; Stop 07/13/20 at 10:46; Status DC Potassium Chloride/Water 100 ml @ 100 mls/hr Q1H IV Last administered on 07/13/20at 17:17; Start 07/13/20 at 11:30; Stop 07/13/20 at 15:29; Status DC Sodium Chloride 1,000 ml @ 125 mls/hr 1X ONCE IV Last administered on 07/13/20at 11:26; Start 07/13/20 at 11:00; Stop 07/13/20 at 18:59; Status DC Calcium Gluconate 1000 mg/Sodium Chloride 110 ml @ 220 mls/hr 1X ONCE IV Last administered on 07/13/20at 11:51; Start 07/13/20 at 11:45; Stop 07/13/20 at 12:14; Status DC Magnesium Sulfate 50 ml @ 25 mls/hr 1X ONCE IV Last administered on 07/13/20at 13:26; Start 07/13/20 at 11:30; Stop 07/13/20 at 13:29; Status DC Remdesivir 200 mg/ Sodium Chloride 210 ml @ 210 mls/hr 1X ONCE IV Last administered on 07/13/20at 15:21; Start 07/13/20 at 14:00; Stop 07/13/20 at 14:59; Status DC Remdesivir 100 mg/ Sodium Chloride 230 ml @ 460 mls/hr Q24H IV Last administered on 07/17/20at 15:36; Start 07/14/20 at 14:00; Stop 07/17/20 at 14:29; Status DC Magnesium Sulfate 50 ml @ 25 mls/hr 1X ONCE IV ; Start 07/13/20 at 12:30; Stop 07/13/20 at 14:29; Status UNV Vitamin D (Vitamin D3) 1,000 unit DAILY PO Last administered on 07/25/20at 08:10; Start 07/13/20 at 13:00; Stop 07/26/20 at 06:46; Status DC Ascorbic Acid (Vitamin C) 1,000 mg DAILY PO Last administered on 07/25/20at 08:10; Start 07/13/20 at 13:00; Stop 07/26/20 at 06:46; Status DC Dexamethasone (Decadron) 6 mg DAILYWBKFT PO Last administered on 07/14/20at 09:14; Start 07/14/20 at 08:00; Stop 07/15/20 at 09:13; Status DC Doxycycline Hyclate 100 mg/ Dextrose 100 ml @ 50 mls/hr Q12HR IV Last administered on 07/13/20at 13:21; Start 07/13/20 at 13:00; Stop 07/13/20 at 23:25; Status DC Ceftriaxone Sodium (Rocephin) 1 gm Q24H IVP ; Start 07/14/20 at 09:00; Stop 07/13/20 at 23:25; Status DC Enoxaparin Sodium (Lovenox 40mg Syringe) 40 mg Q24H SQ Last administered on 07/13/20at 13:31; Start 07/13/20 at 13:00; Stop 07/14/20 at 10:47; Status DC Influenza Virus Vaccine Quadrival (Fluzone Quad Syringe) 0.5 ml ONCE ONCE VAX IM ; Start 07/15/20 at 09:00; Stop 07/15/20 at 09:01; Status DC Benzonatate (Tessalon Perle) 100 mg Q6HRS PO Last administered on 07/18/20at 05:36; Start 07/13/20 at 18:00; Stop 07/19/20 at 10:24; Status DC Phenol (Chloraseptic) 1 spray PRN Q2HR PRN PO SORE THROAT Last administered on 07/13/20at 16:27; Start 07/13/20 at 16:15; Stop 07/26/20 at 06:46; Status DC Acetaminophen (Tylenol) 650 mg PRN Q6HRS PRN PO MILD PAIN / TEMP > 100.3'F Last administered on 07/25/20at 00:16; Start 07/13/20 at 16:15; Stop 07/26/20 at 06:46; Status DC Prochlorperazine Edisylate (Compazine) 10 mg PRN Q6HRS PRN IV NAUSEA/VOMITING; Start 07/13/20 at 16:15; Stop 07/26/20 at 06:46; Status DC Lorazepam (Ativan Inj) 0.25 mg PRN Q6HRS PRN IVP ANXIETY / AGITATION Last administered on 07/13/20at 16:42; Start 07/13/20 at 16:45; Stop 07/26/20 at 06:46; Status DC Sterile Water (WATER for RESP) 1,000 ml CONT PRN INH VIA VAPOTHERM DEVICE; Start 07/13/20 at 17:15; Stop 07/26/20 at 06:46; Status DC Dexmedetomidine HCl 400 mcg/ Sodium Chloride 100 ml @ 0 mls/hr CONT PRN IV PER PROTOCOL; Start 07/13/20 at 17:00; Stop 07/26/20 at 06:46; Status DC Sodium Chloride 500 ml @ 500 mls/hr 1X PRN PRN IV SEE COMMENTS; Start 07/13/20 at 17:00; Stop 07/26/20 at 06:46; Status DC Atropine Sulfate (ATROPINE 0.5mg SYRINGE) 0.5 mg PRN Q5MIN PRN IV SEE COMMENTS; Start 07/13/20 at 17:00; Stop 07/26/20 at 06:46; Status DC Propofol 100 ml @ As Directed STK-MED ONCE IV ; Start 07/13/20 at 17:20; Stop 07/13/20 at 17:20; Status DC Succinylcholine Chloride (Anectine) 200 mg STK-MED ONCE .ROUTE ; Start 07/13/20 at 17:40; Stop 07/13/20 at 17:41; Status DC Fentanyl Citrate 30 ml @ 0 mls/hr CONT PRN IV SEE PROTOCOL Last administered on 07/13/20at 18:40; Start 07/13/20 at 17:45; Stop 07/13/20 at 20:11; Status DC Propofol 100 ml @ 0 mls/hr CONT PRN IV PER PROTOCOL Last administered on 07/14/20at 20:13; Start 07/13/20 at 17:45; Stop 07/20/20 at 11:33; Status DC Chlorhexidine Gluconate (Peridex) 15 ml BID MM Last administered on 07/15/20at 08:33; Start 07/13/20 at 21:00; Stop 07/16/20 at 18:59; Status DC Midazolam HCl 100 ml @ 0 mls/hr CONT PRN IV SEE PROTOCOL Last administered on 07/25/20at 21:17; Start 07/13/20 at 17:45; Stop 07/26/20 at 06:46; Status DC Vecuronium [place] (Norcuron Bolus) 10 mg STK-MED ONCE IV ; Start 07/13/20 at 18:12; Stop 07/13/20 at 18:12; Status DC Etomidate (Amidate) 20 mg STK-MED ONCE IV ; Start 07/13/20 at 18:24; Stop 07/13/20 at 18:24; Status DC Vecuronium [place] (Norcuron Bolus) 6 mg PRN Q4HRS PRN IV Out of sync with ventilator Last administered on 07/13/20at 19:39; Start 07/13/20 at 19:30; Stop 07/26/20 at 06:46; Status DC Fentanyl Citrate 55 ml @ 0 mls/hr CONT PRN PRN IV PAIN Last administered on 07/25/20at 17:27; Start 07/13/20 at 19:45; Stop 07/26/20 at 06:46; Status DC Vecuronium [place] 50 mg/ Miscellaneous 50 ml @ 5.683 mls/ hr CONT PRN IV SEE I/O RECORD Last administered on 07/25/20at 21:18; Start 07/13/20 at 22:00; Stop 07/26/20 at 06:46; Status DC Norepinephrine Bitartrate 8 mg/ Dextrose 258 ml @ 22.91 mls/ hr CONT PRN IV PER PROTOCOL Last administered on 07/25/20at 09:36; Start 07/13/20 at 23:30; Stop 07/25/20 at 14:36; Status DC Ringer's Solution 1,000 ml @ 100 mls/hr Q10H IV Last administered on 07/14/20at 20:12; Start 07/13/20 at 23:30; Stop 07/15/20 at 09:08; Status DC Thiamine HCl 300 mg/Dextrose 53 ml @ 102 mls/hr DAILY IV Last administered on 07/23/20at 08:53; Start 07/14/20 at 09:00; Stop 07/23/20 at 10:56; Status DC Vancomycin HCl (Vanco Per Pharmacy) 1 each PRN DAILY PRN MC SEE COMMENTS Last administered on 07/14/20at 02:10; Start 07/13/20 at 23:16; Stop 07/14/20 at 09:14; Status DC Piperacillin Sod/ Tazobactam Sod (Zosyn Per Pharmacy) 1 each PRN DAILY PRN MC SEE COMMENTS; Start 07/13/20 at 23:16; Stop 07/22/20 at 09:33; Status DC Vancomycin HCl 2 gm/Sodium Chloride 500 ml @ 250 mls/hr 1X ONCE IV Last administered on 07/14/20at 00:24; Start 07/13/20 at 23:45; Stop 07/14/20 at 01:44; Status DC Piperacillin Sod/ Tazobactam Sod 3.375 gm/Sodium Chloride 50 ml @ 100 mls/hr Q6HRS IV Last administered on 07/22/20at 06:50; Start 07/14/20 at 00:00; Stop 07/22/20 at 09:32; Status DC Vancomycin HCl 1.5 gm/Sodium Chloride 500 ml @ 250 mls/hr Q8H IV Last administered on 07/14/20at 08:46; Start 07/14/20 at 08:00; Stop 07/14/20 at 09:14; Status DC Vancomycin HCl (Vancomycin Trough Level) 1 each 1X ONCE MC ; Start 07/14/20 at 23:30; Stop 07/14/20 at 23:31; Status Cancel Etomidate (Amidate) 20 mg STK-MED ONCE IV ; Start 07/13/20 at 18:00; Stop 07/14/20 at 08:36; Status DC Succinylcholine Chloride (Anectine) 200 mg STK-MED ONCE .ROUTE ; Start 07/13/20 at 18:00; Stop 07/14/20 at 08:36; Status DC Linezolid/Dextrose 300 ml @ 300 mls/hr Q12HR IV Last administered on 07/19/20at 09:56; Start 07/14/20 at 21:00; Stop 07/19/20 at 10:10; Status DC Insulin Glargine (Lantus Syringe) 8 unit QHS SQ Last administered on 07/14/20at 20:42; Start 07/14/20 at 21:00; Stop 07/15/20 at 07:57; Status DC Insulin Human Lispro (HumaLOG) 0-9 UNITS Q6HRS SQ Last administered on 07/25/20at 23:44; Start 07/14/20 at 12:00; Stop 07/26/20 at 06:46; Status DC Dextrose (Dextrose 50%-Water Syringe) 12.5 gm PRN Q15MIN PRN IV SEE COMMENTS; Start 07/14/20 at 09:30; Stop 07/26/20 at 06:46; Status DC Enoxaparin Sodium (Lovenox 40mg Syringe) 40 mg BID SQ Last administered on 07/25/20at 21:18; Start 07/14/20 at 21:00; Stop 07/26/20 at 06:46; Status DC Famotidine (Pepcid Vial) 20 mg BID IVP Last administered on 07/25/20at 21:18; Start 07/14/20 at 21:00; Stop 07/26/20 at 06:46; Status DC Insulin Glargine (Lantus Syringe) 15 unit QHS SQ ; Start 07/15/20 at 21:00; Stop 07/15/20 at 18:18; Status DC Insulin Human Lispro (HumaLOG) 5 units Q6HRS SQ Last administered on 07/15/20at 23:46; Start 07/15/20 at 12:00; Stop 07/16/20 at 09:56; Status DC Info (Tpn Per Pharmacy) 1 each PRN DAILY PRN MC SEE COMMENTS Last administered on 07/25/20at 13:19; Start 07/15/20 at 09:15; Stop 07/26/20 at 06:46; Status DC Dexamethasone Sodium Phosphate (Decadron) 6 mg DAILY IVP Last administered on 07/22/20at 08:12; Start 07/15/20 at 10:00; Stop 07/22/20 at 13:47; Status DC Sodium Chloride 90 meq/Potassium Chloride 25 meq/ Potassium Phosphate 13.6 mmol/Magnesium Sulfate 10 meq/ Calcium Gluconate 10 meq/ Multivitamins 5 ml/Zinc/Copper/ Manganese/ Selenium 1 ml/ Total Parenteral Nutrition/Amino Acids/Dextrose 1,512 ml @ 63 mls/hr TPN CONT IV Last administered on 07/15/20at 22:01; Start 07/15/20 at 22:00; Stop 07/16/20 at 21:59; Status DC Sodium Phosphate 15 mmol/Sodium Chloride 105 ml @ 105 mls/hr 1X ONCE IV Last administered on 07/15/20at 13:12; Start 07/15/20 at 13:00; Stop 07/15/20 at 13:59; Status DC Insulin Glargine (Lantus Syringe) 20 unit QHS SQ Last administered on 07/15/20at 21:04; Start 07/15/20 at 21:00; Stop 07/16/20 at 09:56; Status DC Insulin Human Lispro (HumaLOG) 18 units 1X ONCE SQ Last administered on 07/16/20at 00:41; Start 07/16/20 at 01:00; Stop 07/16/20 at 01:01; Status DC Insulin Human Lispro (HumaLOG) 26 units 1X ONCE SQ Last administered on 07/16/20at 06:06; Start 07/16/20 at 06:30; Stop 07/16/20 at 06:31; Status DC Insulin Glargine (Lantus Syringe) 45 unit QHS SQ Last administered on 07/16/20at 21:24; Start 07/16/20 at 21:00; Stop 07/17/20 at 06:44; Status DC Insulin Human Lispro (HumaLOG) 10 units Q6HRS SQ Last administered on 07/18/20at 05:38; Start 07/16/20 at 12:00; Stop 07/18/20 at 10:07; Status DC Sodium Phosphate 30 mmol/Sodium Chloride 260 ml @ 65 mls/hr 1X ONCE IV Last administered on 07/16/20at 13:29; Start 07/16/20 at 13:00; Stop 07/16/20 at 16:59; Status DC Multi-Ingred Cream/Lotion/Oil/ Oint (Artificial Tears Eye Ointment) 1 klaudia Q6HRS OU Last administered on 07/25/20at 23:44; Start 07/16/20 at 13:00; Stop 07/26/20 at 06:46; Status DC Sodium Chloride 90 meq/Potassium Phosphate 20 mmol/ Calcium Gluconate 10 meq/ Multivitamins 5 ml/Zinc/Copper/ Manganese/ Selenium 1 ml/ Total Parenteral Nutrition/Amino Acids/Dextrose/ Fat Emulsion Intravenous 1,512 ml @ 63 mls/hr TPN CONT IV Last administered on 07/16/20at 22:54; Start 07/16/20 at 22:00; Stop 07/17/20 at 21:59; Status DC Insulin Human Lispro (HumaLOG) 20 units 1X ONCE SQ Last administered on 07/16/20at 23:55; Start 07/16/20 at 23:55; Stop 07/16/20 at 23:56; Status DC Insulin Glargine (Lantus Syringe) 45 unit BID SQ Last administered on 07/25/20at 21:20; Start 07/17/20 at 09:00; Stop 07/26/20 at 06:46; Status DC Insulin Human Lispro (HumaLOG) 25 units 1X ONCE SQ Last administered on 07/17/20at 06:50; Start 07/17/20 at 07:00; Stop 07/17/20 at 07:01; Status DC Potassium Phosphate 13.6 mmol/Sodium Chloride 254.5333 ml @ 127.... Q2H IV Last administered on 07/17/20at 13:22; Start 07/17/20 at 11:30; Stop 07/17/20 at 13:29; Status DC Sodium Chloride 90 meq/Potassium Phosphate 23 mmol/ Calcium Gluconate 10 meq/ Multivitamins 5 ml/Zinc/Copper/ Manganese/ Selenium 1 ml/ Total Parenteral Nutrition/Amino Acids/Dextrose/ Fat Emulsion Intravenous 1,512 ml @ 63 mls/hr TPN CONT IV Last administered on 07/17/20at 21:32; Start 07/17/20 at 22:00; Stop 07/18/20 at 21:59; Status DC Insulin Human Lispro (HumaLOG) 18 units Q6HRS SQ Last administered on 07/25/20at 23:45; Start 07/18/20 at 12:00; Stop 07/26/20 at 06:46; Status DC Sodium Chloride 90 meq/Potassium Phosphate 23 mmol/ Calcium Gluconate 5 meq/ Multivitamins 5 ml/Zinc/Copper/ Manganese/ Selenium 1 ml/ Total Parenteral Nutrition/Amino Acids/Dextrose/ Fat Emulsion Intravenous 1,512 ml @ 63 mls/hr TPN CONT IV Last administered on 07/18/20at 20:52; Start 07/18/20 at 22:00; Stop 07/19/20 at 21:59; Status DC Sodium Chloride 70 meq/Potassium Phosphate 23 mmol/ Calcium Gluconate 5 meq/ Multivitamins 5 ml/Zinc/Copper/ Manganese/ Selenium 1 ml/ Total Parenteral Nutrition/Amino Acids/Dextrose/ Fat Emulsion Intravenous 1,512 ml @ 63 mls/hr TPN CONT IV Last administered on 07/19/20at 20:49; Start 07/19/20 at 22:00; Stop 07/20/20 at 21:59; Status DC Propofol 100 ml @ 3.42 mls/hr CONT PRN IV PER PROTOCOL Last administered on 07/25/20at 13:46; Start 07/20/20 at 11:30; Stop 07/26/20 at 06:46; Status DC Sodium Chloride 70 meq/Potassium Phosphate 23 mmol/ Calcium Gluconate 5 meq/ Multivitamins 5 ml/Zinc/Copper/ Manganese/ Selenium 1 ml/ Total Parenteral Nutrition/Amino Acids/Dextrose 1,512 ml @ 63 mls/hr TPN CONT IV Last administ ered on 07/20/20at 20:48; Start 07/20/20 at 22:00; Stop 07/21/20 at 21:59; Status DC Sodium Chloride 70 meq/Potassium Phosphate 23 mmol/ Calcium Gluconate 5 meq/ Multivitamins 5 ml/Zinc/Copper/ Manganese/ Selenium 1 ml/ Total Parenteral Nutrition/Amino Acids/Dextrose 1,512 ml @ 63 mls/hr TPN CONT IV Last administered on 07/22/20at 03:10; Start 07/21/20 at 22:00; Stop 07/22/20 at 21:59; Status DC Sodium Chloride 50 meq/Potassium Chloride 20 meq/ Potassium Phosphate 23 mmol/ Calcium Gluconate 5 meq/ Multivitamins 5 ml/Zinc/Copper/ Manganese/ Selenium 1 ml/ Total Parenteral Nutrition/Amino Acids/Dextrose 1,512 ml @ 63 mls/hr TPN CONT IV Last administered on 07/22/20at 22:33; Start 07/22/20 at 22:00; Stop 07/23/20 at 21:59; Status DC Dexamethasone Sodium Phosphate (Decadron) 4 mg DAILY IVP Last administered on 07/25/20at 08:10; Start 07/23/20 at 09:00; Stop 07/25/20 at 11:18; Status DC Linezolid/Dextrose 300 ml @ 300 mls/hr Q12HR IV Last administered on 07/25/20at 21:16; Start 07/23/20 at 09:00; Stop 07/26/20 at 06:46; Status DC Piperacillin Sod/ Tazobactam Sod 3.375 gm/Sodium Chloride 50 ml @ 100 mls/hr Q6HRS IV ; Start 07/23/20 at 12:00; Stop 07/23/20 at 08:05; Status DC Piperacillin Sod/ Tazobactam Sod 4.5 gm/Sodium Chloride 100 ml @ 200 mls/hr Q6HRS IV Last administered on 07/25/20at 11:52; Start 07/23/20 at 09:00; Stop 07/25/20 at 12:46; Status DC Sodium Chloride 50 meq/Potassium Chloride 20 meq/ Potassium Phosphate 23 mmol/ Calcium Gluconate 5 meq/ Multivitamins 5 ml/Zinc/Copper/ Manganese/ Selenium 1 ml/ Thiamine HCl 300 mg/Total Parenteral Nutrition/Amino Acids/Dextrose 1,512 ml @ 63 mls/hr TPN CONT IV Last administered on 07/23/20at 21:56; Start 07/23/20 at 22:00; Stop 07/24/20 at 21:59; Status DC Sodium Chloride 1,000 ml @ 1,000 mls/hr 1X ONCE IV Last administered on 07/23/20at 10:00; Start 07/23/20 at 10:00; Stop 07/23/20 at 17:27; Status DC Epinephrine HCl (EPINEPHrine SYRINGE) 1 mg STK-MED ONCE .ROUTE ; Start 07/24/20 at 06:34; Stop 07/24/20 at 06:35; Status DC Epinephrine HCl (EPINEPHrine SYRINGE) 1 mg STK-MED ONCE .ROUTE ; Start 07/24/20 at 07:00; Stop 07/24/20 at 08:37; Status DC Sodium Chloride 50 meq/Potassium Chloride 20 meq/ Potassium Phosphate 23 mmol/ Calcium Gluconate 5 meq/ Multivitamins 5 ml/Zinc/Copper/ Manganese/ Selenium 1 ml/ Thiamine HCl 300 mg/Total Parenteral Nutrition/Amino Acids/Dextrose 1,512 ml @ 63 mls/hr TPN CONT IV Last administered on 07/24/20at 22:07; Start 07/24/20 at 22:00; Stop 07/25/20 at 21:59; Status DC Acetaminophen (Tylenol) 650 mg PRN Q6HRS PRN PEG MILD PAIN / TEMP > 100.3'F; Start 07/25/20 at 08:00; Stop 07/26/20 at 06:46; Status DC Meropenem 1 gm/ Sodium Chloride 100 ml @ 200 mls/hr Q8HRS IV Last administered on 07/25/20at 21:49; Start 07/25/20 at 14:00; Stop 07/26/20 at 06:46; Status DC Sodium Chloride 50 meq/Sodium Phosphate 8 mmol/ Potassium Phosphate 15 mmol/ Calcium Gluconate 5 meq/ Multivitamins 5 ml/Zinc/Copper/ Manganese/ Selenium 1 ml/ Thiamine HCl 300 mg/Total Parenteral Nutrition/Amino Acids/Dextrose 1,512 ml @ 63 mls/hr TPN CONT IV Last administered on 07/25/20at 21:50; Start 07/25/20 at 22:00; Stop 07/26/20 at 06:46; Status DC Norepinephrine Bitartrate 8 mg/ Dextrose 258 ml @ 22.91 mls/ hr CONT PRN IV PER PROTOCOL Last administered on 07/25/20at 23:34; Start 07/25/20 at 15:30; Stop 07/26/20 at 06:46; Status DC Active Scripts Active Reported No Known Medications Prior To Admisstion (Info) Each 1 Each 1X Allergies Allergies Coded Allergies Type Severity Reaction Last Updated Verified No Known Drug Allergies 07/13/20 No Disposition/Orders: Justicifation of Admission Dx: Justifications for Admission: Justification of Admission Dx: Yes Comminuty Aquired Pneumonia: Dehydration COLIN VELAZQUEZ MD Jul 30, 2020 20:31
== END 2020-07-26 02:07 | DRG 207 ==
LOC: ER 08:59 → ED HOLD 09:41 → EDBD 09:41 → 1 WEST ICU 12:45
PROVIDERS: ADMIT Internal Medicine; ATTEND Internal Medicine
PROC: 0BH17EZ Insertion of Endotracheal Airway into Trachea, Via Natural or Artificial Opening (ICD-10-PCS; principal; 2020-07-13)
PROC: 5A1955Z Respiratory Ventilation, Greater than 96 Consecutive Hours (ICD-10-PCS; 2020-07-13)
PROC: 02HV33Z Insertion of Infusion Device into Superior Vena Cava, Percutaneous Approach (ICD-10-PCS; 2020-07-13)
PROC: XW033E5 Introduction of Remdesivir Anti-infective into Peripheral Vein, Percutaneous Approach, New Technology Group 5 (ICD-10-PCS; 2020-07-13)
PROC: 0W9B30Z Drainage of Left Pleural Cavity with Drainage Device, Percutaneous Approach (ICD-10-PCS; 2020-07-24)
DX: U07.1 COVID-19 (principal); E43 Unspecified severe protein-calorie malnutrition; J80 Acute respiratory distress syndrome; J12.82 Pneumonia due to coronavirus disease 2019; E87.1 Hypo-osmolality and hyponatremia; J93.9 Pneumothorax, unspecified; T79.7XXA Traumatic subcutaneous emphysema, initial encounter; Z68.41 Body mass index [BMI] 40.0-44.9, adult; E66.01 Morbid (severe) obesity due to excess calories; E83.39 Other disorders of phosphorus metabolism; E83.42 Hypomagnesemia; E83.51 Hypocalcemia; E87.5 Hyperkalemia; E87.6 Hypokalemia; F17.200 Nicotine dependence, unspecified, uncomplicated; T38.0X5A Adverse effect of glucocorticoids and synthetic analogues, initial encounter; Z86.19 Personal history of other infectious and parasitic diseases
CPT/HCPCS: 36415; 36569; 36600; 71045; 71275; 80048; 80053; 80076; 80307; 81001; 82728; 82805; 82962; 83605; 83615; 83735; 83880; 84100; 84145; 84478; 84484; 85007; 85025; 85379; 85610; 85730; 86140; 87040; 87070; 87077; 87086; 87186; 87205; 87493; 87804; 93005; 94002; 94003; 94660; 94667; 94668; 94760; 96365; 96367; 96372; 96375; J0171; J0330; J0456; J0610; J0696; J1100; J1650; J1815; J2020; J2060; J2185; J2250; J2543; J2704; J3010; J3370; J3411; J3475; J3480; J3490; J7030; J7040; J7050; J7060; J7120; Q9967; 99291-25; G0378